=== PATIENT | male | born 1930 | race Caucasian/White ===

== ENCOUNTER 2018-12-23 07:10 | Emergency (ER) | payer MEDICARE ==
[2018-12-23 07:17] VITALS: RESP 18
--- NOTE | 2018-12-23 07:39 | ED ---
General Adult HPI - General Chief complaint: Recheck/Abnormal Lab/Rx Stated complaint: Labwork Recheck Time Seen by Provider: 12/23/18 07:30 Source: patient, RN notes reviewed Mode of arrival: wheelchair Limitations: no limitations - History of Present Illness Initial comments: Patient is a pleasant 88-year-old male presenting to the emergency Department with complaints of abnormal lab work. Patient states he had his blood drawn at the [facility] yesterday. Patient states he received a call last night that his labs were abnormal and to come to the hospital. Patient states he feels fine and has no new complaints. Patient does have chronic fatigue over the past several years that seems to be somewhat worsening. No chest pain or dyspnea. No pain at all. No confusion or isolated area of weakness. [facility] was contacted who had concerns regarding patient's potassium and platelet count and white blood cell count. - Related Data Home Medications Medication Instructions Recorded Confirmed Apixaban [Eliquis] 2.5 mg PO BID 12/23/18 12/23/18 Atenolol [Tenormin] 50 mg PO DAILY 12/23/18 12/23/18 Finasteride [Proscar] 5 mg PO DAILY 12/23/18 12/23/18 Magnesium Oxide [Mag-Ox] 250 mg PO DAILY 12/23/18 12/23/18 Spironolactone 50 mg PO DAILY 12/23/18 12/23/18 Tamsulosin HCl [Flomax] 0.4 mg PO DAILY 12/23/18 12/23/18 Allergies Allergy/AdvReac Type Severity Reaction Status Date / Time No Known Allergies Allergy Verified 12/23/18 07:39 Review of Systems ROS Statement: Those systems with pertinent positive or pertinent negative responses have been documented in the HPI. ROS Other: All systems not noted in ROS Statement are negative. Constitutional: Denies: fever Eyes: Denies: eye pain ENT: Denies: ear pain Respiratory: Denies: cough Cardiovascular: Denies: chest pain Endocrine: Reports: as per HPI, fatigue Gastrointestinal: Denies: abdominal pain Genitourinary: Denies: dysuria Musculoskeletal: Denies: back pain Skin: Denies: rash Neurological: Denies: weakness Past Medical History Past Medical History: Atrial Fibrillation, Hypertension History of Any Multi-Drug Resistant Organisms: None Reported Past Surgical History: Back Surgery, Hernia Repair, Joint Replacement, Orthopedic Surgery Past Psychological History: No Psychological Hx Reported Smoking Status: Former smoker Past Alcohol Use History: Occasional Past Drug Use History: None Reported General Exam Limitations: no limitations General appearance: alert, in no apparent distress Head exam: Present: atraumatic Eye exam: Present: normal appearance, PERRL ENT exam: Present: normal oropharynx Neck exam: Present: normal inspection Respiratory exam: Present: normal lung sounds bilaterally Cardiovascular Exam: Present: regular rate, normal rhythm GI/Abdominal exam: Present: soft. Absent: tenderness Extremities exam: Present: pedal edema (Trace bilateral). Absent: calf tenderness Neurological exam: Present: alert Psychiatric exam: Present: normal affect, normal mood Skin exam: Present: normal color Course Vital Signs 12/23/18 12/23/18 12/23/18 07:14 09:47 12:45 Temperature 98.0 F Pulse Rate 82 65 66 Respiratory 18 18 18 Rate Blood Pressure 113/63 106/63 108/49 O2 Sat by Pulse 100 99 97 Oximetry EKG Findings - EKG Comments: EKG Findings:: Sinus rhythm at 74. RI 112. QRS 122. QT 416. QTC 461. [place] indeterminate. Right bundle-branch block. No acute ST change. Medical Decision Making - Medical Decision Making Patient reevaluated and resting comfortably in bed and remained symptom-free. Case was earlier discussed with Dr. Renee who feels CBC changes are likely related with iron deficiency anemia and reactive thrombocytosis. Does recommend trying tibc, ferritin, and iron levels for him to follow up with and will follow up with patient. - Lab Data Result diagrams: 12/23/18 07:43 12/23/18 07:43 Lab Results 12/23/18 12/23/18 12/23/18 Range/Units 07:43 07:43 07:43 WBC 16.2 H (3.8-10.6) k/uL RBC 4.53 (4.30-5.90) m/uL Hgb 9.6 L (13.0-17.5) gm/dL Hct 32.3 L (39.0-53.0) % MCV 71.2 L (80.0-100.0) fL MCH 21.2 L (25.0-35.0) pg MCHC 29.8 L (31.0-37.0) g/dL RDW 16.1 H (11.5-15.5) % Plt Count 911 H (150-450) k/uL Neutrophils % 89 % Lymphocytes % 4 % Monocytes % 6 % Eosinophils % 0 % Basophils % 0 % Neutrophils # 14.3 H (1.3-7.7) k/uL Lymphocytes # 0.7 L (1.0-4.8) k/uL Monocytes # 1.0 (0-1.0) k/uL Eosinophils # 0.1 (0-0.7) k/uL Basophils # 0.0 (0-0.2) k/uL Hypochromasia Marked Anisocytosis Slight Microcytosis Moderate PT 10.4 (9.0-12.0) sec INR 1.0 (<1.2) APTT 27.6 (22.0-30.0) sec Sodium 134 L (137-145) mmol/L Potassium 5.7 H (3.5-5.1) mmol/L Chloride 99 (98-107) mmol/L Carbon Dioxide 24 (22-30) mmol/L Anion Gap 11 mmol/L BUN 19 (9-20) mg/dL Creatinine 0.80 (0.66-1.25) mg/dL Est GFR (CKD-EPI)AfAm >90 (>60 ml/min/1.73 sqM) Est GFR (CKD-EPI)NonAf 81 (>60 ml/min/1.73 sqM) Glucose 126 H (74-99) mg/dL Calcium 9.0 (8.4-10.2) mg/dL Magnesium 2.2 (1.6-2.3) mg/dL Total Bilirubin 0.4 (0.2-1.3) mg/dL AST 23 (17-59) U/L ALT 24 (21-72) U/L Alkaline Phosphatase 116 (38-126) U/L Total Protein 6.2 L (6.3-8.2) g/dL Albumin 3.0 L (3.5-5.0) g/dL Urine Color Urine Appearance (Clear) Urine pH (5.0-8.0) Ur Specific [place] (1.001-1.035) Urine Protein (Negative) Urine Glucose (UA) (Negative) Urine Ketones (Negative) Urine Blood (Negative) Urine Nitrite (Negative) Urine Bilirubin (Negative) Urine Urobilinogen (<2.0) mg/dL Ur Leukocyte Esterase (Negative) 12/23/18 Range/Units 12:17 WBC (3.8-10.6) k/uL RBC (4.30-5.90) m/uL Hgb (13.0-17.5) gm/dL Hct (39.0-53.0) % MCV (80.0-100.0) fL MCH (25.0-35.0) pg MCHC (31.0-37.0) g/dL RDW (11.5-15.5) % Plt Count (150-450) k/uL Neutrophils % % Lymphocytes % % Monocytes % % Eosinophils % % Basophils % % Neutrophils # (1.3-7.7) k/uL Lymphocytes # (1.0-4.8) k/uL Monocytes # (0-1.0) k/uL Eosinophils # (0-0.7) k/uL Basophils # (0-0.2) k/uL Hypochromasia Anisocytosis Microcytosis PT (9.0-12.0) sec INR (<1.2) APTT (22.0-30.0) sec Sodium (137-145) mmol/L Potassium (3.5-5.1) mmol/L Chloride (98-107) mmol/L Carbon Dioxide (22-30) mmol/L Anion Gap mmol/L BUN (9-20) mg/dL Creatinine (0.66-1.25) mg/dL Est GFR (CKD-EPI)AfAm (>60 ml/min/1.73 sqM) Est GFR (CKD-EPI)NonAf (>60 ml/min/1.73 sqM) Glucose (74-99) mg/dL Calcium (8.4-10.2) mg/dL Magnesium (1.6-2.3) mg/dL Total Bilirubin (0.2-1.3) mg/dL AST (17-59) U/L ALT (21-72) U/L Alkaline Phosphatase (38-126) U/L Total Protein (6.3-8.2) g/dL Albumin (3.5-5.0) g/dL Urine Color Yellow Urine Appearance Clear (Clear) Urine pH 6.5 (5.0-8.0) Ur Specific [place] 1.019 (1.001-1.035) Urine Protein Trace H (Negative) Urine Glucose (UA) Negative (Negative) Urine Ketones Negative (Negative) Urine Blood Negative (Negative) Urine Nitrite Negative (Negative) Urine Bilirubin Negative (Negative) Urine Urobilinogen <2.0 (<2.0) mg/dL Ur Leukocyte Esterase Negative (Negative) - Radiology Data Radiology results: image reviewed (Chest x-ray shows no acute process. Heart distant towards the right side of the chest. Previous x-ray reviewed.) Disposition Clinical Impression: Anemia Disposition: HOME SELF-CARE Condition: Stable Instructions (If sedation given, give patient instructions): Anemia (ED) Additional Instructions: Please follow-up with primary care physician and cuff turner, number provided within the next couple of days. Please have them review lab work. Return for fever, illness, weakness, worsening symptoms or other concerns. Is patient prescribed a controlled substance at d/c from ED?: No Referrals: [facility],Clinic [Primary Care Provider] - 1-2 days Estrada Lizarraga MD [STAFF PHYSICIAN] - 1-2 days Time of Disposition: 14:35
--- NOTE | 2018-12-23 08:22 | XR ---
EXAMINATION TYPE: XR chest 2V DATE OF EXAM: 12/23/2018 COMPARISON: 04/02/2012 HISTORY: Shortness of breath TECHNIQUE: Frontal and lateral views of the chest are obtained. FINDINGS: Scattered senescent parenchymal changes noted. Hyperinflation compatible with COPD. No evidence for infiltrate. No evidence for atelectasis. Heart size is stable. Mediastinal structures are stable and grossly unremarkable. No evidence for hilar prominence. Degenerative changes dorsal spine. IMPRESSION: 1. No evidence for acute pulmonary disease.
[2018-12-23 08:24] LABS: Anisocytosis Slight; Basophils % (A) 0 %; Eosinophils # (A) 0.1 k/uL (0-0.7); Eosinophils % (A) 0 %; HCT 32.3 % (39.0-53.0); HGB 9.6 gm/dL (13.0-17.5); Hypochromasia Marked; Lymphocytes # (A) 0.7 k/uL (1.0-4.8); Lymphocytes % (A) 4 %; MCH 21.2 pg (25.0-35.0); MCHC 29.8 g/dL (31.0-37.0); MCV 71.2 fL (80.0-100.0); Mean Platelet Volume 6.2; Microcytosis Moderate; Monocytes % (A) 6 %; Neutrophils # (A) 14.3 k/uL (1.3-7.7); Neutrophils % (A) 89 %; Platelet Count 911 k/uL (150-450); RBC 4.53 m/uL (4.30-5.90); RDW 16.1 % (11.5-15.5); WBC 16.2 k/uL (3.8-10.6)
[2018-12-23 08:35] LABS: ALT 24 U/L (21-72); AST 23 U/L (17-59); Alkaline Phosphatase 116 U/L (38-126); Anion Gap 11 mmol/L; Blood Urea Nitrogen 19 mg/dL (9-20); Carbon Dioxide 24 mmol/L (22-30); Chloride 99 mmol/L (98-107); Glucose 126 mg/dL (74-99); Magnesium 2.2 mg/dL (1.6-2.3); Potassium 5.7 mmol/L (3.5-5.1); Sodium 134 mmol/L (137-145); Total Bilirubin 0.4 mg/dL (0.2-1.3); Total Protein 6.2 g/dL (6.3-8.2)
[2018-12-23 08:39] LABS: Partial Thromboplastin Time 27.6 sec (22.0-30.0); Prothrombin Time 10.4 sec (9.0-12.0)
[2018-12-23] MEDS ORDERED: SODIUM CHLORIDE 0.9% 500 ML 500 ML IV STA ×2 (09:05→10:51)
[2018-12-23 12:40] LABS: Appearance,Urine Clear (Clear); Bilirubin,Urine Negative (Negative); Blood,Urine Negative (Negative); Color,Urine Yellow; Glucose,Urine (UA) Negative (Negative); Ketones,Urine Negative (Negative); Leukocyte Esterase,Urine Negative (Negative); Nitrite,Urine Negative (Negative); PH, Urine 6.5 (5.0-8.0); Protein,Urine Trace (Negative); Specific Gravity,Urine 1.019 (1.001-1.035); Urobilinogen,Urine <2.0 mg/dL (<2.0)
[2018-12-23 14:52] VITALS: BP 113/67; PULSE 74; TEMP 97.6
[2018-12-23 19:58] LABS: Iron Saturation 2.01 (15.00-50.00)
== END 2018-12-23 14:54 | disposition home or self-care (01) ==
LOC: EC 07:10
DX: D64.9 Anemia, unspecified (principal); I48.91 Unspecified atrial fibrillation; I10 Essential (primary) hypertension; Z96.89 Presence of other specified functional implants; Z87.891 Personal history of nicotine dependence; Z79.01 Long term (current) use of anticoagulants; Z79.899 Other long term (current) drug therapy
CPT/HCPCS: 36415; 51701; 71046; 80053; 81003; 82728; 83540; 83550; 83735; 85025; 85610; 85730; 93005; 96360; 96361; 99284

== ENCOUNTER 2019-01-15 10:20 | Inpatient (IN) | payer OTHER, MEDICARE ==
[2019-01-15] MEDS ORDERED: IPRATROPIUM-ALBUTEROL 3 ML NEB INHALATION STA (10:50)
[2019-01-15 11:14] LABS: Anisocytosis Slight; Basophils % (A) 0 %; Eosinophils # (A) 0.2 k/uL (0-0.7); Eosinophils % (A) 1 %; HCT 28.8 % (39.0-53.0); Hypochromasia Marked; Lymphocytes % (A) 8 %; MCH 19.5 pg (25.0-35.0); MCHC 27.7 g/dL (31.0-37.0); MCV 70.5 fL (80.0-100.0); Mean Platelet Volume 6.3; Microcytosis Moderate; Monocytes # (A) 0.8 k/uL (0-1.0); Monocytes % (A) 6 %; Neutrophils # (A) 11.6 k/uL (1.3-7.7); Neutrophils % (A) 85 %; Platelet Count 782 k/uL (150-450); Poikilocytosis Slight; RBC 4.08 m/uL (4.30-5.90); RDW 16.1 % (11.5-15.5); WBC 13.7 k/uL (3.8-10.6)
--- NOTE | 2019-01-15 11:25 | ED ---
Recheck HPI - General Chief Complaint: Recheck/Abnormal Lab/Rx Stated Complaint: low iron-sent by Time Seen by Provider: 01/15/19 10:41 Source: patient, RN notes reviewed Mode of arrival: wheelchair Limitations: no limitations - History of Present Illness Initial Comments: This is a 88-year-old male who presents with complaints of shortness of breath exertional dyspnea. He states his been on for quite a while he was apparently here 2 weeks ago with similar problem. He states feeling well for 3 or 4 feet before he gets short of breath he has a stop. Does have chronic atrial fibrillation. He states his iron is low based on a blood test on the [place] [facility] in [place]. He is not exactly recall the number thinks it was 5. He denies any fevers chills nausea vomiting sweats no overt chest pain no increased edema to his lower extremity above the usual health that he has. - Related Data Home Medications Medication Instructions Recorded Confirmed Apixaban [Eliquis] 2.5 mg PO BID 12/23/18 01/15/19 Atenolol [Tenormin] 50 mg PO DAILY 12/23/18 01/15/19 Finasteride [Proscar] 5 mg PO DAILY 12/23/18 01/15/19 Magnesium Oxide [Mag-Ox] 250 mg PO DAILY 12/23/18 01/15/19 Spironolactone 50 mg PO DAILY 12/23/18 01/15/19 Tamsulosin HCl [Flomax] 0.4 mg PO DAILY 12/23/18 01/15/19 Ascorbic Acid [Vitamin C] 250 mg PO BID 01/15/19 01/15/19 Cholecalciferol (Vitamin D3) 2,000 unit PO DAILY 01/15/19 01/15/19 [Vitamin D3] Dofetilide [Tikosyn] 125 mcg PO Q12HR 01/15/19 01/15/19 Ferrous Sulfate [Feosol] 325 mg PO BID 01/15/19 01/15/19 Warfarin [Coumadin] 5 mg PO DAILY 01/15/19 01/15/19 Allergies Allergy/AdvReac Type Severity Reaction Status Date / Time No Known Allergies Allergy Verified 01/15/19 11:48 Review of Systems ROS Statement: Those systems with pertinent positive or pertinent negative responses have been documented in the HPI. ROS Other: All systems not noted in ROS Statement are negative. Past Medical History Past Medical History: Atrial Fibrillation, Hypertension History of Any Multi-Drug Resistant Organisms: None Reported Past Surgical History: Back Surgery, Hernia Repair, Joint Replacement, Orthopedic Surgery Past Psychological History: No Psychological Hx Reported Smoking Status: Former smoker Past Alcohol Use History: Occasional Past Drug Use History: None Reported General Exam - General Exam Comments Initial Comments: Is a well-developed well-nourished awake alert oriented 3 male Limitations: no limitations General appearance: alert, anxious Head exam: Present: atraumatic, normocephalic, normal inspection Eye exam: Present: normal appearance, PERRL, EOMI. Absent: scleral icterus, conjunctival injection, periorbital swelling ENT exam: Present: mucous membranes dry Neck exam: Present: normal inspection. Absent: tenderness, meningismus, lymphadenopathy Respiratory exam: Present: normal lung sounds bilaterally. Absent: respiratory distress, wheezes, rales, rhonchi, stridor Cardiovascular Exam: Present: irregular rhythm. Absent: systolic murmur, diastolic murmur, rubs, gallop, clicks GI/Abdominal exam: Present: soft, normal bowel sounds. Absent: distended, tenderness, guarding, rebound, rigid Rectal exam: Present: deferred Extremities exam: Present: normal inspection, full ROM, normal capillary refill, pedal edema. Absent: tenderness, joint swelling, calf tenderness Back exam: Present: normal inspection Neurological exam: Present: alert, oriented X3, CN II-XII intact Psychiatric exam: Present: normal affect, normal mood Skin exam: Present: warm, dry, intact, normal color. Absent: rash Course Vital Signs 01/15/19 01/15/19 01/15/19 10:34 11:06 11:16 Temperature 98.2 F Pulse Rate 68 86 87 Respiratory 24 Rate Blood Pressure 95/54 O2 Sat by Pulse 100 Oximetry 01/15/19 12:35 Temperature 98.1 F Pulse Rate 64 Respiratory 18 Rate Blood Pressure 96/49 O2 Sat by Pulse 100 Oximetry - Reevaluation(s) Reevaluation #1: 01/15/19 13:34 Evaluation after the treatment reveals some improvement he still short of breath with any exertion but feels better at rest. Medical Decision Making - Medical Decision Making Patient will be admitted I did discuss the case with Dr. Silva who did come the emergency department see the patient. - Lab Data Result diagrams: 01/15/19 10:58 01/15/19 10:58 Lab Results 01/15/19 01/15/19 01/15/19 Range/Units 10:58 10:58 10:58 WBC 13.7 H (3.8-10.6) k/uL RBC 4.08 L (4.30-5.90) m/uL Hgb 8.0 L D (13.0-17.5) gm/dL Hct 28.8 L (39.0-53.0) % MCV 70.5 L (80.0-100.0) fL MCH 19.5 L (25.0-35.0) pg MCHC 27.7 L (31.0-37.0) g/dL RDW 16.1 H (11.5-15.5) % Plt Count 782 H (150-450) k/uL Neutrophils % 85 % Lymphocytes % 8 % Monocytes % 6 % Eosinophils % 1 % Basophils % 0 % Neutrophils # 11.6 H (1.3-7.7) k/uL Lymphocytes # 1.0 (1.0-4.8) k/uL Monocytes # 0.8 (0-1.0) k/uL Eosinophils # 0.2 (0-0.7) k/uL Basophils # 0.0 (0-0.2) k/uL Hypochromasia Marked Poikilocytosis Slight Anisocytosis Slight Microcytosis Moderate PT (9.0-12.0) sec INR (<1.2) APTT (22.0-30.0) sec Sodium 132 L (137-145) mmol/L Potassium 4.4 (3.5-5.1) mmol/L Chloride 101 (98-107) mmol/L Carbon Dioxide 21 L (22-30) mmol/L Anion Gap 10 mmol/L BUN 19 (9-20) mg/dL Creatinine 0.77 (0.66-1.25) mg/dL Est GFR (CKD-EPI)AfAm >90 (>60 ml/min/1.73 sqM) Est GFR (CKD-EPI)NonAf 82 (>60 ml/min/1.73 sqM) Glucose 125 H (74-99) mg/dL Calcium 8.5 (8.4-10.2) mg/dL Magnesium 2.2 (1.6-2.3) mg/dL Total Bilirubin 0.4 (0.2-1.3) mg/dL AST 20 (17-59) U/L ALT 21 (21-72) U/L Alkaline Phosphatase 103 (38-126) U/L Troponin I (0.000-0.034) ng/mL NT-Pro-B Natriuret Pep 1320 pg/mL Total Protein 5.7 L (6.3-8.2) g/dL Albumin 2.6 L (3.5-5.0) g/dL 01/15/19 01/15/19 Range/Units 10:58 10:58 WBC (3.8-10.6) k/uL RBC (4.30-5.90) m/uL Hgb (13.0-17.5) gm/dL Hct (39.0-53.0) % MCV (80.0-100.0) fL MCH (25.0-35.0) pg MCHC (31.0-37.0) g/dL RDW (11.5-15.5) % Plt Count (150-450) k/uL Neutrophils % % Lymphocytes % % Monocytes % % Eosinophils % % Basophils % % Neutrophils # (1.3-7.7) k/uL Lymphocytes # (1.0-4.8) k/uL Monocytes # (0-1.0) k/uL Eosinophils # (0-0.7) k/uL Basophils # (0-0.2) k/uL Hypochromasia Poikilocytosis Anisocytosis Microcytosis PT 10.3 (9.0-12.0) sec INR 1.0 (<1.2) APTT 24.1 (22.0-30.0) sec Sodium (137-145) mmol/L Potassium (3.5-5.1) mmol/L Chloride (98-107) mmol/L Carbon Dioxide (22-30) mmol/L Anion Gap mmol/L BUN (9-20) mg/dL Creatinine (0.66-1.25) mg/dL Est GFR (CKD-EPI)AfAm (>60 ml/min/1.73 sqM) Est GFR (CKD-EPI)NonAf (>60 ml/min/1.73 sqM) Glucose (74-99) mg/dL Calcium (8.4-10.2) mg/dL Magnesium (1.6-2.3) mg/dL Total Bilirubin (0.2-1.3) mg/dL AST (17-59) U/L ALT (21-72) U/L Alkaline Phosphatase (38-126) U/L Troponin I <0.012 (0.000-0.034) ng/mL NT-Pro-B Natriuret Pep pg/mL Total Protein (6.3-8.2) g/dL Albumin (3.5-5.0) g/dL - EKG Data -: EKG Interpreted by Me (Ago regular rhythm a 71 QRS 124 QT since QTC 460/452, right bundle branch ) - Radiology Data Radiology results: report reviewed (Did review the imaging and report no acute findings.), image reviewed Disposition Clinical Impression: CHF (congestive heart failure), COPD (chronic obstructive pulmonary disease), Chronic atrial fibrillation, Chronic anemia Disposition: ADMITTED IP TO THIS HOSP Condition: Serious Referrals: [facility],Clinic [Primary Care Provider] - 1-2 days
[2019-01-15 11:26] LABS: ALT 21 U/L (21-72); AST 20 U/L (17-59); Albumin 2.6 g/dL (3.5-5.0); Alkaline Phosphatase 103 U/L (38-126); Anion Gap 10 mmol/L; Blood Urea Nitrogen 19 mg/dL (9-20); Calcium 8.5 mg/dL (8.4-10.2); Carbon Dioxide 21 mmol/L (22-30); Chloride 101 mmol/L (98-107); Glucose 125 mg/dL (74-99); Magnesium 2.2 mg/dL (1.6-2.3); Potassium 4.4 mmol/L (3.5-5.1); Sodium 132 mmol/L (137-145); Total Bilirubin 0.4 mg/dL (0.2-1.3); Total Protein 5.7 g/dL (6.3-8.2)
--- NOTE | 2019-01-15 11:33 | XR ---
EXAMINATION TYPE: XR chest 2V DATE OF EXAM: 01/15/2019 COMPARISON: 12/23/2018 TECHNIQUE: PA and lateral views submitted. HISTORY: Shortness of breath FINDINGS: The lungs are clear and there is no pneumothorax, pleural effusion, or focal pneumonia. Arthropathy of the shoulders. Hypertrophic and degenerative change of the spine. No overt failure. Heart is enla rged. IMPRESSION: 1. No acute process.
[2019-01-15 11:38] LABS: Partial Thromboplastin Time 24.1 sec (22.0-30.0); Prothrombin Time 10.3 sec (9.0-12.0)
[2019-01-15] MEDS ORDERED: FUROSEMIDE 10 MG/ML 4 ML VIAL IV STA (13:35)
--- NOTE | 2019-01-15 14:58 | P.HPIM ---
History of Present Illness 88-year-old pleasant gentleman with known history of atrial fibrillation came in with the shortness of breath going on for about 3 months. Patient was able to walk 100 feet now unable to walk about 20 feet. Patient is morbidly obese and was never tested for sleep apnea doesn't have any history of heart failure. All the workup here is negative patient has minimally elevated BNP of 400 doesn't have any elevated JVD doesn't have any significant pedal edema. Chest x-ray did not show any pneumonic process patient denied any cough denied any recent smoking history had remote smoking history about 50 years ago. Doesn't have any history of COPD. He shortness of breath etiology of his shortness of breath is not clear probably due to restrictive lung disease sleep apnea generalized deconditioning and aging other contributing factors. Although it's reasonable to give him IV Lasix and watch for any improvement, since his serum sodium is low at cannot continue IV Lasix patient was given a dose of Lasix patient is also on Aldactone which will be held as well because of his hyponatremia which I believe is hypovolemic hyponatremia there is no evidence of heart failure exacerbation clinically. Cardiology and pulmonology will be consulted. 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 Patient's d-dimer is little bit elevated patient also is on Eliquis leave the decision of obtaining a CAT scan to rule out PE for pulmonology. Although CAT scan may help us with other etiologies of his shortness of breath. Patient is saturating 100% on 2 L of oxygen may not require oxygen. Patient does get up from sleep but not from shortness of breath no clear-cut paroxysmal nocturnal dyspnea because of his obesity patient cannot lie flat Past Medical History Past Medical History: Atrial Fibrillation, Hypertension History of Any Multi-Drug Resistant Organisms: None Reported Past Surgical History: Back Surgery, Hernia Repair, Joint Replacement, Orthopedic Surgery Past Psychological History: No Psychological Hx Reported Smoking Status: Former smoker Past Alcohol Use History: Occasional Past Drug Use History: None Reported Medications and Allergies Home Medications Medication Instructions Recorded Confirmed Type Apixaban [Eliquis] 2.5 mg PO BID 12/23/18 01/15/19 History Atenolol [Tenormin] 50 mg PO DAILY 12/23/18 01/15/19 History Finasteride [Proscar] 5 mg PO DAILY 12/23/18 01/15/19 History Magnesium Oxide [Mag-Ox] 250 mg PO DAILY 12/23/18 01/15/19 History Spironolactone 50 mg PO DAILY 12/23/18 01/15/19 History Tamsulosin HCl [Flomax] 0.4 mg PO DAILY 12/23/18 01/15/19 History Ascorbic Acid [Vitamin C] 250 mg PO BID 01/15/19 01/15/19 History Cholecalciferol (Vitamin D3) 2,000 unit PO DAILY 01/15/19 01/15/19 History [Vitamin D3] Dofetilide [Tikosyn] 125 mcg PO Q12HR 01/15/19 01/15/19 History Ferrous Sulfate [Feosol] 325 mg PO BID 01/15/19 01/15/19 History Warfarin [Coumadin] 5 mg PO DAILY 01/15/19 01/15/19 History Allergies Allergy/AdvReac Type Severity Reaction Status Date / Time No Known Allergies Allergy Verified 01/15/19 11:48 Physical Exam Vitals: Vital Signs Temp Pulse Resp BP Pulse Ox 01/15/19 14:44 98.1 F 74 16 98/48 100 01/15/19 12:35 98.1 F 64 18 96/49 100 01/15/19 11:16 87 01/15/19 11:06 86 01/15/19 10:34 98.2 F 68 24 95/54 100 Intake and Output 01/14/19 01/15/19 01/15/19 22:59 06:59 14:59 Other: Weight 105.687 kg PHYSICAL EXAMINATION: GENERAL: The patient is alert and oriented x3, not in any acute distress. Morbidly obese HEENT: Pupils are round and equally reacting to light. EOMI. No scleral icterus. No conjunctival pallor. Normocephalic, atraumatic. No pharyngeal erythema. No thyromegaly. CARDIOVASCULAR: S1 and S2 present. No murmurs, rubs, or gallops. PULMONARY: Chest is clear to auscultation, no wheezing or crackles. ABDOMEN: Soft, nontender, nondistended, normoactive bowel sounds. No palpable organomegaly. MUSCULOSKELETAL: No joint swelling or deformity. EXTREMITIES: No cyanosis, clubbing, or pedal edema. NEUROLOGICAL: Gross neurological examination did not reveal any focal deficits. SKIN: No rashes. Results CBC & Chem 7: 01/15/19 10:58 01/15/19 10:58 Labs: Abnormal Lab Results - Last 24 Hours (Table) 01/15/19 01/15/19 01/15/19 Range/Units 10:58 10:58 10:58 WBC 13.7 H (3.8-10.6) k/uL RBC 4.08 L (4.30-5.90) m/uL Hgb 8.0 L D (13.0-17.5) gm/dL Hct 28.8 L (39.0-53.0) % MCV 70.5 L (80.0-100.0) fL MCH 19.5 L (25.0-35.0) pg MCHC 27.7 L (31.0-37.0) g/dL RDW 16.1 H (11.5-15.5) % Plt Count 782 H (150-450) k/uL Neutrophils # 11.6 H (1.3-7.7) k/uL D-Dimer 0.83 H (<0.60) mg/L FEU Sodium 132 L (137-145) mmol/L Carbon Dioxide 21 L (22-30) mmol/L Glucose 125 H (74-99) mg/dL Total Protein 5.7 L (6.3-8.2) g/dL Albumin 2.6 L (3.5-5.0) g/dL Assessment and Plan Plan: -Shortness of breath etiology is unclear: Patient has progressive shortness of breath rather than acute new onset shortness of breath will obtain a CT angios to rule out pulmonary embolism which can also help with us to find out other etiologies although believe his progressive shortness of breath which has been going on for a few months is related to his aging, restrictive lung disease obstructive sleep apnea. There is no evidence of heart failure exacerbation and pneumonia at this time. Pulmonology and cardiology were consulted as mentioned above -Atrial fibrillation presently rate controlled patient does have chronic A. fib continue with the his home medications for this and anticoagulation will be continued -Hyponatremia secondary to Aldactone patient was also given Lasix and he asked that will be discontinued -Benign prostatic hypertrophy -Morbid obesity possibility of sleep apnea patient was never diagnosed with this.
[2019-01-15] MEDS: SODIUM CHLORIDE 0.9% 1,000 ML IV SCH (15:36)
[2019-01-15] MEDS: IPRATROPIUM-ALBUTEROL 3 ML NEB INHALATION SCH ×3 (16:19→23:56)
--- NOTE | 2019-01-15 19:24 | CT ---
EXAMINATION TYPE: CT chest angio for PE with contrast and with 3-D reconstruction renderings. DATE OF EXAM: 01/15/2019 COMPARISON: None HISTORY: SOB CT DLP: 561.5 mGycm Automated exposure control for dose reduction was used. CONTRAST: CT Chest for pulmonary embolism performed with with IV Contrast, patient injected with 100 mL of Isovue 370. 3-D reconstructions. FINDINGS: LUNGS AND AIRWAYS AND PLEURAL SPACES: The lungs are grossly clear, there is no concerning parenchymal mass or nodule identified. There is no pleural effusion or pneumothorax seen. The tracheobronchia l tree is patent. MEDIASTINUM: There is satisfactory enhancement of the pulmonary artery and its branches, there is no CT evidence for pulmonary embolism. No acute aortic findings. There are no greater than 1 cm hilar or mediastinal lymph nodes. There is no cardiomegaly or pericardial effusion. OTHER: No additional significant abnormality is seen. IMPRESSION: NO ACUTE PROCESS.
[2019-01-15] MEDS: APIXABAN 2.5 MG TABLET PO SCH (20:37)
[2019-01-15] MEDS: ASCORBIC ACID 500 MG TAB PO SCH (20:37)
[2019-01-15] MEDS: FERROUS SULFATE 325 MG TAB PO SCH (20:37)
[2019-01-15] MEDS: DOFETILIDE 125 MCG CAP PO SCH (20:37)
[2019-01-15] MEDS ORDERED: FUROSEMIDE 10 MG/ML 4 ML VIAL IV SCH (21:00)
[2019-01-16] MEDS: IPRATROPIUM-ALBUTEROL 3 ML NEB INHALATION SCH ×6 (03:58→23:30)
[2019-01-16] MEDS ORDERED: DEXTROSE 5% IN WATER 100 ML with AMIODARONE 150 MG IV ONE ×2 (04:00→16:35)
[2019-01-16] MEDS ORDERED: AMIODARONE 360 MG in DEXTROSE 5% IN WATER 200 ML IV ONE ×4 (04:00→16:49)
[2019-01-16 08:08] LABS: Anion Gap 11 mmol/L; Blood Urea Nitrogen 20 mg/dL (9-20); Calcium 8.6 mg/dL (8.4-10.2); Carbon Dioxide 22 mmol/L (22-30); Chloride 96 mmol/L (98-107); Glucose 117 mg/dL (74-99); Potassium 4.7 mmol/L (3.5-5.1); Sodium 129 mmol/L (137-145)
[2019-01-16] MEDS ORDERED: SPIRONOLACTONE 25 MG TAB PO SCH (09:00)
[2019-01-16] MEDS: DOFETILIDE 125 MCG CAP PO SCH (09:54)
[2019-01-16] MEDS ORDERED: AMIODARONE 300 MG in DEXTROSE 5% IN WATER 250 ML IV SCH ×2 (10:00)
[2019-01-16] MEDS: FERROUS SULFATE 325 MG TAB PO SCH ×2 (10:04→20:46)
[2019-01-16] MEDS: MAGNESIUM OXIDE 400 MG TAB PO SCH (10:04)
[2019-01-16] MEDS: FINASTERIDE 5 MG TAB PO SCH (10:04)
[2019-01-16] MEDS: ASCORBIC ACID 500 MG TAB PO SCH ×2 (10:04→20:46)
[2019-01-16] MEDS: CHOLECALCIFEROL 1,000 UNIT TAB PO SCH (10:04)
[2019-01-16] MEDS: APIXABAN 2.5 MG TABLET PO SCH (10:04)
[2019-01-16] MEDS: ATENOLOL 50 MG TAB PO SCH (10:04)
[2019-01-16] MEDS: TAMSULOSIN 0.4 MG CAP.ER.24H PO SCH (10:04)
[2019-01-16] MEDS: SODIUM CHLORIDE 0.9% 1,000 ML IV SCH ×3 (12:27→23:50)
--- NOTE | 2019-01-16 13:27 | P.CNPUL ---
History of Present Illness Consult date: 01/16/19 Requesting physician: Ger Silva Reason for consult: dyspnea Chief complaint: shortness of breath History of present illness: this is an 88-year-old white male with history of chronic atrial fibrillation, maintained on multiple cardiac meds including Coumadin, and beta blockers.however his Coumadin was switched few months ago to eliquis,, and the patient has been quite compliant with it. Patient presented to the hospital with 3 month history of increased shortness of breath, unable to walk more than 20 feet without significant dyspnea. Patient denies any cough, no wheezing, no fever, no chills, no hemoptysis, no chest pain. Patient used to be a smoker, however he quit over 15 years ago. And he had no previous history of documented COPD or asthma.workup since admission included a chest x-ray which was relatively normal, and a CT angiogram of the chest which was basically normal. No evidence of thromboembolic disease. In addition to his atrial fibrillation, patient was noted to be anemic,hemoglobin was 8.0.patient denies any melena, no hematemesis, denies any previous history of GI bleeding. He doesn't ever recall having a colonoscopy or EGD for workup of anemia. But he was told by the [place] [facility] that he may have anemia and he was placed on iron. But again no di agnostic workup was initiated. As a matter of fact his anemia is clearly suspicious for iron deficiency anemia, and it is most likely secondary to GI blood losses unless for otherwise. I did recommend GI consultation, and I did recommend stool to be sent for occult blood.during my evaluation, the patient denied any headache, no blurred vision, no dizziness. Denies any cough no wheezing no shortness of breath at rest, but he does have chronic dyspnea on exertion over the last 3 months. Denied any nausea vomiting abdominal pain melena or hematemesis. Denied any dysuria frequency or urgency. Review of Systems 14 point review of systems were obtained, please refer to pertinent positives in HPI, otherwise remaining systems are negative Past Medical History Past Medical History: Atrial Fibrillation, Hypertension Additional Past Medical History / Comment(s): Chronic fatigue for years, chronic Afib, pt denies prior hx of CHF, iron deficiency anemia, bilateral tinnitis, BPH, occasional low back pain and past sciatica, double vision L eye after lens implant "slipped". History of Any Multi-Drug Resistant Organisms: None Reported Past Surgical History: Back Surgery, Cholecystectomy, Hernia Repair, Joint Replacement, Orthopedic Surgery, Tonsillectomy Additional Past Surgical History / Comment(s): Low back surgery, 2012 cardiac cath-normal, umbilical hernia repair, total L knee arthroplasty, bilateral cataract removals with lens implants, colonoscopy with benign polypectomy. Past Anesthesia/Blood Transfusion Reactions: No Reported Reaction Smoking Status: Former smoker - Past Family History Father Family Medical History: Cancer Additional Family Medical History / Comment(s): Father of lung cancer in his 70s. He was a smoker. Mother Family Medical History: No Reported History Additional Family Medical History / Comment(s): Mother was healthy and lived to be 89yrs old. Medications and Allergies Home Medications Medication Instructions Recorded Confirmed Type Apixaban [Eliquis] 2.5 mg PO BID 12/23/18 01/15/19 History Atenolol [Tenormin] 50 mg PO DAILY 12/23/18 01/15/19 History Finasteride [Proscar] 5 mg PO DAILY 12/23/18 01/15/19 History Magnesium Oxide [Mag-Ox] 250 mg PO DAILY 12/23/18 01/15/19 History Spironolactone 50 mg PO DAILY 12/23/18 01/15/19 History Tamsulosin HCl [Flomax] 0.4 mg PO DAILY 12/23/18 01/15/19 History Ascorbic Acid [Vitamin C] 250 mg PO BID 01/15/19 01/15/19 History Cholecalciferol (Vitamin D3) 2,000 unit PO DAILY 01/15/19 01/15/19 History [Vitamin D3] Dofetilide [Tikosyn] 125 mcg PO Q12HR 01/15/19 01/15/19 History Ferrous Sulfate [Feosol] 325 mg PO BID 01/15/19 01/15/19 History Allergies Allergy/AdvReac Type Severity Reaction Status Date / Time No Known Allergies Allergy Verified 01/15/19 11:48 Physical Exam Vitals: Vital Signs Temp Pulse Pulse Resp BP BP Pulse Ox 01/16/19 13:06 115 H 01/16/19 12:52 110 H 01/16/19 12:00 153 H 107/55 01/16/19 11:36 107/55 01/16/19 10:23 91/58 03/09/19 09:00 100 01/16/19 08:47 110 H 98 01/16/19 08:00 98.0 F 131 H 22 151/91 92 L 01/16/19 05:30 133 H 93/51 01/16/19 05:15 130 H 84/54 01/16/19 05:00 140 H 81/51 01/16/19 04:45 136 H 91/59 01/16/19 04:30 138 H 81/53 01/16/19 04:25 144 H 83/52 01/16/19 04:09 82 01/16/19 03:59 82 01/16/19 03:30 97.6 F 136 H 18 89/55 98 01/16/19 00:06 82 01/15/19 23:57 80 01/15/19 23:00 97.8 F 98 18 92/55 98 01/15/19 21:17 80 01/15/19 21:04 84 01/15/19 20:00 98.0 F 70 18 99/52 98 01/15/19 16:30 85 01/15/19 16:19 84 100 01/15/19 16:00 97.9 F 77 18 106/68 100 01/15/19 14:44 98.1 F 74 16 98/48 100 Intake and Output 01/15/19 01/16/19 01/16/19 22:59 06:59 14:59 Intake Total 240 220 Output Total 400 600 475 Balance -160 -600 -255 Intake: Oral 240 220 Output: Urine 400 600 475 Other: # Voids 3 Weight 105.7 kg Physical Exam: Revealed an 88-year-old white male very pleasant, in no distress, daughter is at bedside. Head: Atraumatic normocephalic. HEENT:[Neck is supple.] [No neck masses.] [No thyromegaly.] [No JVD.]PERRLA, EOMI, no icterus. Chest: [Clear throughout, no crackles, no rhonchi, no wheezes.] Cardiac Exam: [irregular irregular rhythm.Normal S1 and S2, no S3 gallop, 2/6 systolic murmur thought the precordium. Abdomen: [Soft, nontender, no megaly, no rebound, no guarding, normal bowel sounds.] Extremities: [No clubbing, no edema, no cyanosis.] Neurological Exam: [No focal neurologic deficit.]alert oriented 3. psychiatric: Normal mood affect and mental status examination. Skin: No rashes. Lymphatics: No lymphadenopathy. Musculoskeletal: No deformities, no limitations in range of motion. Results - Laboratory Findings CBC and BMP: 01/15/19 10:58 01/16/19 06:51 PT/INR, D-dimer PT 10.3 sec (9.0-12.0) 01/15/19 10:58 INR 1.0 (<1.2) 01/15/19 10:58 D-Dimer 0.83 mg/L FEU (<0.60) H 01/15/19 10:58 Abnormal lab findings: Abnormal Labs 01/15/19 01/15/19 01/15/19 10:58 10:58 10:58 WBC 13.7 H RBC 4.08 L Hgb 8.0 L D Hct 28.8 L MCV 70.5 L MCH 19.5 L MCHC 27.7 L RDW 16.1 H Plt Count 782 H Neutrophils # 11.6 H D-Dimer 0.83 H Sodium 132 L Chloride Carbon Dioxide 21 L Glucose 125 H Total Protein 5.7 L Albumin 2.6 L 01/16/19 06:51 WBC RBC Hgb Hct MCV MCH MCHC RDW Plt Count Neutrophils # D-Dimer Sodium 129 L Chloride 96 L Carbon Dioxide Glucose 117 H Total Protein Albumin - Diagnostic Findings Chest x-ray: image reviewed (as noted in HPI.) CT scan - chest: image reviewed (as noted in HPI.) Assessment and Plan Assessment: impression: 1 chronic shortness of breath secondary to atrial fibrillation and anemia. 2 suspect iron deficiency anemia, and chronic GI blood losses, most likely related to his chronic anticoagulation therapy. 3benign essential hypertension. Recommendation: Patient was reassured about his pulmonary status, I strongly doubt any underlying COPD, however this could be addressed on an outpatient basis by doing full PFT on outpatient basis. I believe his shortness of breath is related to iron deficiency anemia which needs further workup, I also believe his shortness of breath is related to underlying atrial fibrillation, and possibly sometimes RVR. Hence I have recommended GI evaluation, patient will likely benefit from having GI workup including colonoscopy and possibly EGD. In the meantime start patient on Protonix, decision as to whether to continue anticoagulation therapy should be decided upon by gastroenterology. We'll cont inue to follow on when necessary basis. Time with Patient: Greater than 30
--- NOTE | 2019-01-16 13:31 | P.CRDCN ---
History of Present Illness History of present illness: This is a pleasant 88 showed male past medical history significant for atrial fibrillation, nonischemic cardiomyopathy, iron deficiency anemia and hypertension. He follows in the office with Dr. Lai. He states he received a call from the [facility] clinic advising him to come to the hospital secondary to outpatient hemoglobin value of 5.0. Upon arrival to the emergency department repeat hemoglobin level was found to be 8. He was subsequently admitted for acute exacerbation of heart failure secondary to lower extremity edema and dyspnea over the previous few months. He was given a dose of IV Lasix. Overnight he went into atrial fibrillation with rapid ventricular response and was initiated on an amiodarone drip. He continues with atrial fibrillation with a variable rate. He denies symptoms of chest discomfort, dizziness or palpitations. He continues to complain of mild exertional shortness of breath. He denies any active bleeding. EKG on arrival reveals sinus mechanism with a bifascicular block, left anterior fascicular and right bundle branch as well as PVCs. Chest x-ray is negative for an acute cardiopulmonary process. CT chest negative for PE. Laboratory data reviewed, WBC 13.7, hemoglobin 8, platelets 782, d-dimer 0.83, sodium 132 repeat this morning 129, potassium 4.7, creatinine 0.78, magnesium 2.2, cardiac enzymes negative 3, NT proBNP 1320. Current cardiac medications include Tikosyn 125 mcg BID, Eliquis 2.5 mg twice a day, atenolol 50 mg daily, Aldactone 50 mg daily. Most recent echocardiogram obtained in the office April 2018 reveals impaired left ventricular systolic function with ejection fraction 45%, mild mitral regurgitation and moderate tricuspid regurgitation. At the time of my exam: CONSTITUTIONAL: Denies fever. Denies chills. EYES: Denies blurred vision. Denies vision changes. Denies eye pain. EARS, NOSE, MOUTH & THROAT: Denies headache. Denies sore throat. Denies ear pain. CARDIOVASCULAR: Denies chest pain. Denies shortness of breath. Denies orthopnea. Denies PND. Denies palpitations. RESPIRATORY: Denies cough. GASTROINTESTINAL: Denies abdominal pain. Denies diarrhea. Denies constipation. Denies nausea. Denies vomiting. MUSCULOSKELETAL: Denies myalgias. INTEGUMENTARY: Denies pruitis. Denies rash. NEUROLOGIC: Denies numbness. Denies tingling. Denies weakness. PSYCHIATRIC: Denies anxiety. Denies depression. ENDOCRINE: Denies fatigue. Denies weight change. Denies polydipsia. Denies polyurina. GENITOURINARY: Denies burning, hematuria or urgency with micturation. HEMATOLOGIC: Denies history of anemia. Denies bleeding. Blood pressure 107/55 heart rate 115 afebrile maintaining oxygen saturation GENERAL: This is a 88-year-old male in no apparent distress at the time of my examination. HEENT: Head is atraumatic, normocephalic. Pupils are equal, round. Sclerae anicteric. Conjunctivae are clear. Mucous membranes of the mouth are moist. Neck is supple. There is no jugular venous distention. No carotid bruit is heard. LUNGS: Clear to auscultation no wheezes, rales or rhonchi. No chest wall tenderness is noted on palpation or with deep breathing. HEART: Irregular rate and rhythm with systolic ejectio murmur at the base, no rubs or gallops. S1 and S2 heard. ABDOMEN: Soft, nontender. Bowel sounds are heard. No organomegaly noted. EXTREMITIES: 1+ bilateral lower extremity pitting edema and no calf tenderness noted. VASCULAR: Radial and dorsalis pedis pulses palpated, no evidence of clubbing. NEUROLOGIC: Patient is awake, alert and oriented x3. ASSESSMENT Acute anemia Leukocytosis Thrombocythemia Chroinc atrial firbillation with rapid ventricular response, maintained on tikosyn at home Hypertension Non-ischemic cardiomyopathy Chronic systolic heart failure, currently euvolemic PLAN Hold eliquis and requent GI evaluation for anemia. Anemia probably the reason for his shorntess of breath. Clinically euvolemic from a cardiac perspective. Also he could be unknowingly going in and out of atrial fibrillation at home since he cannot feel the palpitations. Discontinue tikosyn and continue amiodarone infusion. May increase atenolol as his blood pressure tolerates if he continues to have rapid heart rates. Obtain 2D echocardiogram and doppler study to assess cardiac structure and fun citon. Check TSH. Further recommendations to follow. Thank you kindly for this conslutation. Nurse Practitioner note has been reviewed, I agree with a documented findings and plan of care. Patient was seen and examined. Past Medical History Past Medical History: Atrial Fibrillation, Hypertension Additional Past Medical History / Comment(s): Chronic fatigue for years, chronic Afib, pt denies prior hx of CHF, iron deficiency anemia, bilateral tinnitis, BPH, occasional low back pain and past sciatica, double vision L eye after lens implant "slipped". History of Any Multi-Drug Resistant Organisms: None Reported Past Surgical History: Back Surgery, Cholecystectomy, Hernia Repair, Joint Replacement, Orthopedic Surgery, Tonsillectomy Additional Past Surgical History / Comment(s): Low back surgery, 2012 cardiac cath-normal, umbilical hernia repair, total L knee arthroplasty, bilateral cataract removals with lens implants, colonoscopy with benign polypectomy. Past Anesthesia/Blood Transfusion Reactions: No Reported Reaction Smoking Status: Former smoker - Past Family History Father Family Medical History: Cancer Additional Family Medical History / Comment(s): Father of lung cancer in his 70s. He was a smoker. Mother Family Medical History: No Reported History Additional Family Medical History / Comment(s): Mother was healthy and lived to be 89yrs old. Medications and Allergies Home Medications Medication Instructions Recorded Confirmed Type Apixaban [Eliquis] 2.5 mg PO BID 12/23/18 01/15/19 History Atenolol [Tenormin] 50 mg PO DAILY 12/23/18 01/15/19 History Finasteride [Proscar] 5 mg PO DAILY 12/23/18 01/15/19 History Magnesium Oxide [Mag-Ox] 250 mg PO DAILY 12/23/18 01/15/19 History Spironolactone 50 mg PO DAILY 12/23/18 01/15/19 History Tamsulosin HCl [Flomax] 0.4 mg PO DAILY 12/23/18 01/15/19 History Ascorbic Acid [Vitamin C] 250 mg PO BID 01/15/19 01/15/19 History Cholecalciferol (Vitamin D3) 2,000 unit PO DAILY 01/15/19 01/15/19 History [Vitamin D3] Dofetilide [Tikosyn] 125 mcg PO Q12HR 01/15/19 01/15/19 History Ferrous Sulfate [Feosol] 325 mg PO BID 01/15/19 01/15/19 History Allergies Allergy/AdvReac Type Severity Reaction Status Date / Time No Known Allergies Allergy Verified 01/15/19 11:48 Physical Exam Vitals: Vital Signs Temp Pulse Pulse Resp BP BP Pulse Ox 01/16/19 05:30 133 H 93/51 01/16/19 05:15 130 H 84/54 01/16/19 05:00 140 H 81/51 01/16/19 04:45 136 H 91/59 01/16/19 04:30 138 H 81/53 01/16/19 04:25 144 H 83/52 01/16/19 04:09 82 01/16/19 03:59 82 01/16/19 03:30 97.6 F 136 H 18 89/55 98 01/16/19 00:06 82 01/15/19 23:57 80 01/15/19 23:00 97.8 F 98 18 92/55 98 01/15/19 21:17 80 01/15/19 21:04 84 01/15/19 20:00 98.0 F 70 18 99/52 98 01/15/19 16:30 85 01/15/19 16:19 84 100 01/15/19 16:00 97.9 F 77 18 106/68 100 01/15/19 14:44 98.1 F 74 16 98/48 100 01/15/19 12:35 98.1 F 64 18 96/49 100 01/15/19 11:16 87 01/15/19 11:06 86 01/15/19 10:34 98.2 F 68 24 95/54 100 Intake and Output 01/15/19 01/16/19 01/16/19 22:59 06:59 14:59 Intake Total 240 Output Total 400 600 Balance -160 -600 Intake: Oral 240 Output: Urine 400 600 Other: # Voids 3 Weight 105.7 kg Results 01/15/19 10:58 01/16/19 06:51 Cardiac Enzymes 01/15/19 01/15/19 01/15/19 Range/Units 10:58 10:58 20:47 AST 20 (17-59) U/L Troponin I <0.012 <0.012 (0.000-0.034) ng/mL 01/15/19 Range/Units 23:46 AST (17-59) U/L Troponin I <0.012 (0.000-0.034) ng/mL Coagulation 01/15/19 Range/Units 10:58 PT 10.3 (9.0-12.0) sec APTT 24.1 (22.0-30.0) sec CBC 01/15/19 Range/Units 10:58 WBC 13.7 H (3.8-10.6) k/uL RBC 4.08 L (4.30-5.90) m/uL Hgb 8.0 L D (13.0-17.5) gm/dL Hct 28.8 L (39.0-53.0) % Plt Count 782 H (150-450) k/uL Comprehensive Metabolic Panel 01/15/19 01/16/19 Range/Units 10:58 06:51 Sodium 132 L 129 L (137-145) mmol/L Potassium 4.4 4.7 (3.5-5.1) mmol/L Chloride 101 96 L (98-107) mmol/L Carbon Dioxide 21 L 22 (22-30) mmol/L BUN 19 20 (9-20) mg/dL Creatinine 0.77 0.78 (0.66-1.25) mg/dL Glucose 125 H 117 H (74-99) mg/dL Calcium 8.5 8.6 (8.4-10.2) mg/dL AST 20 (17-59) U/L ALT 21 (21-72) U/L Alkaline Phosphatase 103 (38-126) U/L Total Protein 5.7 L (6.3-8.2) g/dL Albumin 2.6 L (3.5-5.0) g/dL Current Medications Generic Name Dose Route Start Last Admin Trade Name Freq PRN Reason Stop Dose Admin Albuterol/Ipratropium 3 ml 01/15/19 16:00 01/16/19 03:58 Duoneb 0.5 Mg-3 Mg/3 Ml Soln INHALATION 3 ml RT-Q4H KENDAL Administration Apixaban 2.5 mg 01/15/19 21:00 01/15/19 20:37 Eliquis PO 2.5 mg BID KENDAL Administration Ascorbic Acid 250 mg 01/15/19 21:00 01/15/19 20:37 Vitamin C PO 250 mg BID KENDAL Administration Atenolol 50 mg 01/16/19 09:00 Tenormin PO DAILY [facility] Cholecalciferol 2,000 unit 01/16/19 09:00 Vitamin D3 PO DAILY [facility] Dofetilide 125 mcg 01/15/19 21:00 01/15/19 20:37 Tikosyn PO 125 mcg Q12HR KENDAL Administration Ferrous Sulfate 325 mg 01/15/19 21:00 01/15/19 20:37 Feosol PO 325 mg BID KENDAL Administration Finasteride 5 mg 01/16/19 09:00 Proscar PO DAILY KENDAL Sodium Chloride 1,000 mls @ 20 mls/hr 01/15/19 14:00 01/15/19 15:36 Saline 0.9% IV 20 mls/hr .Q24H KENDAL Administration Amiodarone HCl 360 mg/ 200 mls @ 33.333 mls/hr 01/16/19 04:00 01/16/19 04:41 Dextrose/Water IV 01/16/19 09:59 1 mg/min .Q6H ONE 33.333 mls/hr Administration Protocol 1 MG/MIN Amiodarone HCl 300 mg/ 250 mls @ 25 mls/hr 01/16/19 10:00 Dextrose/Water IV 01/17/19 03:59 .Q10H KENDAL Protocol 0.5 MG/MIN Magnesium Oxide 400 mg 01/16/19 09:00 Mag-Ox PO DAILY KENDAL Tamsulosin HCl 0.4 mg 01/16/19 09:00 Flomax PO DAILY KENDAL Intake and Output 01/15/19 01/16/19 01/16/19 22:59 06:59 14:59 Intake Total 240 Output Total 400 600 Balance -160 -600 Intake: Oral 240 Output: Urine 400 600 Other: # Voids 3 Weight 105.7 kg 01/15/19 10:58 01/16/19 06:51
--- NOTE | 2019-01-16 14:54 | P.PN ---
Subjective 88-year-old male admitted for shortness of breath which appears to be subacute to chronic. There is no evidence of COPD and CHF no evidence of significant lung injury. CT any of the chest did not show any significant abnormality. Patient was given Lasix and his serum sodium has come down. Patient went into A. fib with rapid ventricular rate I believe is secondary to intravascular depletion we'll hydrate him today and see how he responds as there is no evidence of CHF although patient does have pedal edema pitting to his chronic patient although looks better. Patient hemoglobin is 8 which apparently was 10 about a month ago although there is no evidence of acute GI bleed. Patient was started on amiodarone and Tikosyn is was discontinued. Constitutional: Denied any fatigue denied any fever. Cardio vascular: denied any chest pain, palpitations Gastrointestinal denied any nausea vomiting Pulmonary: Denied any shortness of breath cough Neurologic denied any new focal deficits All inpatient medications were reviewed and appropriate changes in these medications as dictated in the interval history and assessment and plan. Objective - Vital Signs Vital signs: Vital Signs Temp 98.0 F 01/16/19 08:00 Pulse 115 H 01/16/19 13:06 Resp 22 01/16/19 08:00 BP 107/55 01/16/19 12:00 Pulse Ox 98 01/16/19 08:47 Intake & Output 01/15/19 01/16/19 01/16/19 18:59 06:59 18:59 Intake Total 260 500 Output Total 400 600 475 Balance -140 -600 25 Weight 105.687 kg 105.7 kg Intake: Intake, IV Titration 20 Amount Sodium Chloride 0.9% 1, 20 000 ml @ 20 mls/hr IV . Q24H [facility] Rx#:[id number] Oral 240 500 Output: Urine 400 600 475 Other: # Voids 3 - Exam PHYSICAL EXAMINATION: GENERAL: The patient is alert and oriented x3, not in any acute distress. obese HEENT: Pupils are round and equally reacting to light. EOMI. No scleral icterus. No conjunctival pallor. Normocephalic, atraumatic. No pharyngeal erythema. No thyromegaly. CARDIOVASCULAR: S1 and S2 present. No murmurs, rubs, or gallops. PULMONARY: Chest is clear to auscultation, no wheezing or crackles. ABDOMEN: Soft, nontender, nondistended, normoactive bowel sounds. No palpable organomegaly. MUSCULOSKELETAL: No joint swelling or deformity. EXTREMITIES: No cyanosis, clubbing, or pedal edema. NEUROLOGICAL: Gross neurological examination did not reveal any focal deficits. SKIN: No rashes. - Labs CBC & Chem 7: 01/15/19 10:58 01/16/19 06:51 Labs: Abnormal Lab Results - Last 24 Hours (Table) 01/16/19 Range/Units 06:51 Sodium 129 L (137-145) mmol/L Chloride 96 L (98-107) mmol/L Glucose 117 H (74-99) mg/dL Assessment and Plan Plan: -Shortness of breath etiology is unclear: May be multifactorial obesity possibility of sleep apnea, deconditioning secondary to aging, with atrial fibrillation with contribution from anemia. Patient is in A. fib with rapid ventricular rate IV fluids as mentioned above and amiodarone -Atrial fibrillation with rapid ventricular rate probably due to intravascular volume depletion from Lasix patient will be hydrated as mentioned above -Hyponatremia secondary to Aldactone patient was also given Lasix and he asked that will be discontinued -Benign prostatic hypertrophy -Morbid obesity possibility of sleep apnea patient was never diagnosed with this.
--- NOTE | 2019-01-16 17:06 | ECHOF ---
Referral Reason:sob, hx cardiomyopathy MEASUREMENTS -------- HEIGHT: 167.6 cm WEIGHT: 105.7 kg BP: 107/55 RVIDd: 3.8 cm (< 3.3) IVSd: 1.3 cm (0.6 - 1.1) LVIDd: 4.5 cm (3.9 - 5.3) LVPWd: 1.2 cm (0.6 - 1.1) IVSs: 1.8 cm LVIDs: 3.1 cm LVPWs: 1.9 cm LA Diam: 3.9 cm (2.7 - 3.8) LAESV Index (A-L): 27.42 ml/m Ao Diam: 3.7 cm (2.0 - 3.7) AV Cusp: 1.7 cm (1.5 - 2.6) MV EXCURSION: 11.280 mm (> 18.000) MV EF SLOPE: 94 mm/s (70 - 150) EPSS: 0.5 cm AV maxP.65 mmHg AV meanP.89 mmHg RAP: 5.00 mmHg RVSP: 35.64 mmHg FINDINGS -------- Atrial fibrillation. This was a technically difficult study with suboptimal views. The left ventricular size is normal. There is mild concentric left ventricular hypertrophy. Overa ll left ventricular systolic function is mildly impaired with, an EF between 45 - 50 %. Basal infer ior LV wall motion is hypokinetic. Basal inferoseptal LV wall motion is hypokinetic. The right ventricle is moderately enlarged. Normal LA size by volume 22+/-6 ml/m2. The right atrium is normal in size. There is mild aortic valve sclerosis. There is mild aortic regurgitation. There is mild aortic st enosis present. The mitral valve leaflets are mildly thickened. Mild mitral annular calcification present. Mild tricuspid regurgitation present. There is mild pulmonary hypertension. The right ventricular systolic pressure, as measured by Doppler, is 35.64mmHg. The pulmonic valve was not well visualized. The aortic root size is normal. Normal inferior vena cava with normal inspiratory collapse consistent with estimated right atrial pre ssure of 5 mmHg. There is no pericardial effusion. CONCLUSIONS -------- 1. Atrial fibrillation. 2. This was a technically difficult study with suboptimal views. 3. The left ventricular size is normal. 4. There is mild concentric left ventricular hypertrophy. 5. Overall left ventricular systolic function is mildly impaired with, an EF between 45 - 50 %. 6. Basal inferior LV wall motion is hypokinetic. 7. Basal inferoseptal LV wall motion is hypokinetic. 8. The right ventricle is moderately enlarged. 9. Normal LA size by volume 22+/-6 ml/m2. 10. The right atrium is normal in size. 11. There is mild aortic valve sclerosis. 12. There is mild aortic regurgitation. 13. There is mild aortic stenosis present. 14. The mitral valve leaflets are mildly thickened. 15. Mild mitral annular calcification present. 16. Mild tricuspid regurgitation present. 17. There is mild pulmonary hypertension. 18. The right ventricular systolic pressure, as measured by Doppler, is 35.64mmHg. 19. The pulmonic valve was not well visualized. 20. The aortic root size is normal. 21. Normal inferior vena cava with normal inspiratory collapse consistent with estimated right atrial pressure of 5 mmHg. 22. There is no pericardial effusion. PROFESSOR OF SURGERY: Libby Louie RDCS
[2019-01-16] MEDS: TEMAZEPAM 7.5 MG CAP PO PRN (20:45)
[2019-01-16] MEDS: AMIODARONE 300 MG in DEXTROSE 5% IN WATER 250 ML IV SCH ×2 (23:51)
[2019-01-17] MEDS: IPRATROPIUM-ALBUTEROL 3 ML NEB INHALATION SCH ×3 (03:27→12:33)
[2019-01-17 07:11] LABS: Anisocytosis Slight; HCT 26.4 % (39.0-53.0); HGB 7.5 gm/dL (13.0-17.5); Hypochromasia Marked; MCH 19.8 pg (25.0-35.0); MCHC 28.4 g/dL (31.0-37.0); MCV 69.6 fL (80.0-100.0); Mean Platelet Volume 6.2; Microcytosis Marked; Platelet Count 739 k/uL (150-450); Poikilocytosis Slight; RBC 3.79 m/uL (4.30-5.90); RDW 16.8 % (11.5-15.5); WBC 14.6 k/uL (3.8-10.6)
[2019-01-17 07:21] LABS: Anion Gap 9 mmol/L; Blood Urea Nitrogen 16 mg/dL (9-20); Calcium 8.5 mg/dL (8.4-10.2); Carbon Dioxide 24 mmol/L (22-30); Chloride 96 mmol/L (98-107); Glucose 98 mg/dL (74-99); Potassium 4.8 mmol/L (3.5-5.1); Sodium 129 mmol/L (137-145)
[2019-01-17] MEDS: CHOLECALCIFEROL 1,000 UNIT TAB PO SCH (09:13)
[2019-01-17] MEDS: ASCORBIC ACID 500 MG TAB PO SCH ×2 (09:13→20:10)
[2019-01-17] MEDS: FERROUS SULFATE 325 MG TAB PO SCH ×2 (09:13→20:10)
[2019-01-17] MEDS: MAGNESIUM OXIDE 400 MG TAB PO SCH (09:13)
[2019-01-17] MEDS: FINASTERIDE 5 MG TAB PO SCH (09:13)
[2019-01-17] MEDS: ATENOLOL 50 MG TAB PO SCH (09:13)
[2019-01-17] MEDS: TAMSULOSIN 0.4 MG CAP.ER.24H PO SCH (09:13)
[2019-01-17] MEDS: SODIUM CHLORIDE 0.9% 1,000 ML IV SCH ×3 (09:14→14:09)
[2019-01-17] MEDS: AMIODARONE 300 MG in DEXTROSE 5% IN WATER 250 ML IV SCH ×2 (09:17)
[2019-01-17] MEDS ORDERED: IPRATROPIUM-ALBUTEROL 3 ML NEB INHALATION PRN (12:16)
--- NOTE | 2019-01-17 12:51 | P.PN ---
Subjective 88-year-old male admitted for shortness of breath which appears to be subacute to chronic. There is no evidence of COPD and CHF no evidence of significant lung injury. CT any of the chest did not show any significant abnormality. Patient was given Lasix and his serum sodium has come down. Patient went into A. fib with rapid ventricular rate I believe is secondary to intravascular depletion we'll hydrate him today and see how he responds as there is no evidence of CHF although patient does have pedal edema pitting to his chronic patient although looks better. Patient hemoglobin is 8 which apparently was 10 about a month ago although there is no evidence of acute GI bleed. Patient was started on amiodarone and Tikosyn is was discontinued. 01/17/2019 Patient converted to sinus rhythm on amiodarone presently rate controlled patient received 1 L of IV fluid in spite of which his serum sodium remained at 129 [place] believe he'll need more IV fluid but the big patient has extensive pedal edema because of which haven't been hold off on IV fluids. Respiratory status improved patient will be monitored overnight will be switched to oral amiodarone possibility of discharge tomorrow. Hemoglobin is 7.5 secondary to hemodilution 3 affect Constitutional: Denied any fatigue denied any fever. Cardio vascular: denied any chest pain, palpitations Gastrointestinal denied any nausea vomiting Pulmonary: Denied any shortness of breath cough Neurologic denied any new focal deficits All inpatient medications were reviewed and appropriate changes in these medications as dictated in the interval history and assessment and plan. Objective - Vital Signs Vital signs: Vital Signs Temp 97.5 F L 01/17/19 08:00 Pulse 84 01/17/19 12:00 Resp 20 01/17/19 12:00 BP 99/63 01/17/19 12:00 Pulse Ox 100 01/17/19 12:00 Intake & Output 01/16/19 01/17/19 01/17/19 17:59 06:59 18:59 Intake Total 550.833 Output Total Balance 550.833 Weight Intake: Intake, IV Titration 210.833 Amount Amiodarone 300 mg In 210.833 Dextrose 5% in Water 250 ml @ 0.5 MG/MIN 25 mls/hr IV .Q10H [facility] Rx#: [id number] Dextrose 5% in Water 100 ml @ 618 mls/hr IV .Q10M ONE with Amiodarone 150 mg Rx#:[id number] Oral 340 Output: Urine Other: # Voids - Exam PHYSICAL EXAMINATION: GENERAL: The patient is alert and oriented x3, not in any acute distress. obese HEENT: Pupils are round and equally reacting to light. EOMI. No scleral icterus. No conjunctival pallor. Normocephalic, atraumatic. No pharyngeal erythema. No thyromegaly. CARDIOVASCULAR: S1 and S2 present. No murmurs, rubs, or gallops. PULMONARY: Chest is clear to auscultation, no wheezing or crackles. ABDOMEN: Soft, nontender, nondistended, normoactive bowel sounds. No palpable organomegaly. MUSCULOSKELETAL: No joint swelling or deformity. EXTREMITIES: No cyanosis, clubbing, extensive bilateral pitting pedal edema patient does have an Judd bandage NEUROLOGICAL: Gross neurological examination did not reveal any focal deficits. SKIN: No rashes. - Labs CBC & Chem 7: 01/17/19 06:33 01/17/19 06:33 Labs: Abnormal Lab Results - Last 24 Hours (Table) 01/17/19 01/17/19 Range/Units 06:33 06:33 WBC 14.6 H (3.8-10.6) k/uL RBC 3.79 L (4.30-5.90) m/uL Hgb 7.5 L (13.0-17.5) gm/dL Hct 26.4 L (39.0-53.0) % MCV 69.6 L (80.0-100.0) fL MCH 19.8 L (25.0-35.0) pg MCHC 28.4 L (31.0-37.0) g/dL RDW 16.8 H (11.5-15.5) % Plt Count 739 H (150-450) k/uL Sodium 129 L (137-145) mmol/L Chloride 96 L (98-107) mmol/L Assessment and Plan Plan: -Shortness of breath etiology is unclear: May be multifactorial obesity possibility of sleep apnea, deconditioning secondary to aging, with atrial fibrillation with contribution from anemia. Patient is in A. fib with rapid ventricular rate IV fluids as mentioned above and amiodarone presently improved patient converted to sinus rhythm -Atrial fibrillation with rapid ventricular patient converted to sinus rhythm on amiodarone patient probably will be switched to oral amiodarone monitored overnight -Hyponatremia secondary to Aldactone patient was also given Lasix, presently not on any diuretic therapy -Benign prostatic hypertrophy -Morbid obesity possibility of sleep apnea patient was never diagnosed with this.
--- NOTE | 2019-01-17 13:46 | P.PN ---
Subjective This is a pleasant 88 showed male past medical history significant for atrial fibrillation, nonischemic cardiomyopathy, iron deficiency anemia and hypertension. He follows in the office with Dr. Lai. Earlier this morning around 5:45 AM he converted to sinus mechanism. Echocardiogram obtained revealed mildly impaired left ventricular systolic function with ejection fraction 45-50%, basal inferior and basal inferior septal wall motion hypokinesia, mild aortic valve sclerosis, mild aortic regurgitation, mild aortic stenosis, mild tricuspid regurgitation and mild pulmonary hypertension with an RVSP of 35 mmHg. Laboratory data reviewed, WBC 14.6, hemoglobin 7.5, platelets 739, sodium 129, potassium 4.8, creatinine 0.78, TSH 4.56. Currently maintained on amiodarone infusion, atenolol 50 mg daily. Anticoagulation has been held pending GI evaluation. He is seen and examined sitting up in the chair with family at the bedside. He denies symptoms of chest discomfort, shortness of breath, dizziness or palpitations. GENERAL: This is a 88-year-old male in no apparent distress at the time of my examination. HEENT: Head is atraumatic, normocephalic. Pupils are equal, round. Sclerae anicteric. Conjunctivae are clear. Mucous membranes of the mouth are moist. Neck is supple. There is no jugular venous distention. No carotid bruit is heard. LUNGS: Clear to auscultation no wheezes, rales or rhonchi. No chest wall tenderness is noted on palpation or with deep breathing. HEART: Irregular rate and rhythm with systolic ejectio murmur at the base, no rubs or gallops. S1 and S2 heard. ABDOMEN: Soft, nontender. Bowel sounds are heard. No organomegaly noted. EXTREMITIES: 1+ bilateral lower extremity pitting edema and no calf tenderness noted. Judd wraps in place. ASSESSMENT Acute anemia Leukocytosis Thrombocythemia Chroinc atrial firbillation with rapid ventricular response, maintained on tikosyn at home Hypertension Non-ischemic cardiomyopathy Chronic systolic heart failure, currently euvolemic PLAN Transition to oral amiodarone 200 mg 3 times a day. Continue to hold anticoagulation until he is seen and evaluated by GI. We will continue to follow and make recommendations accordingly. Nurse Practitioner note has been reviewed, I agree with a documented findings and plan of care. Patient was seen and examined. Objective - Vital Signs Vital signs: Vital Signs Temp 97.5 F L 03/10/19 08:00 Pulse 84 01/17/19 12:00 Resp 20 01/17/19 12:00 BP 99/63 01/17/19 12:00 Pulse Ox 100 01/17/19 12:00 Intake & Output 01/16/19 01/17/19 01/17/19 17:59 06:59 18:59 Intake Total 660.833 Output Total Balance 660.833 Weight Intake: Intake, IV Titration 210.833 Amount Amiodarone 300 mg In 210.833 Dextrose 5% in Water 250 ml @ 0.5 MG/MIN 25 mls/hr IV .Q10H [facility] Rx#: [id number] Dextrose 5% in Water 100 ml @ 618 mls/hr IV .Q10M ONE with Amiodarone 150 mg Rx#:[id number] Oral 450 Output: Urine Other: # Voids - Labs CBC & Chem 7: 01/17/19 06:33 01/17/19 06:33 Labs: Abnormal Lab Results - Last 24 Hours (Table) 01/17/19 01/17/19 Range/Units 06:33 06:33 WBC 14.6 H (3.8-10.6) k/uL RBC 3.79 L (4.30-5.90) m/uL Hgb 7.5 L (13.0-17.5) gm/dL Hct 26.4 L (39.0-53.0) % MCV 69.6 L (80.0-100.0) fL MCH 19.8 L (25.0-35.0) pg MCHC 28.4 L (31.0-37.0) g/dL RDW 16.8 H (11.5-15.5) % Plt Count 739 H (150-450) k/uL Sodium 129 L (137-145) mmol/L Chloride 96 L (98-107) mmol/L
[2019-01-17] MEDS: AMIODARONE 200 MG TAB PO SCH ×2 (15:45→20:10)
[2019-01-17] MEDS: TEMAZEPAM 7.5 MG CAP PO PRN (20:11)
[2019-01-18] MEDS: SODIUM CHLORIDE 0.9% 1,000 ML IV SCH ×2 (04:45→11:19)
[2019-01-18 06:43] LABS: Anisocytosis Slight; HCT 26.1 % (39.0-53.0); HGB 7.7 gm/dL (13.0-17.5); Hypochromasia Marked; MCH 20.7 pg (25.0-35.0); MCHC 29.7 g/dL (31.0-37.0); MCV 69.9 fL (80.0-100.0); Mean Platelet Volume 5.6; Microcytosis Marked; Platelet Count 745 k/uL (150-450); Poikilocytosis Slight; RBC 3.74 m/uL (4.30-5.90); RDW 17.2 % (11.5-15.5); WBC 14.9 k/uL (3.8-10.6)
[2019-01-18 06:51] LABS: Anion Gap 8 mmol/L; Blood Urea Nitrogen 15 mg/dL (9-20); Calcium 8.3 mg/dL (8.4-10.2); Carbon Dioxide 23 mmol/L (22-30); Chloride 98 mmol/L (98-107); Glucose 97 mg/dL (74-99); Potassium 5.2 mmol/L (3.5-5.1); Sodium 129 mmol/L (137-145)
[2019-01-18] MEDS: CHOLECALCIFEROL 1,000 UNIT TAB PO SCH (08:55)
[2019-01-18] MEDS: AMIODARONE 200 MG TAB PO SCH ×3 (08:55→21:43)
[2019-01-18] MEDS: FERROUS SULFATE 325 MG TAB PO SCH ×2 (08:55→21:43)
[2019-01-18] MEDS: ASCORBIC ACID 500 MG TAB PO SCH ×2 (08:55→21:43)
[2019-01-18] MEDS: ATENOLOL 50 MG TAB PO SCH (08:56)
[2019-01-18] MEDS: FINASTERIDE 5 MG TAB PO SCH (08:56)
[2019-01-18] MEDS: TAMSULOSIN 0.4 MG CAP.ER.24H PO SCH (11:19)
--- NOTE | 2019-01-18 13:43 | P.PN ---
Subjective 88-year-old male admitted for shortness of breath which appears to be subacute to chronic. There is no evidence of COPD and CHF no evidence of significant lung injury. CT any of the chest did not show any significant abnormality. Patient was given Lasix and his serum sodium has come down. Patient went into A. fib with rapid ventricular rate I believe is secondary to intravascular depletion we'll hydrate him today and see how he responds as there is no evidence of CHF although patient does have pedal edema pitting to his chronic patient although looks better. Patient hemoglobin is 8 which apparently was 10 about a month ago although there is no evidence of acute GI bleed. Patient was started on amiodarone and Tikosyn is was discontinued. 01/17/2019 Patient converted to sinus rhythm on amiodarone presently rate controlled patient received 1 L of IV fluid in spite of which his serum sodium remained at 129 [place] believe he'll need more IV fluid but the big patient has extensive pedal edema because of which haven't been hold off on IV fluids. Respiratory status improved patient will be monitored overnight will be switched to oral amiodarone possibility of discharge tomorrow. Hemoglobin is 7.5 secondary to hemodilution affect 01/18/2019 Patient is clinically doing well patient will go for upper GI endoscopy and colonoscopy tomorrow to see if there is any sources of occult bleed like AVMs to help cardiology my dictation regarding anticoagulation. Patient still has pedal edema but still appears to be intravascularly volume depleted because of that reason not the giving him any Lasix. Patient is not in heart failure exacerbation patient serum sodium is still 129 because of concerns of the worsening pedal edema patient is not being started on IV fluids either. Patient probably can be discharged tomorrow Constitutional: Denied any fatigue denied any fever. Cardio vascular: denied any chest pain, palpitations Gastrointestinal denied any nausea vomiting Pulmonary: Denied any shortness of breath cough Neurologic denied any new focal deficits All inpatient medications were reviewed and appropriate changes in these medications as dictated in the interval history and assessment and plan. Objective - Vital Signs Vital signs: Vital Signs Temp 98.5 F 01/18/19 11:14 Pulse 71 01/18/19 11:32 Resp 16 01/18/19 11:32 BP 102/69 01/18/19 11:14 Pulse Ox 100 01/18/19 11:14 Intake & Output 0301/18/19 01/18/19 18:59 06:59 18:59 Intake Total 660.833 830 Output Total 200 900 Balance 460.833 -900 830 Weight 108.3 kg Intake: IV 10 Invasive Line 6 10 Intake, IV Titration 210.833 Amount Amiodarone 300 mg In 210.833 Dextrose 5% in Water 250 ml @ 0.5 MG/MIN 25 mls/hr IV .Q10H [facility] Rx#: [id number] Oral 450 820 Output: Urine 200 900 Other: Voiding Method Urinal Urinal - Exam PHYSICAL EXAMINATION: GENERAL: The patient is alert and oriented x3, not in any acute distress. obese HEENT: Pupils are round and equally reacting to light. EOMI. No scleral icterus. No conjunctival pallor. Normocephalic, atraumatic. No pharyngeal erythema. No thyromegaly. CARDIOVASCULAR: S1 and S2 present. No murmurs, rubs, or gallops. PULMONARY: Chest is clear to auscultation, no wheezing or crackles. ABDOMEN: Soft, nontender, nondistended, normoactive bowel sounds. No palpable organomegaly. MUSCULOSKELETAL: No joint swelling or deformity. EXTREMITIES: No cyanosis, clubbing, extensive bilateral pitting pedal edema patient does have an Judd bandage NEUROLOGICAL: Gross neurological examination did not reveal any focal deficits. SKIN: No rashes. - Labs CBC & Chem 7: 01/18/19 06:28 01/18/19 06:28 Labs: Abnormal Lab Results - Last 24 Hours (Table) 01/18/19 01/18/19 Range/Units 06:28 06:28 WBC 14.9 H (3.8-10.6) k/uL RBC 3.74 L (4.30-5.90) m/uL Hgb 7.7 L (13.0-17.5) gm/dL Hct 26.1 L (39.0-53.0) % MCV 69.9 L (80.0-100.0) fL MCH 20.7 L (25.0-35.0) pg MCHC 29.7 L (31.0-37.0) g/dL RDW 17.2 H (11.5-15.5) % Plt Count 745 H (150-450) k/uL Sodium 129 L (137-145) mmol/L Potassium 5.2 H (3.5-5.1) mmol/L Calcium 8.3 L (8.4-10.2) mg/dL Assessment and Plan Plan: -Shortness of breath etiology is unclear: May be multifactorial obesity possibility of sleep apnea, deconditioning secondary to aging, with atrial fibrillation with contribution from anemia. Patient is in A. fib with rapid v entricular rate IV fluids as mentioned above and amiodarone presently improved patient converted to sinus rhythm -Atrial fibrillation with rapid ventricular patient converted to sinus rhythm on amiodarone patient probably will be switched to oral amiodarone monitored overnight. Patient will undergo upper and lower GI endoscopy for above- mentioned reasons -Hyponatremia secondary to Aldactone patient was also given Lasix, presently not on any diuretic therapy. Patient's serum sodium remains at 129 this can be repeated as an outpatient if he remains hyponatremic will need further evaluation for hyponatremia as an outpatient. As of 5 believe this hyponatremia secondary to the diuretics received on admission. -Benign prostatic hypertrophy -Morbid obesity possibility of sleep apnea patient was never diagnosed with this.
[2019-01-18] MEDS: MAGNESIUM OXIDE 400 MG TAB PO SCH (14:09)
--- NOTE | 2019-01-18 14:16 | P.PN ---
Subjective Progress Note Date: 01/18/19 This is a pleasant 88 showed male past medical history significant for atrial fibrillation, nonischemic cardiomyopathy, iron deficiency anemia and hypertension. He follows in the office with Dr. Lai. 2 nieces morning to be in a normal sinus rhythm. Blood pressure 88/50 earlier this morning, subsequent blood pressure 100/60. Hemoglobin 7.7, white blood cell count 14.9, potassium 5.2 and sodium 129 today. We'll continue with current medications. Objective - Vital Signs Vital signs: Vital Signs Temp 98.5 F 01/18/19 11:14 Pulse 71 01/18/19 11:32 Resp 16 01/18/19 11:32 BP 102/69 01/18/19 11:14 Pulse Ox 100 01/18/19 11:14 Intake & Output 01/17/19 01/18/19 01/18/19 18:59 06:59 18:59 Intake Total 660.833 830 Output Total 200 900 Balance 460.833 -900 830 Weight 108.3 kg Intake: IV 10 Invasive Line 6 10 Intake, IV Titration 210.833 Amount Amiodarone 300 mg In 210.833 Dextrose 5% in Water 250 ml @ 0.5 MG/MIN 25 mls/hr IV .Q10H [facility] Rx#: [id number] Oral 450 820 Output: Urine 200 900 Other: Voiding Method Urinal Urinal - Exam GENERAL: This is a 88-year-old male in no apparent distress at the time of my examination. HEENT: Head is atraumatic, normocephalic. Pupils are equal, round. Sclerae anicteric. Conjunctivae are clear. Mucous membranes of the mouth are moist. Neck is supple. There is no jugular venous distention. No carotid bruit is heard. LUNGS: Clear to auscultation no wheezes, rales or rhonchi. No chest wall tenderness is noted on palpation or with deep breathing. HEART: Irregular rate and rhythm with systolic ejectio murmur at the base, no rubs or gallops. S1 and S2 heard. ABDOMEN: Soft, nontender. Bowel sounds are heard. No organomegaly noted. EXTREMITIES: 1+ bilateral lower extremity pitting edema and no calf tenderness noted. Judd wraps in place. - Labs CBC & Chem 7: 01/18/19 06:28 01/18/19 06:28 Labs: Abnormal Lab Results - Last 24 Hours (Table) 01/18/19 01/18/19 Range/Units 06:28 06:28 WBC 14.9 H (3.8-10.6) k/uL RBC 3.74 L (4.30-5.90) m/uL Hgb 7.7 L (13.0-17.5) gm/dL Hct 26.1 L (39.0-53.0) % MCV 69.9 L (80.0-100.0) fL MCH 20.7 L (25.0-35.0) pg MCHC 29.7 L (31.0-37.0) g/dL RDW 17.2 H (11.5-15.5) % Plt Count 745 H (150-450) k/uL Sodium 129 L (137-145) mmol/L Potassium 5.2 H (3.5-5.1) mmol/L Calcium 8.3 L (8.4-10.2) mg/dL Assessment and Plan Plan: ASSESSMENT #1Acute anemia #2Leukocytosis #3Thrombocythemia #4Chroinc atrial firbillation with rapid ventricular response, maintained on tikosyn at home #5Hypertension #6Non-ischemic cardiomyopathy #7Chronic systolic heart failure, currently euvolemic Plan Cardiology's perspective, we'll recommend to continue with current medications. Anticoagulation remains on hold, EGD today. DNP note has been reviewed, I agree with a documented findings and plan of care. Patient was seen and examined.
[2019-01-18] MEDS ORDERED: PEG 3350-NA SULF,BICARB,CL/KCL 4,000 ML BOTTLE PO ONE (16:15)
--- NOTE | 2019-01-18 20:56 | P.CONS ---
History of Present Illness - Reason for Consult Consult date: 01/17/19 Anemia, GI workup - History of Present Illness The patient is an 88-year-old male with history of chronic atrial fibrillation, maintained on multiple cardiac meds including Coumadin, and beta blockers. His Coumadin was switched few months ago to eliquis,, and the patient has been quite compliant with it. Patient presented to the hospital with 3 month history of increased shortness of breath, unable to walk more than 20 feet without significant dyspnea. Patient denies any cough, no wheezing, no fever, no chills, no hemoptysis, no chest pain. Patient used to be a smoker, however he quit over 15 years ago. And he had no previous history of documented COPD or asthma. Workup since admission included a chest x-ray which was relatively normal, and a CT angiogram of the chest which was basically normal. No evidence of thromboembolic disease. In addition to his atrial fibrillation, patient was noted to be anemic,hemoglobin was 8.0.patient denies any melena, no hematemesis, denies any previous history of GI bleeding. He doesn't ever recall having a colonoscopy or EGD for workup of anemia. But he was told by the [place] [facility] that he may have anemia and he was placed on iron. But again no diagnostic workup was initiated. The patient denied any headache, no blurred vision, no dizziness. Denies any cough no wheezing no shortness of breath at rest, but he does have chronic dyspnea on exertion over the last 3 months. Denied any nausea vomiting abdominal pain melena or hematemesis. Denied any dysuria frequency or urgency. Review of Systems Constitutional: Denied fever, chills or unintentional weight loss Neurologic: No headaches, double vision or other sensory or motor changes Cardiopulmonary: No chest pains, shortness of breath or palpitations Gastrointestinal: See present illness above Genitourinary: No hematuria, dysuria or frequency Endocrine: No history of diabetes or thyroid disease Hematologic: No history of anemia or bleeding tendency Musculoskeletal: No joint pains or swelling Skin: No rashes Psychiatric: No anxiety or depression Past Medical History Past Medical History: Atrial Fibrillation, Hypertension Additional Past Medical History / Comment(s): Chronic fatigue for years, chronic Afib, pt denies prior hx of CHF, iron deficiency anemia, bilateral tinnitis, BPH, occasional low back pain and past sciatica, double vision L eye after lens implant "slipped". History of Any Multi-Drug Resistant Organisms: None Reported Past Surgical History: Back Surgery, Cholecystectomy, Hernia Repair, Joint Replacement, Orthopedic Surgery, Tonsillectomy Additional Past Surgical History / Comment(s): Low back surgery, 2012 cardiac cath-normal, umbilical hernia repair, total L knee arthroplasty, bilateral cataract removals with lens implants, colonoscopy with benign polypectomy. Past Anesthesia/Blood Transfusion Reactions: No Reported Reaction Smoking Status: Former smoker - Past Family History Father Family Medical History: Cancer Additional Family Medical History / Comment(s): Father of lung cancer in his 70s. He was a smoker. Mother Family Medical History: No Reported History Additional Family Medical History / Comment(s): Mother was healthy and lived to be 89yrs old. Medications and Allergies Home Medications Medication Instructions Recorded Confirmed Type Apixaban [Eliquis] 2.5 mg PO BID 12/23/18 01/15/19 History Atenolol [Tenormin] 50 mg PO DAILY 12/23/18 01/15/19 History Finasteride [Proscar] 5 mg PO DAILY 12/23/18 01/15/19 History Magnesium Oxide [Mag-Ox] 250 mg PO DAILY 12/23/18 01/15/19 History Spironolactone 50 mg PO DAILY 12/23/18 01/15/19 History Tamsulosin HCl [Flomax] 0.4 mg PO DAILY 12/23/18 01/15/19 History Ascorbic Acid [Vitamin C] 250 mg PO BID 01/15/19 01/15/19 History Cholecalciferol (Vitamin D3) 2,000 unit PO DAILY 01/15/19 01/15/19 History [Vitamin D3] Dofetilide [Tikosyn] 125 mcg PO Q12HR 01/15/19 01/15/19 History Ferrous Sulfate [Feosol] 325 mg PO BID 01/15/19 01/15/19 History Allergies Allergy/AdvReac Type Severity Reaction Status Date / Time No Known Allergies Allergy Verified 01/15/19 11:48 Physical Exam Vitals: Vital Signs Temp Pulse Pulse Resp BP Pulse Ox 01/17/19 08:29 72 01/17/19 08:15 70 100 01/17/19 08:00 97.5 F L 71 20 93/59 100 01/17/19 04:00 97.6 F 70 18 95/62 98 01/17/19 00:00 98.0 F 70 18 95/61 99 01/16/19 20:00 97.5 F L 110 H 18 95/58 98 01/16/19 19:50 112 H 01/16/19 19:37 110 H 01/16/19 16:08 112 H 01/16/19 16:00 98.4 F 117 H 20 93/65 98 01/16/19 15:56 108 H 01/16/19 13:06 115 H 01/16/19 12:52 110 H 01/16/19 12:00 153 H 107/55 01/16/19 11:36 107/55 Intake and Output 01/16/19 01/17/19 01/17/19 21:59 06:59 14:59 Intake Total 550.833 Output Total Balance 550.833 Intake: Intake, IV Titration 210.833 Amount Amiodarone 300 mg In 210.833 Dextrose 5% in Water 250 ml @ 0.5 MG/MIN 25 mls/hr IV .Q10H [facility] Rx#: [id number] Dextrose 5% in Water 100 ml @ 618 mls/hr IV .Q10M ONE with Amiodarone 150 mg Rx#:[id number] Oral 340 Output: Urine Other: # Voids Weight General: Appeared stated age, very pleasant in no acute distress Head and neck: Normocephalic and atraumatic, conjunctivae pink and sclerae not icteric, mucous membranes moist and pink. No masses in the neck or tracheal shifts Lungs: Clear to auscultation with no dullness to percussion Heart: Irregular, no abnormal sounds, murmurs, gallops or friction rubs ABDOMEN: Soft no masses, organomegalies or tenderness. Bowel sounds present Extremities: No clubbing, cyanosis or edema Neurologic: Alert and oriented 3. Cranial nerves grossly intact. No gross sensory or motor other abnormalities Results CBC & Chem 7: 01/18/19 06:28 01/18/19 06:28 Labs: Abnormal Lab Results - Last 24 Hours (Table) 01/17/19 01/17/19 Range/Units 06:33 06:33 WBC 14.6 H (3.8-10.6) k/uL RBC 3.79 L (4.30-5.90) m/uL Hgb 7.5 L (13.0-17.5) gm/dL Hct 26.4 L (39.0-53.0) % MCV 69.6 L (80.0-100.0) fL MCH 19.8 L (25.0-35.0) pg MCHC 28.4 L (31.0-37.0) g/dL RDW 16.8 H (11.5-15.5) % Plt Count 739 H (150-450) k/uL Sodium 129 L (137-145) mmol/L Chloride 96 L (98-107) mmol/L Assessment and Plan Assessment: Iron deficiency anemia likely secondary to GI blood loss. Patient will need to continue anticoagulation because of his atrial fibrillation. Plan: I reviewed your management. Will plan an upper endoscopy and colonoscopy Friday or Friday.
[2019-01-18] MEDS ORDERED: METOPROLOL TARTRATE 50 MG TAB PO SCH (21:00)
[2019-01-19 06:55] LABS: Anion Gap 6 mmol/L; Blood Urea Nitrogen 15 mg/dL (9-20); Calcium 7.8 mg/dL (8.4-10.2); Carbon Dioxide 25 mmol/L (22-30); Chloride 98 mmol/L (98-107); Glucose 93 mg/dL (74-99); Potassium 4.6 mmol/L (3.5-5.1); Sodium 129 mmol/L (137-145)
[2019-01-19] MEDS: FINASTERIDE 5 MG TAB PO SCH (08:58)
[2019-01-19] MEDS: CHOLECALCIFEROL 1,000 UNIT TAB PO SCH (08:59)
[2019-01-19] MEDS: MAGNESIUM OXIDE 400 MG TAB PO SCH (08:59)
[2019-01-19] MEDS: AMIODARONE 200 MG TAB PO SCH ×3 (08:59→20:52)
[2019-01-19] MEDS: SODIUM CHLORIDE 0.9% 1,000 ML IV SCH (09:00)
[2019-01-19 10:56] LABS: Anisocytosis Slight; HCT 24.3 % (39.0-53.0); HGB 7.2 gm/dL (13.0-17.5); Hypochromasia Marked; MCH 21.1 pg (25.0-35.0); MCHC 29.4 g/dL (31.0-37.0); MCV 71.8 fL (80.0-100.0); Mean Platelet Volume 6.6; Microcytosis Moderate; Platelet Count 661 k/uL (150-450); Poikilocytosis Slight; RBC 3.38 m/uL (4.30-5.90); WBC 12.7 k/uL (3.8-10.6)
[2019-01-19] MEDS ORDERED: LIDOCAINE 1% INJ 10MG/ML (20 ML MDV) ONE (13:53)
[2019-01-19] MEDS ORDERED: PROPOFOL 10 MG/ML 20 ML VIAL IV ONE (13:53)
[2019-01-19] MEDS ORDERED: IV FLUID CONTINUATION 1,000 ML IV ONE (13:54)
--- NOTE | 2019-01-19 14:46 | P.PCN ---
Date of Procedure: 01/19/19 Procedure(s) Performed: Procedure: 1. Esophagogastroduodenoscopy. 2. Colonoscopy and biopsy. Preoperative diagnosis: Iron deficiency anemia. Postoperative diagnosis: 1. Hiatal hernia with no obvious esophagitis or complicated reflux disease. 2. Normal stomach and duodenum. 3. 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 Preparation: GoLYTELY prep. Sedation: Was provided by anesthesia. Brief clinical history: The patient is an 88-year-old male with history of chronic atrial fibrillation, maintained on multiple cardiac meds including Coumadin, and beta blockers. His Coumadin was switched few months ago to eliquis,, and the patient has been quite compliant with it. Patient presented to the hospital with 3 month history of increased shortness of breath, unable to walk more than 20 feet without significant dyspnea. Patient denies any cough, no wheezing, no fever, no chills, no hemoptysis, no chest pain. Patient used to be a smoker, however he quit over 15 years ago. And he had no previous history of documented COPD or asthma. Workup since admission included a chest x-ray which was relatively normal, and a CT angiogram of the chest which was basically normal. No evidence of thromboembolic disease. In addition to his atrial fibrillation, patient was noted to be anemic,hemoglobin was 8.0.patient denies any melena, no hematemesis, denies any previous history of GI bleeding. He doesn't ever recall having a colonoscopy or EGD for workup of anemia. But he was told by the [facility] that he may have anemia and he was placed on iron. But again no diagnostic workup was initiated. The patient denied any headache, no blurred vision, no dizziness. Denies any cough no wheezing no shortness of breath at rest, but he does have chronic dyspnea on exertion over the last 3 months. Denied any nausea vomiting abdominal pain melena or hematemesis. Markie ed any dysuria frequency or urgency. Procedure: With the patient on his left lateral decubitus position and after informed consent and adequate sedation, I passed the Olympus-GIF H1 90 video upper endoscope through the cricopharyngeus down the esophagus. There was a hiatal hernia but no obvious esophagitis or complicated reflux disease. The endoscope was then advanced into the stomach which was insufflated with air and inspected in detail including the retroflex view in the cardia. No obvious abnormalities were seen or any evidence of bleeding. Pyloric channel, duodenal bulb, post bulbar area and descending duodenum appeared within normal limits. No biopsies were indicated. The endoscope was withdrawn and I then proceeded to perform the colonoscopy. Perianal area did not show any fissures or fistulas. There were no masses felt on digital rectal examination. The Olympus CF H1 90L scope was then inserted in the rectum and the usual fashion and advanced to the cecum. There was a cecal mass consistent with cancer which I biopsied and I took pictures of. No other obvious abnormalities were noted, however, note should be made that the fecal rule out there was very dark secondary to his iron therapy and that would have compromised the visualization in many areas. The patient tolerated the procedure well. Plan: I discussed the findings with his daughter. Will consult oncology for recommendations.
[2019-01-19] MEDS: FERROUS SULFATE 325 MG TAB PO SCH ×2 (15:04→20:52)
[2019-01-19] MEDS: ASCORBIC ACID 500 MG TAB PO SCH ×2 (15:04→20:52)
[2019-01-19] MEDS: TAMSULOSIN 0.4 MG CAP.ER.24H PO SCH (15:05)
--- NOTE | 2019-01-19 15:38 | P.PN ---
Subjective Progress Note Date: 01/19/19 This is a pleasant 88 showed male past medical history significant for atrial fibrillation, nonischemic cardiomyopathy, iron deficiency anemia and hypertension. He follows in the office with Dr. Lai. 2 nieces morning to be in a normal sinus rhythm. Blood pressure 88/50 earlier this morning, subsequent blood pressure 100/60. Hemoglobin 7.7, white blood cell count 14.9, potassium 5.2 and sodium 129 today. We'll continue with current medications. 01/19/2019 Patient underwent EGD and colonoscopy today, revealed hiatal hernia with no obvious esophagitis or complicated reflux disease. Normal stomach and duodenum. There is a cecal mass present consistent with cancer and multiple biopsies were obtained. At this time we will hold off from any anticoagulation. This was discussed with the patient and his in detail. She was quite concerned that the patient was at increased risk for stroke now that the anticoagulant will be held. Dr. fili Armenta did have a discussion with her regarding a possible watchman procedure down the road. Hemodynamically the patient is stable today and overall doing well. Hemoglobin 7.2 today. Objective - Vital Signs Vital signs: Vital Signs Temp 97.9 F 01/19/19 15:04 Pulse 75 01/19/19 15:07 Resp 16 01/19/19 15:07 BP 118/56 01/19/19 15:04 Pulse Ox 99 01/19/19 15:04 Intake & Output 01/18/19 01/19/19 01/19/19 18:59 06:59 18:59 Intake Total 1610 10 130 Output Total 1200 Balance 1610 10 -1070 Weight 108.4 kg Intake: IV 160 10 130 Invasive Line 6 20 10 Invasive Line 7 20 Sodium Chloride 0.9% 1, 140 10 000 ml @ 20 mls/hr IV . Q24H KENDAL Rx#:[id number] Oral 1450 Output: Urine 1200 Other: Voiding Method Urinal Urinal Urinal # Voids 2 0 - Exam GENERAL: This is a 88-year-old male in no apparent distress at the time of my examination. HEENT: Head is atraumatic, normocephalic. Pupils are equal, round. Sclerae anicteric. Conjunctivae are clear. Mucous membranes of the mouth are moist. Neck is supple. There is no jugular venous distention. No carotid bruit is heard. LUNGS: Clear to auscultation no wheezes, rales or rhonchi. No chest wall tenderness is noted on palpation or with deep breathing. HEART: Irregular rate and rhythm with systolic ejectio murmur at the base, no rubs or gallops. S1 and S2 heard. ABDOMEN: Soft, nontender. Bowel sounds are heard. No organomegaly noted. EXTREMITIES: 1+ bilateral lower extremity pitting edema and no calf tenderness noted. Judd wraps in place. - Labs CBC & Chem 7: 01/19/19 06:00 01/19/19 06:00 Labs: Abnormal Lab Results - Last 24 Hours (Table) 01/19/19 01/19/19 Range/Units 06:00 06:00 WBC 12.7 H (3.8-10.6) k/uL RBC 3.38 L (4.30-5.90) m/uL Hgb 7.2 L (13.0-17.5) gm/dL Hct 24.3 L (39.0-53.0) % MCV 71.8 L (80.0-100.0) fL MCH 21.1 L (25.0-35.0) pg MCHC 29.4 L (31.0-37.0) g/dL RDW 18.0 H (11.5-15.5) % Plt Count 661 H (150-450) k/uL Sodium 129 L (137-145) mmol/L Calcium 7.8 L (8.4-10.2) mg/dL Assessment and Plan Plan: ASSESSMENT #1Acute anemia #2Leukocytosis #3Thrombocythemia #4Chroinc atrial firbillation with rapid ventricular response, maintained on tikosyn at home #5Hypertension #6Non-ischemic cardiomyopathy #7Chronic systolic heart failure, currently euvolemic Plan Cardiology's perspective, we'll recommend to continue with current medications. No anticoagulation at this time because of the mass noted in the cecum. Biopsies have been sent. Patient may be a possible candidate for a watchman device down the road. We will continue to follow. DNP note has been reviewed, I agree with a documented findings and plan of care. Patient was seen and examined.
[2019-01-19] MEDS ORDERED: METOPROLOL TARTRATE 25 MG TAB PO SCH (21:00)
[2019-01-19] MEDS: TEMAZEPAM 7.5 MG CAP PO PRN (22:50)
[2019-01-20] MEDS: FERROUS SULFATE 325 MG TAB PO SCH ×2 (08:20→21:30)
[2019-01-20] MEDS: TAMSULOSIN 0.4 MG CAP.ER.24H PO SCH (08:20)
[2019-01-20] MEDS: FINASTERIDE 5 MG TAB PO SCH (08:20)
[2019-01-20] MEDS: AMIODARONE 200 MG TAB PO SCH ×3 (08:20→21:29)
[2019-01-20] MEDS: CHOLECALCIFEROL 1,000 UNIT TAB PO SCH (08:20)
[2019-01-20] MEDS: ASCORBIC ACID 500 MG TAB PO SCH ×2 (08:20→21:29)
[2019-01-20] MEDS: MAGNESIUM OXIDE 400 MG TAB PO SCH (08:20)
[2019-01-20 09:01] LABS: Anion Gap 9 mmol/L; Blood Urea Nitrogen 16 mg/dL (9-20); Calcium 8.2 mg/dL (8.4-10.2); Carbon Dioxide 21 mmol/L (22-30); Chloride 98 mmol/L (98-107); Glucose 145 mg/dL (74-99); Potassium 4.5 mmol/L (3.5-5.1); Sodium 128 mmol/L (137-145)
[2019-01-20 09:11] LABS: Anisocytosis Slight; HCT 29.1 % (39.0-53.0); Hypochromasia Marked; MCH 22.7 pg (25.0-35.0); MCHC 29.8 g/dL (31.0-37.0); MCV 75.9 fL (80.0-100.0); Mean Platelet Volume 6.4; Microcytosis Slight; Platelet Count 583 k/uL (150-450); RBC 3.83 m/uL (4.30-5.90); RDW 18.2 % (11.5-15.5); WBC 15.6 k/uL (3.8-10.6)
[2019-01-20 09:12] LABS: HGB 8.7 gm/dL (13.0-17.5)
--- NOTE | 2019-01-20 10:15 | P.PN ---
Subjective Progress Note Date: 01/20/19 Principal diagnosis: Iron deficiency anemia Status post EGD colonoscopy yesterday for evaluation of iron deficiency anemia with evidence of hiatal hernia no obvious complicated reflux disease. Cecal mass consistent with cancer biopsies pending. Hemoglobin 8.7. CEA requested. Denies abdominal pain. Computed tomography scan ordered. Objective - Vital Signs Vital signs: Vital Signs Temp 98.2 F 01/20/19 08:00 Pulse 110 H 01/20/19 08:00 Resp 18 01/20/19 08:00 BP 131/58 01/20/19 08:00 Pulse Ox 100 01/20/19 08:00 Intake & Output 01/19/19 01/20/19 01/20/19 18:59 06:59 18:59 Intake Total 330 240 240 Output Total 1200 Balance -870 240 240 Weight 108.2 kg Intake: IV 130 240 0.9 240 Invasive Line 6 10 Invasive Line 7 20 Oral 200 240 Output: Urine 1200 Other: Voiding Method Urinal Urinal Urinal # Voids 0 1 - Exam General appearance: The patient is alert, oriented, in no acute distress. HET: Head is normocephalic and atraumatic. Pupils are equal and reactive. Oropharynx is clear without lesions. Neck: Supple without lymphadenopathy. Trachea midline. Heart: S1 S2. Regular rate and rhythm. Lungs: No crackles or wheezes are heard. Abdomen: Soft, nontender, nondistended with bowel sounds. No peritoneal signs. No palpable organomegaly or masses. Extremities: Normal skin color and turgor. No cyanosis, rash, ulceration, clubbing, or edema. Radial and pedal pulses are 2/4 bilaterally. Neurological: No focal deficits. Strength and sensation are grossly intact. - Labs CBC & Chem 7: 01/20/19 08:08 01/20/19 08:08 Labs: Abnormal Lab Results - Last 24 Hours (Table) 01/19/19 01/20/19 01/20/19 Range/Units 06:00 08:08 08:08 WBC 12.7 H 15.6 H (3.8-10.6) k/uL RBC 3.38 L 3.83 L (4.30-5.90) m/uL Hgb 7.2 L 8.7 L D (13.0-17.5) gm/dL Hct 24.3 L 29.1 L (39.0-53.0) % MCV 71.8 L 75.9 L (80.0-100.0) fL MCH 21.1 L 22.7 L (25.0-35.0) pg MCHC 29.4 L 29.8 L (31.0-37.0) g/dL RDW 18.0 H 18.2 H (11.5-15.5) % Plt Count 661 H 583 H (150-450) k/uL Sodium 128 L (137-145) mmol/L Carbon Dioxide 21 L (22-30) mmol/L Glucose 145 H (74-99) mg/dL Calcium 8.2 L (8.4-10.2) mg/dL Assessment and Plan (1) Cecum mass Current Visit: Yes Status: Acute Code(s): K63.9 - DISEASE OF INTESTINE, UNSPECIFIED SNOMED Code(s): 981804244 (2) Iron deficiency anemia Current Visit: Yes Status: Acute Code(s): D50.9 - IRON DEFICIENCY ANEMIA, UNSPECIFIED SNOMED Code(s): 99433148 (3) Acute blood loss anemia Current Visit: Yes Status: Acute Code(s): D62 - ACUTE POSTHEMORRHAGIC ANEMIA SNOMED Code(s): 628889248 (4) CHF (congestive heart failure) Current Visit: Yes Status: Acute Code(s): I50.9 - HEART FAILURE, UNSPECIFIED SNOMED Code(s): 13103589 (5) Chronic atrial fibrillation Current Visit: Yes Status: Acute Code(s): I48.2 - CHRONIC ATRIAL FIBRILLATION SNOMED Code(s): 664715606 Plan: 1. Diet as tolerated. Oncology consultation. Computed tomography scan ordered. Patient states discharged today. Cecal biopsies pending. Continue iron supplementation CBC monitoring. Anticoagulation on hold. Assessment and plan a care discussed with Dr. Valle
--- NOTE | 2019-01-20 12:36 | P.PN ---
Subjective Progress Note Date: 01/20/19 This is a pleasant 88 showed male past medical history significant for atrial fibrillation, nonischemic cardiomyopathy, iron deficiency anemia and hypertension. He follows in the office with Dr. Lai. 2 nieces morning to be in a normal sinus rhythm. Blood pressure 88/50 earlier this morning, subsequent blood pressure 100/60. Hemoglobin 7.7, white blood cell count 14.9, potassium 5.2 and sodium 129 today. We'll continue with current medications. 01/19/2019 Patient underwent EGD and colonoscopy today, revealed hiatal hernia with no obvious esophagitis or complicated reflux disease. Normal stomach and duodenum. There is a cecal mass present consistent with cancer and multiple biopsies were obtained. At this time we will hold off from any anticoagulation. This was discussed with the patient and his in detail. She was quite concerned that the patient was at increased risk for stroke now that the anticoagulant will be held. Dr. fili Armenta did have a discussion with her regarding a possible watchman procedure down the road. Hemodynamically the patient is stable today and overall doing well. Hemoglobin 7.2 today. 01/20/2019 Patient was seen and examined this morning, overall feels well. Anticipating discharge home today. At this point in time anticoagulation will continue to be on hold until decision is made regarding the cecal mass. This was explained to the patient and his family in detail. Objective - Vital Signs Vital signs: Vital Signs Temp 98.2 F 01/20/19 11:06 Pulse 80 01/20/19 11:14 Resp 18 01/20/19 11:14 BP 101/52 01/20/19 11:06 Pulse Ox 99 01/20/19 11:06 Intake & Output 01/19/19 01/20/19 01/20/19 18:59 06:59 18:59 Intake Total 330 240 440 Output Total 1200 Balance -870 240 440 Weight 108.2 kg Intake: IV 130 240 0.9 240 Invasive Line 6 10 Invasive Line 7 20 Oral 200 440 Output: Urine 1200 Other: Voiding Method Urinal Urinal Urinal # Voids 0 1 - Exam GENERAL: This is a 88-year-old male in no apparent distress at the time of my examination. HEENT: Head is atraumatic, normocephalic. Pupils are equal, round. Sclerae anicteric. Conjunctivae are clear. Mucous membranes of the mouth are moist. Neck is supple. There is no jugular venous distention. No carotid bruit is heard. LUNGS: Clear to auscultation no wheezes, rales or rhonchi. No chest wall tenderness is noted on palpation or with deep breathing. HEART: Irregular rate and rhythm with systolic ejectio murmur at the base, no rubs or gallops. S1 and S2 heard. ABDOMEN: Soft, nontender. Bowel sounds are heard. No organomegaly noted. EXTREMITIES: 1+ bilateral lower extremity pitting edema and no calf tenderness noted. Judd wraps in place. - Labs CBC & Chem 7: 01/20/19 08:08 01/20/19 08:08 Labs: Abnormal Lab Results - Last 24 Hours (Table) 01/20/19 01/20/19 Range/Units 08:08 08:08 WBC 15.6 H (3.8-10.6) k/uL RBC 3.83 L (4.30-5.90) m/uL Hgb 8.7 L D (13.0-17.5) gm/dL Hct 29.1 L (39.0-53.0) % MCV 75.9 L (80.0-100.0) fL MCH 22.7 L (25.0-35.0) pg MCHC 29.8 L (31.0-37.0) g/dL RDW 18.2 H (11.5-15.5) % Plt Count 583 H (150-450) k/uL Sodium 128 L (137-145) mmol/L Carbon Dioxide 21 L (22-30) mmol/L Glucose 145 H (74-99) mg/dL Calcium 8.2 L (8.4-10.2) mg/dL Assessment and Plan Plan: ASSESSMENT #1Acute anemia #2Leukocytosis #3Thrombocythemia #4Chroinc atrial firbillation with rapid ventricular response, maintained on tikosyn at home #5Hypertension #6Non-ischemic cardiomyopathy #7Chronic systolic heart failure, currently euvolemic Plan Cardiology's perspective, we'll recommend to continue with current medications. No anticoagulation at this time because of the mass noted in the cecum. Biopsies have been sent. He is anticipating discharge home today. We'll make a follow-up appointment in the office post discharge. DNP note has been reviewed, I agree with a documented findings and plan of care. Patient was seen and examined.
[2019-01-20] MEDS ORDERED: SODIUM FERRIC GLUCONAT-SUCROSE 125 MG in SODIUM CHLORIDE 0.9% 100 ML IVPB ONE (12:48)
[2019-01-20] MEDS: IOPAMIDOL-300 CONTRAST 30 ML VIAL (ORAL USE) PO PRN ×2 (13:19→13:20)
[2019-01-20] MEDS: SODIUM CHLORIDE 0.9% 1,000 ML IV SCH (13:23)
--- NOTE | 2019-01-20 15:30 | CT ---
EXAMINATION TYPE: CT abdomen pelvis w con DATE OF EXAM: 01/20/2019 COMPARISON: None. HISTORY: CHF, COPD, Chron A Fib, chronic anemia. Mass in cecum per order. CT DLP: 1736.7 mGycm, Automated Exposure Control for Dose Reduction was Utilized. CONTRAST: CT scan of the abdomen and pelvis is performed with oral and with IV Contrast, patient injected with 100 mL of Isovue 300. FINDINGS: LUNG BASES: Right-sided volume loss with mediastinal shift is present. This is identified on recent c hest x-rays and chest CT. LIVER/GB: Multiple cholecystectomy clips are noted. Liver is diffusely low dense suggesting fatty inf iltration. PANCREAS: No significant abnormality is seen. SPLEEN: Occasional calcifications scattered throughout the liver and spleen is consistent with produc t of old granulomatous disease.. ADRENALS: No significant abnormality is seen. KIDNEYS: No significant abnormality is seen. BOWEL: The oral contrast reaches level of the left colon. Terminal ileum is seen coronal image 36 and axial image 50 and felt within normal limits. Cecum is slightly infolding anteriorly with contrast f luid level axial image 47. At level of hepatic flexure there is severe lobulated equal thickening lik birgit corresponding to history of colonic neoplasm best seen on axial image 43 and coronal image 46 whe re there is more prominent right lateral nodularity contiguous with bowel wall just anterior inferior to surgical clips from cholecystectomy. Length of tumor is probably close to 20 to 25 cm. PROSTATE/SEMINAL VESICLES: Prostate gland is enlarged in size bulging on bladder base. Bladder is poo rly distended with moderate concentric wall thickening. Findings are consistent with BPH and associat ed outlet obstruction. Correlate clinically. LYMPH NODES: No greater than 1cm abdominal or pelvic lymph nodes are appreciated. OSSEOUS STRUCTURES: There is moderate to severe multilevel spurring in the visualized mid to lower th oracic spine. There is multilevel facet arthropathy in the mid to lower lumbar spine with possible le ft-sided laminectomy defect axial image 50. OTHER: Moderate calcified plaque of aorta extends into branch vessels. Small fat-containing right ing uinal hernia is noted. 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 No metast atic disease clearly identified.
[2019-01-20] MEDS ORDERED: METOPROLOL TARTRATE 50 MG TAB PO STA (18:22)
--- NOTE | 2019-01-20 22:56 | P.CONS ---
History of Present Illness - Reason for Consult Consult date: 01/20/19 Cecal Mass, Anemia Requesting physician: Quang Valle - Chief Complaint Anemia - History of Present Illness Mr. Cm is a very pleasant male patient who presented with profound anemia and underwent colonoscopy. He is status post EGD colonoscopy 01/19/19 for evaluation of iron deficiency anemia. During procedure a cecal mass was identified concerning for malignancy, biopsies pending. Because of this finding hematology/Medical Oncology has been asked to further evaluate. Today his Hemoglobin 8.7, improved from 01/19/19. CEA pending. During evaluation he is sitting in chair eating lunch, no acute complaints. CT scans were completed prior to evaluation at consistent with picture of colon mass which was biopsied, no apparent metastatic disease identified. Review of Systems A 14 point review of system assessed and completed and all negative except HPI Past Medical History Past Medical History: Atrial Fibrillation, Hypertension Additional Past Medical History / Comment(s): Chronic fatigue for years, chronic Afib, pt denies prior hx of CHF, iron deficiency anemia, bilateral tinnitis, BPH, occasional low back pain and past sciatica, double vision L eye after lens implant "slipped". History of Any Multi-Drug Resistant Organisms: None Reported Past Surgical History: Back Surgery, Cholecystectomy, Hernia Repair, Joint Replacement, Orthopedic Surgery, Tonsillectomy Additional Past Surgical History / Comment(s): Low back surgery, 2011 cardiac cath-normal, umbilical hernia repair, total L knee arthroplasty, bilateral cataract removals with lens implants, colonoscopy with benign polypectomy. Past Anesthesia/Blood Transfusion Reactions: No Reported Reaction Smoking Status: Former smoker - Past Family History Father Family Medical History: Cancer Additional Family Medical History / Comment(s): Father of lung cancer in his 70s. He was a smoker. Mother Family Medical History: No Reported History Additional Family Medical History / Comment(s): Mother was healthy and lived to be 89yrs old. Medications and Allergies Home Medications Medication Instructions Recorded Confirmed Type Apixaban [Eliquis] 2.5 mg PO BID 12/23/18 01/15/19 History Atenolol [Tenormin] 50 mg PO DAILY 12/23/18 01/15/19 History Finasteride [Proscar] 5 mg PO DAILY 12/23/18 01/15/19 History Magnesium Oxide [Mag-Ox] 250 mg PO DAILY 12/23/18 01/15/19 History Spironolactone 50 mg PO DAILY 12/23/18 01/15/19 History Tamsulosin HCl [Flomax] 0.4 mg PO DAILY 12/23/18 01/15/19 History Ascorbic Acid [Vitamin C] 250 mg PO BID 01/15/19 01/15/19 History Cholecalciferol (Vitamin D3) 2,000 unit PO DAILY 01/15/19 01/15/19 History [Vitamin D3] Dofetilide [Tikosyn] 125 mcg PO Q12HR 01/15/19 01/15/19 History Ferrous Sulfate [Feosol] 325 mg PO BID 01/15/19 01/15/19 History Allergies Allergy/AdvReac Type Severity Reaction Status Date / Time No Known Allergies Allergy Verified 01/15/19 11:48 Physical Exam Vitals: Vital Signs Temp Pulse Resp BP Pulse Ox 01/20/19 11:14 80 18 01/20/19 11:06 98.2 F 80 18 101/52 99 01/20/19 08:00 98.2 F 110 H 18 131/58 100 01/20/19 07:51 100 01/20/19 04:00 97.6 F 81 18 133/57 99 01/19/19 23:32 70 18 01/19/19 23:29 97.7 F 70 18 99/53 98 01/19/19 20:00 98.0 F 87 18 107/53 97 01/19/19 15:07 75 16 01/19/19 15:04 97.9 F 75 16 118/56 99 Intake and Output 01/19/19 01/20/19 01/20/19 22:59 06:59 14:59 Intake Total 200 240 240 Balance 200 240 240 Intake: IV 240 0.9 240 Oral 200 240 Other: Voiding Method Urinal Urinal Urinal # Voids 1 Weight 108.2 kg Gen: alert and oriented no acute distress Head: NC/NT Neck: Supple No supraclavicular adenopathy, cervical or axillary adenopathy palpable Abdomen is soft, mild tenderness to palpation Heart: RRR, S1s2 Lungs: Clear no increased effort Neuo: No sensory or motor defects Extremities: no edema Results CBC & Chem 7: 01/20/19 08:08 01/20/19 08:08 Labs: Abnormal Lab Results - Last 24 Hours (Table) 01/20/19 01/20/19 Range/Units 08:08 08:08 WBC 15.6 H (3.8-10.6) k/uL RBC 3.83 L (4.30-5.90) m/uL Hgb 8.7 L D (13.0-17.5) gm/dL Hct 29.1 L (39.0-53.0) % MCV 75.9 L (80.0-100.0) fL MCH 22.7 L (25.0-35.0) pg MCHC 29.8 L (31.0-37.0) g/dL RDW 18.2 H (11.5-15.5) % Plt Count 583 H (150-450) k/uL Sodium 128 L (137-145) mmol/L Carbon Dioxide 21 L (22-30) mmol/L Glucose 145 H (74-99) mg/dL Calcium 8.2 L (8.4-10.2) mg/dL CT scan - abdomen: report reviewed CT scan - pelvis: report reviewed Assessment and Plan Plan: Assessment and Recommendations: 1. Severe Iron Deficiency Anemia: - Secondary to GI Blood Loss from Underlying Cecal Mass - Parental Iron ordered and given today, will order two more days - Continue on PO - Monitor daily CBC 2. Cecal Mass: New Finding: - Await Final Pathology for further Recs - Await CEA - CT scans reviewed Physician Attest: I have discussed the complete history and physicial and developed the completed impression and plan, agree with above dictation. Dictated as a scribe
[2019-01-21 06:34] LABS: Anisocytosis Slight; Basophils % (A) 0 %; Eosinophils # (A) 0.1 k/uL (0-0.7); Eosinophils % (A) 1 %; HCT 28.2 % (39.0-53.0); HGB 8.1 gm/dL (13.0-17.5); Hypochromasia Marked; Lymphocytes # (A) 1.7 k/uL (1.0-4.8); Lymphocytes % (A) 12 %; MCH 20.8 pg (25.0-35.0); MCHC 28.8 g/dL (31.0-37.0); Mean Platelet Volume 5.7; Microcytosis Moderate; Monocytes # (A) 0.7 k/uL (0-1.0); Monocytes % (A) 5 %; Neutrophils % (A) 80 %; Platelet Count 738 k/uL (150-450); Poikilocytosis Slight; RBC 3.92 m/uL (4.30-5.90); RDW 19.5 % (11.5-15.5); WBC 13.7 k/uL (3.8-10.6)
[2019-01-21 06:46] LABS: ALT 22 U/L (21-72); AST 19 U/L (17-59); Albumin 2.6 g/dL (3.5-5.0); Alkaline Phosphatase 132 U/L (38-126); Anion Gap 10 mmol/L; Blood Urea Nitrogen 14 mg/dL (9-20); Calcium 8.6 mg/dL (8.4-10.2); Carbon Dioxide 21 mmol/L (22-30); Chloride 97 mmol/L (98-107); Glucose 100 mg/dL (74-99); Magnesium 2.2 mg/dL (1.6-2.3); Potassium 4.9 mmol/L (3.5-5.1); Sodium 128 mmol/L (137-145); Total Bilirubin 0.3 mg/dL (0.2-1.3); Total Protein 5.5 g/dL (6.3-8.2)
[2019-01-21] MEDS: METOPROLOL TARTRATE 25 MG TAB PO SCH ×2 (08:53→20:36)
[2019-01-21] MEDS: TAMSULOSIN 0.4 MG CAP.ER.24H PO SCH (08:53)
[2019-01-21] MEDS: FINASTERIDE 5 MG TAB PO SCH (08:53)
[2019-01-21] MEDS: AMIODARONE 200 MG TAB PO SCH ×3 (08:53→20:36)
[2019-01-21] MEDS: FERROUS SULFATE 325 MG TAB PO SCH ×2 (08:53→20:37)
[2019-01-21] MEDS: CHOLECALCIFEROL 1,000 UNIT TAB PO SCH (08:53)
[2019-01-21] MEDS: ASCORBIC ACID 500 MG TAB PO SCH ×2 (08:53→20:36)
[2019-01-21] MEDS: MAGNESIUM OXIDE 400 MG TAB PO SCH (08:53)
[2019-01-21] MEDS: SODIUM FERRIC GLUCONAT-SUCROSE 125 MG in SODIUM CHLORIDE 0.9% 100 ML IVPB SCH (09:04)
--- NOTE | 2019-01-21 10:01 | P.PN ---
Progress Note - Text Progress Note Date: 01/21/19 This 88-year-old gentleman with history of persistent atrial fibrillation on Tikosyn was admitted to the hospital with the symptoms of weakness. He was found to be anemic and subsequently colonoscopy showed evidence of mass in cecal area. Patient was also found initially in atypical fibrillation with RVR. He was initiated on IV amiodarone and patient converted to sinus rhythm. Patient is currently on by mouth amiodarone and beta yumiko. Patient was on anticoagulation therapy. He was taken of the anti-cognition therapy because of anemia and GI bleeding. He is getting iron infusion. He went back into atrial fibrillation last night with moderately rapid ventricular response. The dose of the amiodarone was increased to 20 mg 3 times a day and the dose of the beta yumiko was increased to 25 mg by mouth twice a day. His heart rate is in 100 morning. Computed tomography scan of the abdomen showed evidence for mass in the cecal area. No evidence of metastasis or liver. Biopsy results are still pending. Patient is feeling tired and could not sleep last night. He would like to be discharged home. I will continue current dose of amiodarone and also increase dose of beta yumiko. Probably is not easy to keep him in sinus rhythm. Unfortunately, patient is not a candidate for anticoagulation therapy. GENERAL EXAM: Patient is alert and oriented and appears to be very tired. Denies any chest pain HEENT: Normocephalic. Normal reaction of pupils, equal size, normal range of extraocular motion. No erythema or exudates in the throat. NECK: No masses, no nuchal rigidity. CHEST: No chest wall deformity. LUNGS: Diminished breath sounds HEART: Distant heart sounds ABDOMEN: No hepatosplenomegaly, normal bowel sounds, no guarding or rigidity. SKIN: No rashes CENTRAL NERVOUS SYSTEM: No focal deficits. EXTREMITIES: No cyanosis, clubbing or edema. Final impression #1. Paroxysmal/persistent atrial fibrillation #2. GI bleeding and anemia. #3. 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 Plan: At this point, however, came is to control the rate for the atrial fibrillation. I'll continue higher dose of amiodarone and also beta yumiko. Beta yumiko dose could be increased as needed. Patient is not a candidate for anticoagulation therapy. Prognosis is guarded
[2019-01-21] MEDS ORDERED: DEXTROSE 5% IN WATER 100 ML with AMIODARONE 150 MG IV ONE (11:24)
[2019-01-21] MEDS ORDERED: DIGOXIN 125 MCG TAB PO SCH (12:00)
[2019-01-21] MEDS ORDERED: DIGOXIN 125 MCG TAB PO ONE (12:15)
[2019-01-21] MEDS: SODIUM CHLORIDE 0.9% 1,000 ML IV SCH (12:32)
--- NOTE | 2019-01-21 14:53 | P.PN ---
Subjective Progress Note Date: 01/21/19 Principal diagnosis: New Cecal Mass Patient with no acute complaints Objective - Vital Signs Vital signs: Vital Signs Temp 97.8 F 01/21/19 07:45 Pulse 121 H 01/21/19 12:00 Resp 20 01/21/19 12:00 BP 91/52 01/21/19 12:00 Pulse Ox 100 01/21/19 12:00 Intake & Output 01/20/19 01/21/19 01/21/19 18:59 06:59 18:59 Intake Total 890 30 725 Output Total 500 Balance 390 30 725 Weight 109.8 kg Intake: IV 10 30 Invasive Line 8 10 30 Intake, IV Titration 125 Amount Sodium Ferric Gluconat- 125 Sucrose 125 mg In Sodium Chloride 0.9% 100 ml @ 100 mls/hr IVPB DAILY [facility] Rx#:[id number] Oral 880 600 Output: Urine 500 Other: Voiding Method Urinal Urinal # Voids 1 1 # Bowel Movements 1 - Exam Gen: alert and oriented no acute distress Head: NC/NT Neck: Supple No supraclavicular adenopathy, cervical or axillary adenopathy palpable Abdomen is soft, mild tenderness to palpation Heart: RRR, S1s2 Lungs: Clear no increased effort Neuo: No sensory or motor defects Extremities: no edema - Labs CBC & Chem 7: 01/21/19 05:46 01/21/19 05:46 Labs: Abnormal Lab Results - Last 24 Hours (Table) 01/20/19 01/21/19 01/21/19 Range/Units 08:08 05:46 05:46 WBC 13.7 H (3.8-10.6) k/uL RBC 3.92 L (4.30-5.90) m/uL Hgb 8.1 L (13.0-17.5) gm/dL Hct 28.2 L (39.0-53.0) % MCV 72.0 L (80.0-100.0) fL MCH 20.8 L (25.0-35.0) pg MCHC 28.8 L (31.0-37.0) g/dL RDW 19.5 H (11.5-15.5) % Plt Count 738 H (150-450) k/uL Neutrophils # 11.0 H (1.3-7.7) k/uL Sodium 128 L (137-145) mmol/L Chloride 97 L (98-107) mmol/L Carbon Dioxide 21 L (22-30) mmol/L Glucose 100 H (74-99) mg/dL Alkaline Phosphatase 132 H (38-126) U/L Total Protein 5.5 L (6.3-8.2) g/dL Albumin 2.6 L (3.5-5.0) g/dL Carcinoembryonic Ag 19.9 H (0.0-4.9) ng/mL Assessment and Plan Plan: Assessment and Recommendations: 1. Severe Iron Deficiency Anemia: - Secondary to GI Blood Loss from Underlying Cecal Mass - Parental Iron ordered and given today, will order two more days - Continue on PO - Monitor daily CBC 2. Cecal Mass: New Finding: - Await Final Pathology for further Recs - Await CEA - CT scans reviewed Plan: - Plan to receive more IV Iron in office and monitoring for CBC, Med/Onc will set this up - Will plan for outpatient colectomy and lymph node sampling and removal of mass per gen Surgery, likely set up as outpatient. Discussed with primary team. Physician Attest: I have discussed the complete history and physicial and melvin landeros the completed impression and plan, agree with above dictation. Dictated as a scribe
[2019-01-21] MEDS: TEMAZEPAM 7.5 MG CAP PO PRN (22:49)
--- NOTE | 2019-01-22 00:17 | P.PN ---
Subjective Progress Note Date: 01/19/19 Principal diagnosis: Atrial fibrillation with RVR Cecal mass 88-year-old male admitted for shortness of breath which appears to be subacute to chronic. There is no evidence of COPD and CHF no evidence of significant lung injury. CT any of the chest did not show any significant abnormality. Patient was given Lasix and his serum sodium has come down. Patient went into A. fib with rapid ventricular rate I believe is secondary to intravascular depletion we'll hydrate him today and see how he responds as there is no evidence of CHF although patient does have pedal edema pitting to his chronic patient although looks better. Patient hemoglobin is 8 which apparently was 10 about a month ago although there is no evidence of acute GI bleed. Patient was started on amiodarone and Tikosyn is was discontinued. 01/17/2019 Patient converted to sinus rhythm on amiodarone presently rate controlled patient received 1 L of IV fluid in spite of which his serum sodium remained at 129 Dolores believe he'll need more IV fluid but the big patient has extensive pedal edema because of which haven't been hold off on IV fluids. Respiratory status improved patient will be monitored overnight will be switched to oral amiodarone possibility of discharge tomorrow. Hemoglobin is 7.5 secondary to hemodilution affect 01/18/2019 Patient is clinically doing well patient will go for upper GI endoscopy and colonoscopy tomorrow to see if there is any sources of occult bleed like AVMs to help cardiology my dictation regarding anticoagulation. Patient still has pedal edema but still appears to be intravascularly volume depleted because of that reason not the giving him any Lasix. Patient is not in heart failure exacerbation patient serum sodium is still 129 because of concerns of the worsening pedal edema patient is not being started on IV fluids either. Patient probably can be discharged tomorrow 01/19/19 s/p EGD and colonoscopy. 1. Hiatal hernia with no obvious esophagitis or complicated reflux disease. 2. Normal stomach and duodenum. 3. 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 Patient is currently off anticoagulation. Heart rate is better controlled. Hemoglobin is 7.2. Patient is still having bilateral lower extremities sw elling. Constitutional: Denied any fatigue denied any fever. Cardio vascular: denied any chest pain, palpitations Gastrointestinal denied any nausea vomiting Pulmonary: Denied any shortness of breath cough Neurologic denied any new focal deficits All inpatient medications were reviewed and appropriate changes in these medications as dictated in the interval history and assessment and plan. Objective - Vital Signs Vital signs: Vital Signs Temp 97.9 F 01/19/19 15:04 Pulse 75 01/19/19 15:07 Resp 16 01/19/19 15:07 BP 118/56 01/19/19 15:04 Pulse Ox 99 01/19/19 15:04 Intake & Output 01/18/19 01/19/19 01/19/19 18:59 06:59 18:59 Intake Total 1610 10 130 Output Total 1200 Balance 1610 10 -1070 Weight 108.4 kg Intake: IV 160 10 130 Invasive Line 6 20 10 Invasive Line 7 20 Sodium Chloride 0.9% 1, 140 10 000 ml @ 20 mls/hr IV . [facility] Rx#:[id number] Oral 1450 Output: Urine 1200 Other: Voiding Method Urinal Urinal Urinal # Voids 2 0 - Exam PHYSICAL EXAMINATION: GENERAL: The patient is alert and oriented x3, not in any acute distress. obese HEENT: Pupils are round and equally reacting to light. EOMI. No scleral icterus. No conjunctival pallor. Normocephalic, atraumatic. No pharyngeal erythema. No thyromegaly. CARDIOVASCULAR: S1 and S2 present. No murmurs, rubs, or gallops. PULMONARY: Chest is clear to auscultation, no wheezing or crackles. ABDOMEN: Soft, nontender, nondistended, normoactive bowel sounds. No palpable organomegaly. MUSCULOSKELETAL: No joint swelling or deformity. EXTREMITIES: No cyanosis, clubbing, extensive bilateral pitting pedal edema patient does have an Judd bandage NEUROLOGICAL: Gross neurological examination did not reveal any focal deficits. SKIN: No rashes. - Labs CBC & Chem 7: 01/21/19 05:46 01/21/19 05:46 Labs: Abnormal Lab Results - Last 24 Hours (Table) 01/19/19 01/19/19 Range/Units 06:00 06:00 WBC 12.7 H (3.8-10.6) k/uL RBC 3.38 L (4.30-5.90) m/uL Hgb 7.2 L (13.0-17.5) gm/dL Hct 24.3 L (39.0-53.0) % MCV 71.8 L (80.0-100.0) fL MCH 21.1 L (25.0-35.0) pg MCHC 29.4 L (31.0-37.0) g/dL RDW 18.0 H (11.5-15.5) % Plt Count 661 H (150-450) k/uL Sodium 129 L (137-145) mmol/L Calcium 7.8 L (8.4-10.2) mg/dL Assessment and Plan Assessment: -Shortness of breath etiology is multifactorial obesity possibility of sleep apnea, deconditioning secondary to aging, with atrial fibrillation with contribution from anemia. Patient is in A. fib with rapid ventricular rate. strated on amiodarone presently improved patient converted to sinus rhythm. On beta blockers. - Acute blood loss Anemia and GI bleed. s/p EGD and colonoscopy. -Cecal mass. Pending biopsy report. -Chronic Atrial fibrillation with rapid ventricular patient converted to sinus rhythm on amiodarone patient probably will be switched to oral amiodarone monitored overnight. -Hyponatremia. Sodium 129. Possibly hypervolemic. if he remains hyponatremic will need further evaluation for SIADH. -Benign prostatic hypertrophy -Morbid obesity possibility of sleep apnea patient was never diagnosed with this. -Hypertension -Non-ischemic cardiomyopathy -Chronic systolic heart failure, currently euvolemic - Thrombocytopenia Time with Patient: Greater than 30
--- NOTE | 2019-01-22 00:20 | P.PN ---
Subjective Progress Note Date: 01/20/19 Principal diagnosis: Atrial fibrillation with RVR Cecal mass 88-year-old male admitted for shortness of breath which appears to be subacute to chronic. There is no evidence of COPD and CHF no evidence of significant lung injury. CT any of the chest did not show any significant abnormality. Patient was given Lasix and his serum sodium has come down. Patient went into A. fib with rapid ventricular rate I believe is secondary to intravascular depletion we'll hydrate him today and see how he responds as there is no evidence of CHF although patient does have pedal edema pitting to his chronic patient although looks better. Patient hemoglobin is 8 which apparently was 10 about a month ago although there is no evidence of acute GI bleed. Patient was started on amiodarone and Tikosyn is was discontinued. 01/17/2019 Patient converted to sinus rhythm on amiodarone presently rate controlled patient received 1 L of IV fluid in spite of which his serum sodium remained at 129 Stark believe he'll need more IV fluid but the big patient has extensive pedal edema because of which haven't been hold off on IV fluids. Respiratory status improved patient will be monitored overnight will be switched to oral amiodarone possibility of discharge tomorrow. Hemoglobin is 7.5 secondary to hemodilution affect 01/18/2019 Patient is clinically doing well patient will go for upper GI endoscopy and colonoscopy tomorrow to see if there is any sources of occult bleed like AVMs to help cardiology my dictation regarding anticoagulation. Patient still has pedal edema but still appears to be intravascularly volume depleted because of that reason not the giving him any Lasix. Patient is not in heart failure exacerbation patient serum sodium is still 129 because of concerns of the worsening pedal edema patient is not being started on IV fluids either. Patient probably can be discharged tomorrow 01/19/19 s/p EGD and colonoscopy. 1. Hiatal hernia with no obvious esophagitis or complicated reflux disease. 2. Normal stomach and duodenum. 3. 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 Patient is currently off anticoagulation. Heart rate is better controlled. Hemoglobin is 7.2. Patient is still having bilateral lower extremities sw elling. 01/20/2019 Cecal mass biopsy is pending. Patient is still having bilateral lower extremit ies edema. Blood pressure in the lower side. Heart rate is still elevated. Patient was also found to have iron deficiency anemia and was started on IV iron. Hemoglobin 8.7. Patient was seen by oncology due to cecal mass. CT of the abdominal pelvis was ordered. CEA was ordered as well. Patient currently patient is significant comfortably. No compressive shortness of breath or chest pain. Wants to be discharged home. Sodium level remains low at 128. Constitutional: Denied any fatigue denied any fever. Cardio vascular: denied any chest pain, palpitations Gastrointestinal denied any nausea vomiting Pulmonary: Denied any shortness of breath cough Neurologic denied any new focal deficits All inpatient medications were reviewed and appropriate changes in these medications as dictated in the interval history and assessment and plan. Objective - Vital Signs Vital signs: Vital Signs Temp 97.2 F L 01/20/19 15:25 Pulse 120 H 01/20/19 16:00 Resp 18 01/20/19 16:00 BP 104/49 01/20/19 15:25 Pulse Ox 99 01/20/19 15:25 Intake & Output 01/19/19 01/20/19 01/20/19 18:59 06:59 18:59 Intake Total 330 240 690 Output Total 1200 500 Balance -870 240 190 Weight 108.2 kg Intake: IV 130 240 10 0.9 240 Invasive Line 6 10 Invasive Line 7 20 Invasive Line 8 10 Oral 200 680 Output: Urine 1200 500 Other: Voiding Method Urinal Urinal Urinal # Voids 0 1 1 - Exam PHYSICAL EXAMINATION: GENERAL: The patient is alert and oriented x3, not in any acute distress. obese HEENT: Pupils are round and equally reacting to light. EOMI. No scleral icterus. No conjunctival pallor. Normocephalic, atraumatic. No pharyngeal erythema. No thyromegaly. CARDIOVASCULAR: S1 and S2 present. No murmurs, rubs, or gallops. PULMONARY: Chest is clear to auscultation, no wheezing or crackles. ABDOMEN: Soft, nontender, nondistended, normoactive bowel sounds. No palpable organomegaly. MUSCULOSKELETAL: No joint swelling or deformity. EXTREMITIES: No cyanosis, clubbing, extensive bilateral pitting pedal edema patient does have an Judd bandage NEUROLOGICAL: Gross neurological examination did not reveal any focal deficits. SKIN: No rashes. - Labs CBC & Chem 7: 01/21/19 05:46 01/21/19 05:46 Labs: Abnormal Lab Results - Last 24 Hours (Table) 01/20/19 01/20/19 Range/Units 08:08 08:08 WBC 15.6 H (3.8-10.6) k/uL RBC 3.83 L (4.30-5.90) m/uL Hgb 8.7 L D (13.0-17.5) gm/dL Hct 29.1 L (39.0-53.0) % MCV 75.9 L (80.0-100.0) fL MCH 22.7 L (25.0-35.0) pg MCHC 29.8 L (31.0-37.0) g/dL RDW 18.2 H (11.5-15.5) % Plt Count 583 H (150-450) k/uL Sodium 128 L (137-145) mmol/L Carbon Dioxide 21 L (22-30) mmol/L Glucose 145 H (74-99) mg/dL Calcium 8.2 L (8.4-10.2) mg/dL Assessment and Plan Assessment: -Shortness of breath etiology is multifactorial obesity possibility of sleep apnea, deconditioning secondary to aging, with atrial fibrillation with contribution from anemia. Patient is in A. fib with rapid ventricular rate. strated on amiodarone presently improved patient converted to sinus rhythm. On beta blockers. - Acute blood loss Anemia and GI bleed. s/p EGD and colonoscopy. -Cecal mass. Pending biopsy report. -Chronic Atrial fibrillation with rapid ventricular patient converted to sinus rhythm on amiodarone patient probably will be switched to oral amiodarone monitored overnight. -Hyponatremia. Sodium 129. Possibly hypervolemic. Patient will be On fluid restriction and diuretics as blood pressure tolerates. if he remains hyponatremic will need further evaluation for SIADH. -Benign prostatic hypertrophy -Morbid obesity possibility of sleep apnea patient was never diagnosed with this. -Hypertension -Non-ischemic cardiomyopathy -Chronic systolic heart failure, currently euvolemic - Thrombocytopenia Time with Patient: Greater than 30
--- NOTE | 2019-01-22 00:29 | P.PN ---
Subjective Progress Note Date: 01/21/19 Principal diagnosis: Atrial fibrillation with RVR Cecal mass 88-year-old male admitted for shortness of breath which appears to be subacute to chronic. There is no evidence of COPD and CHF no evidence of significant lung injury. CT any of the chest did not show any significant abnormality. Patient was given Lasix and his serum sodium has come down. Patient went into A. fib with rapid ventricular rate I believe is secondary to intravascular depletion we'll hydrate him today and see how he responds as there is no evidence of CHF although patient does have pedal edema pitting to his chronic patient although looks better. Patient hemoglobin is 8 which apparently was 10 about a month ago although there is no evidence of acute GI bleed. Patient was started on amiodarone and Tikosyn is was discontinued. 01/17/2019 Patient converted to sinus rhythm on amiodarone presently rate controlled patient received 1 L of IV fluid in spite of which his serum sodium remained at 129 Greer believe he'll need more IV fluid but the big patient has extensive pedal edema because of which haven't been hold off on IV fluids. Respiratory status improved patient will be monitored overnight will be switched to oral amiodarone possibility of discharge tomorrow. Hemoglobin is 7.5 secondary to hemodilution affect 01/18/2019 Patient is clinically doing well patient will go for upper GI endoscopy and colonoscopy tomorrow to see if there is any sources of occult bleed like AVMs to help cardiology my dictation regarding anticoagulation. Patient still has pedal edema but still appears to be intravascularly volume depleted because of that reason not the giving him any Lasix. Patient is not in heart failure exacerbation patient serum sodium is still 129 because of concerns of the worsening pedal edema patient is not being started on IV fluids either. Patient probably can be discharged tomorrow 01/19/19 s/p EGD and colonoscopy. 1. Hiatal hernia with no obvious esophagitis or complicated reflux disease. 2. Normal stomach and duodenum. 3. 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 Patient is currently off anticoagulation. Heart rate is better controlled. Hemoglobin is 7.2. Patient is still having bilateral lower extremities sw elling. 01/20/2019 Cecal mass biopsy is pending. Patient is still having bilateral lower extremit ies edema. Blood pressure in the lower side. Heart rate is still elevated. Patient was also found to have iron deficiency anemia and was started on IV iron. Hemoglobin 8.7. Patient was seen by oncology due to cecal mass. CT of the abdominal pelvis was ordered. CEA was ordered as well. Patient currently patient is significant comfortably. No compressive shortness of breath or chest pain. Wants to be discharged home. Sodium level remains low at 128. 01/21/2019 Patient is currently sitting in a chair comfortably. No compressive chest pain. Still having seen for and leg swelling. Heart is still elevated. Continued on amiodarone and beta blockers. Dose increased as per cardiology. Patient was started on digoxin. 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 Gen. surgery was consulted. Oncology is following. Patient remained on hyponatremic hypoosmolar.. Patient be kept on fluid restriction and diuresis as blood pressure tolerates. Prognosis is poor at this time. Discussed with his daughter at bedside in detail. Constitutional: Denied any fatigue denied any fever. Cardio vascular: denied any chest pain, palpitations Gastrointestinal denied any nausea vomiting Pulmonary: Denied any worsening shortness of breath or cough Neurologic denied any new focal deficits All inpatient medications were reviewed and appropriate changes in these med ications as dictated in the interval history and assessment and plan. Objective - Vital Signs Vital signs: Vital Signs Temp 97.8 F 01/21/19 20:41 Pulse 124 H 01/21/19 20:41 Resp 18 01/21/19 20:41 BP 95/50 01/21/19 20:41 Pulse Ox 99 01/21/19 20:41 Intake & Output 01/21/19 01/21/19 01/22/19 06:59 18:59 06:59 Intake Total 30 965 Balance 30 965 Weight 109.8 kg Intake: IV 30 Invasive Line 8 30 Intake, IV Titration 125 Amount Sodium Ferric Gluconat- 125 Sucrose 125 mg In Sodium Chloride 0.9% 100 ml @ 100 mls/hr IVPB DAILY [facility] Rx#:[id number] Oral 840 Other: Voiding Method Urinal Toilet # Voids 1 1 # Bowel Movements 1 - Exam PHYSICAL EXAMINATION: GENERAL: The patient is alert and oriented x3, not in any acute distress. obese HEENT: Pupils are round and equally reacting to light. EOMI. No scleral icterus. No conjunctival pallor. Normocephalic, atraumatic. No pharyngeal erythema. No thyromegaly. CARDIOVASCULAR: S1 and S2 present. No murmurs, rubs, or gallops. PULMONARY: Chest is clear to auscultation, no wheezing or crackles. ABDOMEN: Soft, nontender, nondistended, normoactive bowel sounds. No palpable organomegaly. MUSCULOSKELETAL: No joint swelling or deformity. EXTREMITIES: No cyanosis, clubbing, extensive bilateral pitting pedal edema pat ient does have an Judd bandage NEUROLOGICAL: Gross neurological examination did not reveal any focal deficits. SKIN: No rashes. - Labs CBC & Chem 7: 01/21/19 05:46 01/21/19 05:46 Labs: Abnormal Lab Results - Last 24 Hours (Table) 01/20/19 01/21/19 01/21/19 Range/Units 08:08 05:46 05:46 WBC 13.7 H (3.8-10.6) k/uL RBC 3.92 L (4.30-5.90) m/uL Hgb 8.1 L (13.0-17.5) gm/dL Hct 28.2 L (39.0-53.0) % MCV 72.0 L (80.0-100.0) fL MCH 20.8 L (25.0-35.0) pg MCHC 28.8 L (31.0-37.0) g/dL RDW 19.5 H (11.5-15.5) % Plt Count 738 H (150-450) k/uL Neutrophils # 11.0 H (1.3-7.7) k/uL Sodium 128 L (137-145) mmol/L Chloride 97 L (98-107) mmol/L Carbon Dioxide 21 L (22-30) mmol/L Glucose 100 H (74-99) mg/dL Osmolality (280-301) mosm/kg Alkaline Phosphatase 132 H (38-126) U/L Total Protein 5.5 L (6.3-8.2) g/dL Albumin 2.6 L (3.5-5.0) g/dL Carcinoembryonic Ag 19.9 H (0.0-4.9) ng/mL 01/21/19 Range/Units 05:46 WBC (3.8-10.6) k/uL RBC (4.30-5.90) m/uL Hgb (13.0-17.5) gm/dL Hct (39.0-53.0) % MCV (80.0-100.0) fL MCH (25.0-35.0) pg MCHC (31.0-37.0) g/dL RDW (11.5-15.5) % Plt Count (150-450) k/uL Neutrophils # (1.3-7.7) k/uL Sodium (137-145) mmol/L Chloride (98-107) mmol/L Carbon Dioxide (22-30) mmol/L Glucose (74-99) mg/dL Osmolality 267 L (280-301) mosm/kg Alkaline Phosphatase (38-126) U/L Total Protein (6.3-8.2) g/dL Albumin (3.5-5.0) g/dL Carcinoembryonic Ag (0.0-4.9) ng/mL Assessment and Plan Assessment: -Shortness of breath etiology is multifactorial obesity possibility of sleep apnea, deconditioning secondary to aging, with atrial fibrillation with contribution from anemia. Patient is in A. fib with rapid ventricular rate. strated on amiodarone presently improved patient converted to sinus rhythm. On beta blockers. Dose increased. added Digoxin. - Acute blood loss Anemia and GI bleed. s/p EGD and colonoscopy. -Iron deficiency anemia. Currently on IV iron daily for 3 days. 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 -Chronic Atrial fibrillation with rapid ventricular patient converted to sinus rhythm on amiodarone patient probably will be switched to oral amiodarone monitored overnight. -Hyponatremia. Sodium 129. Possibly hypervolemic. With underlying SIADH cannot be excluded. Patient will be On fluid restriction and diuretics as blood pressure tolerates. -Benign prostatic hypertrophy -Morbid obesity possibility of sleep apnea patient was never diagnosed with this. -Hypertension -Non-ischemic cardiomyopathy -Chronic systolic heart failure, currently euvolemic - Thrombocytosis likely due to iron deficiency Time with Patient: Greater than 30
[2019-01-22] MEDS: AMIODARONE 200 MG TAB PO SCH ×3 (05:20→21:16)
[2019-01-22] MEDS: METOPROLOL TARTRATE 25 MG TAB PO SCH ×2 (05:20→21:15)
[2019-01-22] MEDS: MAGNESIUM OXIDE 400 MG TAB PO SCH (07:43)
[2019-01-22] MEDS: CHOLECALCIFEROL 1,000 UNIT TAB PO SCH (07:43)
[2019-01-22] MEDS: FERROUS SULFATE 325 MG TAB PO SCH ×2 (07:44→21:16)
[2019-01-22] MEDS: FINASTERIDE 5 MG TAB PO SCH (07:44)
[2019-01-22] MEDS: ASCORBIC ACID 500 MG TAB PO SCH ×2 (07:44→21:16)
[2019-01-22] MEDS: TAMSULOSIN 0.4 MG CAP.ER.24H PO SCH (07:44)
[2019-01-22] MEDS: SODIUM CHLORIDE 0.9% 1,000 ML IV SCH (08:26)
[2019-01-22] MEDS: SODIUM FERRIC GLUCONAT-SUCROSE 125 MG in SODIUM CHLORIDE 0.9% 100 ML IVPB SCH (09:43)
--- NOTE | 2019-01-22 12:46 | P.PN ---
Subjective Progress Note Date: 01/22/19 This 88-year-old gentleman with a history of persistent atypical fibrillation was admitted with weakness and anemia. Diagnosed to have possible cancerous lesion involving the cecum. Patient is waiting for oncology and surgical input. Patient to home went back to atrial fibrillation with moderately rapid ventricle response. With amiodarone and beta yumiko and Lanoxin. He states he may be better controlled. He is feeling better today. Denies any chest pain or shortness of breath. Still continues to be fatigued. Objective - Vital Signs Vital signs: Vital Signs Temp 97.7 F 01/22/19 07:40 Pulse 79 01/22/19 12:00 Resp 20 01/22/19 12:00 BP 97/54 01/22/19 12:00 Pulse Ox 96 01/22/19 12:00 Intake & Output 01/21/19 01/22/19 01/22/19 18:59 06:59 18:59 Intake Total 965 720 Output Total 200 Balance 965 -200 720 Weight 111.5 kg Intake: Intake, IV Titration 125 Amount Sodium Ferric Gluconat- 125 Sucrose 125 mg In Sodium Chloride 0.9% 100 ml @ 100 mls/hr IVPB DAILY [facility] Rx#:[id number] Oral 840 720 Output: Urine 200 Other: Voiding Method Toilet # Voids 1 # Bowel Movements 1 - Exam GENERAL EXAM: Patient is alert and oriented and doesn't appear to be in any ac farhad distress HEENT: Normocephalic. Normal reaction of pupils, equal size, normal range of extraocular motion. No erythema or exudates in the throat. NECK: No masses, no nuchal rigidity. CHEST: No chest wall deformity. LUNGS: Equal air entry with no crackles or wheeze. HEART: S1 and S2 normal his regular heart sounds ABDOMEN: No hepatosplenomegaly, normal bowel sounds, no guarding or rigidity. SKIN: No rashes CENTRAL NERVOUS SYSTEM: No focal deficits. EXTREMITIES: Edema plus - Labs CBC & Chem 7: 01/21/19 05:46 01/21/19 05:46 Labs: Abnormal Lab Results - Last 24 Hours (Table) 01/21/19 Range/Units 05:46 Osmolality 267 L (280-301) mosm/kg Assessment and Plan (1) Acute blood loss anemia Current Visit: Yes Status: Acute Code(s): D62 - ACUTE POSTHEMORRHAGIC ANEMIA SNOMED Code(s): 117450280 (2) CHF (congestive heart failure) Current Visit: Yes Status: Acute Code(s): I50.9 - HEART FAILURE, UNSPECIFIED SNOMED Code(s): 71545487 (3) COPD (chronic obstructive pulmonary disease) Current Visit: Yes Status: Acute Code(s): J44.9 - CHRONIC OBSTRUCTIVE PULMONARY DISEASE, UNSPECIFIED SNOMED Code(s): 69495572 (4) Chronic atrial fibrillation Current Visit: Yes Status: Acute Code(s): I48.2 - CHRONIC ATRIAL FIBRILLATION SNOMED Code(s): 253880142 (5) Iron deficiency anemia Current Visit: Yes Status: Acute Code(s): D50.9 - IRON DEFICIENCY ANEMIA, UNSPECIFIED SNOMED Code(s): 42919764 Plan: Continue current management with amiodarone, beta yumiko and Lanoxin. Lanoxin level. Anemia and GI malignancy management as per the oncologist and surgeon
--- NOTE | 2019-01-22 14:36 | P.GSCN ---
History of Present Illness Consult date: 01/22/19 Reason for Consult: Right-sided colon cancer History of present illness: Patient presented to the hospital with complaints of fatigue and shortness of breath. Patient was found to have atrial fibrillation. Patient was also found to have CHF. Patient was also found to be anemic. He then underwent colonoscopy by Dr. Valle. He was found have a mass involving the cecum. CAT scan confirmed a large mass in that area without any definite metastatic disease. CT chest negative for metastasis as well. Patient's last colonoscopy was several years ago. He does not feel any abdominal discomfort. He is tolerating diet. No rectal bleeding or melena. He did state he was bloated when he had his bowel prep however. No definite obstruction on CAT scan. Patient's performance status is decent. He lives by himself. He does still drive. No dementia. CEA level is 19. Review of Systems The patient denies any acute changes in vision or hearing, no dysphagia or odynophagia, no chest pain, no dysuria or hematuria, no headache, no runny nose, no rectal bleeding or melena, no unexplained weight loss Past Medical History Past Medical History: Atrial Fibrillation, Hypertension Additional Past Medical History / Comment(s): Chronic fatigue for years, chronic Afib, pt denies prior hx of CHF, iron deficiency anemia, bilateral tinnitis, BPH, occasional low back pain and past sciatica, double vision L eye after lens implant "slipped". History of Any Multi-Drug Resistant Organisms: None Reported Past Surgical History: Back Surgery, Cholecystectomy, Hernia Repair, Joint Replacement, Orthopedic Surgery, Tonsillectomy Additional Past Surgical History / Comment(s): Low back surgery, 2011 cardiac cath-normal, umbilical hernia repair, total L knee arthroplasty, bilateral cataract removals with lens implants, colonoscopy with benign polypectomy. Past Anesthesia/Blood Transfusion Reactions: No Reported Reaction Smoking Status: Former smoker - Past Family History Father Family Medical History: Cancer Additional Family Medical History / Comment(s): Father of lung cancer in his 70s. He was a smoker. Mother Family Medical History: No Reported History Additional Family Medical History / Comment(s): Mother was healthy and lived to be 89yrs old. Medications and Allergies Home Medications Medication Instructions Recorded Confirmed Type Finasteride [Proscar] 5 mg PO DAILY 12/23/18 01/15/19 History Magnesium Oxide [Mag-Ox] 250 mg PO DAILY 12/23/18 01/15/19 History Spironolactone 50 mg PO DAILY 12/23/18 01/15/19 History Tamsulosin HCl [Flomax] 0.4 mg PO DAILY 12/23/18 01/15/19 History Ascorbic Acid [Vitamin C] 250 mg PO BID 01/15/19 01/15/19 History Cholecalciferol (Vitamin D3) 2,000 unit PO DAILY 01/15/19 01/15/19 History [Vitamin D3] Dofetilide [Tikosyn] 125 mcg PO Q12HR 01/15/19 01/15/19 History Ferrous Sulfate [Iron (65 MG 325 mg PO BID 01/15/19 01/15/19 History Elemental)] Amiodarone [Cordarone] 200 mg PO TID #90 tab 01/21/19 Rx Metoprolol Tartrate [Lopressor] 25 mg PO BID #60 tab 01/21/19 Rx Allergies Allergy/AdvReac Type Severity Reaction Status Date / Time No Known Allergies Allergy Verified 01/15/19 11:48 Surgical - Exam Vital Signs Temp Pulse Resp BP Pulse Ox 98.2 F 68 24 95/54 100 01/15/19 10:34 01/15/19 10:34 01/15/19 10:34 01/15/19 10:34 01/15/19 10:34 Physical exam: General: Well-developed, well-nourished HEENT: Normocephalic, sclerae nonicteric Abdomen: Obese, nontender, no palpable masses, nondistended Extremities: Lower extremity edema Neuro: Alert and oriented Results - Labs 01/21/19 05:46 01/21/19 05:46 Abnormal Lab Results - Last 24 Hours (Table) 01/21/19 Range/Units 05:46 Osmolality 267 L (280-301) mosm/kg Assessment and Plan (1) Colon cancer Narrative/Plan: Clinical scenario discussed in detail with the patient and his daughter at the bedside. Recommend surgical resection when clinically stable. Will tentatively plan right colectomy early next week. Discussed with Dr. Paniagua. He will work on preoperative clearance at this point. Risks of bleeding, infection, ureteral and duodenal injury, leak, abscess, respiratory and cardiac complications, hernia, and reviewed. They understand and wish to proceed. Current Visit: Yes Status: Acute Code(s): C18.9 - MALIGNANT NEOPLASM OF COLON, UNSPECIFIED SNOMED Code(s): 078398823
[2019-01-22 15:55] LABS: ALT 22 U/L (21-72); AST 24 U/L (17-59); Albumin 2.3 g/dL (3.5-5.0); Alkaline Phosphatase 99 U/L (38-126); Anion Gap 11 mmol/L; Blood Urea Nitrogen 16 mg/dL (9-20); Calcium 8.1 mg/dL (8.4-10.2); Carbon Dioxide 21 mmol/L (22-30); Chloride 98 mmol/L (98-107); Glucose 135 mg/dL (74-99); Potassium 5.4 mmol/L (3.5-5.1); Sodium 130 mmol/L (137-145); Total Bilirubin 0.3 mg/dL (0.2-1.3); Total Protein 4.9 g/dL (6.3-8.2)
[2019-01-22 16:31] LABS: Prothrombin Time 10.4 sec (9.0-12.0)
--- NOTE | 2019-01-22 16:34 | P.PN ---
Subjective Progress Note Date: 01/22/19 Principal diagnosis: New Cecal Mass Patient with no acute complaints Pathology has returned and positive for adenocarcinoma of biopsied cecal mass, he will have a surgical consult placed for full staging surgery. CT scans do not show clear evidence of metastatic picture. Objective - Vital Signs Vital signs: Vital Signs Temp 97.7 F 01/22/19 07:40 Pulse 79 01/22/19 12:00 Resp 20 01/22/19 12:00 BP 97/54 01/22/19 12:00 Pulse Ox 96 01/22/19 12:00 Intake & Output 01/21/19 01/22/19 01/22/19 18:59 06:59 18:59 Intake Total 965 720 Output Total 200 Balance 965 -200 720 Weight 111.5 kg 111.5 kg Intake: Intake, IV Titration 125 Amount Sodium Ferric Gluconat- 125 Sucrose 125 mg In Sodium Chloride 0.9% 100 ml @ 100 mls/hr IVPB DAILY [facility] Rx#:[id number] Oral 840 720 Output: Urine 200 Other: Voiding Method Toilet # Voids 1 # Bowel Movements 1 - Exam Gen: alert and oriented no acute distress Head: NC/NT Neck: Supple No supraclavicular adenopathy, cervical or axillary adenopathy palpable Abdomen is soft, mild tenderness to palpation Heart: RRR, S1s2 Lungs: Clear no increased effort Neuo: No sensory or motor defects Extremities: no edema - Labs CBC & Chem 7: 01/21/19 05:46 01/22/19 15:07 Labs: Abnormal Lab Results - Last 24 Hours (Table) 01/21/19 Range/Units 05:46 Osmolality 267 L (280-301) mosm/kg Assessment and Plan Plan: Assessment and Recommendations: 1. Severe Iron Deficiency Anemia: - Secondary to GI Blood Loss from Underlying Cecal Mass - Parental Iron ordered and given today, will order two more days - Continue on PO - Monitor daily CBC 2. Cecal Mass: New Finding: - Final Pathology resulted with adenocarcinoma - CEA = 19.9 - CT scans reviewed - No evidence of distant metastatic disease identified - Surgery to consult Plan: - discussed pathology with patient and daughter, since off anticoagulation will plan for colectomy and tumor resection next week, at that time staging and will follow-up on recs for need of systemic treatment after. Physician Attest: I have discussed the complete history and physicial and developed the completed impression and plan, agree with above dictation. Dictated as a scribe
[2019-01-22 16:50] LABS: Anisocytosis Moderate; Basophils % (A) 0 %; Eosinophils # (A) 0.3 k/uL (0-0.7); Eosinophils % (A) 2 %; HCT 26.4 % (39.0-53.0); HGB 7.4 gm/dL (13.0-17.5); Hypochromasia Marked; Lymphocytes # (A) 1.2 k/uL (1.0-4.8); Lymphocytes % (A) 7 %; MCH 20.1 pg (25.0-35.0); MCV 71.7 fL (80.0-100.0); Microcytosis Marked; Monocytes % (A) 6 %; Neutrophils # (A) 14.7 k/uL (1.3-7.7); Neutrophils % (A) 84 %; Platelet Count 602 k/uL (150-450); Poikilocytosis Slight; RBC 3.68 m/uL (4.30-5.90); RDW 20.1 % (11.5-15.5); WBC 17.4 k/uL (3.8-10.6)
[2019-01-22 17:07] LABS: Ovalocytes Present; Polychromasia Present
[2019-01-23] MEDS: TEMAZEPAM 7.5 MG CAP PO PRN ×2 (00:16→23:43)
--- NOTE | 2019-01-23 00:49 | P.PN ---
Subjective Progress Note Date: 01/22/19 Principal diagnosis: Atrial fibrillation with RVR Cecal mass 88-year-old male admitted for shortness of breath which appears to be subacute to chronic. There is no evidence of COPD and CHF no evidence of significant lung injury. CT any of the chest did not show any significant abnormality. Patient was given Lasix and his serum sodium has come down. Patient went into A. fib with rapid ventricular rate I believe is secondary to intravascular depletion we'll hydrate him today and see how he responds as there is no evidence of CHF although patient does have pedal edema pitting to his chronic patient although looks better. Patient hemoglobin is 8 which apparently was 10 about a month ago although there is no evidence of acute GI bleed. Patient was started on amiodarone and Tikosyn is was discontinued. 01/17/2019 Patient converted to sinus rhythm on amiodarone presently rate controlled patient received 1 L of IV fluid in spite of which his serum sodium remained at 129 Schley believe he'll need more IV fluid but the big patient has extensive pedal edema because of which haven't been hold off on IV fluids. Respiratory status improved patient will be monitored overnight will be switched to oral amiodarone possibility of discharge tomorrow. Hemoglobin is 7.5 secondary to hemodilution affect 01/18/2019 Patient is clinically doing well patient will go for upper GI endoscopy and colonoscopy tomorrow to see if there is any sources of occult bleed like AVMs to help cardiology my dictation regarding anticoagulation. Patient still has pedal edema but still appears to be intravascularly volume depleted because of that reason not the giving him any Lasix. Patient is not in heart failure exacerbation patient serum sodium is still 129 because of concerns of the worsening pedal edema patient is not being started on IV fluids either. Patient probably can be discharged tomorrow 01/19/19 s/p EGD and colonoscopy. 1. Hiatal hernia with no obvious esophagitis or complicated reflux disease. 2. Normal stomach and duodenum. 3. 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 Patient is currently off anticoagulation. Heart rate is better controlled. Hemoglobin is 7.2. Patient is still having bilateral lower extremities sw elling. 01/20/2019 Cecal mass biopsy is pending. Patient is still having bilateral lower extremit ies edema. Blood pressure in the lower side. Heart rate is still elevated. Patient was also found to have iron deficiency anemia and was started on IV iron. Hemoglobin 8.7. Patient was seen by oncology due to cecal mass. CT of the abdominal pelvis was ordered. CEA was ordered as well. Patient currently patient is significant comfortably. No compressive shortness of breath or chest pain. Wants to be discharged home. Sodium level remains low at 128. 01/21/2019 Patient is currently sitting in a chair comfortably. No implants of chest pain. Still having seen for and leg swelling. Heart is still elevated. Continued on amiodarone and beta blockers. Dose increased as per cardiology. Patient was started on digoxin. 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 Gen. surgery was consulted. Oncology is following. Patient remained on hyponatremic hypoosmolar.. Patient be kept on fluid restriction and diuresis as blood pressure tolerates. Prognosis is poor at this time. Discussed with his daughter at bedside in detail. 01/22/2019 Patient says that he is feeling better. Heart rate is better controlled. Continued on beta blockers and Lanoxin. CT abdomen showed no evidence of prostatic disease. Patient was seen by general surgery and patient is agreeable for colectomy possibly next week. Cardiology is on board. Continue to follow sodium level and hemoglobin. Patient is still having significant leg swelling but slightly improved. Constitutional: Denied any fatigue denied any fever. Cardio vascular: denied any chest pain, palpitations Gastrointestinal denied any nausea vomiting Pulmonary: Denied any worsening shortness of breath or cough Neurologic denied any new focal deficits All inpatient medications were reviewed and appropriate changes in these medications as dictated in the interval history and assessment and plan. Objective - Vital Signs Vital signs: Vital Signs Temp 97.8 F 01/22/19 20:00 Pulse 110 H 01/22/19 20:00 Resp 20 01/22/19 20:00 BP 119/56 01/22/19 20:00 Pulse Ox 99 01/22/19 20:00 Intake & Output 01/22/19 01/22/19 01/23/19 06:59 18:59 06:59 Intake Total 1626 Output Total 200 800 Balance -200 826 Weight 111.5 kg 111.5 kg Intake: Oral 1626 Output: Urine 200 800 Other: Voiding Method Toilet Toilet - Exam PHYSICAL EXAMINATION: GENERAL: The patient is alert and oriented x3, not in any acute distress. obese HEENT: Pupils are round and equally reacting to light. EOMI. No scleral icterus. No conjunctival pallor. Normocephalic, atraumatic. No pharyngeal erythema. No thyromegaly. CARDIOVASCULAR: S1 and S2 present. No murmurs, rubs, or gallops. PULMONARY: Chest is clear to auscultation, no wheezing or crackles. ABDOMEN: Soft, nontender, nondistended, normoactive bowel sounds. No palpable organomegaly. MUSCULOSKELETAL: No joint swelling or deformity. EXTREMITIES: No cyanosis, clubbing, extensive bilateral pitting pedal edema patient does have an Judd bandage NEUROLOGICAL: Gross neurological examination did not reveal any focal deficits. SKIN: No rashes. - Labs CBC & Chem 7: 01/22/19 15:07 01/22/19 15:07 Labs: Abnormal Lab Results - Last 24 Hours (Table) 01/21/19 01/22/19 01/22/19 Range/Units 05:46 15:07 15:07 WBC 17.4 H (3.8-10.6) k/uL RBC 3.68 L (4.30-5.90) m/uL Hgb 7.4 L (13.0-17.5) gm/dL Hct 26.4 L (39.0-53.0) % MCV 71.7 L (80.0-100.0) fL MCH 20.1 L (25.0-35.0) pg MCHC 28.0 L (31.0-37.0) g/dL RDW 20.1 H (11.5-15.5) % Plt Count 602 H (150-450) k/uL Neutrophils # 14.7 H (1.3-7.7) k/uL Sodium 130 L (137-145) mmol/L Potassium 5.4 H (3.5-5.1) mmol/L Carbon Dioxide 21 L (22-30) mmol/L Glucose 135 H (74-99) mg/dL Osmolality 267 L (280-301) mosm/kg Calcium 8.1 L (8.4-10.2) mg/dL Total Protein 4.9 L (6.3-8.2) g/dL Albumin 2.3 L (3.5-5.0) g/dL Assessment and Plan Assessment: -Shortness of breath etiology is multifactorial obesity possibility of sleep apnea, deconditioning secondary to aging, with atrial fibrillation with contribution from anemia. Patient wasn't A. fib with rapid ventricular rate. strated on amiodarone presently improved patient converted to sinus rhythm. On beta blockers. Dose increased. added Digoxin. - Acute blood loss Anemia and GI bleed. s/p EGD and colonoscopy. -Iron deficiency anemia. Currently on IV iron daily for 3 days. 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 CT showed no evidence of metastasis. CEA 19.9. Gen. surgery is planning for cholectomy possibly next week. -Chronic Atrial fibrillation with rapid ventricular patient converted to sinus rhythm on amiodarone patient probably will be switched to oral amiodarone monitored overnight. -Hyponatremia. Sodium 129. Likely hypervolemic. With underlying SIADH cannot be excluded. Patient will be On fluid restriction and diuretics as blood pressure tolerates. -Benign prostatic hypertrophy -Morbid obesity possibility of sleep apnea patient was never diagnosed with this. BMI 39.7 -Hypertension. Currently hypotensive. -Non-ischemic cardiomyopathy -Chronic systolic heart failure, currently euvolemic - Thrombocytosis likely due to iron deficiency Time with Patient: Greater than 30
[2019-01-23 07:38] LABS: Anisocytosis Moderate; Basophils % (A) 0 %; Eosinophils # (A) 0.2 k/uL (0-0.7); Eosinophils % (A) 1 %; HCT 28.5 % (39.0-53.0); Hypochromasia Marked; Lymphocytes # (A) 1.6 k/uL (1.0-4.8); Lymphocytes % (A) 12 %; MCH 20.7 pg (25.0-35.0); MCHC 28.1 g/dL (31.0-37.0); MCV 73.6 fL (80.0-100.0); Microcytosis Moderate; Monocytes # (A) 0.7 k/uL (0-1.0); Monocytes % (A) 5 %; Neutrophils # (A) 11.2 k/uL (1.3-7.7); Neutrophils % (A) 80 %; Platelet Count 657 k/uL (150-450); Poikilocytosis Slight; RBC 3.87 m/uL (4.30-5.90); RDW 20.3 % (11.5-15.5); WBC 13.9 k/uL (3.8-10.6)
[2019-01-23 07:47] LABS: Anion Gap 9 mmol/L; Blood Urea Nitrogen 14 mg/dL (9-20); Calcium 8.2 mg/dL (8.4-10.2); Carbon Dioxide 22 mmol/L (22-30); Chloride 98 mmol/L (98-107); Glucose 96 mg/dL (74-99); Sodium 129 mmol/L (137-145)
[2019-01-23] MEDS: ASCORBIC ACID 500 MG TAB PO SCH ×2 (08:09→21:25)
[2019-01-23] MEDS: CHOLECALCIFEROL 1,000 UNIT TAB PO SCH (08:09)
[2019-01-23] MEDS: DIGOXIN 125 MCG TAB PO SCH (08:09)
[2019-01-23] MEDS: AMIODARONE 200 MG TAB PO SCH ×3 (08:09→21:25)
[2019-01-23] MEDS: METOPROLOL TARTRATE 25 MG TAB PO SCH (08:11)
[2019-01-23] MEDS: FINASTERIDE 5 MG TAB PO SCH (08:11)
[2019-01-23] MEDS: TAMSULOSIN 0.4 MG CAP.ER.24H PO SCH (08:11)
[2019-01-23] MEDS: FERROUS SULFATE 325 MG TAB PO SCH ×2 (08:11→21:25)
[2019-01-23] MEDS: MAGNESIUM OXIDE 400 MG TAB PO SCH (08:11)
[2019-01-23] MEDS ORDERED: METOPROLOL TARTRATE 25 MG TAB PO STA (09:18)
[2019-01-23] MEDS: SODIUM CHLORIDE 0.9% 1,000 ML IV SCH (09:20)
--- NOTE | 2019-01-23 09:57 | P.PN ---
Progress Note - Text Progress Note Date: 01/23/19 The patient's resting comfortably in his bed. He denies a significant abdominal pain. On exam is lesser stable. His evidence soft. Patient will be undergoing bowel prep tomorrow for right colectomy on Friday.
[2019-01-23] MEDS ORDERED: PEG 3350-NA SULF,BICARB,CL/KCL 4,000 ML BOTTLE PO ONE (09:58)
--- NOTE | 2019-01-23 13:47 | US ---
EXAMINATION TYPE: US venous doppler duplex UE RT DATE OF EXAM: 01/23/2019 COMPARISON: NONE CLINICAL HISTORY: Thrombophlebitis. SIDE PERFORMED: Right Right Arm: Negative for DVT IMPRESSION: THIS EXAMINATION IS NEGATIVE FOR DVT IN THE RIGHT ARM.
--- NOTE | 2019-01-23 19:20 | PN ---
PROGRESS NOTE Mr. Cm is a gentleman who has history of atrial fib, chronic. He had a fairly fast rate yesterday but this morning the rate is better. I will increase the Lopressor to 50 mg b.i.d. Heart rate is in one-teens. S1-S2 heard normally. Short systolic murmur noted, irregular rhythm noted. Lungs, abdomen and lower extremity exam unchanged. Plan is to continue current medications, incentive spirometry and will increase Lopressor to 50 mg b.i.d. and no anticoagulation given the fact he has GI bleeding, possible cancerous lesion and he is going for surgery. Plan is to optimize rate control with metoprolol and see how he does. His echocardiogram performed on 01/16/2019 revealed an ejection fraction of about 45%-50% with inferobasal hypokinesia and no significant pulmonary hypertension. Plan is to continue rate control, current medications and see how he does. Prognosis remains guarded. MMODL / IJN: [id number] /
[2019-01-23] MEDS: HEPARIN SODIUM,PORCINE 5,000 UNIT/ML 1 ML VIAL SQ SCH (21:25)
[2019-01-23] MEDS: METOPROLOL TARTRATE 50 MG TAB PO SCH (21:26)
--- NOTE | 2019-01-24 00:28 | P.PN ---
Subjective Progress Note Date: 01/23/19 Principal diagnosis: Atrial fibrillation with RVR Cecal mass 88-year-old male admitted for shortness of breath which appears to be subacute to chronic. There is no evidence of COPD and CHF no evidence of significant lung injury. CT any of the chest did not show any significant abnormality. Patient was given Lasix and his serum sodium has come down. Patient went into A. fib with rapid ventricular rate I believe is secondary to intravascular depletion we'll hydrate him today and see how he responds as there is no evidence of CHF although patient does have pedal edema pitting to his chronic patient although looks better. Patient hemoglobin is 8 which apparently was 10 about a month ago although there is no evidence of acute GI bleed. Patient was started on amiodarone and Tikosyn is was discontinued. 01/17/2019 Patient converted to sinus rhythm on amiodarone presently rate controlled patient received 1 L of IV fluid in spite of which his serum sodium remained at 129 [place] believe he'll need more IV fluid but the big patient has extensive pedal edema because of which haven't been hold off on IV fluids. Respiratory status improved patient will be monitored overnight will be switched to oral amiodarone possibility of discharge tomorrow. Hemoglobin is 7.5 secondary to hemodilution affect 01/18/2019 Patient is clinically doing well patient will go for upper GI endoscopy and colonoscopy tomorrow to see if there is any sources of occult bleed like AVMs to help cardiology my dictation regarding anticoagulation. Patient still has pedal edema but still appears to be intravascularly volume depleted because of that reason not the giving him any Lasix. Patient is not in heart failure exacerbation patient serum sodium is still 129 because of concerns of the worsening pedal edema patient is not being started on IV fluids either. Patient probably can be discharged tomorrow 01/19/19 s/p EGD and colonoscopy. 1. Hiatal hernia with no obvious esophagitis or complicated reflux disease. 2. Normal stomach and duodenum. 3. 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 Patient is currently off anticoagulation. Heart rate is better controlled. Hemoglobin is 7.2. Patient is still having bilateral lower extremities sw elling. 01/20/2019 Cecal mass biopsy is pending. Patient is still having bilateral lower extremit ies edema. Blood pressure in the lower side. Heart rate is still elevated. Patient was also found to have iron deficiency anemia and was started on IV iron. Hemoglobin 8.7. Patient was seen by oncology due to cecal mass. CT of the abdominal pelvis was ordered. CEA was ordered as well. Patient currently patient is significant comfortably. No compressive shortness of breath or chest pain. Wants to be discharged home. Sodium level remains low at 128. 01/21/2019 Patient is currently sitting in a chair comfortably. No implants of chest pain. Still having seen for and leg swelling. Heart is still elevated. Continued on amiodarone and beta blockers. Dose increased as per cardiology. Patient was started on digoxin. 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 Gen. surgery was consulted. Oncology is following. Patient remained on hyponatremic hypoosmolar.. Patient be kept on fluid restriction and diuresis as blood pressure tolerates. Prognosis is poor at this time. Discussed with his daughter at bedside in detail. 01/22/2019 Patient says that he is feeling better. Heart rate is better controlled. Continued on beta blockers and Lanoxin. CT abdomen showed no evidence of prostatic disease. Patient was seen by general surgery and patient is agreeable for colectomy possibly next week. Cardiology is on board. Continue to follow sodium level and hemoglobin. Patient is still having significant leg swelling but slightly improved. 01/23/2019 Patient denied any complaints of chest pain or shortness of breath. Heart rate is better controlled. Blood pressure is fairly stable. sodium level is 129. Patient does complain of pain at the previous IV site on right cubital area. Duplex scan is negative for DVT. Continued on warm compresses. Patient is being prepped for colectomy early next week Constitutional: Denied any fatigue denied any fever. Cardio vascular: denied any chest pain, palpitations Gastrointestinal denied any nausea vomiting Pulmonary: Denied any worsening shortness of breath or cough Neurologic denied any new focal deficits All inpatient medications were reviewed and appropriate changes in these medications as dictated in the interval history and assessment and plan. Objective - Vital Signs Vital signs: Vital Signs Temp 97.7 F 01/23/19 08:00 Pulse 71 01/23/19 11:19 Resp 16 01/23/19 11:19 BP 92/53 01/23/19 10:58 Pulse Ox 94 L 01/23/19 10:58 Intake & Output 01/22/19 01/23/19 01/23/19 18:59 06:59 18:59 Intake Total 1626 150 Output Total 800 Balance 826 150 Weight 111.5 kg 112 kg Intake: Oral 1626 150 Output: Urine 800 Other: Voiding Method Toilet # Voids 2 1 # Bowel Movements 1 - Exam PHYSICAL EXAMINATION: GENERAL: The patient is alert and oriented x3, not in any acute distress. obese HEENT: Pupils are round and equally reacting to light. EOMI. No scleral icterus. No conjunctival pallor. Normocephalic, atraumatic. No pharyngeal erythema. No thyromegaly. CARDIOVASCULAR: S1 and S2 present. No murmurs, rubs, or gallops. PULMONARY: Chest is clear to auscultation, no wheezing or crackles. ABDOMEN: Soft, nontender, nondistended, normoactive bowel sounds. No palpable organomegaly. MUSCULOSKELETAL: No joint swelling or deformity. EXTREMITIES: No cyanosis, clubbing, extensive bilateral pitting pedal edema patient does have an Judd bandage NEUROLOGICAL: Gross neurological examination did not reveal any focal deficits. SKIN: No rashes. - Labs CBC & Chem 7: 01/23/19 06:58 01/23/19 06:58 Labs: Abnormal Lab Results - Last 24 Hours (Table) 01/22/19 01/22/19 01/23/19 Range/Units 15:07 15:07 06:58 WBC 17.4 H 13.9 H (3.8-10.6) k/uL RBC 3.68 L 3.87 L (4.30-5.90) m/uL Hgb 7.4 L 8.0 L (13.0-17.5) gm/dL Hct 26.4 L 28.5 L (39.0-53.0) % MCV 71.7 L 73.6 L (80.0-100.0) fL MCH 20.1 L 20.7 L (25.0-35.0) pg MCHC 28.0 L 28.1 L (31.0-37.0) g/dL RDW 20.1 H 20.3 H (11.5-15.5) % Plt Count 602 H 657 H (150-450) k/uL Neutrophils # 14.7 H 11.2 H (1.3-7.7) k/uL Sodium 130 L (137-145) mmol/L Potassium 5.4 H (3.5-5.1) mmol/L Carbon Dioxide 21 L (22-30) mmol/L Glucose 135 H (74-99) mg/dL Calcium 8.1 L (8.4-10.2) mg/dL Total Protein 4.9 L (6.3-8.2) g/dL Albumin 2.3 L (3.5-5.0) g/dL 01/23/19 Range/Units 06:58 WBC (3.8-10.6) k/uL RBC (4.30-5.90) m/uL Hgb (13.0-17.5) gm/dL Hct (39.0-53.0) % MCV (80.0-100.0) fL MCH (25.0-35.0) pg MCHC (31.0-37.0) g/dL RDW (11.5-15.5) % Plt Count (150-450) k/uL Neutrophils # (1.3-7.7) k/uL Sodium 129 L (137-145) mmol/L Potassium (3.5-5.1) mmol/L Carbon Dioxide (22-30) mmol/L Glucose (74-99) mg/dL Calcium 8.2 L (8.4-10.2) mg/dL Total Protein (6.3-8.2) g/dL Albumin (3.5-5.0) g/dL Assessment and Plan Assessment: -Shortness of breath etiology is multifactorial obesity possibility of sleep apnea, deconditioning secondary to aging, with atrial fibrillation with contribution from anemia. Patient wasn't A. fib with rapid ventricular rate. strated on amiodarone presently improved patient converted to sinus rhythm. On beta blockers. Dose increased. added Digoxin. - Acute blood loss Anemia and GI bleed. s/p EGD and colonoscopy. Showed a ceca l mass. -Iron deficiency anemia. Currently on IV iron daily for 3 days. 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 CT showed no evidence of metastasis. CEA 19.9. Gen. surgery is planning for cholectomy possibly next week. -Chronic Atrial fibrillation with rapid ventricular patient converted to sinus rhythm on amiodarone patient probably will be switched to oral amiodarone monitored overnight. -Hyponatremia. Sodium 129. Likely hypervolemic. With underlying SIADH cannot be excluded. Patient will be On fluid restriction and diuretics as blood p ressure tolerates. -Benign prostatic hypertrophy -Morbid obesity possibility of sleep apnea patient was never diagnosed with this. BMI 39.7 -Hypertension. Currently hypotensive. -Non-ischemic cardiomyopathy -Chronic systolic heart failure, currently euvolemic - Thrombocytosis likely due to iron deficiency Time with Patient: Greater than 30
[2019-01-24] MEDS: CHOLECALCIFEROL 1,000 UNIT TAB PO SCH (07:51)
[2019-01-24] MEDS: FERROUS SULFATE 325 MG TAB PO SCH ×2 (07:51→22:08)
[2019-01-24] MEDS: AMIODARONE 200 MG TAB PO SCH ×2 (07:51→22:08)
[2019-01-24] MEDS: ASCORBIC ACID 500 MG TAB PO SCH ×2 (07:51→22:08)
[2019-01-24] MEDS: TAMSULOSIN 0.4 MG CAP.ER.24H PO SCH (07:52)
[2019-01-24] MEDS: HEPARIN SODIUM,PORCINE 5,000 UNIT/ML 1 ML VIAL SQ SCH ×2 (07:52→22:07)
[2019-01-24] MEDS: METOPROLOL TARTRATE 50 MG TAB PO SCH ×3 (07:52→22:11)
[2019-01-24] MEDS: MAGNESIUM OXIDE 400 MG TAB PO SCH (07:52)
[2019-01-24] MEDS: FINASTERIDE 5 MG TAB PO SCH (07:52)
[2019-01-24] MEDS: DIGOXIN 125 MCG TAB PO SCH (07:53)
[2019-01-24] MEDS ORDERED: PEG 3350-NA SULF,BICARB,CL/KCL 4,000 ML BOTTLE PO ONE (09:00)
[2019-01-24] MEDS: SODIUM CHLORIDE 0.9% 1,000 ML IV SCH (09:45)
--- NOTE | 2019-01-24 11:30 | PN ---
PROGRESS NOTE Mr. Cm has chronic atrial fibrillation. He is going for surgery for his cecal cancer. Dr. Bailey will be performing the surgery. His atrial fib rate has improved. He was a little hypotensive and beta yumiko was held yesterday. I am recommending that we decrease metoprolol tartrate to 25 mg b.i.d., amiodarone 200 mg b.i.d. Vitals are stable. He feels well today. There is JVD of 1 cm. S1-S2 heard normally, irregular rhythm noted. Short systolic murmur noted. Lungs reveal bilateral improved air entry. Abdomen and lower extremity exam is unchanged. MMODL / IJN: [id number] /
--- NOTE | 2019-01-24 13:05 | P.PN ---
Progress Note - Text Progress Note Date: 01/24/19 The patient remained stable. He is started his bowel prep. On exam is lesser stable. His evidence soft. There appeared to undergo right colectomy tomorrow with Dr. Ngo.
[2019-01-24] MEDS: TEMAZEPAM 7.5 MG CAP PO PRN (23:23)
[2019-01-25 06:41] LABS: Anisocytosis Moderate; Basophils % (A) 0 %; Eosinophils # (A) 0.1 k/uL (0-0.7); Eosinophils % (A) 1 %; HCT 27.5 % (39.0-53.0); HGB 7.7 gm/dL (13.0-17.5); Hypochromasia Marked; Lymphocytes # (A) 0.8 k/uL (1.0-4.8); Lymphocytes % (A) 6 %; MCH 20.6 pg (25.0-35.0); MCV 73.4 fL (80.0-100.0); Mean Platelet Volume 7.1; Microcytosis Marked; Monocytes # (A) 0.6 k/uL (0-1.0); Monocytes % (A) 5 %; Neutrophils # (A) 10.6 k/uL (1.3-7.7); Neutrophils % (A) 87 %; Platelet Count 601 k/uL (150-450); RBC 3.75 m/uL (4.30-5.90); RDW 22.4 % (11.5-15.5); WBC 12.3 k/uL (3.8-10.6)
[2019-01-25 06:50] LABS: ALT 21 U/L (21-72); AST 19 U/L (17-59); Albumin 2.1 g/dL (3.5-5.0); Alkaline Phosphatase 109 U/L (38-126); Anion Gap 6 mmol/L; Blood Urea Nitrogen 14 mg/dL (9-20); Calcium 7.7 mg/dL (8.4-10.2); Carbon Dioxide 25 mmol/L (22-30); Chloride 99 mmol/L (98-107); Glucose 93 mg/dL (74-99); Potassium 4.2 mmol/L (3.5-5.1); Sodium 130 mmol/L (137-145); Total Bilirubin 0.4 mg/dL (0.2-1.3); Total Protein 4.7 g/dL (6.3-8.2)
[2019-01-25] MEDS: CHOLECALCIFEROL 1,000 UNIT TAB PO SCH (08:55)
[2019-01-25] MEDS: ASCORBIC ACID 500 MG TAB PO SCH ×2 (08:55→20:59)
[2019-01-25] MEDS: AMIODARONE 200 MG TAB PO SCH ×2 (09:01→20:59)
[2019-01-25] MEDS: HEPARIN SODIUM,PORCINE 5,000 UNIT/ML 1 ML VIAL SQ SCH ×2 (09:02→20:58)
[2019-01-25] MEDS: FERROUS SULFATE 325 MG TAB PO SCH ×2 (09:02→20:59)
[2019-01-25] MEDS: MAGNESIUM OXIDE 400 MG TAB PO SCH (09:02)
[2019-01-25] MEDS: TAMSULOSIN 0.4 MG CAP.ER.24H PO SCH (09:02)
[2019-01-25] MEDS: FINASTERIDE 5 MG TAB PO SCH (09:02)
[2019-01-25] MEDS: METOPROLOL TARTRATE 50 MG TAB PO SCH ×3 (09:03→20:59)
[2019-01-25] MEDS: SODIUM CHLORIDE 0.9% 1,000 ML IV SCH (11:35)
--- NOTE | 2019-01-25 12:24 | P.PN ---
<Jacquelyn Tracy Khanh - Last Filed: 01/25/19 12:21> Subjective Progress Note Date: 01/25/19 CHIEF COMPLAINT: right-sided colon mass HISTORY OF PRESENT ILLNESS: Patient seen and examined at the bedside. He is awake and alert. Family present. He denies abdominal pain. Denies nausea or vomiting. He has been cleared by medicine and cardiology for surgery today. He remains NPO. PHYSICAL EXAM: VITAL SIGNS: Reviewed. GENERAL: Well-developed in no acute distress. HEENT: No sclera icterus. Extraocular movements grossly intact. Moist buccal mucosa. Head is atraumatic, normocephalic. ABDOMEN: Soft. Nondistended. Nontender. NEUROLOGIC: Alert and oriented. Cranial nerves II through XII grossly intact. ASSESSMENT: 1. Colon cancer PLAN: NPO. Patient to undergo right colectomy with Dr. Bailey today. Patient and family have no questions at this time regarding surgery. Nurse practitioner note has been reviewed by physician. Signing provider agrees with the documented findings, assessment, and plan of care. Objective - Vital Signs Vital signs: Vital Signs Temp 97.9 F 01/25/19 08:00 Pulse 103 H 01/25/19 08:00 Resp 16 01/25/19 08:00 BP 95/58 01/25/19 08:00 Pulse Ox 96 01/25/19 08:00 Intake & Output 01/24/19 01/25/19 01/25/19 18:59 06:59 18:59 Intake Total 320 400 Balance 320 400 Weight 112.4 kg Intake: Oral 320 400 Other: Voiding Method Toilet Toilet Urinal Urinal # Voids 2 1 # Bowel Movements 3 1 - Labs CBC & Chem 7: 01/25/19 06:09 01/25/19 06:09 Labs: Abnormal Lab Results - Last 24 Hours (Table) 01/25/19 01/25/19 Range/Units 06:09 06:09 WBC 12.3 H (3.8-10.6) k/uL RBC 3.75 L (4.30-5.90) m/uL Hgb 7.7 L (13.0-17.5) gm/dL Hct 27.5 L (39.0-53.0) % MCV 73.4 L (80.0-100.0) fL MCH 20.6 L (25.0-35.0) pg MCHC 28.0 L (31.0-37.0) g/dL RDW 22.4 H (11.5-15.5) % Plt Count 601 H (150-450) k/uL Neutrophils # 10.6 H (1.3-7.7) k/uL Lymphocytes # 0.8 L (1.0-4.8) k/uL Sodium 130 L (137-145) mmol/L Calcium 7.7 L (8.4-10.2) mg/dL Total Protein 4.7 L (6.3-8.2) g/dL Albumin 2.1 L (3.5-5.0) g/dL <Jaguar Bailey - Last Filed: 01/25/19 15:33> Subjective As above. Patient did well over the weekend. No pain currently. No shortness of breath. Cardiology and medicine notes regarding proposed surgery noted and appreciated. Patient may require blood transfusion will discuss further with anesthesia. Proposed surgery again discussed with the patient and his 2 children at the bedside. All questions answered. Objective - Vital Signs Vital signs: Vital Signs Temp 97.8 F 01/25/19 15:29 Pulse 124 H 01/25/19 15:29 Resp 18 01/25/19 15:29 BP 75/54 01/25/19 15:29 Pulse Ox 99 01/25/19 15:29 Intake & Output 01/24/19 01/25/19 01/25/19 18:59 06:59 18:59 Intake Total 320 400 240 Balance 320 400 240 Weight 112.4 kg Intake: Intake, IV Titration 240 Amount Sodium Chloride 0.9% 1, 240 000 ml @ 20 mls/hr IV . Q24H [facility] Rx#:[id number] Oral 320 400 Other: Voiding Method Toilet Toilet Urinal Urinal # Voids 2 1 # Bowel Movements 3 1 - Labs CBC & Chem 7: 01/25/19 06:09 01/25/19 06:09 Labs: Abnormal Lab Results - Last 24 Hours (Table) 01/25/19 01/25/19 Range/Units 06:09 06:09 WBC 12.3 H (3.8-10.6) k/uL RBC 3.75 L (4.30-5.90) m/uL Hgb 7.7 L (13.0-17.5) gm/dL Hct 27.5 L (39.0-53.0) % MCV 73.4 L (80.0-100.0) fL MCH 20.6 L (25.0-35.0) pg MCHC 28.0 L (31.0-37.0) g/dL RDW 22.4 H (11.5-15.5) % Plt Count 601 H (150-450) k/uL Neutrophils # 10.6 H (1.3-7.7) k/uL Lymphocytes # 0.8 L (1.0-4.8) k/uL Sodium 130 L (137-145) mmol/L Calcium 7.7 L (8.4-10.2) mg/dL Total Protein 4.7 L (6.3-8.2) g/dL Albumin 2.1 L (3.5-5.0) g/dL Assessment and Plan (1) Colon cancer Current Visit: Yes Status: Acute Code(s): C18.9 - MALIGNANT NEOPLASM OF COLON, UNSPECIFIED SNOMED Code(s): 638965806
--- NOTE | 2019-01-25 12:55 | PN ---
PROGRESS NOTE Mr. Cm has chronic atrial fibrillation and also cecal mass and is going for surgery today. His heart rate is in the high in 90s or low 100s. Blood pressure is about 104 systolic. I am recommending that he can go ahead with his laparotomy and resection of the cecal mass. Risk is moderate to high and patient and family are fully aware of this. He is clinically doing as best as he could. He has known atrial fibrillation and has been on in the past. He is on heparin which is subcu as well. Prognosis for him appears to be guarded. There is no contraindication for to surgery. Risk is high. We will continue current medications. Blood pressure is 104/60, pulse rate is about 94, irregular. There is JVD of 1 cm. No carotid bruit. S1, S2 heard normally with irregular rate and rhythm. Short systolic murmur. Lungs reveal diminished air entry over bases. Abdomen and lower extremity exam unchanged. Okay for surgery. Risk is moderate to high, but no contraindication. Advised cautious fluid administration and optimal BP control perioperatively. MMODL / IJN: [id number] /
[2019-01-25] MEDS ORDERED: metroNIDAZOLE-NS PMX 500 MG in SALINE 1 100ML.BAG IVPB STA (15:29)
[2019-01-25] MEDS ORDERED: ceFAZolin IN SWFI 2 GM/20 ML SYRINGE IVP STA (15:29)
[2019-01-25] MEDS ORDERED: LACTATED RINGERS 1,000 ML IV ONE ×3 (15:36→18:51)
[2019-01-25] MEDS ORDERED: PHENYLEPHRINE-0.9% NACL SYG 1 MG/10 ML SYRINGE ONE (15:50)
[2019-01-25] MEDS ORDERED: PROPOFOL 10 MG/ML 20 ML VIAL IV ONE (15:50)
[2019-01-25] MEDS ORDERED: GLYCOPYRROLATE 0.2 MG/ML 2 ML VIAL ONE (15:50)
[2019-01-25] MEDS ORDERED: LIDOCAINE 1% INJ 10MG/ML (20 ML MDV) ONE (15:50)
[2019-01-25] MEDS ORDERED: NEOSTIGMINE 1 MG/ML 10 ML VIAL ONE (15:50)
[2019-01-25] MEDS ORDERED: ROCURONIUM BROMIDE 10 MG/ML 10 ML VIAL IV ONE (15:50)
[2019-01-25] MEDS ORDERED: SUCCINYLCHOLINE CHLORIDE 100 MG/5 ML SYR IV ONE (15:50)
[2019-01-25] MEDS ORDERED: fentaNYL (PF) 50 MCG/ML 2 ML AMP ONE (15:50)
[2019-01-25] MEDS ORDERED: MORPHINE SULFATE 4 MG/ML SYRINGE IV PRN (18:00)
[2019-01-25] MEDS ORDERED: ONDANSETRON 4 MG/2 ML VIAL IVP ONE (18:41)
[2019-01-25] MEDS ORDERED: HYDROmorphone 1 MG/ML 1 ML SYRINGE IM PRN (18:46)
--- NOTE | 2019-01-25 18:54 | P.OP ---
Date of Procedure: 01/25/19 Procedure(s) Performed: PREOPERATIVE DIAGNOSIS: Right-sided colon cancer POSTOPERATIVE DIAGNOSIS: Same PROCEDURE: Exploratory laparotomy, right colectomy, partial omentectomy SURGEON: Lynn EBL: Minimal ANESTHESIA: General COMPLICATIONS: None OPERATIVE PROCEDURE: Patient placed in the operative table in the supine position. The right arm was tucked. A Cotter catheter was placed. The patient was placed under general anesthesia. The abdomen was prepped and draped sterilely. A midline incision was made from just below the umbilicus cephalad. Dissection through the subcutaneous fat and fascia took place using electrocautery. It should be noted there was onlay mesh that was divided at the previous hernia site in the mid epigastric region. Minimal adhesions were encountered underneath the fascia. These were lysed using sharp dissection and cautery. The patient had a large mass in the right upper quadrant. The small bowel distally and the cecum along with the ascending colon were mobilized by incising the peritoneal reflection and using both blunt dissection and cautery bringing the bowel medially. The patient's tumor was fixed to the region of the dinorah hepatis. As I was trying to discern whether this was resectable or not succus was seen coming from the hard mass. There was an obvious perforation of the tumor where it was adherent to the region of the proximal duodenum and dinorah hepatis. Thankfully the duodenum showed note evidence of perforation or fistula. I was able to further mobilize the tumor medially using both blunt dissection and the LigaSure device. The gastrocolic ligament was divided. The bowel was then divided in the mid transverse colon using a linear 75 stapler and the terminal ileum using a linear 75 stapler. The mesentery was divided using both 0 silk ties and the LigaSure device. The specimen was passed off. The patient had residual tumor present at the proximal duodenum and dinorah hepatis. This portion of the tumor was unresectable at that point in that location. The abdomen was irrigated. No bleeding was seen. Again no bilious drainage from the tumor bed was seen. A isoperistaltic anastomosis then took place. A small enterotomy was created in the antimesenteric portion of the ileum to cm from the staple line and a enterotomy was made on the transverse colon distal to the staple line. A linear 75 stapler was then fired along the antimesenteric border creating a nice sized anastomotic ring. The defect was then closed using a 2-0 v lock suture in 2 layers. 3-0 GI silk sutures were also used to imbricate the suture line. 3-0 GI silk sutures were also used proximally and distally. The abdomen was then further irrigated with saline. There was no evidence of bleeding, succus, or bilious drainage. The omentum coming off of the distal transverse colon had a somewhat ischemic appearance. I decided to remove that portion of omentum separately using the LigaSure device. The midline fascia was then reapproximated using 3 separate #1 double-stranded PDS sutures. The subcutaneous tissues were closed using 2-0 Vicryl sutures and the skin using maggie. Sterile dressings and abdominal binder applied. DISPOSITION: Stable to recovery room
[2019-01-25] MEDS: HYDROmorphone 0.5 MG/0.5 ML SYRINGE IVP PRN ×4 (19:29→19:42)
[2019-01-25] MEDS: LACTATED RINGERS 1,000 ML IV SCH (21:04)
[2019-01-25] MEDS: HYDROcodone/APAP 5-325MG 1 EACH TAB PO PRN (23:57)
[2019-01-26] MEDS: HYDROcodone/APAP 5-325MG 1 EACH TAB PO PRN ×2 (04:50→10:35)
[2019-01-26] MEDS ORDERED: SODIUM CHLORIDE 0.9% 500 ML 500 ML IV ONE (06:39)
[2019-01-26 07:04] LABS: Anisocytosis Moderate; Basophils % (A) 0 %; Eosinophils % (A) 0 %; HCT 34.5 % (39.0-53.0); Hypochromasia Marked; Lymphocytes # (A) 0.6 k/uL (1.0-4.8); Lymphocytes % (A) 4 %; MCH 20.7 pg (25.0-35.0); MCHC 28.3 g/dL (31.0-37.0); MCV 73.2 fL (80.0-100.0); Mean Platelet Volume 6.6; Microcytosis Marked; Monocytes # (A) 0.5 k/uL (0-1.0); Monocytes % (A) 3 %; Neutrophils # (A) 14.4 k/uL (1.3-7.7); Neutrophils % (A) 92 %; Platelet Count 625 k/uL (150-450); Poikilocytosis Slight; RBC 4.72 m/uL (4.30-5.90); RDW 22.6 % (11.5-15.5); WBC 15.7 k/uL (3.8-10.6)
[2019-01-26 07:16] LABS: HGB 9.8 gm/dL (13.0-17.5)
[2019-01-26 07:29] LABS: Anion Gap 10 mmol/L; Blood Urea Nitrogen 15 mg/dL (9-20); Calcium 7.8 mg/dL (8.4-10.2); Carbon Dioxide 22 mmol/L (22-30); Chloride 99 mmol/L (98-107); Glucose 139 mg/dL (74-99); Potassium 5.1 mmol/L (3.5-5.1); Sodium 131 mmol/L (137-145)
[2019-01-26] MEDS: MAGNESIUM OXIDE 400 MG TAB PO SCH (09:14)
[2019-01-26] MEDS: CHOLECALCIFEROL 1,000 UNIT TAB PO SCH (09:14)
[2019-01-26] MEDS: ASCORBIC ACID 500 MG TAB PO SCH ×2 (09:15→21:00)
[2019-01-26] MEDS: TAMSULOSIN 0.4 MG CAP.ER.24H PO SCH (09:15)
[2019-01-26] MEDS: METOPROLOL TARTRATE 50 MG TAB PO SCH ×3 (09:15→21:00)
[2019-01-26] MEDS: AMIODARONE 200 MG TAB PO SCH ×2 (09:15→21:00)
[2019-01-26] MEDS: FERROUS SULFATE 325 MG TAB PO SCH ×2 (09:16→21:00)
[2019-01-26] MEDS: HEPARIN SODIUM,PORCINE 5,000 UNIT/ML 1 ML VIAL SQ SCH ×2 (09:16→21:00)
[2019-01-26] MEDS: FINASTERIDE 5 MG TAB PO SCH (09:16)
[2019-01-26] MEDS ORDERED: HYDROcodone/APAP 7.5-325MG 1 EACH TAB PO PRN (11:20)
--- NOTE | 2019-01-26 12:57 | PN ---
PROGRESS NOTE An 88-year-old gentleman who underwent sigmoid resection yesterday. Has had some episodes of hypotension. This morning he looks and feels better. Blood pressure is about 98 systolic, pulse rate is in the 90-100 range, atrial fib. He appears to be more stable. Apparently received some fluid boluses earlier. I am recommending that we hydrate him at 75 mL/hour normal saline. Physical exam revealed JVD of 1 cm. No carotid bruit. S1-S2 heard normally with irregularity in rhythm. Lungs reveal diminished breath sounds. Abdomen exam was deferred. Plan is to continue cautious hydration. Resume his medications including amiodarone and beta yumiko provided it is okay with Dr. Bailey. MMODL / IJN: [id number] /
--- NOTE | 2019-01-26 14:20 | P.PN ---
<Jacquelyn Tracy A - Last Filed: 01/26/19 14:09> Subjective Progress Note Date: 01/26/19 CHIEF COMPLAINT: right-sided colon mass HISTORY OF PRESENT ILLNESS: Patient seen and examined at the bedside. He is awake and alert. Family present. Patient is s/p exploratory laparotomy, right colectomy, and partial omentectomy. POD #1. Patient complains of abdominal pain near the incision site. Denies passing flatus. He reports he was burping alot yesterday but it is improving and he feels like "things are moving through now". He is tolerating ice chips and popsicles. Patient has not been OOB yet. Patient was hypotensive overnight with decreased urine output. Urine output still decreased this morning. Patient did receive a 500cc bolus this morning. PHYSICAL EXAM: VITAL SIGNS: Reviewed. GENERAL: Well-developed in no acute distress. HEENT: No sclera icterus. Extraocular movements grossly intact. Moist buccal mucosa. Head is atraumatic, normocephalic. ABDOMEN: Soft. Nondistended. Surgical dressing CDI. AMMON drain with serosanguineous drainage. Urinary catheter intact with yellow urine. NEUROLOGIC: Alert and oriented. Cranial nerves II through XII grossly intact. ASSESSMENT: 1. Colon cancer PLAN: Continue ice chips and popsicles until patient begins passing flatus Patient is requesting stool softener. Will add colace BID per patient request Increase Taylor to 7.5mg. Toradol added per Dr. Bailey Continue montelongo catheter IV fluids at 100cc/hr. Cautious hydration. Monitor for fluid overload Activity as tolerated. Patient encouraged to be OOB Incentive spirometry Monitor WBC. Repeat in AM Nurse practitioner note has been reviewed by physician. Signing provider agrees with the documented findings, assessment, and plan of care. Objective - Vital Signs Vital signs: Vital Signs Temp 97.7 F 01/26/19 08:00 Pulse 106 H 01/26/19 12:00 Resp 16 01/26/19 12:00 BP 120/73 01/26/19 12:00 Pulse Ox 96 01/26/19 12:00 Intake & Output 01/25/19 01/26/19 01/26/19 18:59 06:59 18:59 Intake Total 1425 1035 Output Total 350 200 50 Balance 1075 835 -50 Weight 112.5 kg Intake: IV 875 1035 0.9 160 Intake, IV Titration 240 Amount Sodium Chloride 0.9% 1, 240 000 ml @ 20 mls/hr IV . Q24H [facility] Rx#:[id number] Blood Product 310 Rc As-1 Unit 310 [id number] Output: Drainage 65 50 Lower Anterior Abdomen 65 50 Urine 300 135 Estimated Blood Loss 50 Other: Voiding Method Toilet Indwelling Catheter Indwelling Catheter Urinal - Labs CBC & Chem 7: 01/26/19 06:25 01/26/19 06:25 Labs: Abnormal Lab Results - Last 24 Hours (Table) 01/25/19 01/26/19 01/26/19 Range/Units 12:44 06:25 06:25 WBC 15.7 H (3.8-10.6) k/uL Hgb 9.8 L D (13.0-17.5) gm/dL Hct 34.5 L (39.0-53.0) % MCV 73.2 L (80.0-100.0) fL MCH 20.7 L (25.0-35.0) pg MCHC 28.3 L (31.0-37.0) g/dL RDW 22.6 H (11.5-15.5) % Plt Count 625 H (150-450) k/uL Neutrophils # 14.4 H (1.3-7.7) k/uL Lymphocytes # 0.6 L (1.0-4.8) k/uL Sodium 131 L (137-145) mmol/L Glucose 139 H (74-99) mg/dL Calcium 7.8 L (8.4-10.2) mg/dL Crossmatch See Detail <Jaguar Bailey - Last Filed: 01/26/19 17:58> Subjective As above. Patient with marginal urine output however improving. Pain is better controlled. Labs noted. Will add Toradol for pain control. Continue pulmonary toilet. Keep Montelongo catheter today. Objective - Vital Signs Vital signs: Vital Signs Temp 97.7 F 01/26/19 08:00 Pulse 97 01/26/19 16:00 Resp 21 01/26/19 16:00 BP 129/87 01/26/19 16:00 Pulse Ox 95 01/26/19 16:00 Intake & Output 01/25/19 01/26/19 01/26/19 18:59 06:59 18:59 Intake Total 1425 1035 Output Total 350 200 50 Balance 1075 835 -50 Weight 112.5 kg Intake: IV 875 1035 0.9 160 Intake, IV Titration 240 Amount Sodium Chloride 0.9% 1, 240 000 ml @ 20 mls/hr IV . Q24H [facility] Rx#:[id number] Blood Product 310 Rc As-1 Unit 310 [id number] Output: Drainage 65 50 Lower Anterior Abdomen 65 50 Urine 300 135 Estimated Blood Loss 50 Other: Voiding Method Toilet Indwelling Catheter Indwelling Catheter Urinal - Labs CBC & Chem 7: 01/26/19 06:25 01/26/19 06:25 Labs: Abnormal Lab Results - Last 24 Hours (Table) 01/26/19 01/26/19 Range/Units 06:25 06:25 WBC 15.7 H (3.8-10.6) k/uL Hgb 9.8 L D (13.0-17.5) gm/dL Hct 34.5 L (39.0-53.0) % MCV 73.2 L (80.0-100.0) fL MCH 20.7 L (25.0-35.0) pg MCHC 28.3 L (31.0-37.0) g/dL RDW 22.6 H (11.5-15.5) % Plt Count 625 H (150-450) k/uL Neutrophils # 14.4 H (1.3-7.7) k/uL Lymphocytes # 0.6 L (1.0-4.8) k/uL Sodium 131 L (137-145) mmol/L Glucose 139 H (74-99) mg/dL Calcium 7.8 L (8.4-10.2) mg/dL Assessment and Plan (1) Colon cancer Current Visit: Yes Status: Acute Code(s): C18.9 - MALIGNANT NEOPLASM OF COLON, UNSPECIFIED SNOMED Code(s): 295206518
--- NOTE | 2019-01-26 15:47 | P.PN ---
Subjective Progress Note Date: 01/26/19 Principal diagnosis: New Cecal Mass Mr. Cm is recovering from surgery yesterday, unfortunately The patient's tumor was fixed to the region of the dinorah hepatis. Per the operative note There was an obvious perforation of the tumor where it was adherent to the region of the proximal duodenum and dinorah hepatis. Because it was unable to be completely resected adjuvant treatment would be recommended although in his advanced age we would need to consider all variables to ensure risks and benfits are in favorable of a quality of life outcome. Objective - Vital Signs Vital signs: Vital Signs Temp 97.7 F 01/26/19 08:00 Pulse 106 H 01/26/19 12:00 Resp 16 01/26/19 12:00 BP 120/73 01/26/19 12:00 Pulse Ox 96 01/26/19 12:00 Intake & Output 01/25/19 01/26/19 01/26/19 18:59 06:59 18:59 Intake Total 1425 1035 Output Total 350 200 50 Balance 1075 835 -50 Weight 112.5 kg Intake: IV 875 1035 0.9 160 Intake, IV Titration 240 Amount Sodium Chloride 0.9% 1, 240 000 ml @ 20 mls/hr IV . Q24H [facility] Rx#:[id number] Blood Product 310 Rc As-1 Unit 310 [id number] Output: Drainage 65 50 Lower Anterior Abdomen 65 50 Urine 300 135 Estimated Blood Loss 50 Other: Voiding Method Toilet Indwelling Catheter Indwelling Catheter Urinal - Exam Gen: alert and oriented no acute distress Head: NC/NT Neck: Supple No supraclavicular adenopathy, cervical or axillary adenopathy palpable Abdomen is soft, mild tenderness to palpation Heart: RRR, S1s2 Lungs: Clear no increased effort Neuo: No sensory or motor defects Extremities: no edema - Labs CBC & Chem 7: 01/26/19 06:25 01/26/19 06:25 Labs: Abnormal Lab Results - Last 24 Hours (Table) 01/25/19 01/26/19 01/26/19 Range/Units 12:44 06:25 06:25 WBC 15.7 H (3.8-10.6) k/uL Hgb 9.8 L D (13.0-17.5) gm/dL Hct 34.5 L (39.0-53.0) % MCV 73.2 L (80.0-100.0) fL MCH 20.7 L (25.0-35.0) pg MCHC 28.3 L (31.0-37.0) g/dL RDW 22.6 H (11.5-15.5) % Plt Count 625 H (150-450) k/uL Neutrophils # 14.4 H (1.3-7.7) k/uL Lymphocytes # 0.6 L (1.0-4.8) k/uL Sodium 131 L (137-145) mmol/L Glucose 139 H (74-99) mg/dL Calcium 7.8 L (8.4-10.2) mg/dL Crossmatch See Detail Assessment and Plan Plan: Assessment and Recommendations: 1. Severe Iron Deficiency Anemia: - Secondary to GI Blood Loss from Underlying Cecal Mass - Parental Iron ordered and given today, will order two more days - Continue on PO - Monitor daily CBC 2. Cecal Mass: New Finding: - Final Pathology resulted with adenocarcinoma - CEA = 19.9 - CT scans reviewed - No evidence of distant metastatic disease identified - Status Post surgical intervention although The patient's tumor was fixed to the region of the dinorah hepatis. As I was trying to discern whether this was resectable or not succus was seen coming from the hard mass. There was an obvious perforation of the tumor where it was adherent to the region of the proximal duodenum and dinorah hepatis. Thankfully the duodenum showed note evidence of perforation or fistula. Plan: - Discussed the unfortunate findings during surgical intervention and patient is in good spirits. Once he has recovered we can see him in follow-up to discuss any potential options although it is important to consider his advanced age and co-morbidies. Physician Attest: I have discussed the complete history and physicial and developed the completed impression and plan, agree with above dictation. Dictated as a scribe
[2019-01-26] MEDS: SODIUM CHLORIDE 0.9% 1,000 ML IV SCH ×3 (16:31→21:01)
[2019-01-26] MEDS: KETOROLAC 30 MG/ML 1 ML VIAL IVP SCH ×2 (17:46→23:10)
[2019-01-26] MEDS: LACTATED RINGERS 1,000 ML IV SCH (17:48)
[2019-01-26] MEDS: DOCUSATE 100 MG CAP PO SCH (21:00)
--- NOTE | 2019-01-26 23:41 | P.PN ---
Subjective Progress Note Date: 01/24/19 Principal diagnosis: Atrial fibrillation with RVR Cecal mass 88-year-old male admitted for shortness of breath which appears to be subacute to chronic. There is no evidence of COPD and CHF no evidence of significant lung injury. CT any of the chest did not show any significant abnormality. Patient was given Lasix and his serum sodium has come down. Patient went into A. fib with rapid ventricular rate I believe is secondary to intravascular depletion we'll hydrate him today and see how he responds as there is no evidence of CHF although patient does have pedal edema pitting to his chronic patient although looks better. Patient hemoglobin is 8 which apparently was 10 about a month ago although there is no evidence of acute GI bleed. Patient was started on amiodarone and Tikosyn is was discontinued. 01/17/2019 Patient converted to sinus rhythm on amiodarone presently rate controlled patient received 1 L of IV fluid in spite of which his serum sodium remained at 129 [place] believe he'll need more IV fluid but the big patient has extensive pedal edema because of which haven't been hold off on IV fluids. Respiratory status improved patient will be monitored overnight will be switched to oral amiodarone possibility of discharge tomorrow. Hemoglobin is 7.5 secondary to hemodilution affect 01/18/2019 Patient is clinically doing well patient will go for upper GI endoscopy and colonoscopy tomorrow to see if there is any sources of occult bleed like AVMs to help cardiology my dictation regarding anticoagulation. Patient still has pedal edema but still appears to be intravascularly volume depleted because of that reason not the giving him any Lasix. Patient is not in heart failure exacerbation patient serum sodium is still 129 because of concerns of the worsening pedal edema patient is not being started on IV fluids either. Patient probably can be discharged tomorrow 01/19/19 s/p EGD and colonoscopy. 1. Hiatal hernia with no obvious esophagitis or complicated reflux disease. 2. Normal stomach and duodenum. 3. 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 Patient is currently off anticoagulation. Heart rate is better controlled. Hemoglobin is 7.2. Patient is still having bilateral lower extremities sw elling. 01/20/2019 Cecal mass biopsy is pending. Patient is still having bilateral lower extremit ies edema. Blood pressure in the lower side. Heart rate is still elevated. Patient was also found to have iron deficiency anemia and was started on IV iron. Hemoglobin 8.7. Patient was seen by oncology due to cecal mass. CT of the abdominal pelvis was ordered. CEA was ordered as well. Patient currently patient is significant comfortably. No compressive shortness of breath or chest pain. Wants to be discharged home. Sodium level remains low at 128. 01/21/2019 Patient is currently sitting in a chair comfortably. No implants of chest pain. Still having seen for and leg swelling. Heart is still elevated. Continued on amiodarone and beta blockers. Dose increased as per cardiology. Patient was started on digoxin. 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 Gen. surgery was consulted. Oncology is following. Patient remained on hyponatremic hypoosmolar.. Patient be kept on fluid restriction and diuresis as blood pressure tolerates. Prognosis is poor at this time. Discussed with his daughter at bedside in detail. 01/22/2019 Patient says that he is feeling better. Heart rate is better controlled. Continued on beta blockers and Lanoxin. CT abdomen showed no evidence of prostatic disease. Patient was seen by general surgery and patient is agreeable for colectomy possibly next week. Cardiology is on board. Continue to follow sodium level and hemoglobin. Patient is still having significant leg swelling but slightly improved. 01/23/2019 Patient denied any complaints of chest pain or shortness of breath. Heart rate is better controlled. Blood pressure is fairly stable. sodium level is 129. Patient does complain of pain at the previous IV site on right cubital area. Duplex scan is negative for DVT. Continued on warm compresses. Patient is being prepped for colectomy early next week 01/24/2019 Patient denied a complaints of chest pain or worsening shortness of breath. Leg swelling seems to be improved. Sodium level is at 1:30. Right cubital thrombophlebitis is improving. No fever no chills. No nausea vomiting or abdo keenan pain. Patient is scheduled for right colectomy tomorrow. Constitutional: Denied any fatigue denied any fever. Cardio vascular: denied any chest pain, palpitations Gastrointestinal denied any nausea vomiting Pulmonary: Denied any worsening shortness of breath or cough Neurologic denied any new focal deficits All inpatient medications were reviewed and appropriate changes in these medications as dictated in the interval history and assessment and plan. Objective - Vital Signs Vital signs: Vital Signs Temp 98.2 F 01/24/19 07:34 Pulse 116 H 01/24/19 16:00 Resp 16 01/24/19 16:00 BP 109/45 01/24/19 15:33 Pulse Ox 99 01/24/19 11:40 Intake & Output 01/23/19 01/24/19 01/24/19 18:59 06:59 18:59 Intake Total 400 200 320 Output Total 1500 550 Balance -1100 -350 320 Intake: Oral 400 200 320 Output: Urine 1500 550 Other: Voiding Method Toilet Urinal # Voids 1 1 2 # Bowel Movements 1 3 - Exam PHYSICAL EXAMINATION: GENERAL: The patient is alert and oriented x3, not in any acute distress. obese HEENT: Pupils are round and equally reacting to light. EOMI. No scleral icterus. No conjunctival pallor. Normocephalic, atraumatic. No pharyngeal erythema. No thyromegaly. CARDIOVASCULAR: S1 and S2 present. No murmurs, rubs, or gallops. PULMONARY: Chest is clear to auscultation, no wheezing or crackles. ABDOMEN: Soft, nontender, nondistended, normoactive bowel sounds. No palpable organomegaly. MUSCULOSKELETAL: No joint swelling or deformity. EXTREMITIES: No cyanosis, clubbing, extensive bilateral pitting pedal edema patient does have an Judd bandage NEUROLOGICAL: Gross neurological examination did not reveal any focal deficits. SKIN: No rashes. - Labs CBC & Chem 7: 01/26/19 06:25 01/26/19 06:25 Assessment and Plan Assessment: -Shortness of breath etiology is multifactorial obesity possibility of sleep apnea, deconditioning secondary to aging, with atrial fibrillation with contribution from anemia. Patient wasn't A. fib with rapid ventricular rate. strated on amiodarone presently improved patient converted to sinus rhythm. On beta blockers. Dose increased. added Digoxin. - Acute blood loss Anemia and GI bleed. s/p EGD and colonoscopy. Showed a cecal mass. -Iron deficiency anemia. Currently on IV iron daily for 3 days. 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 CT showed no evidence of metastasis. CEA 19.9. Gen. surgery is planning for cholectomy possibly next week. -Chronic Atrial fibrillation with rapid ventricular patient converted to sinus r hythm on amiodarone patient probably will be switched to oral amiodarone monitored overnight. -Hyponatremia. Sodium 129. Likely hypervolemic. With underlying SIADH cannot be excluded. Patient will be On fluid restriction and diuretics as blood pressure tolerates. -Benign prostatic hypertrophy -Morbid obesity possibility of sleep apnea patient was never diagnosed with this. BMI 39.7 -Hypertension. Currently hypotensive. -Non-ischemic cardiomyopathy -Chronic systolic heart failure, currently euvolemic - Thrombocytosis likely due to iron deficiency Time with Patient: Greater than 30
--- NOTE | 2019-01-26 23:46 | P.PN ---
Subjective Progress Note Date: 01/25/19 Principal diagnosis: Atrial fibrillation with RVR Cecal mass 88-year-old male admitted for shortness of breath which appears to be subacute to chronic. There is no evidence of COPD and CHF no evidence of significant lung injury. CT any of the chest did not show any significant abnormality. Patient was given Lasix and his serum sodium has come down. Patient went into A. fib with rapid ventricular rate I believe is secondary to intravascular depletion we'll hydrate him today and see how he responds as there is no evidence of CHF although patient does have pedal edema pitting to his chronic patient although looks better. Patient hemoglobin is 8 which apparently was 10 about a month ago although there is no evidence of acute GI bleed. Patient was started on amiodarone and Tikosyn is was discontinued. 01/17/2019 Patient converted to sinus rhythm on amiodarone presently rate controlled patient received 1 L of IV fluid in spite of which his serum sodium remained at 129 [place] believe he'll need more IV fluid but the big patient has extensive pedal edema because of which haven't been hold off on IV fluids. Respiratory status improved patient will be monitored overnight will be switched to oral amiodarone possibility of discharge tomorrow. Hemoglobin is 7.5 secondary to hemodilution affect 01/18/2019 Patient is clinically doing well patient will go for upper GI endoscopy and colonoscopy tomorrow to see if there is any sources of occult bleed like AVMs to help cardiology my dictation regarding anticoagulation. Patient still has pedal edema but still appears to be intravascularly volume depleted because of that reason not the giving him any Lasix. Patient is not in heart failure exacerbation patient serum sodium is still 129 because of concerns of the worsening pedal edema patient is not being started on IV fluids either. Patient probably can be discharged tomorrow 01/19/19 s/p EGD and colonoscopy. 1. Hiatal hernia with no obvious esophagitis or complicated reflux disease. 2. Normal stomach and duodenum. 3. 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 Patient is currently off anticoagulation. Heart rate is better controlled. Hemoglobin is 7.2. Patient is still having bilateral lower extremities sw elling. 01/20/2019 Cecal mass biopsy is pending. Patient is still having bilateral lower extremit ies edema. Blood pressure in the lower side. Heart rate is still elevated. Patient was also found to have iron deficiency anemia and was started on IV iron. Hemoglobin 8.7. Patient was seen by oncology due to cecal mass. CT of the abdominal pelvis was ordered. CEA was ordered as well. Patient currently patient is significant comfortably. No compressive shortness of breath or chest pain. Wants to be discharged home. Sodium level remains low at 128. 01/21/2019 Patient is currently sitting in a chair comfortably. No implants of chest pain. Still having seen for and leg swelling. Heart is still elevated. Continued on amiodarone and beta blockers. Dose increased as per cardiology. Patient was started on digoxin. 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 Gen. surgery was consulted. Oncology is following. Patient remained on hyponatremic hypoosmolar.. Patient be kept on fluid restriction and diuresis as blood pressure tolerates. Prognosis is poor at this time. Discussed with his daughter at bedside in detail. 01/22/2019 Patient says that he is feeling better. Heart rate is better controlled. Continued on beta blockers and Lanoxin. CT abdomen showed no evidence of prostatic disease. Patient was seen by general surgery and patient is agreeable for colectomy possibly next week. Cardiology is on board. Continue to follow sodium level and hemoglobin. Patient is still having significant leg swelling but slightly improved. 01/23/2019 Patient denied any complaints of chest pain or shortness of breath. Heart rate is better controlled. Blood pressure is fairly stable. sodium level is 129. Patient does complain of pain at the previous IV site on right cubital area. Duplex scan is negative for DVT. Continued on warm compresses. Patient is being prepped for colectomy early next week 01/24/2019 Patient denied a complaints of chest pain or worsening shortness of breath. Leg swelling seems to be improved. Sodium level is at 1:30. Right cubital thrombophlebitis is improving. No fever no chills. No nausea vomiting or abdo keenan pain. Patient is scheduled for right colectomy tomorrow. 01/25/2019 Patient is status post Exploratory laparotomy, right colectomy, partial omentectomy. Tolerated the procedure very well. He was given 1 unit of PRBC transfusion this morning. Patient Evidently denied any complaints of chest pain shortness of breath. No fever no chills. Constitutional: Denied any fatigue denied any fever. Cardio vascular: denied any chest pain, palpitations Gastrointestinal denied any nausea vomiting Pulmonary: Denied any worsening shortness of breath or cough Neurologic denied any new focal deficits All inpatient medications were reviewed and appropriate changes in these medications as dictated in the interval history and assessment and plan. Objective - Vital Signs Vital signs: Vital Signs Temp 97.4 F L 01/25/19 18:32 Pulse 120 H 01/25/19 20:02 Resp 16 01/25/19 20:02 BP 106/57 01/25/19 20:02 Pulse Ox 98 01/25/19 20:02 Intake & Output 01/25/19 01/25/19 01/26/19 06:59 18:59 06:59 Intake Total 400 1425 875 Output Total 350 35 Balance 400 1075 840 Weight 112.4 kg Intake: IV 875 875 Intake, IV Titration 240 Amount Sodium Chloride 0.9% 1, 240 000 ml @ 20 mls/hr IV . Q24H [facility] Rx#:[id number] Oral 400 Blood Product 310 Rc As-1 Unit 310 [id number] Output: Urine 300 35 Estimated Blood Loss 50 Other: Voiding Method Toilet Toilet Urinal Urinal # Voids 1 # Bowel Movements 1 - Exam PHYSICAL EXAMINATION: GENERAL: The patient is alert and oriented x3, not in any acute distress. obese HEENT: Pupils are round and equally reacting to light. EOMI. No scleral icterus. No conjunctival pallor. Normocephalic, atraumatic. No pharyngeal erythema. No thyromegaly. CARDIOVASCULAR: S1 and S2 present. No murmurs, rubs, or gallops. PULMONARY: Chest is clear to auscultation, no wheezing or crackles. ABDOMEN: Soft, surgical site intact. Mild tenderness., nondistended, normoactive bowel sounds. No palpable organomegaly. MUSCULOSKELETAL: No joint swelling or deformity. EXTREMITIES: No cyanosis, clubbing, extensive bilateral pitting pedal edema patient does have an Judd bandage NEUROLOGICAL: Gross neurological examination did not reveal any focal deficits. SKIN: No rashes. - Labs CBC & Chem 7: 01/26/19 06:25 01/26/19 06:25 Labs: Abnormal Lab Results - Last 24 Hours (Table) 01/25/19 01/25/19 01/25/19 Range/Units 06:09 06:09 12:44 WBC 12.3 H (3.8-10.6) k/uL RBC 3.75 L (4.30-5.90) m/uL Hgb 7.7 L (13.0-17.5) gm/dL Hct 27.5 L (39.0-53.0) % MCV 73.4 L (80.0-100.0) fL MCH 20.6 L (25.0-35.0) pg MCHC 28.0 L (31.0-37.0) g/dL RDW 22.4 H (11.5-15.5) % Plt Count 601 H (150-450) k/uL Neutrophils # 10.6 H (1.3-7.7) k/uL Lymphocytes # 0.8 L (1.0-4.8) k/uL Sodium 130 L (137-145) mmol/L Calcium 7.7 L (8.4-10.2) mg/dL Total Protein 4.7 L (6.3-8.2) g/dL Albumin 2.1 L (3.5-5.0) g/dL Crossmatch See Detail Assessment and Plan Assessment: -Shortness of breath etiology is multifactorial obesity possibility of sleep apnea, deconditioning secondary to aging, with atrial fibrillation with contribution from anemia. Patient wasn't A. fib with rapid ventricular rate. strated on amiodarone presently improved patient converted to sinus rhythm. On beta blockers. Dose increased. added Digoxin. - Acute blood loss Anemia and GI bleed. s/p EGD and colonoscopy. Showed a cecal mass. -Iron deficiency anemia. Currently on IV iron daily for 3 days. 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 CT showed no evidence of metastasis. CEA 19.9. GExploratory laparotomy, right colectomy, partial omentectomy. -Chronic Atrial fibrillation with rapid ventricular patient converted to sinus rhythm on amiodarone patient probably will be switched to oral amiodarone monito red overnight. -Hyponatremia. Sodium 129--130. Likely hypervolemic. With underlying SIADH cannot be excluded. Patient will be On fluid restriction and diuretics as blood pressure tolerates. -Benign prostatic hypertrophy -Morbid obesity possibility of sleep apnea patient was never diagnosed with this. BMI 39.7 -Hypertension. Currently hypotensive. -Non-ischemic cardiomyopathy -Chronic systolic heart failure, currently euvolemic - Thrombocytosis likely due to iron deficiency Time with Patient: Greater than 30
--- NOTE | 2019-01-26 23:53 | P.PN ---
Subjective Progress Note Date: 01/26/19 Principal diagnosis: Atrial fibrillation with RVR Cecal mass 88-year-old male admitted for shortness of breath which appears to be subacute to chronic. There is no evidence of COPD and CHF no evidence of significant lung injury. CT any of the chest did not show any significant abnormality. Patient was given Lasix and his serum sodium has come down. Patient went into A. fib with rapid ventricular rate I believe is secondary to intravascular depletion we'll hydrate him today and see how he responds as there is no evidence of CHF although patient does have pedal edema pitting to his chronic patient although looks better. Patient hemoglobin is 8 which apparently was 10 about a month ago although there is no evidence of acute GI bleed. Patient was started on amiodarone and Tikosyn is was discontinued. 01/17/2019 Patient converted to sinus rhythm on amiodarone presently rate controlled patient received 1 L of IV fluid in spite of which his serum sodium remained at 129 [place] believe he'll need more IV fluid but the big patient has extensive pedal edema because of which haven't been hold off on IV fluids. Respiratory status improved patient will be monitored overnight will be switched to oral amiodarone possibility of discharge tomorrow. Hemoglobin is 7.5 secondary to hemodilution affect 01/18/2019 Patient is clinically doing well patient will go for upper GI endoscopy and colonoscopy tomorrow to see if there is any sources of occult bleed like AVMs to help cardiology my dictation regarding anticoagulation. Patient still has pedal edema but still appears to be intravascularly volume depleted because of that reason not the giving him any Lasix. Patient is not in heart failure exacerbation patient serum sodium is still 129 because of concerns of the worsening pedal edema patient is not being started on IV fluids either. Patient probably can be discharged tomorrow 01/19/19 s/p EGD and colonoscopy. 1. Hiatal hernia with no obvious esophagitis or complicated reflux disease. 2. Normal stomach and duodenum. 3. 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 Patient is currently off anticoagulation. Heart rate is better controlled. Hemoglobin is 7.2. Patient is still having bilateral lower extremities sw elling. 01/20/2019 Cecal mass biopsy is pending. Patient is still having bilateral lower extremit ies edema. Blood pressure in the lower side. Heart rate is still elevated. Patient was also found to have iron deficiency anemia and was started on IV iron. Hemoglobin 8.7. Patient was seen by oncology due to cecal mass. CT of the abdominal pelvis was ordered. CEA was ordered as well. Patient currently patient is significant comfortably. No compressive shortness of breath or chest pain. Wants to be discharged home. Sodium level remains low at 128. 01/21/2019 Patient is currently sitting in a chair comfortably. No implants of chest pain. Still having seen for and leg swelling. Heart is still elevated. Continued on amiodarone and beta blockers. Dose increased as per cardiology. Patient was started on digoxin. 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 Gen. surgery was consulted. Oncology is following. Patient remained on hyponatremic hypoosmolar.. Patient be kept on fluid restriction and diuresis as blood pressure tolerates. Prognosis is poor at this time. Discussed with his daughter at bedside in detail. 01/22/2019 Patient says that he is feeling better. Heart rate is better controlled. Continued on beta blockers and Lanoxin. CT abdomen showed no evidence of prostatic disease. Patient was seen by general surgery and patient is agreeable for colectomy possibly next week. Cardiology is on board. Continue to follow sodium level and hemoglobin. Patient is still having significant leg swelling but slightly improved. 01/23/2019 Patient denied any complaints of chest pain or shortness of breath. Heart rate is better controlled. Blood pressure is fairly stable. sodium level is 129. Patient does complain of pain at the previous IV site on right cubital area. Duplex scan is negative for DVT. Continued on warm compresses. Patient is being prepped for colectomy early next week 01/24/2019 Patient denied a complaints of chest pain or worsening shortness of breath. Leg swelling seems to be improved. Sodium level is at 1:30. Right cubital thrombophlebitis is improving. No fever no chills. No nausea vomiting or abdo keenan pain. Patient is scheduled for right colectomy tomorrow. 01/25/2019 Patient is status post Exploratory laparotomy, right colectomy, partial omentectomy. Tolerated the procedure very well. He was given 1 unit of PRBC transfusion this morning. Patient Evidently denied any complaints of chest pain shortness of breath. No fever no chills. 01/26/2018 Patient denied any complaints of chest pain or shortness of breath. Patient does have some soreness at the incision site. No bowel movement or passing gas at this time. Patient was given 500 mL fluid bolus due to hypotension and decreased urine output. Sodium level 131 today.. Constitutional: Denied any fatigue denied any fever. Cardio vascular: denied any chest pain, palpitations Gastrointestinal denied any nausea vomiting Pulmonary: Denied any worsening shortness of breath or cough Neurologic denied any new focal deficits All inpatient medications were reviewed and appropriate changes in these medications as dictated in the interval history and assessment and plan. Objective - Vital Signs Vital signs: Vital Signs Temp 97.7 F 01/26/19 08:00 Pulse 97 01/26/19 16:00 Resp 21 01/26/19 16:00 BP 129/87 01/26/19 16:00 Pulse Ox 95 01/26/19 16:00 Intake & Output 01/26/19 01/26/19 01/27/19 06:59 18:59 06:59 Intake Total 1035 Output Total 200 225 Balance 835 -225 Weight 112.5 kg Intake: IV 1035 0.9 160 Output: Drainage 65 100 Lower Anterior Abdomen 65 100 Urine 135 125 Other: Voiding Method Indwelling Catheter Indwelling Catheter - Exam PHYSICAL EXAMINATION: GENERAL: The patient is alert and oriented x3, not in any acute distress. obese HEENT: Pupils are round and equally reacting to light. EOMI. No scleral icterus. No conjunctival pallor. Normocephalic, atraumatic. No pharyngeal erythema. No thyromegaly. CARDIOVASCULAR: S1 and S2 present. No murmurs, rubs, or gallops. PULMONARY: Chest is clear to auscultation, no wheezing or crackles. ABDOMEN: Soft, surgical site intact. Mild tenderness., nondistended, normoa ctive bowel sounds. No palpable organomegaly. MUSCULOSKELETAL: No joint swelling or deformity. EXTREMITIES: No cyanosis, clubbing, extensive bilateral pitting pedal edema patient does have an Judd bandage NEUROLOGICAL: Gross neurological examination did not reveal any focal deficits. SKIN: No rashes. - Labs CBC & Chem 7: 01/26/19 06:25 01/26/19 06:25 Labs: Abnormal Lab Results - Last 24 Hours (Table) 01/26/19 01/26/19 Range/Units 06:25 06:25 WBC 15.7 H (3.8-10.6) k/uL Hgb 9.8 L D (13.0-17.5) gm/dL Hct 34.5 L (39.0-53.0) % MCV 73.2 L (80.0-100.0) fL MCH 20.7 L (25.0-35.0) pg MCHC 28.3 L (31.0-37.0) g/dL RDW 22.6 H (11.5-15.5) % Plt Count 625 H (150-450) k/uL Neutrophils # 14.4 H (1.3-7.7) k/uL Lymphocytes # 0.6 L (1.0-4.8) k/uL Sodium 131 L (137-145) mmol/L Glucose 139 H (74-99) mg/dL Calcium 7.8 L (8.4-10.2) mg/dL Assessment and Plan Assessment: -Shortness of breath etiology is multifactorial obesity possibility of sleep apnea, deconditioning secondary to aging, with atrial fibrillation with contribution from anemia. Patient wasn't A. fib with rapid ventricular rate. strated on amiodarone presently improved patient converted to sinus rhythm. On beta blockers. Dose increased. added Digoxin. - Acute blood loss Anemia and GI bleed. s/p EGD and colonoscopy. Showed a cecal mass. -Iron deficiency anemia. Currently on IV iron daily for 3 days. 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 CT showed no evidence of metastasis. CEA 19.9. GExploratory laparotomy, right colectomy, partial omentectomy. -Chronic Atrial fibrillation with rapid ventricular patient converted to sinus rhythm on amiodarone patient probably will be switched to oral amiodarone monitored overnight. -Hyponatremia. Sodium 129--130. Likely hypervolemic. With underlying SIADH cannot be excluded. Patient will be On fluid restriction and diuretics as blood pressure tolerates. -Benign prostatic hypertrophy -Morbid obesity possibility of sleep apnea patient was never diagnosed with this. BMI 39.7 -Hypertension. Currently hypotensive. -Non-ischemic cardiomyopathy -Chronic systolic heart failure, currently euvolemic - Thrombocytosis likely due to iron deficiency Time with Patient: Greater than 30
[2019-01-27] MEDS: KETOROLAC 30 MG/ML 1 ML VIAL IVP SCH (06:13)
[2019-01-27] MEDS: SODIUM CHLORIDE 0.9% 1,000 ML IV SCH ×3 (06:13→17:03)
[2019-01-27] MEDS ORDERED: FUROSEMIDE 10 MG/ML 2 ML VIAL IV ONE (09:42)
[2019-01-27 09:55] LABS: Anisocytosis Moderate; Basophils % (A) 0 %; Eosinophils # (A) 0.1 k/uL (0-0.7); Eosinophils % (A) 0 %; HCT 36.8 % (39.0-53.0); HGB 10.1 gm/dL (13.0-17.5); Hypochromasia Marked; Lymphocytes # (A) 0.9 k/uL (1.0-4.8); Lymphocytes % (A) 5 %; MCH 21.2 pg (25.0-35.0); MCHC 27.4 g/dL (31.0-37.0); MCV 77.5 fL (80.0-100.0); Mean Platelet Volume 5.9; Microcytosis Moderate; Monocytes # (A) 0.5 k/uL (0-1.0); Monocytes % (A) 3 %; Neutrophils # (A) 15.3 k/uL (1.3-7.7); Neutrophils % (A) 90 %; Platelet Count 618 k/uL (150-450); RBC 4.76 m/uL (4.30-5.90); RDW 21.9 % (11.5-15.5)
[2019-01-27] MEDS: CHOLECALCIFEROL 1,000 UNIT TAB PO SCH (10:03)
[2019-01-27] MEDS: METOPROLOL TARTRATE 50 MG TAB PO SCH ×3 (10:03→21:50)
[2019-01-27] MEDS: TAMSULOSIN 0.4 MG CAP.ER.24H PO SCH (10:04)
[2019-01-27] MEDS: MAGNESIUM OXIDE 400 MG TAB PO SCH (10:04)
[2019-01-27] MEDS: DOCUSATE 100 MG CAP PO SCH ×2 (10:04→21:49)
[2019-01-27] MEDS: ASCORBIC ACID 500 MG TAB PO SCH ×2 (10:04→21:47)
[2019-01-27] MEDS: AMIODARONE 200 MG TAB PO SCH ×2 (10:04→21:47)
[2019-01-27] MEDS: FERROUS SULFATE 325 MG TAB PO SCH ×2 (10:05→21:50)
[2019-01-27] MEDS: HEPARIN SODIUM,PORCINE 5,000 UNIT/ML 1 ML VIAL SQ SCH ×2 (10:05→21:50)
[2019-01-27] MEDS: FINASTERIDE 5 MG TAB PO SCH (10:05)
[2019-01-27 10:13] LABS: Calcium 7.8 mg/dL (8.4-10.2); Potassium 4.9 mmol/L (3.5-5.1)
[2019-01-27] MEDS: DIGOXIN 125 MCG TAB PO SCH (10:15)
[2019-01-27] MEDS ORDERED: SODIUM CHLORIDE 0.9% 500 ML 500 ML IV ONE (12:47)
[2019-01-27] MEDS: ALBUMIN HUMAN 25% 50 ML in EMPTY BAG 1 BAG IVPB ONE (12:59)
--- NOTE | 2019-01-27 13:32 | P.PN ---
<Jacquelyn Tracy A - Last Filed: 01/27/19 13:23> Subjective Progress Note Date: 01/27/19 CHIEF COMPLAINT: right-sided colon mass HISTORY OF PRESENT ILLNESS: Patient is s/p exploratory laparotomy, right colectomy, and partial omentectomy. POD #2. Patient is sitting up in the chair. Family present. Patient reports his pain is tolerable today. He denies passing flatus. Reports belching. Patient continues to have decreased urine output. AMMON drain with serosanguineous drainage. 315cc of drainage over past 12 hours per EMR. Patient reports feeling nauseous last night and again this morning prior to my evaluation. He is tolerating ice chips and popsicles. WBC 17.0. PHYSICAL EXAM: VITAL SIGNS: Reviewed. GENERAL: Well-developed in no acute distress. HEENT: No sclera icterus. Extraocular movements grossly intact. Moist buccal mucosa. Head is atraumatic, normocephalic. ABDOMEN: Soft. Nondistended. Surgical dressing CDI. AMMON drain with serosanguineous drainage. Urinary catheter intact with yellow urine. Positive bowel sounds. NEUROLOGIC: Alert and oriented. Cranial nerves II through XII grossly intact. ASSESSMENT: 1. Colon cancer PLAN: 1. Patient is requesting to have diet advanced. However, he is not passing flatus and complained of nausea this morning. Recommend continuing ice chips and popsicles at this time until patients nausea resolves and he is passing flatus, then may begin clear liquid diet. 2. Reglan 10mg IV Q6 hours 3. Begin Zosyn due to increasing WBC. Repeat CBC in AM 4. Continue montelongo catheter today secondary to patient receiving lasix and for accurate I&O 5. IV fluids per cardiology 6. Activity as tolerated 7. Incentive spirometry Nurse practitioner note has been reviewed by physician. Signing provider agrees with the documented findings, assessment, and plan of care. Objective - Vital Signs Vital signs: Vital Signs Temp 97.7 F 01/27/19 04:00 Pulse 119 H 01/27/19 08:00 Resp 20 01/27/19 08:00 BP 91/66 01/27/19 08:00 Pulse Ox 99 01/27/19 07:11 Intake & Output 01/26/19 01/27/19 01/27/19 18:59 06:59 18:59 Intake Total 160 240 Output Total 225 440 50 Balance -225 -280 190 Weight 101 kg Intake: IV 160 0.9 160 Oral 240 Output: Drainage 100 315 50 Lower Anterior Abdomen 100 315 50 Urine 125 125 Other: Voiding Method Indwelling Catheter Indwelling Catheter Indwelling Catheter - Labs CBC & Chem 7: 01/27/19 09:21 01/27/19 09:21 Labs: Abnormal Lab Results - Last 24 Hours (Table) 01/27/19 01/27/19 Range/Units 09:21 09:21 WBC 17.0 H (3.8-10.6) k/uL Hgb 10.1 L (13.0-17.5) gm/dL Hct 36.8 L (39.0-53.0) % MCV 77.5 L (80.0-100.0) fL MCH 21.2 L (25.0-35.0) pg MCHC 27.4 L (31.0-37.0) g/dL RDW 21.9 H (11.5-15.5) % Plt Count 618 H (150-450) k/uL Neutrophils # 15.3 H (1.3-7.7) k/uL Lymphocytes # 0.9 L (1.0-4.8) k/uL Sodium 130 L (137-145) mmol/L Carbon Dioxide 21 L (22-30) mmol/L Glucose 115 H (74-99) mg/dL Calcium 7.8 L (8.4-10.2) mg/dL <Jaguar Bailey - Last Filed: 01/27/19 19:28> Subjective As above. Patient feels nauseated today. No bowel function. Complains of some bloating. Abdominal pain however is improved. White blood cell count slightly elevated. Patient had contamination during the case in starting Zosyn is reasonable given the leukocytosis. Continue nothing by mouth. Add IV Tylenol for pain. Gradually increase activity. Repeat labs tomorrow. Objective - Vital Signs Vital signs: Vital Signs Temp 96.4 F L 01/27/19 16:00 Pulse 116 H 01/27/19 16:00 Resp 19 01/27/19 16:00 BP 114/63 01/27/19 16:00 Pulse Ox 97 01/27/19 16:00 Intake & Output 03/20/19 03/20/19 03/21/19 06:59 18:59 06:59 Intake Total 160 480 Output Total 440 300 Balance -280 180 Weight 101 kg Intake: IV 160 0.9 160 Oral 480 Output: Drainage 315 100 Lower Anterior Abdomen 315 100 Urine 125 200 Other: Voiding Method Indwelling Catheter Indwelling Catheter # Bowel Movements 0 - Labs CBC & Chem 7: 01/27/19 09:21 01/27/19 09:21 Labs: Abnormal Lab Results - Last 24 Hours (Table) 01/27/19 01/27/19 Range/Units 09:21 09:21 WBC 17.0 H (3.8-10.6) k/uL Hgb 10.1 L (13.0-17.5) gm/dL Hct 36.8 L (39.0-53.0) % MCV 77.5 L (80.0-100.0) fL MCH 21.2 L (25.0-35.0) pg MCHC 27.4 L (31.0-37.0) g/dL RDW 21.9 H (11.5-15.5) % Plt Count 618 H (150-450) k/uL Neutrophils # 15.3 H (1.3-7.7) k/uL Lymphocytes # 0.9 L (1.0-4.8) k/uL Sodium 130 L (137-145) mmol/L Carbon Dioxide 21 L (22-30) mmol/L Glucose 115 H (74-99) mg/dL Calcium 7.8 L (8.4-10.2) mg/dL Assessment and Plan (1) Colon cancer Current Visit: Yes Status: Acute Code(s): C18.9 - MALIGNANT NEOPLASM OF COLON, UNSPECIFIED SNOMED Code(s): 933632341
--- NOTE | 2019-01-27 15:30 | PN ---
PROGRESS NOTE This is a gentleman with chronic atrial fib, who underwent sigmoid resection by Dr. Bailey. He is not making much urine. His albumin level is 2.1. He remains in atrial fibrillation, rate is between 95 to 105. I am recommending that will give him some albumin and follow up with some Lasix and discontinue his digoxin. His heart rate is fairly acceptable. I am concerned about his very decreased urine output and may have decreased renal function as well. I will therefore hold nonsteroidal anti-inflammatory Ketoralac and digoxin. Vitals are stable. Blood pressure is 104 systolic. S1, S2 heard normally, irregular rhythm noted, short systolic murmur noted. Heart sounds are heard distantly. Lungs reveal fair air entry, bilaterally abdomen is soft. I did not do a detailed exam. Lower extremities reveal diminished pulses. I am recommending albumin and Lasix. Continue fluids at KVO and discontinue digoxin and Ketoralac. MMODL / IJN: [id number] /
[2019-01-27] MEDS: PIPERACILLIN-TAZOBACTAM 3.375 GM in SODIUM CHLORIDE 0.9% 100 ML IVPB SCH ×2 (17:03→23:18)
[2019-01-27] MEDS: METOCLOPRAMIDE 5 MG/ML 2 ML VIAL IVP SCH ×2 (17:04→23:18)
[2019-01-27] MEDS: ACETAMINOPHEN IV (For NPO) 1,000 MG in EMPTY BAG 1 BAG IVPB SCH ×2 (21:46→23:18)
--- NOTE | 2019-01-27 22:11 | P.PN ---
Subjective Progress Note Date: 01/27/19 Principal diagnosis: New Cecal Mass Mr. Cm iseen this am and feeling nauseated this morning. He does not think he is passing gas. medications for nausea help, encouraged up in chair and increase movement. Objective - Vital Signs Vital signs: Vital Signs Temp 96.4 F L 01/27/19 16:00 Pulse 116 H 01/27/19 16:00 Resp 19 01/27/19 16:00 BP 114/63 01/27/19 16:00 Pulse Ox 97 01/27/19 16:00 Intake & Output 01/27/19 01/27/19 01/28/19 06:59 18:59 06:59 Intake Total 160 480 Output Total 440 300 Balance -280 180 Weight 101 kg Intake: IV 160 0.9 160 Oral 480 Output: Drainage 315 100 Lower Anterior Abdomen 315 100 Urine 125 200 Other: Voiding Method Indwelling Catheter Indwelling Catheter # Bowel Movements 0 - Exam Gen: alert and oriented no acute distress Head: NC/NT Neck: Supple No supraclavicular adenopathy, cervical or axillary adenopathy palpable Abdomen is soft, mild tenderness to palpation Heart: RRR, S1s2 Lungs: Clear no increased effort Neuo: No sensory or motor defects Extremities: no edema - Labs CBC & Chem 7: 01/27/19 09:21 01/27/19 09:21 Labs: Abnormal Lab Results - Last 24 Hours (Table) 01/27/19 01/27/19 Range/Units 09:21 09:21 WBC 17.0 H (3.8-10.6) k/uL Hgb 10.1 L (13.0-17.5) gm/dL Hct 36.8 L (39.0-53.0) % MCV 77.5 L (80.0-100.0) fL MCH 21.2 L (25.0-35.0) pg MCHC 27.4 L (31.0-37.0) g/dL RDW 21.9 H (11.5-15.5) % Plt Count 618 H (150-450) k/uL Neutrophils # 15.3 H (1.3-7.7) k/uL Lymphocytes # 0.9 L (1.0-4.8) k/uL Sodium 130 L (137-145) mmol/L Carbon Dioxide 21 L (22-30) mmol/L Glucose 115 H (74-99) mg/dL Calcium 7.8 L (8.4-10.2) mg/dL Assessment and Plan Plan: Assessment and Recommendations: 1. Severe Iron Deficiency Anemia: - Secondary to GI Blood Loss from Underlying Cecal Mass - Parental Iron ordered and given today, will order two more days - Continue on PO - Monitor daily CBC 2. Cecal Mass: New Finding: - Final Pathology resulted with adenocarcinoma - CEA = 19.9 - CT scans reviewed - No evidence of distant metastatic disease identified - Status Post surgical intervention although The patient's tumor was fixed to the region of the dinorah hepatis. As I was trying to discern whether this was resectable or not succus was seen coming from the hard mass. There was an obvious perforation of the tumor where it was adherent to the region of the proximal duodenum and dinorah hepatis. Thankfully the duodenum showed note evidence of perforation or fistula. Plan: - Discussed the unfortunate findings during surgical intervention and patient is in good spirits. Once he has recovered we can see him in follow-up to discuss any potential options although it is important to consider his advanced age and co-morbidies. - Nauseated this morning, encourage to sit up and increase activity, will ask PT to work wiht him today Physician Attest: I have discussed the complete history and physicial and developed the completed impression and plan, agree with above dictation. Dictated as a scribe
[2019-01-28] MEDS: SODIUM CHLORIDE 0.9% 1,000 ML IV SCH ×3 (04:17→21:20)
[2019-01-28] MEDS: ACETAMINOPHEN IV (For NPO) 1,000 MG in EMPTY BAG 1 BAG IVPB SCH ×3 (04:17→15:27)
[2019-01-28] MEDS: METOCLOPRAMIDE 5 MG/ML 2 ML VIAL IVP SCH ×4 (06:11→22:54)
[2019-01-28 06:45] LABS: Anisocytosis Moderate; Basophils % (A) 0 %; Eosinophils % (A) 0 %; HCT 34.8 % (39.0-53.0); HGB 9.5 gm/dL (13.0-17.5); Hypochromasia Marked; Lymphocytes % (A) 7 %; MCHC 27.3 g/dL (31.0-37.0); MCV 77.1 fL (80.0-100.0); Mean Platelet Volume 6.8; Microcytosis Moderate; Monocytes # (A) 0.5 k/uL (0-1.0); Monocytes % (A) 3 %; Neutrophils # (A) 12.2 k/uL (1.3-7.7); Neutrophils % (A) 89 %; Platelet Count 557 k/uL (150-450); RBC 4.52 m/uL (4.30-5.90); RDW 22.4 % (11.5-15.5); WBC 13.8 k/uL (3.8-10.6)
[2019-01-28 07:08] LABS: Calcium 7.8 mg/dL (8.4-10.2); Potassium 4.6 mmol/L (3.5-5.1)
[2019-01-28] MEDS: PIPERACILLIN-TAZOBACTAM 3.375 GM in SODIUM CHLORIDE 0.9% 100 ML IVPB SCH ×3 (09:25→22:54)
[2019-01-28] MEDS: ASCORBIC ACID 500 MG TAB PO SCH ×2 (09:25→21:30)
[2019-01-28] MEDS: AMIODARONE 200 MG TAB PO SCH ×2 (09:25→21:30)
[2019-01-28] MEDS: METOPROLOL TARTRATE 50 MG TAB PO SCH ×3 (09:26→21:31)
[2019-01-28] MEDS: FINASTERIDE 5 MG TAB PO SCH (09:26)
[2019-01-28] MEDS: FERROUS SULFATE 325 MG TAB PO SCH ×2 (09:26→21:30)
[2019-01-28] MEDS: MAGNESIUM OXIDE 400 MG TAB PO SCH (09:26)
[2019-01-28] MEDS: CHOLECALCIFEROL 1,000 UNIT TAB PO SCH (09:26)
[2019-01-28] MEDS: TAMSULOSIN 0.4 MG CAP.ER.24H PO SCH (09:26)
[2019-01-28] MEDS: HEPARIN SODIUM,PORCINE 5,000 UNIT/ML 1 ML VIAL SQ SCH ×2 (09:27→21:30)
[2019-01-28] MEDS: DOCUSATE 100 MG CAP PO SCH ×2 (09:27→21:30)
[2019-01-28] MEDS ORDERED: ALBUMIN HUMAN 25% 50 ML in EMPTY BAG 1 BAG IVPB ONE (10:29)
[2019-01-28] MEDS ORDERED: FUROSEMIDE 10 MG/ML 4 ML VIAL IV STA (12:36)
--- NOTE | 2019-01-28 12:38 | P.PN ---
Subjective Progress Note Date: 01/28/19 This is a pleasant 88 showed male past medical history significant for atrial fibrillation, nonischemic cardiomyopathy, iron deficiency anemia and hypertension. He follows in the office with Dr. Lai. 2 nieces morning to be in a normal sinus rhythm. Blood pressure 88/50 earlier this morning, subsequent blood pressure 100/60. Hemoglobin 7.7, white blood cell count 14.9, potassium 5.2 and sodium 129 today. We'll continue with current medications. 01/19/2019 Patient underwent EGD and colonoscopy today, revealed hiatal hernia with no obvious esophagitis or complicated reflux disease. Normal stomach and duodenum. There is a cecal mass present consistent with cancer and multiple biopsies were obtained. At this time we will hold off from any anticoagulation. This was discussed with the patient and his in detail. She was quite concerned that the patient was at increased risk for stroke now that the anticoagulant will be held. Dr. fili Armenta did have a discussion with her regarding a possible watchman procedure down the road. Hemodynamically the patient is stable today and overall doing well. Hemoglobin 7.2 today. 01/20/2019 Patient was seen and examined this morning, overall feels well. Anticipating discharge home today. At this point in time anticoagulation will continue to be on hold until decision is made regarding the cecal mass. This was explained to the patient and his family in detail. 01/28/2019 Patient is status post sigmoid resection by Dr. Bailey, he was given some albumin yesterday, overall not making much urine. Continues to be in atrial fibrillation, heart rate in the 90s, blood pressure 104/60. Continues to have significant bilateral peripheral edema. We will give the patient a dose of IV Lasix today. Monitor daily renal function closely. Objective - Vital Signs Vital signs: Vital Signs Temp 98.0 F 01/28/19 07:54 Pulse 98 01/28/19 07:54 Resp 20 01/28/19 07:54 BP 103/61 01/28/19 07:54 Pulse Ox 99 01/28/19 07:54 Intake & Output 01/27/19 01/28/19 01/28/19 18:59 06:59 18:59 Intake Total 480 120 240 Output Total 300 320 200 Balance 180 -200 40 Weight 115.1 kg Intake: Oral 480 120 240 Output: Drainage 100 220 Lower Anterior Abdomen 100 220 Urine 200 100 200 Other: Voiding Method Indwelling Catheter Indwelling Catheter Indwelling Catheter # Voids 1 # Bowel Movements 0 - Exam GENERAL: This is a 88-year-old male in no apparent distress at the time of my examination. HEENT: Head is atraumatic, normocephalic. Pupils are equal, round. Sclerae anicteric. Conjunctivae are clear. Mucous membranes of the mouth are moist. Neck is supple. There is no jugular venous distention. No carotid bruit is heard. LUNGS: Clear to auscultation no wheezes, rales or rhonchi. No chest wall tenderness is noted on palpation or with deep breathing. HEART: Irregular rate and rhythm with systolic ejection murmur at the base, no rubs or gallops. S1 and S2 heard. ABDOMEN: Soft, nontender. Bowel sounds are heard. No organomegaly noted. EXTREMITIES: 1-2+ bilateral lower extremity pitting edema and no calf tenderness noted. - Labs CBC & Chem 7: 01/28/19 06:06 01/28/19 06:06 Labs: Abnormal Lab Results - Last 24 Hours (Table) 01/25/19 01/28/19 01/28/19 Range/Units 12:44 06:06 06:06 WBC 13.8 H (3.8-10.6) k/uL Hgb 9.5 L (13.0-17.5) gm/dL Hct 34.8 L (39.0-53.0) % MCV 77.1 L (80.0-100.0) fL MCH 21.0 L (25.0-35.0) pg MCHC 27.3 L (31.0-37.0) g/dL RDW 22.4 H (11.5-15.5) % Plt Count 557 H (150-450) k/uL Neutrophils # 12.2 H (1.3-7.7) k/uL Sodium 131 L (137-145) mmol/L Carbon Dioxide 20 L (22-30) mmol/L BUN 21 H (9-20) mg/dL Glucose 101 H (74-99) mg/dL Calcium 7.8 L (8.4-10.2) mg/dL Crossmatch See Detail Assessment and Plan Plan: ASSESSMENT #1Acute anemia #2Leukocytosis #3Thrombocythemia #4Chroinc atrial firbillation with rapid ventricular response, maintained on tikosyn at home #5Hypertension #6Non-ischemic cardiomyopathy #7Chronic systolic heart failure, currently euvolemic #8 colon cancer status post sigmoid resection Plan We will give the patient a one-time dose of 40 mg of IV Lasix today. Check lytes BUN and creatinine in the morning and daily. DNP note has been reviewed, I agree with a documented findings and plan of care. Patient was seen and examined.
--- NOTE | 2019-01-28 13:08 | P.PN ---
<Jacquelyn Tracy Khanh - Last Filed: 01/28/19 13:05> Subjective Progress Note Date: 01/28/19 CHIEF COMPLAINT: right-sided colon mass HISTORY OF PRESENT ILLNESS: Patient is s/p exploratory laparotomy, right colectomy, and partial omentectomy. POD #3. Patient denies any further episodes of nausea. He reports passing gas today. Tolerating ice chips and popsicles. Patient with continued decreased urine output. Patient to receive lasix and albumin today per cardiology. WBC 13.8. PHYSICAL EXAM: VITAL SIGNS: Reviewed. GENERAL: Well-developed in no acute distress. HEENT: No sclera icterus. Extraocular movements grossly intact. Moist buccal mucosa. Head is atraumatic, normocephalic. ABDOMEN: Soft. Nondistended. Bloating improved. Surgical dressing CDI. AMMON drain with serosanguineous drainage. Urinary catheter intact with yellow urine. Positive bowel sounds. NEUROLOGIC: Alert and oriented. Cranial nerves II through XII grossly intact. ASSESSMENT: 1. Colon cancer PLAN: 1. Begin clear liquid diet 2. Continue Zosyn. Monitor WBC. 3. IV fluids/lasix per cardiology 4. Continue montelongo catheter today secondary to patient receiving lasix and for accurate I&O 5. Activity as tolerated 6. Incentive spirometry Nurse practitioner note has been reviewed by physician. Signing provider agrees with the documented findings, assessment, and plan of care. Objective - Vital Signs Vital signs: Vital Signs Temp 98.0 F 01/28/19 07:54 Pulse 98 01/28/19 07:54 Resp 20 01/28/19 07:54 BP 103/61 01/28/19 07:54 Pulse Ox 99 01/28/19 07:54 Intake & Output 01/27/19 01/28/19 01/28/19 18:59 06:59 18:59 Intake Total 480 120 240 Output Total 300 320 200 Balance 180 -200 40 Weight 115.1 kg Intake: Oral 480 120 240 Output: Drainage 100 220 Lower Anterior Abdomen 100 220 Urine 200 100 200 Other: Voiding Method Indwelling Catheter Indwelling Catheter Indwelling Catheter # Voids 1 # Bowel Movements 0 - Labs CBC & Chem 7: 01/28/19 06:06 01/28/19 06:06 Labs: Abnormal Lab Results - Last 24 Hours (Table) 01/25/19 01/28/19 01/28/19 Range/Units 12:44 06:06 06:06 WBC 13.8 H (3.8-10.6) k/uL Hgb 9.5 L (13.0-17.5) gm/dL Hct 34.8 L (39.0-53.0) % MCV 77.1 L (80.0-100.0) fL MCH 21.0 L (25.0-35.0) pg MCHC 27.3 L (31.0-37.0) g/dL RDW 22.4 H (11.5-15.5) % Plt Count 557 H (150-450) k/uL Neutrophils # 12.2 H (1.3-7.7) k/uL Sodium 131 L (137-145) mmol/L Carbon Dioxide 20 L (22-30) mmol/L BUN 21 H (9-20) mg/dL Glucose 101 H (74-99) mg/dL Calcium 7.8 L (8.4-10.2) mg/dL Crossmatch See Detail <Jaguar Bailey - Last Filed: 01/28/19 14:23> Subjective As above. Patient doing better today. He is passing flatus multiple times today. No nausea currently. We'll begin full liquid diet. Continue increasing activity. Management of Montelongo catheter per cardiology since they are diuresing the patient. Continue physical therapy. Objective - Vital Signs Vital signs: Vital Signs Temp 98.0 F 01/28/19 07:54 Pulse 98 01/28/19 07:54 Resp 20 01/28/19 07:54 BP 103/61 01/28/19 07:54 Pulse Ox 99 01/28/19 07:54 Intake & Output 01/27/19 01/28/19 01/28/19 18:59 06:59 18:59 Intake Total 480 120 480 Output Total 300 320 200 Balance 180 -200 280 Weight 115.1 kg Intake: Oral 480 120 480 Output: Drainage 100 220 Lower Anterior Abdomen 100 220 Urine 200 100 200 Other: Voiding Method Indwelling Catheter Indwelling Catheter Indwelling Catheter # Voids 1 # Bowel Movements 0 - Labs CBC & Chem 7: 01/28/19 06:06 01/28/19 06:06 Labs: Abnormal Lab Results - Last 24 Hours (Table) 01/25/19 01/28/19 01/28/19 Range/Units 12:44 06:06 06:06 WBC 13.8 H (3.8-10.6) k/uL Hgb 9.5 L (13.0-17.5) gm/dL Hct 34.8 L (39.0-53.0) % MCV 77.1 L (80.0-100.0) fL MCH 21.0 L (25.0-35.0) pg MCHC 27.3 L (31.0-37.0) g/dL RDW 22.4 H (11.5-15.5) % Plt Count 557 H (150-450) k/uL Neutrophils # 12.2 H (1.3-7.7) k/uL Sodium 131 L (137-145) mmol/L Carbon Dioxide 20 L (22-30) mmol/L BUN 21 H (9-20) mg/dL Glucose 101 H (74-99) mg/dL Calcium 7.8 L (8.4-10.2) mg/dL Crossmatch See Detail Assessment and Plan (1) Colon cancer Current Visit: Yes Status: Acute Code(s): C18.9 - MALIGNANT NEOPLASM OF COLON, UNSPECIFIED SNOMED Code(s): 764800568
[2019-01-28] MEDS: ALBUMIN HUMAN 25% 50 ML in EMPTY BAG 1 BAG IVPB ONE (15:29)
[2019-01-28] MEDS: FUROSEMIDE 20 MG TAB PO SCH (17:55)
--- NOTE | 2019-01-28 23:39 | P.PN ---
Subjective Progress Note Date: 01/27/19 Principal diagnosis: Atrial fibrillation with RVR Cecal mass 88-year-old male admitted for shortness of breath which appears to be subacute to chronic. There is no evidence of COPD and CHF no evidence of significant lung injury. CT any of the chest did not show any significant abnormality. Patient was given Lasix and his serum sodium has come down. Patient went into A. fib with rapid ventricular rate I believe is secondary to intravascular depletion we'll hydrate him today and see how he responds as there is no evidence of CHF although patient does have pedal edema pitting to his chronic patient although looks better. Patient hemoglobin is 8 which apparently was 10 about a month ago although there is no evidence of acute GI bleed. Patient was started on amiodarone and Tikosyn is was discontinued. 01/17/2019 Patient converted to sinus rhythm on amiodarone presently rate controlled patient received 1 L of IV fluid in spite of which his serum sodium remained at 129 [place] believe he'll need more IV fluid but the big patient has extensive pedal edema because of which haven't been hold off on IV fluids. Respiratory status improved patient will be monitored overnight will be switched to oral amiodarone possibility of discharge tomorrow. Hemoglobin is 7.5 secondary to hemodilution affect 01/18/2019 Patient is clinically doing well patient will go for upper GI endoscopy and colonoscopy tomorrow to see if there is any sources of occult bleed like AVMs to help cardiology my dictation regarding anticoagulation. Patient still has pedal edema but still appears to be intravascularly volume depleted because of that reason not the giving him any Lasix. Patient is not in heart failure exacerbation patient serum sodium is still 129 because of concerns of the worsening pedal edema patient is not being started on IV fluids either. Patient probably can be discharged tomorrow 01/19/19 s/p EGD and colonoscopy. 1. Hiatal hernia with no obvious esophagitis or complicated reflux disease. 2. Normal stomach and duodenum. 3. 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 Patient is currently off anticoagulation. Heart rate is better controlled. Hemoglobin is 7.2. Patient is still having bilateral lower extremities sw elling. 01/20/2019 Cecal mass biopsy is pending. Patient is still having bilateral lower extremit ies edema. Blood pressure in the lower side. Heart rate is still elevated. Patient was also found to have iron deficiency anemia and was started on IV iron. Hemoglobin 8.7. Patient was seen by oncology due to cecal mass. CT of the abdominal pelvis was ordered. CEA was ordered as well. Patient currently patient is significant comfortably. No compressive shortness of breath or chest pain. Wants to be discharged home. Sodium level remains low at 128. 01/21/2019 Patient is currently sitting in a chair comfortably. No implants of chest pain. Still having seen for and leg swelling. Heart is still elevated. Continued on amiodarone and beta blockers. Dose increased as per cardiology. Patient was started on digoxin. 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 Gen. surgery was consulted. Oncology is following. Patient remained on hyponatremic hypoosmolar.. Patient be kept on fluid restriction and diuresis as blood pressure tolerates. Prognosis is poor at this time. Discussed with his daughter at bedside in detail. 01/22/2019 Patient says that he is feeling better. Heart rate is better controlled. Continued on beta blockers and Lanoxin. CT abdomen showed no evidence of prostatic disease. Patient was seen by general surgery and patient is agreeable for colectomy possibly next week. Cardiology is on board. Continue to follow sodium level and hemoglobin. Patient is still having significant leg swelling but slightly improved. 01/23/2019 Patient denied any complaints of chest pain or shortness of breath. Heart rate is better controlled. Blood pressure is fairly stable. sodium level is 129. Patient does complain of pain at the previous IV site on right cubital area. Duplex scan is negative for DVT. Continued on warm compresses. Patient is being prepped for colectomy early next week 01/24/2019 Patient denied a complaints of chest pain or worsening shortness of breath. Leg swelling seems to be improved. Sodium level is at 1:30. Right cubital thrombophlebitis is improving. No fever no chills. No nausea vomiting or abdo keenan pain. Patient is scheduled for right colectomy tomorrow. 01/25/2019 Patient is status post Exploratory laparotomy, right colectomy, partial omentectomy. Tolerated the procedure very well. He was given 1 unit of PRBC transfusion this morning. Patient Evidently denied any complaints of chest pain shortness of breath. No fever no chills. 01/26/2019 Patient denied any complaints of chest pain or shortness of breath. Patient does have some soreness at the incision site. No bowel movement or passing gas at this time. Patient was given 500 mL fluid bolus due to hypotension and decreased urine output. Sodium level 131 today.. 01/27/2019 Patient denied any complaints of chest pain or worsening shortness of breath. Slight abdominal soreness. Otherwise patient has not passed flatus. Sodium level 130 Still having bilateral lower extremity edema. WBC 17 point and hemoglobin is 10 .1 Patient has been afebrile. Bowel sounds are sluggish to diminished. Constitutional: Denied any fatigue denied any fever. Cardio vascular: denied any chest pain, palpitations Gastrointestinal denied any nausea vomiting Pulmonary: Denied any worsening shortness of breath or cough Neurologic denied any new focal deficits All inpatient medications were reviewed and appropriate changes in these m edications as dictated in the interval history and assessment and plan. Objective - Vital Signs Vital signs: Vital Signs Temp 96.4 F L 01/27/19 16:00 Pulse 116 H 01/27/19 16:00 Resp 19 01/27/19 16:00 BP 114/63 01/27/19 16:00 Pulse Ox 97 01/27/19 16:00 Intake & Output 01/27/19 01/27/19 01/28/19 06:59 18:59 06:59 Intake Total 160 480 Output Total 440 300 Balance -280 180 Weight 101 kg Intake: IV 160 0.9 160 Oral 480 Output: Drainage 315 100 Lower Anterior Abdomen 315 100 Urine 125 200 Other: Voiding Method Indwelling Catheter Indwelling Catheter # Bowel Movements 0 - Exam PHYSICAL EXAMINATION: GENERAL: The patient is alert and oriented x3, not in any acute distress. obese HEENT: Pupils are round and equally reacting to light. EOMI. No scleral icterus. No conjunctival pallor. Normocephalic, atraumatic. No pharyngeal erythema. No thyromegaly. CARDIOVASCULAR: S1 and S2 present. No murmurs, rubs, or gallops. PULMONARY: Chest is clear to auscultation, no wheezing or crackles. ABDOMEN: Soft, surgical site intact. Mild tenderness., nondistended, normoactive bowel sounds. No palpable organomegaly. MUSCULOSKELETAL: No joint swelling or deformity. EXTREMITIES: No cyanosis, clubbing, extensive bilateral pitting pedal edema patient does have an Judd bandage NEUROLOGICAL: Gross neurological examination did not reveal any focal deficits. SKIN: No rashes. - Labs CBC & Chem 7: 01/28/19 06:06 01/28/19 06:06 Labs: Abnormal Lab Results - Last 24 Hours (Table) 01/27/19 01/27/19 Range/Units 09:21 09:21 WBC 17.0 H (3.8-10.6) k/uL Hgb 10.1 L (13.0-17.5) gm/dL Hct 36.8 L (39.0-53.0) % MCV 77.5 L (80.0-100.0) fL MCH 21.2 L (25.0-35.0) pg MCHC 27.4 L (31.0-37.0) g/dL RDW 21.9 H (11.5-15.5) % Plt Count 618 H (150-450) k/uL Neutrophils # 15.3 H (1.3-7.7) k/uL Lymphocytes # 0.9 L (1.0-4.8) k/uL Sodium 130 L (137-145) mmol/L Carbon Dioxide 21 L (22-30) mmol/L Glucose 115 H (74-99) mg/dL Calcium 7.8 L (8.4-10.2) mg/dL Assessment and Plan Assessment: -Shortness of breath etiology is multifactorial obesity possibility of sleep apnea, deconditioning secondary to aging, with atrial fibrillation with contribution from anemia. Patient wasn't A. fib with rapid ventricular rate. strated on amiodarone presently improved patient converted to sinus rhythm. On beta blockers. Dose increased. added Digoxin. - Acute blood loss Anemia and GI bleed. s/p EGD and colonoscopy. Showed a cecal mass. -Iron deficiency anemia. Was given IV iron daily for 3 days. 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 CT showed no evidence of metastasis. CEA 19.9. s/p Exploratory laparotomy, right colectomy, partial omentectomy. -Chronic Atrial fibrillation with rapid ventricular patient converted to sinus rhythm on amiodarone. -Hyponatremia. Sodium 129--130. Likely hypervolemic. With underlying SIADH cannot be excluded. Patient will be On fluid restriction and diuretics as blood pressure tolerates. -Benign prostatic hypertrophy -Morbid obesity possibility of sleep apnea patient was never diagnosed with this. BMI 39.7 -Hypertension. Currently hypotensive. -Non-ischemic cardiomyopathy -Chronic systolic heart failure, currently euvolemic - Thrombocytosis likely due to iron deficiency Time with Patient: Greater than 30
--- NOTE | 2019-01-28 23:41 | P.PN ---
Subjective Progress Note Date: 01/28/19 Principal diagnosis: Atrial fibrillation with RVR Cecal mass 88-year-old male admitted for shortness of breath which appears to be subacute to chronic. There is no evidence of COPD and CHF no evidence of significant lung injury. CT any of the chest did not show any significant abnormality. Patient was given Lasix and his serum sodium has come down. Patient went into A. fib with rapid ventricular rate I believe is secondary to intravascular depletion we'll hydrate him today and see how he responds as there is no evidence of CHF although patient does have pedal edema pitting to his chronic patient although looks better. Patient hemoglobin is 8 which apparently was 10 about a month ago although there is no evidence of acute GI bleed. Patient was started on amiodarone and Tikosyn is was discontinued. 01/17/2019 Patient converted to sinus rhythm on amiodarone presently rate controlled patient received 1 L of IV fluid in spite of which his serum sodium remained at 129 [place] believe he'll need more IV fluid but the big patient has extensive pedal edema because of which haven't been hold off on IV fluids. Respiratory status improved patient will be monitored overnight will be switched to oral amiodarone possibility of discharge tomorrow. Hemoglobin is 7.5 secondary to hemodilution affect 01/18/2019 Patient is clinically doing well patient will go for upper GI endoscopy and colonoscopy tomorrow to see if there is any sources of occult bleed like AVMs to help cardiology my dictation regarding anticoagulation. Patient still has pedal edema but still appears to be intravascularly volume depleted because of that reason not the giving him any Lasix. Patient is not in heart failure exacerbation patient serum sodium is still 129 because of concerns of the worsening pedal edema patient is not being started on IV fluids either. Patient probably can be discharged tomorrow 01/19/19 s/p EGD and colonoscopy. 1. Hiatal hernia with no obvious esophagitis or complicated reflux disease. 2. Normal stomach and duodenum. 3. 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 Patient is currently off anticoagulation. Heart rate is better controlled. Hemoglobin is 7.2. Patient is still having bilateral lower extremities sw elling. 01/20/2019 Cecal mass biopsy is pending. Patient is still having bilateral lower extremit ies edema. Blood pressure in the lower side. Heart rate is still elevated. Patient was also found to have iron deficiency anemia and was started on IV iron. Hemoglobin 8.7. Patient was seen by oncology due to cecal mass. CT of the abdominal pelvis was ordered. CEA was ordered as well. Patient currently patient is significant comfortably. No compressive shortness of breath or chest pain. Wants to be discharged home. Sodium level remains low at 128. 01/21/2019 Patient is currently sitting in a chair comfortably. No implants of chest pain. Still having seen for and leg swelling. Heart is still elevated. Continued on amiodarone and beta blockers. Dose increased as per cardiology. Patient was started on digoxin. 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 Gen. surgery was consulted. Oncology is following. Patient remained on hyponatremic hypoosmolar.. Patient be kept on fluid restriction and diuresis as blood pressure tolerates. Prognosis is poor at this time. Discussed with his daughter at bedside in detail. 01/22/2019 Patient says that he is feeling better. Heart rate is better controlled. Continued on beta blockers and Lanoxin. CT abdomen showed no evidence of prostatic disease. Patient was seen by general surgery and patient is agreeable for colectomy possibly next week. Cardiology is on board. Continue to follow sodium level and hemoglobin. Patient is still having significant leg swelling but slightly improved. 01/23/2019 Patient denied any complaints of chest pain or shortness of breath. Heart rate is better controlled. Blood pressure is fairly stable. sodium level is 129. Patient does complain of pain at the previous IV site on right cubital area. Duplex scan is negative for DVT. Continued on warm compresses. Patient is being prepped for colectomy early next week 01/24/2019 Patient denied a complaints of chest pain or worsening shortness of breath. Leg swelling seems to be improved. Sodium level is at 1:30. Right cubital thrombophlebitis is improving. No fever no chills. No nausea vomiting or abdo keenan pain. Patient is scheduled for right colectomy tomorrow. 01/25/2019 Patient is status post Exploratory laparotomy, right colectomy, partial omentectomy. Tolerated the procedure very well. He was given 1 unit of PRBC transfusion this morning. Patient Evidently denied any complaints of chest pain shortness of breath. No fever no chills. 01/26/2019 Patient denied any complaints of chest pain or shortness of breath. Patient does have some soreness at the incision site. No bowel movement or passing gas at this time. Patient was given 500 mL fluid bolus due to hypotension and decreased urine output. Sodium level 131 today.. 01/27/2019 Patient denied any complaints of chest pain or worsening shortness of breath. Slight abdominal soreness. Otherwise patient has not passed flatus. Sodium level 130 Still having bilateral lower extremity edema. WBC 17 point and hemoglobin is 10 .1 Patient has been afebrile. Bowel sounds are sluggish to diminished. 01/28/2019 Patient is feeling better today. Status post colectomy due to cecal mass. Able to pass flatus. No complaints of chest pain or worsening shortness of breath. Improving leukocytosis. Hemoglobin is stable around 9.5. Patient was started on clear liquid diet and advance as tolerated. Has been afebrile. No nausea vomiting. No diarrhea. Heart rate is better controlled. General surgery and oncology is following. Constitutional: Denied any fatigue denied any fever. Cardio vascular: denied any chest pain, palpitations Gastrointestinal denied any nausea vomiting Pulmonary: Denied any worsening shortness of breath or cough Neurologic denied any new focal deficits All inpatient medications were reviewed and appropriate changes in these medications as dictated in the interval history and assessment and plan. Objective - Vital Signs Vital signs: Vital Signs Temp 97.0 F L 01/28/19 19:56 Pulse 113 H 01/28/19 20:00 Resp 18 01/28/19 20:00 BP 131/77 01/28/19 19:56 Pulse Ox 98 01/28/19 19:56 Intake & Output 01/28/19 01/28/19 01/29/19 06:59 18:59 06:59 Intake Total 120 660 Output Total 320 200 820 Balance -200 460 -820 Weight 115.1 kg 115.1 kg Intake: Oral 120 660 Output: Drainage 220 70 Lower Anterior Abdomen 220 70 Urine 100 200 750 Other: Voiding Method Indwelling Catheter Indwelling Catheter Indwelling Catheter # Voids 1 - Exam PHYSICAL EXAMINATION: GENERAL: The patient is alert and oriented x3, not in any acute distress. obese HEENT: Pupils are round and equally reacting to light. EOMI. No scleral icterus. No conjunctival pallor. Normocephalic, atraumatic. No pharyngeal erythema. No thyromegaly. CARDIOVASCULAR: S1 and S2 present. No murmurs, rubs, or gallops. PULMONARY: Chest is clear to auscultation, no wheezing or crackles. ABDOMEN: Soft, surgical site intact. Mild tenderness., nondistended, n ormoactive bowel sounds. No palpable organomegaly. MUSCULOSKELETAL: No joint swelling or deformity. EXTREMITIES: No cyanosis, clubbing, extensive bilateral pitting pedal edema patient does have an Judd bandage NEUROLOGICAL: Gross neurological examination did not reveal any focal deficits. SKIN: No rashes. - Labs CBC & Chem 7: 01/28/19 06:06 01/28/19 06:06 Labs: Abnormal Lab Results - Last 24 Hours (Table) 01/25/19 01/28/19 01/28/19 Range/Units 12:44 06:06 06:06 WBC 13.8 H (3.8-10.6) k/uL Hgb 9.5 L (13.0-17.5) gm/dL Hct 34.8 L (39.0-53.0) % MCV 77.1 L (80.0-100.0) fL MCH 21.0 L (25.0-35.0) pg MCHC 27.3 L (31.0-37.0) g/dL RDW 22.4 H (11.5-15.5) % Plt Count 557 H (150-450) k/uL Neutrophils # 12.2 H (1.3-7.7) k/uL Sodium 131 L (137-145) mmol/L Carbon Dioxide 20 L (22-30) mmol/L BUN 21 H (9-20) mg/dL Glucose 101 H (74-99) mg/dL Calcium 7.8 L (8.4-10.2) mg/dL Crossmatch See Detail Assessment and Plan Assessment: -Shortness of breath etiology is multifactorial obesity possibility of sleep apnea, deconditioning secondary to aging, with atrial fibrillation with contribution from anemia. Patient wasn't A. fib with rapid ventricular rate. strated on amiodarone presently improved patient converted to sinus rhythm. On beta blockers. Dose increased. added Digoxin. - Acute blood loss Anemia and GI bleed. s/p EGD and colonoscopy. Showed a cecal mass. -Iron deficiency anemia. Was given IV iron daily for 3 days. 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 CT showed no evidence of metastasis. CEA 19.9. s/p Exploratory laparotomy, right colectomy, partial omentectomy. -Chronic Atrial fibrillation with rapid ventricular patient converted to sinus rhythm on amiodarone. -Hyponatremia. Sodium 129--130. Likely hypervolemic. With underlying SIADH cannot be excluded. Patient will be On fluid restriction and diuretics as blood pressure tolerates. -Benign prostatic hypertrophy -Morbid obesity possibility of sleep apnea patient was never diagnosed with this. BMI 39.7 -Hypertension. Currently hypotensive. -Non-ischemic cardiomyopathy -Chronic systolic heart failure, currently euvolemic - Thrombocytosis likely due to iron deficiency Time with Patient: Greater than 30
[2019-01-29] MEDS: METOCLOPRAMIDE 5 MG/ML 2 ML VIAL IVP SCH ×3 (04:15→17:38)
[2019-01-29 06:58] LABS: Anisocytosis Moderate; Basophils % (A) 0 %; Eosinophils # (A) 0.1 k/uL (0-0.7); Eosinophils % (A) 1 %; HCT 32.7 % (39.0-53.0); HGB 9.3 gm/dL (13.0-17.5); Hypochromasia Marked; Lymphocytes # (A) 0.7 k/uL (1.0-4.8); Lymphocytes % (A) 7 %; MCH 21.9 pg (25.0-35.0); MCHC 28.3 g/dL (31.0-37.0); MCV 77.3 fL (80.0-100.0); Mean Platelet Volume 5.7; Microcytosis Moderate; Monocytes # (A) 0.4 k/uL (0-1.0); Monocytes % (A) 4 %; Neutrophils # (A) 9.6 k/uL (1.3-7.7); Neutrophils % (A) 88 %; Platelet Count 531 k/uL (150-450); RBC 4.24 m/uL (4.30-5.90); RDW 22.6 % (11.5-15.5); WBC 10.9 k/uL (3.8-10.6)
[2019-01-29 07:26] LABS: Anion Gap 6 mmol/L; Blood Urea Nitrogen 19 mg/dL (9-20); Calcium 7.8 mg/dL (8.4-10.2); Carbon Dioxide 26 mmol/L (22-30); Chloride 101 mmol/L (98-107); Glucose 109 mg/dL (74-99); Potassium 4.3 mmol/L (3.5-5.1); Sodium 133 mmol/L (137-145)
[2019-01-29] MEDS: PIPERACILLIN-TAZOBACTAM 3.375 GM in SODIUM CHLORIDE 0.9% 100 ML IVPB SCH ×2 (08:39→17:39)
[2019-01-29] MEDS: HEPARIN SODIUM,PORCINE 5,000 UNIT/ML 1 ML VIAL SQ SCH ×2 (08:40→22:18)
[2019-01-29] MEDS: MAGNESIUM OXIDE 400 MG TAB PO SCH (08:52)
[2019-01-29] MEDS: ASCORBIC ACID 500 MG TAB PO SCH ×2 (08:52→22:17)
[2019-01-29] MEDS: FINASTERIDE 5 MG TAB PO SCH (08:52)
[2019-01-29] MEDS: FERROUS SULFATE 325 MG TAB PO SCH ×2 (08:52→22:18)
[2019-01-29] MEDS: TAMSULOSIN 0.4 MG CAP.ER.24H PO SCH (08:53)
[2019-01-29] MEDS: METOPROLOL TARTRATE 50 MG TAB PO SCH ×3 (08:53→22:16)
[2019-01-29] MEDS: DOCUSATE 100 MG CAP PO SCH ×2 (08:53→22:24)
[2019-01-29] MEDS: AMIODARONE 200 MG TAB PO SCH ×2 (08:55→22:18)
[2019-01-29] MEDS: FUROSEMIDE 20 MG TAB PO SCH (08:55)
[2019-01-29] MEDS: CHOLECALCIFEROL 1,000 UNIT TAB PO SCH (08:55)
[2019-01-29] MEDS: SODIUM CHLORIDE 0.9% 1,000 ML IV SCH ×2 (08:56→12:05)
--- NOTE | 2019-01-29 11:38 | P.PN ---
<Jacquelyn Tracy A - Last Filed: 01/29/19 11:31> Subjective Progress Note Date: 01/29/19 CHIEF COMPLAINT: right-sided colon mass HISTORY OF PRESENT ILLNESS: Patient is s/p exploratory laparotomy, right colectomy, and partial omentectomy. POD #4. Patient was advanced to full liquids yesterday. He reports feeling sick to his stomach and nauseous since yesterday. Denies episodes of emesis. Patient reports generalized abdominal pain. Currently, worse in severity than previously. He just finished working with therapy and got into the chair, which may be contributing to patient's increased pain. AMMON drain with 160 mL over the last 24 hours per EMR. Drainage remains serosanguineous. Montelongo catheter with 1550 mL last 24 hours. WBC continues to trend downward. 10.9 today. He remains on Zosyn. PHYSICAL EXAM: VITAL SIGNS: Reviewed. GENERAL: Well-developed in no acute distress. HEENT: No sclera icterus. Extraocular movements grossly intact. Moist buccal mucosa. Head is atraumatic, normocephalic. ABDOMEN: Mildly distended. Tender upon palpation. AMMON drain with serosanguineous drainage. Urinary catheter intact with yellow urine. Positive bowel sounds. NEUROLOGIC: Alert and oriented. Cranial nerves II through XII grossly intact. ASSESSMENT: 1. Colon cancer PLAN: 1. Due to patients nausea, decrease diet to clear liquids. 2. Continue to monitor patients pain. Notify provider if patients pain does not improve. 3. Continue Zosyn. Monitor WBC. 4. Management of montelongo per cardiology as they are diuresing the patient 5. Activity as tolerated 6. Incentive spirometry 7. Continue AMMON drain. Nurse practitioner note has been reviewed by physician. Signing provider agrees with the documented findings, assessment, and plan of care. Objective - Vital Signs Vital signs: Vital Signs Temp 97.6 F 01/29/19 08:00 Pulse 66 01/29/19 08:00 Resp 18 01/29/19 08:00 BP 129/81 01/29/19 08:00 Pulse Ox 97 01/29/19 08:00 Intake & Output 01/28/19 01/29/19 01/29/19 18:59 06:59 18:59 Intake Total 660 600 61 Output Total 200 1510 Balance 460 -910 61 Weight 115.1 kg 113.8 kg Intake: Oral 660 600 61 Output: Drainage 160 Lower Anterior Abdomen 160 Urine 200 1350 Other: Voiding Method Indwelling Catheter Indwelling Catheter Indwelling Catheter # Bowel Movements 1 1 - Labs CBC & Chem 7: 01/29/19 06:34 01/29/19 06:34 Labs: Abnormal Lab Results - Last 24 Hours (Table) 01/29/19 01/29/19 Range/Units 06:34 06:34 WBC 10.9 H (3.8-10.6) k/uL RBC 4.24 L (4.30-5.90) m/uL Hgb 9.3 L (13.0-17.5) gm/dL Hct 32.7 L (39.0-53.0) % MCV 77.3 L (80.0-100.0) fL MCH 21.9 L (25.0-35.0) pg MCHC 28.3 L (31.0-37.0) g/dL RDW 22.6 H (11.5-15.5) % Plt Count 531 H (150-450) k/uL Neutrophils # 9.6 H (1.3-7.7) k/uL Lymphocytes # 0.7 L (1.0-4.8) k/uL Sodium 133 L (137-145) mmol/L Glucose 109 H (74-99) mg/dL Calcium 7.8 L (8.4-10.2) mg/dL <Jaguar Bailey - Last Filed: 01/29/19 15:57> Subjective As above. Patient was complaining of some nausea and crampy pain earlier this morning however after he had multiple loose stools his symptoms improved. Still having mild right sided pain. White blood cell count improved. He is afebrile. Continue clear liquids for now. Objective - Vital Signs Vital signs: Vital Signs Temp 97.6 F 01/29/19 12:00 Pulse 117 H 01/29/19 12:34 Resp 20 01/29/19 12:34 BP 123/89 01/29/19 12:00 Pulse Ox 97 01/29/19 12:00 Intake & Output 01/28/19 01/29/19 01/29/19 18:59 06:59 18:59 Intake Total 660 600 61 Output Total 200 1510 50 Balance 460 -910 11 Weight 115.1 kg 113.8 kg Intake: Oral 660 600 61 Output: Drainage 160 50 Lower Anterior Abdomen 160 50 Urine 200 1350 Other: Voiding Method Indwelling Catheter Indwelling Catheter Indwelling Catheter # Bowel Movements 1 2 - Labs CBC & Chem 7: 01/29/19 06:34 01/29/19 06:34 Labs: Abnormal Lab Results - Last 24 Hours (Table) 01/29/19 01/29/19 Range/Units 06:34 06:34 WBC 10.9 H (3.8-10.6) k/uL RBC 4.24 L (4.30-5.90) m/uL Hgb 9.3 L (13.0-17.5) gm/dL Hct 32.7 L (39.0-53.0) % MCV 77.3 L (80.0-100.0) fL MCH 21.9 L (25.0-35.0) pg MCHC 28.3 L (31.0-37.0) g/dL RDW 22.6 H (11.5-15.5) % Plt Count 531 H (150-450) k/uL Neutrophils # 9.6 H (1.3-7.7) k/uL Lymphocytes # 0.7 L (1.0-4.8) k/uL Sodium 133 L (137-145) mmol/L Glucose 109 H (74-99) mg/dL Calcium 7.8 L (8.4-10.2) mg/dL Assessment and Plan (1) Colon cancer Current Visit: Yes Status: Acute Code(s): C18.9 - MALIGNANT NEOPLASM OF COLON, UNSPECIFIED SNOMED Code(s): 810833926
[2019-01-29] MEDS: FUROSEMIDE 100 MG in SODIUM CHLORIDE 0.9% 90 ML IV SCH ×2 (12:05→20:53)
--- NOTE | 2019-01-29 13:54 | P.PN ---
Subjective Progress Note Date: 01/29/19 This is a pleasant 88 showed male past medical history significant for atrial fibrillation, nonischemic cardiomyopathy, iron deficiency anemia and hypertension. He follows in the office with Dr. Lai. 2 nieces morning to be in a normal sinus rhythm. Blood pressure 88/50 earlier this morning, subsequent blood pressure 100/60. Hemoglobin 7.7, white blood cell count 14.9, potassium 5.2 and sodium 129 today. We'll continue with current medications. 01/19/2019 Patient underwent EGD and colonoscopy today, revealed hiatal hernia with no obvious esophagitis or complicated reflux disease. Normal stomach and duodenum. There is a cecal mass present consistent with cancer and multiple biopsies were obtained. At this time we will hold off from any anticoagulation. This was discussed with the patient and his in detail. She was quite concerned that the patient was at increased risk for stroke now that the anticoagulant will be held. Dr. fili Armenta did have a discussion with her regarding a possible watchman procedure down the road. Hemodynamically the patient is stable today and overall doing well. Hemoglobin 7.2 today. 01/20/2019 Patient was seen and examined this morning, overall feels well. Anticipating discharge home today. At this point in time anticoagulation will continue to be on hold until decision is made regarding the cecal mass. This was explained to the patient and his family in detail. 01/28/2019 Patient is status post sigmoid resection by Dr. Bailey, he was given some albumin yesterday, overall not making much urine. Continues to be in atrial fibrillation, heart rate in the 90s, blood pressure 104/60. Continues to have significant bilateral peripheral edema. We will give the patient a dose of IV Lasix today. Monitor daily renal function closely. 01/29/2019 Patient did diuresis more through the night last night it does appear that his edema today is mildly improved but he still has significant edema overall. We will start him on a Lasix drip monitoring his intake and output and labs closely. Objective - Vital Signs Vital signs: Vital Signs Temp 97.6 F 01/29/19 12:00 Pulse 117 H 01/29/19 12:34 Resp 20 01/29/19 12:34 BP 123/89 01/29/19 12:00 Pulse Ox 97 01/29/19 12:00 Intake & Output 01/28/19 01/29/19 01/29/19 18:59 06:59 18:59 Intake Total 660 600 61 Output Total 200 1510 50 Balance 460 -910 11 Weight 115.1 kg 113.8 kg Intake: Oral 660 600 61 Output: Drainage 160 50 Lower Anterior Abdomen 160 50 Urine 200 1350 Other: Voiding Method Indwelling Catheter Indwelling Catheter Indwelling Catheter # Bowel Movements 1 1 - Exam GENERAL: This is a 88-year-old male in no apparent distress at the time of my examination. HEENT: Head is atraumatic, normocephalic. Pupils are equal, round. Sclerae anicteric. Conjunctivae are clear. Mucous membranes of the mouth are moist. Neck is supple. There is no jugular venous distention. No carotid bruit is heard. LUNGS: Clear to auscultation no wheezes, rales or rhonchi. No chest wall tenderness is noted on palpation or with deep breathing. HEART: Irregular rate and rhythm with systolic ejection murmur at the base, no rubs or gallops. S1 and S2 heard. ABDOMEN: Soft, nontender. Bowel sounds are heard. No organomegaly noted. EXTREMITIES: 1+ bilateral lower extremity pitting edema and no calf tenderness noted. - Labs CBC & Chem 7: 01/29/19 06:34 01/29/19 06:34 Labs: Abnormal Lab Results - Last 24 Hours (Table) 01/29/19 01/29/19 Range/Units 06:34 06:34 WBC 10.9 H (3.8-10.6) k/uL RBC 4.24 L (4.30-5.90) m/uL Hgb 9.3 L (13.0-17.5) gm/dL Hct 32.7 L (39.0-53.0) % MCV 77.3 L (80.0-100.0) fL MCH 21.9 L (25.0-35.0) pg MCHC 28.3 L (31.0-37.0) g/dL RDW 22.6 H (11.5-15.5) % Plt Count 531 H (150-450) k/uL Neutrophils # 9.6 H (1.3-7.7) k/uL Lymphocytes # 0.7 L (1.0-4.8) k/uL Sodium 133 L (137-145) mmol/L Glucose 109 H (74-99) mg/dL Calcium 7.8 L (8.4-10.2) mg/dL Assessment and Plan Plan: ASSESSMENT #1Acute anemia #2Leukocytosis #3Thrombocythemia #4Chroinc atrial firbillation with rapid ventricular response, maintained on tikosyn at home #5Hypertension #6Non-ischemic cardiomyopathy #7Chronic systolic heart failure, currently euvolemic #8 colon cancer status post sigmoid resection Plan We'll start the patient on IV Lasix drip today, continue to monitor intake and o utput along with daily weights and daily lytes BUN and creatinine closely. DNP note has been reviewed, I agree with a documented findings and plan of care. Patient was seen and examined.
[2019-01-30] MEDS: PIPERACILLIN-TAZOBACTAM 3.375 GM in SODIUM CHLORIDE 0.9% 100 ML IVPB SCH ×4 (00:22→23:42)
[2019-01-30] MEDS: METOCLOPRAMIDE 5 MG/ML 2 ML VIAL IVP SCH ×5 (00:22→23:36)
[2019-01-30] MEDS: SODIUM CHLORIDE 0.9% 1,000 ML IV SCH ×3 (00:50→12:42)
[2019-01-30] MEDS: FUROSEMIDE 100 MG in SODIUM CHLORIDE 0.9% 90 ML IV SCH ×3 (03:36→23:37)
[2019-01-30 06:59] LABS: Anisocytosis Moderate; Basophils % (A) 0 %; Eosinophils % (A) 0 %; HCT 37.3 % (39.0-53.0); HGB 10.4 gm/dL (13.0-17.5); Hypochromasia Marked; Lymphocytes # (A) 0.9 k/uL (1.0-4.8); Lymphocytes % (A) 10 %; MCH 21.5 pg (25.0-35.0); MCHC 27.8 g/dL (31.0-37.0); MCV 77.4 fL (80.0-100.0); Mean Platelet Volume 5.9; Microcytosis Moderate; Monocytes # (A) 0.5 k/uL (0-1.0); Monocytes % (A) 5 %; Neutrophils # (A) 7.8 k/uL (1.3-7.7); Neutrophils % (A) 84 %; Platelet Count 629 k/uL (150-450); RBC 4.82 m/uL (4.30-5.90); RDW 22.2 % (11.5-15.5); WBC 9.4 k/uL (3.8-10.6)
[2019-01-30 07:12] LABS: Anion Gap 9 mmol/L; Blood Urea Nitrogen 13 mg/dL (9-20); Carbon Dioxide 27 mmol/L (22-30); Chloride 97 mmol/L (98-107); Glucose 109 mg/dL (74-99); Sodium 133 mmol/L (137-145)
[2019-01-30] MEDS: METOPROLOL TARTRATE 50 MG TAB PO SCH ×2 (09:13→20:44)
[2019-01-30] MEDS: AMIODARONE 200 MG TAB PO SCH ×2 (09:13→20:44)
[2019-01-30] MEDS: TAMSULOSIN 0.4 MG CAP.ER.24H PO SCH (09:13)
[2019-01-30] MEDS: MAGNESIUM OXIDE 400 MG TAB PO SCH (09:13)
[2019-01-30] MEDS: FINASTERIDE 5 MG TAB PO SCH (09:14)
[2019-01-30] MEDS: ASCORBIC ACID 500 MG TAB PO SCH ×2 (09:14→20:44)
[2019-01-30] MEDS: HEPARIN SODIUM,PORCINE 5,000 UNIT/ML 1 ML VIAL SQ SCH ×2 (09:14→20:44)
[2019-01-30] MEDS: CHOLECALCIFEROL 1,000 UNIT TAB PO SCH (09:14)
[2019-01-30] MEDS: DOCUSATE 100 MG CAP PO SCH ×2 (09:14→20:44)
[2019-01-30] MEDS: FERROUS SULFATE 325 MG TAB PO SCH ×2 (09:14→20:44)
[2019-01-30] MEDS ORDERED: METOPROLOL TARTRATE 25 MG TAB PO ONE ×2 (12:15→12:30)
[2019-01-30] MEDS ORDERED: METOPROLOL TARTRATE 50 MG TAB PO STA (12:35)
[2019-01-30] MEDS: METOLAZONE 5 MG TAB PO SCH (12:40)
--- NOTE | 2019-01-30 13:01 | P.PN ---
Subjective Progress Note Date: 01/30/19 CHIEF COMPLAINT: Malignant neoplasm right colon HISTORY OF PRESENT ILLNESS: The patient is a 88-year-old gentleman status post right hemicolectomy for malignant neoplasm of the right colon, 01/25/2019. He sitting up in his chair. His son is at bedside. He is tolerating clear liquids. He's had bowel movements and is passing flatus. No reports of new fevers or chills. PHYSICAL EXAM: VITAL SIGNS: Reviewed CONSTITUTIONAL: Well developed and in no acute distress. EYES: Conjuctivae with sclera icterus. Extraocular movements grossly intact. HEAD, EARS, NOSE, THROAT: Moist buccal mucosa. Head is atraumatic, normocephalic. Hears conversational speech. No nasal drainage. NECK: Supple. No thyroidomegaly. RESPIRATORY: Non-labored respirations and equal bilateral excursions. CARDIOVASCULAR: Palpable 2+ radial pulses. Tachycardic ABDOMEN: Soft. Non-tender. Incision clean dry and intact. AMMON serosanguineous. MUSCULOSKELETAL: 2+ bilateral pitting edema. No cyanosis : Urine clear yellow Cotter catheter present SKIN: Well perfused. Good skin turgor NEUROLOGIC: Cranial nerves I through XII grossly intact. No focal or lateralizing signs. PSYCH: Appropriate affect. Alert and oriented to person, place and time. CLINCAL LABS: Reviewed ASSESSMENT: 1. Malignant neoplasm right colon 2. Status post right hemicolectomy 3. Hyponatremia, volume overload 4. Ischemic cardiomyopathy PLAN: 1. May advance diet as he tolerating clear liquids and having bowel function 2. No further surgical intervention needed. 3. Recommend adjustment of IV fluids as he is in positive volume status Objective - Vital Signs Vital signs: Vital Signs Temp 97.5 F L 01/30/19 08:00 Pulse 126 H 01/30/19 08:00 Resp 20 01/30/19 08:00 BP 109/63 01/30/19 08:00 Pulse Ox 95 01/30/19 08:00 Intake & Output 01/29/19 01/30/19 01/30/19 18:59 06:59 18:59 Intake Total 61 155.167 90.833 Output Total 1800 2950 125 Balance -4729 -2794.833 -34.167 Weight 113.8 kg 81 kg Intake: Intake, IV Titration 155.167 90.833 Amount Furosemide 100 mg In 155.167 90.833 Sodium Chloride 0.9% 90 ml @ 10 MG/HR 10 mls/hr IV .Q10H [facility] Rx#: [id number] Oral 61 Output: Drainage 50 145 Lower Anterior Abdomen 50 145 Urine 1750 2805 125 Other: Voiding Method Indwelling Catheter Indwelling Catheter Indwelling Catheter # Bowel Movements 1 - Labs CBC & Chem 7: 01/30/19 06:07 01/30/19 06:07 Labs: Abnormal Lab Results - Last 24 Hours (Table) 01/30/19 01/30/19 Range/Units 06:07 06:07 Hgb 10.4 L (13.0-17.5) gm/dL Hct 37.3 L (39.0-53.0) % MCV 77.4 L (80.0-100.0) fL MCH 21.5 L (25.0-35.0) pg MCHC 27.8 L (31.0-37.0) g/dL RDW 22.2 H (11.5-15.5) % Plt Count 629 H (150-450) k/uL Neutrophils # 7.8 H (1.3-7.7) k/uL Lymphocytes # 0.9 L (1.0-4.8) k/uL Sodium 133 L (137-145) mmol/L Chloride 97 L (98-107) mmol/L Glucose 109 H (74-99) mg/dL Calcium 8.0 L (8.4-10.2) mg/dL Assessment and Plan (1) Acute blood loss anemia Current Visit: Yes Status: Acute Code(s): D62 - ACUTE POSTHEMORRHAGIC ANEMIA SNOMED Code(s): 800937624 (2) CHF (congestive heart failure) Current Visit: Yes Status: Acute Code(s): I50.9 - HEART FAILURE, UNSPECIFIED SNOMED Code(s): 79950761 (3) COPD (chronic obstructive pulmonary disease) Current Visit: Yes Status: Acute Code(s): J44.9 - CHRONIC OBSTRUCTIVE PULMONARY DISEASE, UNSPECIFIED SNOMED Code(s): 24653561 (4) Cecum mass Current Visit: Yes Status: Acute Code(s): K63.9 - DISEASE OF INTESTINE, UNSPECIFIED SNOMED Code(s): 057312846 (5) Chronic atrial fibrillation Current Visit: Yes Status: Acute Code(s): I48.2 - CHRONIC ATRIAL FIBRILLATION SNOMED Code(s): 612886139 (6) Colon cancer Current Visit: Yes Status: Acute Code(s): C18.9 - MALIGNANT NEOPLASM OF COLON, UNSPECIFIED SNOMED Code(s): 920064570 (7) Iron deficiency anemia Current Visit: Yes Status: Acute Code(s): D50.9 - IRON DEFICIENCY ANEMIA, UNSPECIFIED SNOMED Code(s): 09718345
--- NOTE | 2019-01-30 13:12 | P.PN ---
Subjective Progress Note Date: 01/29/19 Principal diagnosis: Colon cancer; status post exploratory laparotomy, right colectomy and partial omentectomy; POD #4 88 year old male patient admitted with atrial fibrillation with RVR and cecal mass; patient is status post EGD/colonoscopy showing hiatal hernia and a cecal mass consistent with cancer; multiple biopsies were obtained positive for colon cancer; patient underwent exploratory laparotomy with right colectomy and partial omentectomy; she is POD #4 01/29/2019; Patient is seen and evaluated in the room at bedside; patient continues to c omplain of nausea and generalized abdominal pain since yesterday; no episodes of vomiting; AMMON drain in place and has serosanguineous drainage; Cotter catheter remains in place Labs reviewed showing a downtrending white blood count of 12.9 today; patient remains on IV Zosyn Surgery recommendations are noted and appreciated; patient's diet is to be downgraded to clear liquids; recommendation to increase activity as tolerated and continue with incentive spirometry Cardiology following for fluid overload/CHF; recommending to transition patient to IV Lasix drip with close monitoring of input and output and renal function and electrolytes Objective - Vital Signs Vital signs: Vital Signs Temp 97.6 F 01/29/19 12:00 Pulse 117 H 01/29/19 12:34 Resp 20 01/29/19 12:34 BP 123/89 01/29/19 12:00 Pulse Ox 97 01/29/19 12:00 Intake & Output 01/28/19 01/29/19 01/29/19 18:59 06:59 18:59 Intake Total 660 600 61 Output Total 200 1510 50 Balance 460 -910 11 Weight 115.1 kg 113.8 kg Intake: Oral 660 600 61 Output: Drainage 160 50 Lower Anterior Abdomen 160 50 Urine 200 1350 Other: Voiding Method Indwelling Catheter Indwelling Catheter Indwelling Catheter # Bowel Movements 1 1 - Exam GENERAL: The patient is alert and oriented x3, not in any acute distress. obese HEENT: Pupils are round and equally reacting to light. EOMI. No scleral icterus. No conjunctival pallor. Normocephalic, atraumatic. No pharyngeal erythema. No thyromegaly. CARDIOVASCULAR: S1 and S2 present. No murmurs, rubs, or gallops. PULMONARY: Chest is clear to auscultation, no wheezing or crackles. ABDOMEN: Soft, surgical site intact. Mild tenderness., nondistended, normoactive bowel sounds. No palpable organomegaly. MUSCULOSKELETAL: No joint swelling or deformity. EXTREMITIES: No cyanosis, clubbing, extensive bilateral pitting pedal edema patient does have an Judd bandage - Labs CBC & Chem 7: 01/29/19 06:34 01/29/19 06:34 Labs: Abnormal Lab Results - Last 24 Hours (Table) 01/29/19 01/29/19 Range/Units 06:34 06:34 WBC 10.9 H (3.8-10.6) k/uL RBC 4.24 L (4.30-5.90) m/uL Hgb 9.3 L (13.0-17.5) gm/dL Hct 32.7 L (39.0-53.0) % MCV 77.3 L (80.0-100.0) fL MCH 21.9 L (25.0-35.0) pg MCHC 28.3 L (31.0-37.0) g/dL RDW 22.6 H (11.5-15.5) % Plt Count 531 H (150-450) k/uL Neutrophils # 9.6 H (1.3-7.7) k/uL Lymphocytes # 0.7 L (1.0-4.8) k/uL Sodium 133 L (137-145) mmol/L Glucose 109 H (74-99) mg/dL Calcium 7.8 L (8.4-10.2) mg/dL Assessment and Plan Assessment: 1. Dyspnea - multifactorial obesity possibility of sleep apnea, deconditioning secondary to aging, with atrial fibrillation with contribution from anemia. Patient wasn't A. fib with rapid ventricular rate. strated on amiodarone presently improved p atient converted to sinus rhythm. On beta blockers. Dose increased. added Digoxin. 2. Acute blood loss Anemia and GI bleed. s/p EGD and colonoscopy. Showed a cecal mass. 3. Iron deficiency anemia. Was given IV iron daily for 3 days. 4. 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 CT showed no evidence of metastasis. CEA 19.9. s/p Exploratory laparotomy, right raina ctomy, partial omentectomy. 5. Chronic Atrial fibrillation with rapid ventricular patient converted to sinus rhythm on amiodarone. 6. Hyponatremia. Sodium 129--130. Likely hypervolemic. With underlying SIADH cannot be excluded. Patient will be On fluid restriction and diuretics as blood pressure tolerates. 7. Morbid obesity possibility of sleep apnea patient was never diagnosed with this. BMI 39.7 8. Hypertension. Currently hypotensive. 9. Non-ischemic cardiomyopathy/ chronic systolic CHF - As above patient is started on IV Lasix drip per cardiology recommendations; we will continue to monitor strict RONNI's, daily weights, renal function and elec trolytes 10. DVT prophylaxis; subcu heparin CODE STATUS; full code
[2019-01-30] MEDS ORDERED: SODIUM CHLORIDE 0.9% 1,000 ML IV SCH (13:30)
--- NOTE | 2019-01-30 16:51 | PN ---
PROGRESS NOTE Mr. Cm underwent colon surgery. He is doing better overall hemodynamically. Blood pressure control is optimal. He has put out some urine, but not significantly. Plan is to continue the Lasix drip, supplement potassium, increase Lopressor to 50 mg b.i.d. and add Zaroxolyn 5 mg daily. This gentleman has chronic atrial fibrillation, hypertension, hyperlipidemia, decreased LV function. Plan is to continue current medications, aggressively diuresis him, supplement potassium if necessary. We will add a beta yumiko and re-evaluate him in the next day or so and check his electrolyte profile. MMODL / IJN: [id number] /
[2019-01-31] MEDS: METOCLOPRAMIDE 5 MG/ML 2 ML VIAL IVP SCH ×4 (05:14→23:30)
[2019-01-31] MEDS: FUROSEMIDE 100 MG in SODIUM CHLORIDE 0.9% 90 ML IV SCH ×2 (06:44→23:30)
[2019-01-31 07:13] LABS: Anisocytosis Moderate; HCT 36.7 % (39.0-53.0); HGB 10.3 gm/dL (13.0-17.5); Hypochromasia Marked; MCH 21.4 pg (25.0-35.0); MCHC 28.1 g/dL (31.0-37.0); MCV 75.9 fL (80.0-100.0); Microcytosis Moderate; Platelet Count 572 k/uL (150-450); RBC 4.83 m/uL (4.30-5.90); RDW 22.3 % (11.5-15.5); WBC 7.4 k/uL (3.8-10.6)
[2019-01-31 07:17] LABS: Calcium 8.2 mg/dL (8.4-10.2); Potassium 3.3 mmol/L (3.5-5.1)
[2019-01-31] MEDS ORDERED: METOPROLOL TARTRATE 50 MG TAB PO SCH (09:00)
[2019-01-31 09:20] LABS: Lymphocytes # (M) 1.41 k/uL (1.0-4.8); Monocytes # (M) 0.81 k/uL (0-1.0); Neutrophils # (M) 5.18 k/uL (1.3-7.7); Neutrophils % (M) 70 %; Nucleated Red Blood Cells 0 /100 WBC (0-0); Total Cells Counted 100
[2019-01-31] MEDS: PIPERACILLIN-TAZOBACTAM 3.375 GM in SODIUM CHLORIDE 0.9% 100 ML IVPB SCH ×3 (09:22→23:30)
[2019-01-31 09:23] LABS: Target Cells Present
[2019-01-31] MEDS: CHOLECALCIFEROL 1,000 UNIT TAB PO SCH (09:23)
[2019-01-31] MEDS: AMIODARONE 200 MG TAB PO SCH ×2 (09:23→20:53)
[2019-01-31] MEDS: METOPROLOL TARTRATE 50 MG TAB PO SCH ×2 (09:23→20:53)
[2019-01-31] MEDS: FERROUS SULFATE 325 MG TAB PO SCH ×2 (09:23→20:53)
[2019-01-31] MEDS: FINASTERIDE 5 MG TAB PO SCH (09:23)
[2019-01-31] MEDS: TAMSULOSIN 0.4 MG CAP.ER.24H PO SCH (09:23)
[2019-01-31] MEDS: HEPARIN SODIUM,PORCINE 5,000 UNIT/ML 1 ML VIAL SQ SCH ×2 (09:23→20:53)
[2019-01-31] MEDS: MAGNESIUM OXIDE 400 MG TAB PO SCH (09:23)
[2019-01-31] MEDS: METOLAZONE 5 MG TAB PO SCH (09:23)
[2019-01-31] MEDS: ASCORBIC ACID 500 MG TAB PO SCH ×2 (09:23→20:53)
[2019-01-31] MEDS: DOCUSATE 100 MG CAP PO SCH ×2 (09:24→20:54)
--- NOTE | 2019-01-31 11:46 | P.PN ---
Subjective Progress Note Date: 01/30/19 Principal diagnosis: Colon cancer; status post exploratory laparotomy, right colectomy and partial omentectomy; POD #4 88 year old male patient admitted with atrial fibrillation with RVR and cecal mass; patient is status post EGD/colonoscopy showing hiatal hernia and a cecal mass consistent with cancer; multiple biopsies were obtained positive for colon cancer; patient underwent exploratory laparotomy with right colectomy and partial omentectomy; she is POD #4 01/29/2019; Patient is seen and evaluated in the room at bedside; patient continues to c omplain of nausea and generalized abdominal pain since yesterday; no episodes of vomiting; AMMON drain in place and has serosanguineous drainage; Cotter catheter remains in place Labs reviewed showing a downtrending white blood count of 12.9 today; patient remains on IV Zosyn Surgery recommendations are noted and appreciated; patient's diet is to be downgraded to clear liquids; recommendation to increase activity as tolerated and continue with incentive spirometry Cardiology following for fluid overload/CHF; recommending to transition patient to IV Lasix drip with close monitoring of input and output and renal function and electrolytes 01/30/2019; Patient is seen and evaluated in the room for follow-up; He sitting up in his chair. His son is at bedside. He is tolerating clear liquids. He's had bowel movements and is passing flatus. No reports of new fevers or chills. Vital signs remained stable with a temperature of 97.5, pulse 73, respiration 20 and blood pressure 109/63 Labs reviewed show a stable hemoglobin of 10.4; sodium improved from 131-133 Surgery recommending to advance diet to clear liquids and continue advancing pending bowel function; recommending to a chest IV fluids due to positive fluid balance; patient remains on normal saline at a rate of 75 mL an hour; we will decrease it to 50 mL an hour and continue to monitor strict RONNI's and renal function with electrolytes Objective - Vital Signs Vital signs: Vital Signs Temp 97.5 F L 01/30/19 08:00 Pulse 126 H 01/30/19 08:00 Resp 20 01/30/19 08:00 BP 109/63 01/30/19 08:00 Pulse Ox 95 01/30/19 08:00 Intake & Output 01/29/19 01/30/19 01/30/19 18:59 06:59 18:59 Intake Total 61 155.167 90.833 Output Total 1800 2950 125 Balance -1739 -2794.833 -34.167 Weight 113.8 kg 81 kg Intake: Intake, IV Titration 155.167 90.833 Amount Furosemide 100 mg In 155.167 90.833 Sodium Chloride 0.9% 90 ml @ 10 MG/HR 10 mls/hr IV .Q10H [facility] Rx#: [id number] Oral 61 Output: Drainage 50 145 Lower Anterior Abdomen 50 145 Urine 1750 2805 125 Other: Voiding Method Indwelling Catheter Indwelling Catheter Indwelling Catheter # Bowel Movements 1 - Exam GENERAL: The patient is alert and oriented x3, not in any acute distress. obese HEENT: Pupils are round and equally reacting to light. EOMI. No scleral icterus. No conjunctival pallor. Normocephalic, atraumatic. No pharyngeal erythema. No thyromegaly. CARDIOVASCULAR: S1 and S2 present. No murmurs, rubs, or gallops. PULMONARY: Chest is clear to auscultation, no wheezing or crackles. ABDOMEN: Soft, surgical site intact. Mild tenderness., nondistended, normoactive bowel sounds. No palpable organomegaly. MUSCULOSKELETAL: No joint swelling or deformity. EXTREMITIES: No cyanosis, clubbing, extensive bilateral pitting pedal edema patient does have an Judd bandage - Labs CBC & Chem 7: 01/30/19 06:07 01/30/19 06:07 Labs: Abnormal Lab Results - Last 24 Hours (Table) 01/30/19 01/30/19 Range/Units 06:07 06:07 Hgb 10.4 L (13.0-17.5) gm/dL Hct 37.3 L (39.0-53.0) % MCV 77.4 L (80.0-100.0) fL MCH 21.5 L (25.0-35.0) pg MCHC 27.8 L (31.0-37.0) g/dL RDW 22.2 H (11.5-15.5) % Plt Count 629 H (150-450) k/uL Neutrophils # 7.8 H (1.3-7.7) k/uL Lymphocytes # 0.9 L (1.0-4.8) k/uL Sodium 133 L (137-145) mmol/L Chloride 97 L (98-107) mmol/L Glucose 109 H (74-99) mg/dL Calcium 8.0 L (8.4-10.2) mg/dL Assessment and Plan Assessment: 1. Dyspnea - multifactorial obesity possibility of sleep apnea, deconditioning secondary to aging, with atrial fibrillation with contribution from anemia. Patient wasn't A. fib with rapid ventricular rate. strated on amiodarone presently improved patient converted to sinus rhythm. On beta blockers. Dose increased. added Digoxin. 2. Acute blood loss Anemia and GI bleed. s/p EGD and colonoscopy. Showed a cecal mass. 3. Iron deficiency anemia. Was given IV iron daily for 3 days. 4. 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 CT showed no evidence of metastasis. CEA 19.9. s/p Exploratory laparotomy, right colectomy, partial omentectomy. 5. Chronic Atrial fibrillation with rapid ventricular patient converted to sinus rhythm on amiodarone. 6. Hyponatremia. Sodium 129--130. Likely hypervolemic. With underlying SIADH cannot be excluded. Patient will be On fluid restriction and diuretics as blood pressure tolerates. 7. Morbid obesity possibility of sleep apnea patient was never diagnosed with this. BMI 39.7 8. Hypertension. Currently hypotensive. 9. Non-ischemic cardiomyopathy/ chronic systolic CHF - As above patient is started on IV Lasix drip per cardiology recommendations; w e will continue to monitor strict RONNI's, daily weights, renal function and electrolytes 10. DVT prophylaxis; subcu heparin CODE STATUS; full code Time with Patient: Greater than 30
[2019-01-31] MEDS: SODIUM CHLORIDE 0.9% 1,000 ML IV SCH (12:31)
[2019-01-31] MEDS: POTASSIUM CHLORIDE ER 20 MEQ TAB.ER PO SCH ×4 (12:31→20:53)
[2019-01-31] MEDS ORDERED: POTASSIUM CHLORIDE 10 MEQ in WATER FOR INJECTION 1 100ML.BAG IVPB SCH (13:00)
--- NOTE | 2019-01-31 14:03 | PN ---
PROGRESS NOTE Bridger Cm is a gentleman who underwent sigmoid resection. He is doing better today clinically. He has lost weight. He is urinating well on the Lasix drip. However, his rate control is somewhat suboptimal. Last blood pressure when I saw him was about 106 systolic. Heart rate is about low 100s. His potassium is low at 3.3. There is JVD of 1 cm. No carotid bruit. S1-S2 heard normally. Irregular rate and rhythm noted. Short systolic murmur noted. Lungs reveal improved air entry. Abdomen is soft. Edema of the upper extremities has resolved. Lower extremity edema has improved. I will increase the metoprolol tartrate to 75 mg t.i.d. and watch his blood pressure closely. We will continue the Lasix drip. I will supplement potassium aggressively and check a BMP in the morning. I discussed my thoughts in detail with the patient. Overall, he is doing well. We are making progress. If he has any hypotension, I will cut back the beta yumiko and consider digoxin. We will continue amiodarone. MMODL / IJN: [id number] /
[2019-01-31] MEDS ORDERED: HYDROmorphone 1 MG/ML 1 ML SYRINGE IVP PRN (15:09)
--- NOTE | 2019-01-31 15:46 | P.PN ---
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 His family is at bedside. He had an episode of chest pain where workup is now negative. He's tolerating diet. No reports of nausea or vomiting. PHYSICAL EXAM: VITAL SIGNS: Reviewed CONSTITUTIONAL: Well developed and in no acute distress. EYES: Conjuctivae with sclera icterus. Extraocular movements grossly intact. HEAD, EARS, NOSE, THROAT: Moist buccal mucosa. Head is atraumatic, normoce phalic. Hears conversational speech. No nasal drainage. NECK: Supple. No thyroidomegaly. RESPIRATORY: Non-labored respirations and equal bilateral excursions. CARDIOVASCULAR: Palpable 2+ radial pulses. ABDOMEN: Soft. Non-tender. AMMON serosanguineous. Dressing clean dry and intact. MUSCULOSKELETAL: 2+ bilateral pitting edema. No cyanosis : Urine clear yellow Cotter catheter present SKIN: Well perfused. Good skin turgor NEUROLOGIC: Cranial nerves I through XII grossly intact. No focal or lateralizing signs. PSYCH: Appropriate affect. Alert and oriented to person, place and time. CLINCAL LABS: Reviewed ASSESSMENT: 1. Malignant neoplasm right colon 2. Status post right hemicolectomy 3. Hyponatremia, volume overload 4. Ischemic cardiomyopathy PLAN: 1. Diet as tolerated. 2. Management of angina per medicine 3. May benefit from Lasix for positive volume status. Objective - Vital Signs Vital signs: Vital Signs Temp 97.5 F L 01/31/19 15:33 Pulse 69 01/31/19 15:33 Resp 20 01/31/19 15:33 BP 108/67 01/31/19 15:33 Pulse Ox 98 01/31/19 15:33 Intake & Output 01/30/19 01/31/19 01/31/19 18:59 06:59 18:59 Intake Total 250.833 171.167 200 Output Total 1800 0915 471 Balance -1549.167 -2353.833 -271 Weight 103.6 kg 106.3 kg 105.1 kg Intake: Intake, IV Titration 90.833 171.167 Amount Furosemide 100 mg In 90.833 171.167 Sodium Chloride 0.9% 90 ml @ 10 MG/HR 10 mls/hr IV .Q10H [facility] Rx#: [id number] Oral 160 200 Output: Drainage 25 55 20 Lower Anterior Abdomen 25 55 20 Urine 1775 2470 450 Uretheral (Cotter) 800 450 Stool 1 Other: Voiding Method Indwelling Catheter Indwelling Catheter Indwelling Catheter # Voids 1 # Bowel Movements 2 - Labs CBC & Chem 7: 01/31/19 06:23 01/31/19 06:23 Labs: Abnormal Lab Results - Last 24 Hours (Table) 01/31/19 01/31/19 Range/Units 06:23 06:23 Hgb 10.3 L (13.0-17.5) gm/dL Hct 36.7 L (39.0-53.0) % MCV 75.9 L (80.0-100.0) fL MCH 21.4 L (25.0-35.0) pg MCHC 28.1 L (31.0-37.0) g/dL RDW 22.3 H (11.5-15.5) % Plt Count 572 H (150-450) k/uL Sodium 132 L (137-145) mmol/L Potassium 3.3 L (3.5-5.1) mmol/L Chloride 92 L (98-107) mmol/L Carbon Dioxide 31 H (22-30) mmol/L Calcium 8.2 L (8.4-10.2) mg/dL Assessment and Plan (1) Acute blood loss anemia Current Visit: Yes Status: Acute Code(s): D62 - ACUTE POSTHEMORRHAGIC ANEMIA SNOMED Code(s): 388783209 (2) CHF (congestive heart failure) Current Visit: Yes Status: Acute Code(s): I50.9 - HEART FAILURE, UNSPECIFIED SNOMED Code(s): 24395115 (3) COPD (chronic obstructive pulmonary disease) Current Visit: Yes Status: Acute Code(s): J44.9 - CHRONIC OBSTRUCTIVE P ULMONARY DISEASE, UNSPECIFIED SNOMED Code(s): 23764717 (4) Cecum mass Current Visit: Yes Status: Acute Code(s): K63.9 - DISEASE OF INTESTINE, UNSPECIFIED SNOMED Code(s): 905878070 (5) Chronic atrial fibrillation Current Visit: Yes Status: Acute Code(s): I48.2 - CHRONIC ATRIAL FIBRILLATION SNOMED Code(s): 674453048 (6) Colon cancer Current Visit: Yes Status: Acute Code(s): C18.9 - MALIGNANT NEOPLASM OF COLON, UNSPECIFIED SNOMED Code(s): 427503533 (7) Iron deficiency anemia Current Visit: Yes Status: Acute Code(s): D50.9 - IRON DEFICIENCY ANEMIA, UNSPECIFIED SNOMED Code(s): 83562322
[2019-01-31] MEDS ORDERED: METOPROLOL TARTRATE 25 MG TAB PO SCH (16:00)
[2019-02-01] MEDS: METOCLOPRAMIDE 5 MG/ML 2 ML VIAL IVP SCH ×4 (05:14→23:51)
[2019-02-01] MEDS: FUROSEMIDE 100 MG in SODIUM CHLORIDE 0.9% 90 ML IV SCH (05:14)
[2019-02-01] MEDS: PIPERACILLIN-TAZOBACTAM 3.375 GM in SODIUM CHLORIDE 0.9% 100 ML IVPB SCH ×3 (09:04→23:50)
[2019-02-01] MEDS: METOLAZONE 5 MG TAB PO SCH (09:04)
[2019-02-01] MEDS: MAGNESIUM OXIDE 400 MG TAB PO SCH (09:05)
[2019-02-01] MEDS: ASCORBIC ACID 500 MG TAB PO SCH ×2 (09:06→20:09)
[2019-02-01] MEDS: POTASSIUM CHLORIDE ER 20 MEQ TAB.ER PO SCH ×2 (09:06→20:09)
[2019-02-01] MEDS: CHOLECALCIFEROL 1,000 UNIT TAB PO SCH (09:07)
[2019-02-01] MEDS: AMIODARONE 200 MG TAB PO SCH ×2 (09:07→20:10)
[2019-02-01] MEDS: FINASTERIDE 5 MG TAB PO SCH (09:09)
[2019-02-01] MEDS: HEPARIN SODIUM,PORCINE 5,000 UNIT/ML 1 ML VIAL SQ SCH ×2 (09:10→20:08)
[2019-02-01] MEDS: METOPROLOL TARTRATE 50 MG TAB PO SCH ×2 (09:10→20:09)
[2019-02-01] MEDS: FUROSEMIDE 10 MG/ML 10 ML VIAL IV SCH ×2 (09:10→20:08)
[2019-02-01] MEDS: FERROUS SULFATE 325 MG TAB PO SCH ×2 (09:10→20:10)
[2019-02-01] MEDS: DOCUSATE 100 MG CAP PO SCH ×2 (09:11→20:10)
[2019-02-01] MEDS: SODIUM CHLORIDE 0.9% 1,000 ML IV SCH (09:11)
[2019-02-01 09:14] LABS: Anisocytosis Moderate; HCT 40.8 % (39.0-53.0); Hypochromasia Marked; MCH 21.2 pg (25.0-35.0); MCV 78.3 fL (80.0-100.0); Mean Platelet Volume 6.9; Microcytosis Moderate; Platelet Count 713 k/uL (150-450); RBC 5.21 m/uL (4.30-5.90); RDW 21.9 % (11.5-15.5); WBC 9.9 k/uL (3.8-10.6)
[2019-02-01 09:25] LABS: Calcium 8.8 mg/dL (8.4-10.2); Magnesium 1.8 mg/dL (1.6-2.3); Potassium 4.1 mmol/L (3.5-5.1)
--- NOTE | 2019-02-01 11:01 | P.PN ---
Subjective Progress Note Date: 02/01/19 CHIEF COMPLAINT: right-sided colon mass HISTORY OF PRESENT ILLNESS: Patient is s/p exploratory laparotomy, right colectomy, and partial omentectomy. POD #7. Patient is sitting up in the chair. Tolerating heart healthy diet. Complains of feeling "bloated". Denies nausea or vomiting. Passing flatus. Multiple BMs yesterday and overnight. PHYSICAL EXAM: VITAL SIGNS: Reviewed. GENERAL: Well-developed in no acute distress. HEENT: No sclera icterus. Extraocular movements grossly intact. Moist buccal mucosa. Head is atraumatic, normocephalic. ABDOMEN: Soft. Nontender. AMMON drain with serous drainage. Urinary catheter intact with yellow urine. Positive bowel sounds. NEUROLOGIC: Alert and oriented. Cranial nerves II through XII grossly intact. ASSESSMENT: 1. Colon cancer PLAN: 1. Continue current diet 2. Activity as tolerated Nurse practitioner note has been reviewed by physician. Signing provider agrees with the documented findings, assessment, and plan of care. Objective - Vital Signs Vital signs: Vital Signs Temp 96.7 F L 02/01/19 09:33 Pulse 120 H 02/01/19 09:35 Resp 18 02/01/19 09:35 BP 94/36 02/01/19 09:33 Pulse Ox 98 02/01/19 09:33 Intake & Output 01/31/19 02/01/19 02/01/19 18:59 06:59 18:59 Intake Total 510 57.333 90 Output Total 1121 2610 350 Balance -611 -7722.667 -260 Weight 105.1 kg Intake: Intake, IV Titration 100 57.333 Amount Furosemide 100 mg In 100 57.333 Sodium Chloride 0.9% 90 ml @ 10 MG/HR 10 mls/hr IV .Q10H [facility] Rx#: [id number] Oral 410 90 Output: Drainage 20 50 Lower Anterior Abdomen 20 50 Urine 1100 2560 350 Uretheral (Cotter) 900 450 350 Stool 1 Other: Voiding Method Indwelling Catheter Indwelling Catheter Indwelling Catheter - Labs CBC & Chem 7: 02/01/19 08:31 02/01/19 08:31 Labs: Abnormal Lab Results - Last 24 Hours (Table) 02/01/19 02/01/19 Range/Units 08:31 08:31 Hgb 11.0 L (13.0-17.5) gm/dL MCV 78.3 L (80.0-100.0) fL MCH 21.2 L (25.0-35.0) pg MCHC 27.0 L (31.0-37.0) g/dL RDW 21.9 H (11.5-15.5) % Plt Count 713 H (150-450) k/uL Sodium 132 L (137-145) mmol/L Chloride 89 L (98-107) mmol/L Carbon Dioxide 35 H (22-30) mmol/L Glucose 143 H (74-99) mg/dL
--- NOTE | 2019-02-01 11:41 | P.PN ---
Subjective Progress Note Date: 01/31/19 Principal diagnosis: Colon cancer; status post exploratory laparotomy, right colectomy and partial omentectomy; POD #4 88 year old male patient admitted with atrial fibrillation with RVR and cecal mass; patient is status post EGD/colonoscopy showing hiatal hernia and a cecal mass consistent with cancer; multiple biopsies were obtained positive for colon cancer; patient underwent exploratory laparotomy with right colectomy and partial omentectomy; she is POD #4 01/29/2019; Patient is seen and evaluated in the room at bedside; patient continues to c omplain of nausea and generalized abdominal pain since yesterday; no episodes of vomiting; AMMON drain in place and has serosanguineous drainage; Cotter catheter remains in place Labs reviewed showing a downtrending white blood count of 12.9 today; patient remains on IV Zosyn Surgery recommendations are noted and appreciated; patient's diet is to be downgraded to clear liquids; recommendation to increase activity as tolerated and continue with incentive spirometry Cardiology following for fluid overload/CHF; recommending to transition patient to IV Lasix drip with close monitoring of input and output and renal function and electrolytes 01/30/2019; POD #5 Patient is seen and evaluated in the room for follow-up; He sitting up in his chair. His son is at bedside. He is tolerating clear liquids. He's had bowel movements and is passing flatus. No reports of new fevers or chills. Vital signs remained stable with a temperature of 97.5, pulse 73, respiration 20 and blood pressure 109/63 Labs reviewed show a stable hemoglobin of 10.4; sodium improved from 131-133 Surgery recommending to advance diet to clear liquids and continue advancing pending bowel function; recommending to a chest IV fluids due to positive fluid balance; patient remains on normal saline at a rate of 75 mL an hour; we will decrease it to 50 mL an hour and continue to monitor strict RNONI's and renal function with electrolytes 01/31/2019; POD #6 Patient is seen and evaluated in the room at bedside; patient denies any specific complaints Vital signs are reviewed and remained stable Review of labs show a stable hemoglobin of 10.3; potassium is low at 3.3 which will be supplemented with oral potassium We'll continue to monitor electrolytes closely; advance diet per surgery recommendations Objective - Vital Signs Vital signs: Vital Signs Temp 97.7 F 01/31/19 08:00 Pulse 113 H 01/31/19 08:00 Resp 20 01/31/19 08:00 BP 101/60 01/31/19 08:00 Pulse Ox 95 01/31/19 08:00 Intake & Output 01/30/19 01/31/19 01/31/19 18:59 06:59 18:59 Intake Total 250.833 171.167 80 Output Total 1800 2525 471 Balance -1549.167 -2353.833 -391 Weight 103.6 kg 106.3 kg 105.1 kg Intake: Intake, IV Titration 90.833 171.167 Amount Furosemide 100 mg In 90.833 171.167 Sodium Chloride 0.9% 90 ml @ 10 MG/HR 10 mls/hr IV .Q10H [facility] Rx#: [id number] Oral 160 80 Output: Drainage 25 55 20 Lower Anterior Abdomen 25 55 20 Urine 1775 2470 450 Uretheral (Cotter) 800 450 Stool 1 Other: Voiding Method Indwelling Catheter Indwelling Catheter Indwelling Catheter # Voids 1 # Bowel Movements 2 - Exam GENERAL: The patient is alert and oriented x3, not in any acute distress. obese HEENT: Pupils are round and equally reacting to light. EOMI. No scleral icterus. No conjunctival pallor. Normocephalic, atraumatic. No pharyngeal erythema. No thyromegaly. CARDIOVASCULAR: S1 and S2 present. No murmurs, rubs, or gallops. PULMONARY: Chest is clear to auscultation, no wheezing or crackles. ABDOMEN: Soft, surgical site intact. Mild tenderness., nondistended, normoactive bowel sounds. No palpable organomegaly. MUSCULOSKELETAL: No joint swelling or deformity. EXTREMITIES: No cyanosis, clubbing, extensive bilateral pitting pedal edema patient does have an Judd bandage - Labs CBC & Chem 7: 02/01/19 08:31 02/01/19 08:31 Labs: Abnormal Lab Results - Last 24 Hours (Table) 01/31/19 01/31/19 Range/Units 06:23 06:23 Hgb 10.3 L (13.0-17.5) gm/dL Hct 36.7 L (39.0-53.0) % MCV 75.9 L (80.0-100.0) fL MCH 21.4 L (25.0-35.0) pg MCHC 28.1 L (31.0-37.0) g/dL RDW 22.3 H (11.5-15.5) % Plt Count 572 H (150-450) k/uL Sodium 132 L (137-145) mmol/L Potassium 3.3 L (3.5-5.1) mmol/L Chloride 92 L (98-107) mmol/L Carbon Dioxide 31 H (22-30) mmol/L Calcium 8.2 L (8.4-10.2) mg/dL Assessment and Plan Assessment: 1. Dyspnea - multifactorial obesity possibility of sleep apnea, deconditioning secondary to aging, with atrial fibrillation with contribution from anemia. Patient wasn't A. fib with rapid ventricular rate. strated on amiodarone presently improved patient converted to sinus rhythm. On beta blockers. Dose increased. added D igoxin. 2. Acute blood loss Anemia and GI bleed. s/p EGD and colonoscopy. Showed a cecal mass. 3. Iron deficiency anemia. Was given IV iron daily for 3 days. 4. 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 CT showed no evidence of metastasis. CEA 19.9. s/p Exploratory laparotomy, right colectomy, partial omentectomy. 5. Chronic Atrial fibrillation with rapid ventricular patient converted to sinus rhythm on amiodarone. 6. Hyponatremia. Sodium 129--130. Likely hypervolemic. With underlying SIADH cannot be excluded. Patient will be On fluid restriction and diuretics as blood pressure tolerates. 7. Morbid obesity possibility of sleep apnea patient was never diagnosed with this. BMI 39.7 8. Hypertension. Currently hypotensive. 9. Non-ischemic cardiomyopathy/ chronic systolic CHF - As above patient is started on IV Lasix drip per cardiology recommendations; we will continue to monitor strict RONNI's, daily weights, renal function and electrolytes 10. DVT prophylaxis; subcu heparin CODE STATUS; full code Time with Patient: Greater than 30
--- NOTE | 2019-02-01 17:35 | P.PN ---
Subjective Progress Note Date: 02/01/19 Principal diagnosis: cecal adenocarcinoma In f/u today pt states feeling ok, denies fever, nausea, vomiting, abd pain is controlled, no distension, swelling. Objective - Vital Signs Vital signs: Vital Signs Temp 96.6 F L 02/01/19 15:16 Pulse 113 H 02/01/19 15:16 Resp 18 02/01/19 15:16 BP 104/66 02/01/19 15:16 Pulse Ox 98 02/01/19 15:16 Intake & Output 01/31/19 02/01/19 02/01/19 18:59 06:59 18:59 Intake Total 510 57.333 860 Output Total 1121 2610 1150 Balance -611 -2552.667 -290 Weight 105.1 kg Intake: IV 240 0.9 240 Intake, IV Titration 100 57.333 200 Amount Furosemide 100 mg In 100 57.333 Sodium Chloride 0.9% 90 ml @ 10 MG/HR 10 mls/hr IV .Q10H [facility] Rx#: [id number] Piperacillin-Tazobactam 3 200 .375 gm In Sodium Chloride 0.9% 100 ml @ 25 mls/hr IVPB Q8HR [facility] Rx# :[id number] Oral 410 420 Output: Drainage 20 50 50 Lower Anterior Abdomen 20 50 50 Urine 1100 2560 1100 Uretheral (Cotter) 455 666 5291 Stool 1 Other: Voiding Method Indwelling Catheter Indwelling Catheter Indwelling Catheter # Bowel Movements 1 - Constitutional General appearance: Present: cooperative, no acute distress, obese - EENT Eyes: Present: anicteric sclerae, EOMI ENT: Present: hearing grossly normal - Respiratory Respiratory: bilateral: CTA - Cardiovascular Heart sounds: normal: S1, S2 - Peripheral edema leg Peripheral Edema: bilateral: Trace - Gastrointestinal General gastrointestinal: Present: decreased bowel sounds, soft - Integumentary Integumentary: Present: pale - Neurologic Neurologic: Present: CNII-XII intact - Musculoskeletal Musculoskeletal: Present: strength equal bilaterally - Psychiatric Psychiatric: Present: A&O x's 3, appropriate affect, intact judgment & insight - Labs CBC & Chem 7: 02/01/19 08:31 02/01/19 08:31 Labs: Abnormal Lab Results - Last 24 Hours (Table) 02/01/19 02/01/19 Range/Units 08:31 08:31 Hgb 11.0 L (13.0-17.5) gm/dL MCV 78.3 L (80.0-100.0) fL MCH 21.2 L (25.0-35.0) pg MCHC 27.0 L (31.0-37.0) g/dL RDW 21.9 H (11.5-15.5) % Plt Count 713 H (150-450) k/uL Sodium 132 L (137-145) mmol/L Chloride 89 L (98-107) mmol/L Carbon Dioxide 35 H (22-30) mmol/L Glucose 143 H (74-99) mg/dL Assessment and Plan (1) Adenocarcinoma, colon Narrative/Plan: 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 Pt will not considered for palliative chemotherapy until after rehabilitation to improve PS and f/u evaluation. Pt understands that any treatment is palliative in nature. We briefly discussed prognosis without treatment, we touched on treating symptoms only as well. Current Visit: Yes Status: Acute Priority: High Code(s): C18.9 - MALIGNANT NEOPLASM OF COLON, UNSPECIFIED SNOMED Code(s): 990413642 (2) Microcytic hypochromic anemia Narrative/Plan: Likely secondary to GI losses from cecal tumor. Hgb is currently stable. Pt has been started in oral iron. Iron studies have not been evaluated, this can be done outpatient Current Visit: Yes Status: Acute Priority: Medium Code(s): D50.9 - IRON DEFICIENCY ANEMIA, UNSPECIFIED SNOMED Code(s): 71737743
--- NOTE | 2019-02-01 21:26 | PN ---
PROGRESS NOTE This is a gentleman who underwent sigmoid resection, atrial fibrillation and ejection fraction of 40%. He looks and feels better. Substantial amount of diuresis has occurred. Weight is down. He is in atrial fibrillation, controlled rate. Blood pressure is better. We will resume the beta yumiko with parameters orally. S1, S2 heard normally. Irregular rhythm noted. Short systolic murmur noted. Lungs reveal improved air entry. Abdomen is soft. Lower extremity edema has improved. Plan is to switch him to Lasix 60 mg IV push q.12 hours and stop the drip. Continue other medications and see how he does. MMODL / IJN: [id number] /
--- NOTE | 2019-02-01 21:38 | P.PN ---
Subjective Progress Note Date: 02/01/19 Principal diagnosis: Colon cancer; status post exploratory laparotomy, right colectomy and partial omentectomy; POD #4 88 year old male patient admitted with atrial fibrillation with RVR and cecal mass; patient is status post EGD/colonoscopy showing hiatal hernia and a cecal mass consistent with cancer; multiple biopsies were obtained positive for colon cancer; patient underwent exploratory laparotomy with right colectomy and partial omentectomy; she is POD #4 01/29/2019; Patient is seen and evaluated in the room at bedside; patient continues to c omplain of nausea and generalized abdominal pain since yesterday; no episodes of vomiting; AMMON drain in place and has serosanguineous drainage; Cotter catheter remains in place Labs reviewed showing a downtrending white blood count of 12.9 today; patient remains on IV Zosyn Surgery recommendations are noted and appreciated; patient's diet is to be downgraded to clear liquids; recommendation to increase activity as tolerated and continue with incentive spirometry Cardiology following for fluid overload/CHF; recommending to transition patient to IV Lasix drip with close monitoring of input and output and renal function and electrolytes 01/30/2019; POD #5 Patient is seen and evaluated in the room for follow-up; He sitting up in his chair. His son is at bedside. He is tolerating clear liquids. He's had bowel movements and is passing flatus. No reports of new fevers or chills. Vital signs remained stable with a temperature of 97.5, pulse 73, respiration 20 and blood pressure 109/63 Labs reviewed show a stable hemoglobin of 10.4; sodium improved from 131-133 Surgery recommending to advance diet to clear liquids and continue advancing pending bowel function; recommending to a chest IV fluids due to positive fluid balance; patient remains on normal saline at a rate of 75 mL an hour; we will decrease it to 50 mL an hour and continue to monitor strict RONNI's and renal function with electrolytes 01/31/2019; POD #6 Patient is seen and evaluated in the room at bedside; patient denies any specific complaints Vital signs are reviewed and remained stable Review of labs show a stable hemoglobin of 10.3; potassium is low at 3.3 which will be supplemented with oral potassium We'll continue to monitor electrolytes closely; advance diet per surgery recommendations 02/01/19; POD #7 In f/u today pt states feeling ok, denies fever, nausea, vomiting, abd pain is controlled, no distension, swelling. Objective - Vital Signs Vital signs: Vital Signs Temp 96.9 F L 02/01/19 11:34 Pulse 113 H 02/01/19 11:34 Resp 18 02/01/19 11:34 BP 96/66 02/01/19 11:34 Pulse Ox 98 02/01/19 11:34 Intake & Output 01/31/19 02/01/19 02/01/19 18:59 06:59 18:59 Intake Total 510 57.333 90 Output Total 1121 2610 350 Balance -611 -2552.667 -260 Weight 105.1 kg Intake: Intake, IV Titration 100 57.333 Amount Furosemide 100 mg In 100 57.333 Sodium Chloride 0.9% 90 ml @ 10 MG/HR 10 mls/hr IV .Q10H [facility] Rx#: [id number] Oral 410 90 Output: Drainage 20 50 Lower Anterior Abdomen 20 50 Urine 1100 2560 350 Uretheral (Cotter) 900 450 350 Stool 1 Other: Voiding Method Indwelling Catheter Indwelling Catheter Indwelling Catheter - Exam GENERAL: The patient is alert and oriented x3, not in any acute distress. obese HEENT: Pupils are round and equally reacting to light. EOMI. No scleral icterus. No conjunctival pallor. Normocephalic, atraumatic. No pharyngeal erythema. No thyromegaly. CARDIOVASCULAR: S1 and S2 present. No murmurs, rubs, or gallops. PULMONARY: Chest is clear to auscultation, no wheezing or crackles. ABDOMEN: Soft, surgical site intact. Mild tenderness., nondistended, normoa ctive bowel sounds. No palpable organomegaly. MUSCULOSKELETAL: No joint swelling or deformity. EXTREMITIES: No cyanosis, clubbing, extensive bilateral pitting pedal edema patient does have an Judd bandage - Labs CBC & Chem 7: 02/01/19 08:31 02/01/19 08:31 Labs: Abnormal Lab Results - Last 24 Hours (Table) 02/01/19 02/01/19 Range/Units 08:31 08:31 Hgb 11.0 L (13.0-17.5) gm/dL MCV 78.3 L (80.0-100.0) fL MCH 21.2 L (25.0-35.0) pg MCHC 27.0 L (31.0-37.0) g/dL RDW 21.9 H (11.5-15.5) % Plt Count 713 H (150-450) k/uL Sodium 132 L (137-145) mmol/L Chloride 89 L (98-107) mmol/L Carbon Dioxide 35 H (22-30) mmol/L Glucose 143 H (74-99) mg/dL Assessment and Plan Assessment: 1. Dyspnea - multifactorial obesity possibility of sleep apnea, deconditioning secondary to aging, with atrial fibrillation with contribution from anemia. Patient wasn't A. fib with rapid ventricular rate. strated on amiodarone presently improved patient converted to sinus rhythm. On beta blockers. Dose increased. added Digoxin. 2. Acute blood loss Anemia and GI bleed. s/p EGD and colonoscopy. Showed a cecal mass. 3. Iron deficiency anemia. Was given IV iron daily for 3 days. 4. 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 CT showed no evidence of metastasis. CEA 19.9. s/p Exploratory laparotomy, right colectomy, partial omentectomy. 5. Chronic Atrial fibrillation with rapid ventricular patient converted to sinus rhythm on amiodarone. 6. Hyponatremia. Sodium 129--130. Likely hypervolemic. With underlying SIADH cannot be excluded. Patient will be On fluid restriction and diuretics as blood pressure tolerates. 7. Morbid obesity possibility of sleep apnea patient was never diagnosed with this. BMI 39.7 8. Hypertension. Currently hypotensive. 9. Non-ischemic cardiomyopathy/ chronic systolic CHF - As above patient is started on IV Lasix drip per cardiology recommendations; we will continue to monitor strict RONNI's, daily weights, renal function and electrolytes 10. DVT prophylaxis; subcu heparin CODE STATUS; full code Time with Patient: Greater than 30
--- NOTE | 2019-02-01 23:11 | P.CONS ---
History of Present Illness - Reason for Consult Consult date: 02/01/19 - Chief Complaint weakness - History of Present Illness 88-year-old male, who is a [place] war from the [employer], relates to a several month history of declining status. He noticed a marked decrease in his ability to ambulate without becoming more and more short of breath. He had progressive and significant fatigue and malaise. He consequently presents to Hospital for further evaluation. It admission there was profound anemia and concerns to elevated BNP and congestive heart failure. The patient underwent extensive evaluations have included endoscopy showed evidence of a cecal mass. 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 Imaging studies revealed evidence of the cecal mass and constantly was taken to the operating room and resection was performed, however residual tumor was noted at the time of the surgical intervention. The patient has had a slow recovery in the infectious diseases consult has been requested regarding the new pressure ulceration to the left heel, as well as the onset of some erythema to the buttocks. The patient is very weak and did have a session with physical therapy today, with great difficulty with ambulation. He relates that his pain is modestly well controlled. His appetite is very poor. He does relate that he still feels very weak. Review of Systems HEENT:Denies headache or acute visual change. Denies sinus or mouth discomforts. Denies neck stiffness or pain. Denies significant oral cavity pain. Denies difficulty on swallowing. Lungs: history developed progressive shortness of breat Cardiovascular: Progressive dyspnea on exertion however no syncope, has had some intermittent chest pain not current Gastrointestinal:appetite is poor, he has had some chronic constipation denies hematemesis melena or hematochezia. He has had some weight loss Musculoskeletal: denies significant myalgias or arthralgias. No new joint swelling. Denies new back pain.generalized weakness great difficult Skin: Denies new rash or lesions. No new ulcers or wounds are related.. Neuro: Denies headache or visual change. Denies any new onset weakness Denies falls or seizures. Psychiatric:Denies anxiety or depression. Endocrine: Dignificant fatigue has had some weight loss Past Medical History Past Medical History: Atrial Fibrillation, Hypertension Additional Past Medical History / Comment(s): Chronic fatigue for years, chronic Afib, pt denies prior hx of CHF, iron deficiency anemia, bilateral tinnitis, BPH, occasional low back pain and past sciatica, double vision L eye after lens implant "slipped". History of Any Multi-Drug Resistant Organisms: None Reported Past Surgical History: Back Surgery, Cholecystectomy, Hernia Repair, Joint Replacement, Orthopedic Surgery, Tonsillectomy Additional Past Surgical History / Comment(s): Low back surgery, 2012 cardiac cath-normal, umbilical hernia repair, total L knee arthroplasty, bilateral cataract removals with lens implants, colonoscopy with benign polypectomy. Past Anesthesia/Blood Transfusion Reactions: No Reported Reaction Additional Psychological History / Comment(s): . Retired labor. Was in the [employer] during . No travel since. No animal exposures. Stopped tobacco smoking 50 years ago. No history of significant alcohol use or recreational drug use. Smoking Status: Former smoker - Past Family History Father Family Medical History: Cancer Additional Family Medical History / Comment(s): Father of lung cancer in his 70s. He was a smoker. Mother Family Medical History: No Reported History Additional Family Medical History / Comment(s): Mother was healthy and lived to be 89yrs old. Medications and Allergies Home Medications and Allergies Comment(s): Current Medications Hydrocodone Bitart/Acetaminophen ([place] 7.5-325) 1 each PO Q4H PRN PRN Reason: Pain Albuterol/Ipratropium (Duoneb 0.5 Mg-3 Mg/3 Ml Soln) 3 ml INHALATION RT-TID PRN PRN Reason: Shortness Of Breath Amiodarone HCl (Cordarone) 200 mg PO BID [facility] Last Admin: 02/01/19 20:10 Dose: 200 mg Documented by: Ascorbic Acid (Vitamin C) 250 mg PO BID [facility] Last Admin: 02/01/19 20:09 Dose: 250 mg Documented by: Cholecalciferol (Vitamin D3) 2,000 unit PO DAILY [facility] Last Admin: 02/01/19 09:07 Dose: 2,000 unit Documented by: Docusate Sodium (Colace) 100 mg PO BID [facility] Last Admin: 02/01/19 20:10 Dose: 100 mg Documented by: Ferrous Sulfate (Feosol) 325 mg PO BID [facility] Last Admin: 02/01/19 20:10 Dose: 325 mg Documented by: Finasteride (Proscar) 5 mg PO DAILY [facility] Last Admin: 02/01/19 09:09 Dose: 5 mg Documented by: Furosemide (Lasix) 60 mg IV Q12HR [facility] Last Admin: 02/01/19 20:08 Dose: 60 mg Documented by: Heparin Sodium (Porcine) (Heparin) 5,000 unit SQ Q12HR [facility] Last Admin: 02/01/19 20:08 Dose: 5,000 unit Documented by: Hydromorphone HCl (Dilaudid) 1 mg IVP Q3HR PRN PRN Reason: severe Pain Sodium Chloride (Saline 0.9%) 1,000 mls @ 20 mls/hr IV .Q24H [facility] Last Admin: 02/01/19 09:11 Dose: 20 mls/hr Documented by: Piperacillin Sod/Tazobactam (Sod 3.375 gm/ Sodium Chloride) 100 mls @ 25 mls/hr IVPB Q8HR [facility] Last Admin: 02/01/19 16:08 Dose: 25 mls/hr Documented by: Magnesium Oxide (Mag-Ox) 400 mg PO DAILY [facility] Last Admin: 02/01/19 09:05 Dose: 400 mg Documented by: Metoclopramide HCl (Reglan) 10 mg IVP Q6HR [facility] Last Admin: 02/01/19 17:28 Dose: 10 mg Documented by: Metolazone (Zaroxolyn) 5 mg PO DAILY [facility] Last Admin: 02/01/19 09:04 Dose: 5 mg Documented by: Metoprolol Tartrate (Lopressor) 50 mg PO BID [facility] Last Admin: 02/01/19 20:09 Dose: 50 mg Documented by: Potassium Chloride (K-Dur 20) 20 meq PO BID [facility] Last Admin: 02/01/19 20:09 Dose: 20 meq Documented by: Temazepam (Restoril) 7.5 mg PO HS PRN PRN Reason: Insomnia Last Admin: 01/24/19 23:23 Dose: 7.5 mg Documented by: Home Medications Medication Instructions Recorded Confirmed Type Finasteride [Proscar] 5 mg PO DAILY 12/23/18 01/15/19 History Magnesium Oxide [Mag-Ox] 250 mg PO DAILY 12/23/18 01/15/19 History Spironolactone 50 mg PO DAILY 12/23/18 01/15/19 History Tamsulosin HCl [Flomax] 0.4 mg PO DAILY 12/23/18 01/15/19 History Ascorbic Acid [Vitamin C] 250 mg PO BID 01/15/19 01/15/19 History Cholecalciferol (Vitamin D3) 2,000 unit PO DAILY 01/15/19 01/15/19 History [Vitamin D3] Dofetilide [Tikosyn] 125 mcg PO Q12HR 01/15/19 01/15/19 History Ferrous Sulfate [Iron (65 MG 325 mg PO BID 01/15/19 01/15/19 History Elemental)] Amiodarone [Cordarone] 200 mg PO TID #90 tab 01/21/19 Rx Metoprolol Tartrate [Lopressor] 25 mg PO BID #60 tab 01/21/19 Rx Allergies Allergy/AdvReac Type Severity Reaction Status Date / Time No Known Allergies Allergy Verified 01/25/19 15:37 Physical Exam Vitals: Vital Signs Temp Pulse Resp BP Pulse Ox 02/01/19 20:00 98.1 F 110 H 20 80/61 95 02/01/19 15:16 96.6 F L 112 H 18 104/66 98 02/01/19 11:34 96.9 F L 113 H 18 96/66 98 02/01/19 11:09 120 H 18 02/01/19 09:35 120 H 18 02/01/19 09:33 96.7 F L 120 H 18 94/36 98 02/01/19 04:42 97.6 F 116 H 18 97/55 93 L 01/31/19 23:49 97.8 F 72 20 91/50 96 Intake and Output 02/01/19 02/01/19 02/01/19 06:59 14:59 22:59 Intake Total 57.333 640 320 Output Total 2160 1100 950 Balance -2102.664 -598 -920 Intake: IV 240 0.9 240 Intake, IV Titration 57.333 100 100 Amount Furosemide 100 mg In 57.333 Sodium Chloride 0.9% 90 ml @ 10 MG/HR 10 mls/hr IV .Q10H [facility] Rx#: [id number] Piperacillin-Tazobactam 3 100 100 .375 gm In Sodium Chloride 0.9% 100 ml @ 25 mls/hr IVPB Q8HR [facility] Rx# :[id number] Oral 300 220 Output: Drainage 50 50 Lower Anterior Abdomen 50 50 Urine 2110 1100 900 Uretheral (Cotter) 450 1100 Other: Voiding Method Indwelling Catheter Indwelling Catheter Indwelling Catheter # Bowel Movements 1 88 -year-old malewho has some pallor but not in acute distress HEENT: Anicteric conjunctiva arepale but moist nasal mucosa grossly intact without significant lesions, there is no thrush.enture in place positive hearing aids Neck: The neck is supple without significant lymphadenopathy or thyromegaly. Lungs: Symmetrical air entry is noted, some expiratory wheezes but no dullness or egophony Heart: Irregular with an audible S1 and S2 soft S4 no distinct murmur click or a PMI was nondisplaced no urethral Abdomen: obese,Positive bowel sounds soft and nontender without palpable masses or organomegaly. There was no guarding or rebound. Extremities: The upper extremities have excellent pulses they are symmetric, no significant petechiae or telangiectasia. No splinter hemorrhages were noted. Lower extremities have some ongoing edema but apparently this is improved. Has evidence of the full-thickness pressor ulceration to the left heel with exposure some underlying fat layer, please see the nursing photography regarding the ulceration. There is evidence of tissue hanging from the ulceration which is debrided away. The site is not extremely tender and has evidence of some mild surrounding erythema but no expressible purulence right heel is intact. Neuro: Awake alert oriented to person place and time. no acute gross focal deficits however patient has significant generalized weakness Results CBC & Chem 7: 02/01/19 08:31 02/01/19 08:31 Labs: Abnormal Lab Results - Last 24 Hours (Table) 02/01/19 02/01/19 Range/Units 08:31 08:31 Hgb 11.0 L (13.0-17.5) gm/dL MCV 78.3 L (80.0-100.0) fL MCH 21.2 L (25.0-35.0) pg MCHC 27.0 L (31.0-37.0) g/dL RDW 21.9 H (11.5-15.5) % Plt Count 713 H (150-450) k/uL Sodium 132 L (137-145) mmol/L Chloride 89 L (98-107) mmol/L Carbon Dioxide 35 H (22-30) mmol/L Glucose 143 H (74-99) mg/dL Laboratory Results WBC 9.9 k/uL (3.8-10.6) 02/01/19 08:31 RBC 5.21 m/uL (4.30-5.90) 02/01/19 08:31 Hgb 11.0 gm/dL (13.0-17.5) L 02/01/19 08:31 Hct 40.8 % (39.0-53.0) 02/01/19 08:31 MCV 78.3 fL (80.0-100.0) L 02/01/19 08:31 MCH 21.2 pg (25.0-35.0) L 02/01/19 08:31 MCHC 27.0 g/dL (31.0-37.0) L 02/01/19 08:31 RDW 21.9 % (11.5-15.5) H 02/01/19 08:31 Plt Count 713 k/uL (150-450) H 02/01/19 08:31 Neutrophils % 84 % 01/30/19 06:07 Neutrophils % (Manual) 70 % 01/31/19 06:23 Lymphocytes % 10 % 01/30/19 06:07 Lymphocytes % (Manual) 19 % 01/31/19 06:23 Monocytes % 5 % 01/30/19 06:07 Monocytes % (Manual) 11 % 01/31/19 06:23 Eosinophils % 0 % 01/30/19 06:07 Basophils % 0 % 01/30/19 06:07 Neutrophils # 7.8 k/uL (1.3-7.7) H 01/30/19 06:07 Neutrophils # (Manual) 5.18 k/uL (1.3-7.7) 01/31/19 06:23 Lymphocytes # 0.9 k/uL (1.0-4.8) L 01/30/19 06:07 Lymphocytes # (Manual) 1.41 k/uL (1.0-4.8) 01/31/19 06:23 Monocytes # 0.5 k/uL (0-1.0) 01/30/19 06:07 Monocytes # (Manual) 0.81 k/uL (0-1.0) 01/31/19 06:23 Eosinophils # 0.0 k/uL (0-0.7) 01/30/19 06:07 Basophils # 0.0 k/uL (0-0.2) 01/30/19 06:07 Nucleated RBCs 0 /100 WBC (0-0) 01/31/19 06:23 Manual Slide Review Performed 01/31/19 06:23 Polychromasia Present 01/22/19 15:07 Hypochromasia Marked 02/01/19 08:31 Poikilocytosis Slight 01/26/19 06:25 Anisocytosis Moderate 02/01/19 08:31 Microcytosis Moderate 02/01/19 08:31 Target Cells Present 01/31/19 06:23 Ovalocytes Present 01/22/19 15:07 PT 10.4 sec (9.0-12.0) 01/22/19 15:45 INR 1.0 (<1.2) 01/22/19 15:45 APTT 24.1 sec (22.0-30.0) 01/15/19 10:58 D-Dimer 0.83 mg/L FEU (<0.60) H 01/15/19 10:58 Sodium 132 mmol/L (137-145) L 02/01/19 08:31 Potassium 4.1 mmol/L (3.5-5.1) 02/01/19 08:31 Chloride 89 mmol/L (98-107) L 02/01/19 08:31 Carbon Dioxide 35 mmol/L (22-30) H 02/01/19 08:31 Anion Gap 8 mmol/L 02/01/19 08:31 BUN 16 mg/dL (9-20) 02/01/19 08:31 Creatinine 1.12 mg/dL (0.66-1.25) 02/01/19 08:31 Est GFR (CKD-EPI)AfAm 69 (>60 ml/min/1.73 sqM) 02/01/19 08:31 Est GFR (CKD-EPI)NonAf 59 (>60 ml/min/1.73 sqM) 02/01/19 08:31 Glucose 143 mg/dL (74-99) H 02/01/19 08:31 Osmolality 267 mosm/kg (280-301) L 01/21/19 05:46 Calcium 8.8 mg/dL (8.4-10.2) 02/01/19 08:31 Magnesium 1.8 mg/dL (1.6-2.3) 02/01/19 08:31 Total Bilirubin 0.4 mg/dL (0.2-1.3) 01/25/19 06:09 AST 19 U/L (17-59) 01/25/19 06:09 ALT 21 U/L (21-72) 01/25/19 06:09 Alkaline Phosphatase 109 U/L (38-126) 01/25/19 06:09 Troponin I <0.012 ng/mL (0.000-0.034) 01/15/19 23:46 NT-Pro-B Natriuret Pep 1320 pg/mL 01/15/19 10:58 Total Protein 4.7 g/dL (6.3-8.2) L 01/25/19 06:09 Albumin 2.1 g/dL (3.5-5.0) L 01/25/19 06:09 Carcinoembryonic Ag 19.9 ng/mL (0.0-4.9) H 01/20/19 08:08 TSH 4.560 mIU/L (0.465-4.680) 01/17/19 06:33 Urine Osmolality 694 mosm/kg (50-1400) 01/21/19 22:50 Ur Random Creatinine 167.0 mg/dL 01/21/19 22:50 Ur Random Sodium 38 mmol/L 01/21/19 22:50 Blood Type O Positive 01/25/19 12:44 Blood Type Confirm O Positive 01/25/19 06:09 Blood Type Recheck CABO Indicated 01/25/19 12:44 Antibody Screen NEGATIVE 01/25/19 12:44 Crossmatch See Detail 01/25/19 12:44 Spec Expiration Date 01/28/2019234301/25/19 12:44 Assessment and Plan (1) Acute blood loss anemia Current Visit: Yes Status: Acute Code(s): D62 - ACUTE POSTHEMORRHAGIC ANEMIA SNOMED Code(s): 532657034 (2) Adenocarcinoma, colon Current Visit: Yes Status: Acute Priority: High Code(s): C18.9 - MALIGNANT NEOPLASM OF COLON, UNSPECIFIED SNOMED Code(s): 557108562 (3) Pressure ulcer of left heel, stage 3 Narrative/Plan: 88-year-old male presents to Hospital with significant weakness and fatigue. Was found evidence of significant blood loss anemia and evaluation reveal evidence of an extensive cecal mass. Surgical resection occurred, however there was incomplete resection of the large tumor. The patient has been seen by oncology and apparently is not a candidate for even pain with of chemotherapy. The patient's family is present including his grandson who is a local nurse. The patient is too weak to be able to go to his home environment. The patient hopefully is convinced of the importance of going to rehab to try to regain his strength. The goal is to try to have some independent living and then consider the possibility of palliative chemotherapy. He is been treated for his profound anemia and definitely feels better. Appetite but was still very poor. We discussed the significant importance of protein intake and how they can help his physical recovery. Wound care to heal will be with therahoney and a foam dressing. The foam dressing is applied to the irritation this been noted to the coccyx area. The patient does not like to wear the foam boot constantly trying to find an air boot to offload the left heel. The site does not appear to be infected and no need for antibiotic therapy yet at this time.the patient's family's questions are answered. Current Visit: Yes Status: Acute Code(s): L89.623 - PRESSURE ULCER OF LEFT HEEL, STAGE 3 SNOMED Code(s): 745938546
[2019-02-02] MEDS: METOCLOPRAMIDE 5 MG/ML 2 ML VIAL IVP SCH ×4 (06:19→23:57)
--- NOTE | 2019-02-02 09:13 | P.PN ---
Subjective Progress Note Date: 02/02/19 CHIEF COMPLAINT: right-sided colon mass HISTORY OF PRESENT ILLNESS: Patient is s/p exploratory laparotomy, right colectomy, and partial omentectomy. POD #8. Patient is sitting up in the chair. Tolerating heart healthy diet. Bloating improved. Denies nausea or vomiting. Passing flatus. BM yesterday. PHYSICAL EXAM: VITAL SIGNS: Reviewed. GENERAL: Well-developed in no acute distress. HEENT: No sclera icterus. Extraocular movements grossly intact. Moist buccal mucosa. Head is atraumatic, normocephalic. ABDOMEN: Soft. Nontender. AMMON drain with serous drainage. Urinary catheter intact with yellow urine. Positive bowel sounds. NEUROLOGIC: Alert and oriented. Cranial nerves II through XII grossly intact. ASSESSMENT: 1. Colon cancer PLAN: 1. Continue current diet 2. Increase activity as tolerated 3. Anticipate removal of AMMON drain tomorrow 4. Cotter catheter management per medicine/cardiology Nurse practitioner note has been reviewed by physician. Signing provider agrees with the documented findings, assessment, and plan of care. Objective - Vital Signs Vital signs: Vital Signs Temp 97.5 F L 02/02/19 07:58 Pulse 120 H 02/02/19 07:58 Resp 16 02/02/19 07:58 BP 97/56 02/02/19 07:58 Pulse Ox 96 02/02/19 07:58 Intake & Output 02/01/19 02/02/19 02/02/19 18:59 06:59 18:59 Intake Total 960 150 785 Output Total 1150 1650 600 Balance -190 -1500 185 Intake: IV 240 0.9 240 Intake, IV Titration 200 280 Amount Piperacillin-Tazobactam 3 200 100 .375 gm In Sodium Chloride 0.9% 100 ml @ 25 mls/hr IVPB Q8HR [facility] Rx# :[id number] Sodium Chloride 0.9% 1, 180 000 ml @ 20 mls/hr IV . Q24H [facility] Rx#:[id number] Oral 520 150 505 Output: Drainage 50 Lower Anterior Abdomen 50 Urine 1100 1650 600 Uretheral (Cotter) 1100 750 Other: Voiding Method Indwelling Catheter Indwelling Catheter Indwelling Catheter # Voids 1 # Bowel Movements 1 1 - Labs CBC & Chem 7: 02/01/19 08:31 02/01/19 08:31 Labs: Abnormal Lab Results - Last 24 Hours (Table) 02/01/19 02/01/19 Range/Units 08:31 08:31 Hgb 11.0 L (13.0-17.5) gm/dL MCV 78.3 L (80.0-100.0) fL MCH 21.2 L (25.0-35.0) pg MCHC 27.0 L (31.0-37.0) g/dL RDW 21.9 H (11.5-15.5) % Plt Count 713 H (150-450) k/uL Sodium 132 L (137-145) mmol/L Chloride 89 L (98-107) mmol/L Carbon Dioxide 35 H (22-30) mmol/L Glucose 143 H (74-99) mg/dL
[2019-02-02] MEDS: PIPERACILLIN-TAZOBACTAM 3.375 GM in SODIUM CHLORIDE 0.9% 100 ML IVPB SCH ×3 (09:31→23:57)
[2019-02-02] MEDS: FUROSEMIDE 10 MG/ML 10 ML VIAL IV SCH ×2 (09:31→20:50)
[2019-02-02] MEDS: CHOLECALCIFEROL 1,000 UNIT TAB PO SCH (09:33)
[2019-02-02] MEDS: METOLAZONE 5 MG TAB PO SCH (09:33)
[2019-02-02] MEDS: FERROUS SULFATE 325 MG TAB PO SCH ×2 (09:33→20:49)
[2019-02-02] MEDS: ASCORBIC ACID 500 MG TAB PO SCH ×2 (09:33→20:49)
[2019-02-02] MEDS: DOCUSATE 100 MG CAP PO SCH ×2 (09:33→20:50)
[2019-02-02] MEDS: FINASTERIDE 5 MG TAB PO SCH (09:34)
[2019-02-02] MEDS: AMIODARONE 200 MG TAB PO SCH ×2 (09:34→20:50)
[2019-02-02] MEDS: MAGNESIUM OXIDE 400 MG TAB PO SCH (09:34)
[2019-02-02] MEDS: POTASSIUM CHLORIDE ER 20 MEQ TAB.ER PO SCH ×2 (09:34→20:49)
[2019-02-02] MEDS: METOPROLOL TARTRATE 50 MG TAB PO SCH ×2 (09:34→20:49)
[2019-02-02] MEDS: HEPARIN SODIUM,PORCINE 5,000 UNIT/ML 1 ML VIAL SQ SCH ×2 (09:35→20:50)
[2019-02-02] MEDS: SODIUM CHLORIDE 0.9% 1,000 ML IV SCH (10:43)
--- NOTE | 2019-02-02 16:41 | PN ---
PROGRESS NOTE Mr. Cm is a gentleman status post sigmoid resection. He is doing much better. Remains in atrial fibrillation. Rate is well controlled. His blood pressure is acceptable. Urine output is excellent. He has lost some more weight. I am going to switch him from IV push Lasix to oral Lasix. Vital signs are stable. JVD is 1 cm. No carotid bruit. S1, S2 heard normally with irregular rate and rhythm, short systolic murmur. Lungs reveal improved air entry. Abdomen is distended. Lower extremities reveal diminished pulses. Central nervous system is normal. Plan is to increase activity, move him to an extended-care facility with rehab tomorrow. Plan is to switch him to oral Lasix, increase activity. The patient is doing better and hopefully will be discharged tomorrow. MMODL / IJN: [id number] /
--- NOTE | 2019-02-02 16:44 | P.PN ---
Subjective Progress Note Date: 02/02/19 88-year-old male, who is a [place] war from the [employer], relates to a several month history of declining status. He noticed a marked decrease in his ability to ambulate without becoming more and more short of breath. He had progressive and significant fatigue and malaise. He consequent ly presents to Hospital for further evaluation. It admission there was profound anemia and concerns to elevated BNP and congestive heart failure. The patient underwent extensive evaluations have included endoscopy showed evidence of a cecal mass. 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 Imaging studies revealed evidence of the cecal mass and constantly was taken to the operating room and resection was performed, however residual tumor was noted at the time of the surgical intervention. The patient has had a slow recovery in the infectious diseases consult has been requested regarding the new pressure ulceration to the left heel, as well as the onset of some erythema to the buttocks. The patient is very weak and did have a session with physical therapy today, with great difficulty with ambulation. He relates that his pain is modestly well controlled. His appetite is very poor. He does relate that he still feels very weak. 02/02/2019 patient still feels weak. And actually somewhat worse today. It appears that he is having the onset of atrial fibrillation with rapid ventricular response. Resulting in some shortness of breath and chest pain. Chest pain has resolved shortness of breath is improving and oxygen has been applied. He denies other new acute complaints at this point in time, but does have the pain and left heel. Objective - Vital Signs Vital signs: Vital Signs Temp 97.1 F L 02/02/19 11:38 Pulse 126 H 02/02/19 11:38 Resp 16 02/02/19 11:38 BP 109/52 02/02/19 11:38 Pulse Ox 99 02/02/19 11:38 Intake & Output 02/01/19 02/02/19 02/02/19 18:59 06:59 18:59 Intake Total 960 150 785 Output Total 1150 1650 600 Balance -190 -1500 185 Weight 105.1 kg Intake: IV 240 0.9 240 Intake, IV Titration 200 280 Amount Piperacillin-Tazobactam 3 200 100 .375 gm In Sodium Chloride 0.9% 100 ml @ 25 mls/hr IVPB Q8HR [facility] Rx# :[id number] Sodium Chloride 0.9% 1, 180 000 ml @ 20 mls/hr IV . Q24H [facility] Rx#:[id number] Oral 520 150 505 Output: Drainage 50 Lower Anterior Abdomen 50 Urine 1100 1650 600 Uretheral (Cotter) 1100 750 Other: Voiding Method Indwelling Catheter Indwelling Catheter Indwelling Catheter # Voids 1 # Bowel Movements 1 1 1 - Exam 88 -year-old malewho has some pallor but not in acute distress HEENT: Anicteric conjunctiva arepale but moist nasal mucosa grossly intact without significant lesions, there is no thrush.enture in place positive hearing aids Neck: The neck is supple without significant lymphadenopathy or thyromegaly. Lungs: Symmetrical air entry is noted, some expiratory wheezes but no dullness or egophony Heart: Irregular with an audible S1 and S2 soft S4 no distinct murmur click or a PMI was nondisplaced no urethral Abdomen: obese,Positive bowel sounds soft and nontender without palpable masses or organomegaly. There was no guarding or rebound. Extremities: The upper extremities have excellent pulses they are symmetric, no significant petechiae or telangiectasia. No splinter hemorrhages were noted. Lower extremities have some ongoing edema but apparently this is improved. Has evidence of the full-thickness pressor ulceration to the left heel with exposure some underlying fat layer, please see the nursing photography regarding the ulceration. as noted yesterday the tissue that was hanging from the ulceration was removed with scissors with no other debridement occurring. The site is mildly tender and has evidence of some mild surrounding erythema but no expressible purulence right heel is intact. Neuro: Awake alert oriented to person place and time. no acute gross focal deficits however patient has significant generalized weakness - Labs CBC & Chem 7: 02/01/19 08:31 02/01/19 08:31 Labs: Laboratory Results WBC 9.9 k/uL (3.8-10.6) 02/01/19 08:31 RBC 5.21 m/uL (4.30-5.90) 02/01/19 08:31 Hgb 11.0 gm/dL (13.0-17.5) L 02/01/19 08:31 Hct 40.8 % (39.0-53.0) 02/01/19 08:31 MCV 78.3 fL (80.0-100.0) L 02/01/19 08:31 MCH 21.2 pg (25.0-35.0) L 02/01/19 08:31 MCHC 27.0 g/dL (31.0-37.0) L 02/01/19 08:31 RDW 21.9 % (11.5-15.5) H 02/01/19 08:31 Plt Count 713 k/uL (150-450) H 02/01/19 08:31 Neutrophils % 84 % 01/30/19 06:07 Neutrophils % (Manual) 70 % 01/31/19 06:23 Lymphocytes % 10 % 01/30/19 06:07 Lymphocytes % (Manual) 19 % 01/31/19 06:23 Monocytes % 5 % 01/30/19 06:07 Monocytes % (Manual) 11 % 01/31/19 06:23 Eosinophils % 0 % 01/30/19 06:07 Basophils % 0 % 01/30/19 06:07 Neutrophils # 7.8 k/uL (1.3-7.7) H 01/30/19 06:07 Neutrophils # (Manual) 5.18 k/uL (1.3-7.7) 01/31/19 06:23 Lymphocytes # 0.9 k/uL (1.0-4.8) L 01/30/19 06:07 Lymphocytes # (Manual) 1.41 k/uL (1.0-4.8) 01/31/19 06:23 Monocytes # 0.5 k/uL (0-1.0) 01/30/19 06:07 Monocytes # (Manual) 0.81 k/uL (0-1.0) 01/31/19 06:23 Eosinophils # 0.0 k/uL (0-0.7) 01/30/19 06:07 Basophils # 0.0 k/uL (0-0.2) 01/30/19 06:07 Nucleated RBCs 0 /100 WBC (0-0) 01/31/19 06:23 Manual Slide Review Performed 01/31/19 06:23 Polychromasia Present 01/22/19 15:07 Hypochromasia Marked 02/01/19 08:31 Poikilocytosis Slight 01/26/19 06:25 Anisocytosis Moderate 02/01/19 08:31 Microcytosis Moderate 02/01/19 08:31 Target Cells Present 01/31/19 06:23 Ovalocytes Present 01/22/19 15:07 PT 10.4 sec (9.0-12.0) 01/22/19 15:45 INR 1.0 (<1.2) 01/22/19 15:45 APTT 24.1 sec (22.0-30.0) 01/15/19 10:58 D-Dimer 0.83 mg/L FEU (<0.60) H 01/15/19 10:58 Sodium 132 mmol/L (137-145) L 02/01/19 08:31 Potassium 4.1 mmol/L (3.5-5.1) 02/01/19 08:31 Chloride 89 mmol/L (98-107) L 02/01/19 08:31 Carbon Dioxide 35 mmol/L (22-30) H 02/01/19 08:31 Anion Gap 8 mmol/L 02/01/19 08:31 BUN 16 mg/dL (9-20) 02/01/19 08:31 Creatinine 1.12 mg/dL (0.66-1.25) 02/01/19 08:31 Est GFR (CKD-EPI)AfAm 69 (>60 ml/min/1.73 sqM) 02/01/19 08:31 Est GFR (CKD-EPI)NonAf 59 (>60 ml/min/1.73 sqM) 02/01/19 08:31 Glucose 143 mg/dL (74-99) H 02/01/19 08:31 Osmolality 267 mosm/kg (280-301) L 01/21/19 05:46 Calcium 8.8 mg/dL (8.4-10.2) 02/01/19 08:31 Magnesium 1.8 mg/dL (1.6-2.3) 02/01/19 08:31 Total Bilirubin 0.4 mg/dL (0.2-1.3) 01/25/19 06:09 AST 19 U/L (17-59) 01/25/19 06:09 ALT 21 U/L (21-72) 01/25/19 06:09 Alkaline Phosphatase 109 U/L (38-126) 01/25/19 06:09 Troponin I <0.012 ng/mL (0.000-0.034) 01/15/19 23:46 NT-Pro-B Natriuret Pep 1320 pg/mL 01/15/19 10:58 Total Protein 4.7 g/dL (6.3-8.2) L 01/25/19 06:09 Albumin 2.1 g/dL (3.5-5.0) L 01/25/19 06:09 Carcinoembryonic Ag 19.9 ng/mL (0.0-4.9) H 01/20/19 08:08 TSH 4.560 mIU/L (0.465-4.680) 01/17/19 06:33 Urine Osmolality 694 mosm/kg (50-1400) 01/21/19 22:50 Ur Random Creatinine 167.0 mg/dL 01/21/19 22:50 Ur Random Sodium 38 mmol/L 01/21/19 22:50 Blood Type O Positive 01/25/19 12:44 Blood Type Confirm O Positive 01/25/19 06:09 Blood Type Recheck CABO Indicated 01/25/19 12:44 Antibody Screen NEGATIVE 01/25/19 12:44 Crossmatch See Detail 01/25/19 12:44 Spec Expiration Date 01/28/2019 - 234301/25/19 12:44 Assessment and Plan (1) Acute blood loss anemia Current Visit: Yes Status: Acute Code(s): D62 - ACUTE POSTHEMORRHAGIC ANEMIA SNOMED Code(s): 091426616 (2) Adenocarcinoma, colon Current Visit: Yes Status: Acute Priority: High Code(s): C18.9 - MALIGNANT NEOPLASM OF COLON, UNSPECIFIED SNOMED Code(s): 669639297 (3) Pressure ulcer of left heel, stage 3 Narrative/Plan: 88-year-old male presents to Hospital with significant weakness and fatigue. Was found evidence of significant blood loss anemia and evaluation reveal evidence of an extensive cecal mass. Surgical resection occurred, however there was incomplete resection of the large tumor. The patient has been seen by oncology and apparently is not a candidate for even pain with of chemotherapy. The patient's family is present including his grandson who is a local nurse. T he patient is too weak to be able to go to his home environment. The patient hopefully is convinced of the importance of going to rehab to try to regain his strength. The goal is to try to have some independent living and then consider the possibility of palliative chemotherapy. He is been treated for his profound anemia and definitely feels better. Appetite but was still very poor. We discussed the significant importance of protein intake and how they can help his physical recovery. Wound care to heal will be with therahoney and a foam dressing. The foam dressing is applied to the irritation this been noted to the coccyx area. The patient does not like to wear the foam boot constantly trying to find an air boot to offload the left heel. The site does not appear to be infected and no need for antibiotic therapy yet at this time. the patient's family's questions are answered. 02/02/2019 the patient developed A. fib with rapid ventricular response today which resulted in some chest pain and some increasing shortness of breath. Chest pain is now resolved shortness of breath is improved with treatment of the ventricular rate and oxygen therapy. Pain to the heel is not increased. Please clarify that the ulceration left heel was not present on admission. The patient has multiple risk factors for ulceration that include his immobility, moderate protein calorie malnutrition, edema and congestive heart failure. The patient is more comfortable with air mattress overlay in the heel protector is being utilized. Once he is stable will transfer to rehabilitation to improve his functional status. Current Visit: Yes Status: Acute Code(s): L89.623 - PRESSURE ULCER OF LEFT HEEL, STAGE 3 SNOMED Code(s): 473751018
--- NOTE | 2019-02-02 16:57 | P.PN ---
Subjective Patient says that he was short of breath this morning when trying to get up out of the bed and work with physical therapy No chest pain racing heart Normal incision better. AMMON drain still in place Objective - Vital Signs Vital signs: Vital Signs Temp 97.1 F L 02/02/19 11:38 Pulse 119 H 02/02/19 16:00 Resp 16 02/02/19 16:00 BP 94/65 02/02/19 16:00 Pulse Ox 94 L 02/02/19 16:00 Intake & Output 02/01/19 02/02/19 02/02/19 18:59 06:59 18:59 Intake Total 960 150 785 Output Total 1150 1650 600 Balance -190 -1500 185 Weight 105.1 kg Intake: IV 240 0.9 240 Intake, IV Titration 200 280 Amount Piperacillin-Tazobactam 3 200 100 .375 gm In Sodium Chloride 0.9% 100 ml @ 25 mls/hr IVPB Q8HR [facility] Rx# :[id number] Sodium Chloride 0.9% 1, 180 000 ml @ 20 mls/hr IV . Q24H [facility] Rx#:[id number] Oral 520 150 505 Output: Drainage 50 Lower Anterior Abdomen 50 Urine 1100 1650 600 Uretheral (Cotter) 1100 750 Other: Voiding Method Indwelling Catheter Indwelling Catheter Indwelling Catheter # Voids 1 # Bowel Movements 1 1 1 - Exam On exam, alert and oriented x3. HEENT: Conjunctivae normal. eyes normal. NECK: No JVD. No thyroid enlargement. No LNs CARDIOVASCULAR: S1, S2 muffled. No murmur RESPIRATION: Breath sounds diminished in the bases. No rhonchi or crackles. No bronchial breathing. ABDOMEN: Soft, incision dry and dressing applied. AMMON drain still in place has serosanguineous fluid. LEpitting edema bilaterally NERVOUS SYSTEM: Cranial N 2-12 grossly normal. Moves all 4 limbs. No focal deficits. No sensory deficit. No signs of cerebellar dysfucntion. Skin: no ulcer no rash - Labs CBC & Chem 7: 02/01/19 08:31 02/01/19 08:31 Assessment and Plan Assessment: - Acute respiratory distress - Cecal mass status post extremity laparotomy, right colectomy and partial omentectomy - Chronic A. fib on amiodarone - Anemia probably because of blood loss - History of chronic CHF - Obesity Plan - We'll get an x-ray in the morning as the patient was complaining of shortness of breath. He is on Lasix - ID on board for antibiotic recommendations - Hematology oncology following the patient - Further recommendations regarding the surgical incision wound care as per general surgery - We will follow up on the patient - Possible discharge if remains stable in the next 24-48 hours Time with Patient: Greater than 30
[2019-02-03] MEDS: METOCLOPRAMIDE 5 MG/ML 2 ML VIAL IVP SCH (06:12)
[2019-02-03 06:42] LABS: Anisocytosis Moderate; HGB 10.6 gm/dL (13.0-17.5); Hypochromasia Marked; MCH 21.9 pg (25.0-35.0); MCHC 27.8 g/dL (31.0-37.0); MCV 78.7 fL (80.0-100.0); Mean Platelet Volume 6.7; Microcytosis Moderate; Platelet Count 594 k/uL (150-450); RBC 4.83 m/uL (4.30-5.90); RDW 22.5 % (11.5-15.5); WBC 7.4 k/uL (3.8-10.6)
[2019-02-03 06:52] LABS: Calcium 8.2 mg/dL (8.4-10.2); Potassium 3.8 mmol/L (3.5-5.1)
--- NOTE | 2019-02-03 07:52 | XR ---
EXAMINATION TYPE: XR chest 1V portable DATE OF EXAM: 02/03/2019 Comparison: 01/15/2019 Clinical History: 88-year-old male sob Findings: Leftward patient rotation alters the normal cardiomediastinal contours. Heart appears borderline to m ildly enlarged. Similar prior. Relative upper lung lucencies. Some patchy bibasilar opacities probabl y related to atelectasis. Otherwise, no consolidation or sizable effusion. Impression: Rotated exam. Borderline to mild cardiomegaly. Possible underlying COPD. Strandy bibasilar atelectasi s.
--- NOTE | 2019-02-03 08:36 | CDI ---
Documentation Clarification Form Date: 02/03/2019 7:45:18 AM From: Maryanne Langston RN, CCDS Admit Date: 01/16/2019 8:35:00 AM Patient Name: Bridger Cm Visit Number: [id number] Discharge Date: ATTENTION: The Clinical Documentation Specialists (CDI) and [facility] Coding Staff appreciate your assistance in clarifying documentation. Please respond to the clarification below the line at the bottom and electronically sign. The CDI & [facility] Coding staff will review the response and follow-up if needed. Please note: Queries are made part of the Legal Health Record. If you have any questions, please contact the author of this message via ITS. Dr. Dede Rust Chronic Systolic CHF is documented in the consult on 01/16/19 and ongoing cardiology progress notes. History/Risk Factors: Chronic Atrial Fibrillation Hypertension, CHF, Iron deficiency anemia, Former smoker Clinical Indicators: 88 year-old male with complaints of shortness of breath going on for about 3 months. He has lower extremity edema: On initial cardiology evaluation 01/16/19 patient was noted to be clinically euvolemic . A cecal mass was found and post sigmoid resection patient was not making much urine. Continues to have significant bilateral peripheral edema and was treated with IV Lasix on 01/28/19 01/29/19 patient was started on Lasix drip. VS/Pulse OX: 123/89 117 20 97.6 BNP: 01/15/19 1320 Echocardiogram Results: EF between 45-50 % 01/15/19 Chest X Ray: No acute process Treatment: Lasix Drip, changed to IV push, ( now PO) Monitor intake and output Daily weights, Daily lytes, BUN and Creatinine In your professional opinion, the addition of the IV Lasix can you please clarify that the CHF you were treating was: Chronic systolic heart failure Acute on Chronic systolic heart failure Unable to Determine Other, please specify (Last Revision: February 2018) Acute on Chronic systolic heart failure MTDD
[2019-02-03] MEDS: CHOLECALCIFEROL 1,000 UNIT TAB PO SCH (08:59)
[2019-02-03] MEDS: DOCUSATE 100 MG CAP PO SCH (09:00)
[2019-02-03] MEDS: FINASTERIDE 5 MG TAB PO SCH (09:00)
[2019-02-03] MEDS: FERROUS SULFATE 325 MG TAB PO SCH ×2 (09:00→20:47)
[2019-02-03] MEDS: POTASSIUM CHLORIDE ER 20 MEQ TAB.ER PO SCH (09:00)
[2019-02-03] MEDS: HEPARIN SODIUM,PORCINE 5,000 UNIT/ML 1 ML VIAL SQ SCH ×2 (09:00→20:47)
[2019-02-03] MEDS ORDERED: FUROSEMIDE 80 MG TAB PO SCH (09:00)
[2019-02-03] MEDS: METOPROLOL TARTRATE 50 MG TAB PO SCH (09:00)
[2019-02-03] MEDS: PIPERACILLIN-TAZOBACTAM 3.375 GM in SODIUM CHLORIDE 0.9% 100 ML IVPB SCH ×2 (09:01→16:29)
[2019-02-03] MEDS: ASCORBIC ACID 500 MG TAB PO SCH ×2 (09:01→20:47)
[2019-02-03] MEDS: AMIODARONE 200 MG TAB PO SCH (09:02)
[2019-02-03] MEDS: METOLAZONE 5 MG TAB PO SCH (09:03)
[2019-02-03] MEDS: MAGNESIUM OXIDE 400 MG TAB PO SCH (09:04)
--- NOTE | 2019-02-03 11:02 | P.PN ---
Subjective 02/02 Patient says that he was short of breath this morning when trying to get up out of the bed and work with physical therapy No chest pain racing heart Normal incision better. AMMON drain still in place 02/03 Patient blood pressure was very low this morning IN 70s systolic Feels weak No chest pain or racing heart, no cough no shortness of breath AMMON drain still in place Objective - Vital Signs Vital signs: Vital Signs Temp 97.4 F L 02/03/19 04:00 Pulse 115 H 02/03/19 04:00 Resp 18 02/03/19 04:00 BP 85/55 02/03/19 04:00 Pulse Ox 95 02/03/19 04:00 Intake & Output 02/02/19 02/03/19 02/03/19 18:59 06:59 18:59 Intake Total 1025 330 358 Output Total 1100 2600 Balance -75 -2270 358 Weight 105.1 kg 101.2 kg Intake: Intake, IV Titration 280 Amount Piperacillin-Tazobactam 3 100 .375 gm In Sodium Chloride 0.9% 100 ml @ 25 mls/hr IVPB Q8HR [facility] Rx# :[id number] Sodium Chloride 0.9% 1, 180 000 ml @ 20 mls/hr IV . Q24H [facility] Rx#:[id number] Oral 745 330 358 Output: Drainage 50 Lower Anterior Abdomen 50 Urine 1100 2550 Uretheral (Cotter) 675 Other: Voiding Method Indwelling Catheter Indwelling Catheter # Voids 1 1 # Bowel Movements 1 - Exam On exam, alert and oriented x3. HEENT: Conjunctivae normal. eyes normal. NECK: No JVD. No thyroid enlargement. No LNs CARDIOVASCULAR: S1, S2 muffled. No murmur RESPIRATION: Breath sounds diminished in the bases. No rhonchi or crackles. No bronchial breathing. ABDOMEN: Soft, incision dry and dressing applied. AMMON drain still in place has serosanguineous fluid. LEpitting edema bilaterally NERVOUS SYSTEM: Cranial N 2-12 grossly normal. Moves all 4 limbs. No focal deficits. No sensory deficit. No signs of cerebellar dysfucntion. Skin: no ulcer no rash - Labs CBC & Chem 7: 02/03/19 06:10 02/03/19 06:10 Labs: Abnormal Lab Results - Last 24 Hours (Table) 02/03/19 02/03/19 Range/Units 06:10 06:10 Hgb 10.6 L (13.0-17.5) gm/dL Hct 38.0 L (39.0-53.0) % MCV 78.7 L (80.0-100.0) fL MCH 21.9 L (25.0-35.0) pg MCHC 27.8 L (31.0-37.0) g/dL RDW 22.5 H (11.5-15.5) % Plt Count 594 H (150-450) k/uL Sodium 131 L (137-145) mmol/L Chloride 89 L (98-107) mmol/L Carbon Dioxide 34 H (22-30) mmol/L Calcium 8.2 L (8.4-10.2) mg/dL Assessment and Plan Assessment: - Acute respiratory distress - Cecal mass status post extremity laparotomy, right colectomy and partial omentectomy - Chronic A. fib on amiodarone - Anemia probably because of blood loss - History of chronic CHF - Obesity Plan - Patient blood pressure was relatively low this morning in 70s systolic - We'll hold off on the Lasix. Patient is already on metoprolol as his heart rate was high - We will see how he does and wait for cardiology recommendations. He probably needs some medication adjustment before he can be discharged to the rehab - Continue with rest of the medical care - We will follow the patient Time with Patient: Greater than 30
[2019-02-03] MEDS: SODIUM CHLORIDE 0.9% 1,000 ML IV SCH (11:55)
--- NOTE | 2019-02-03 12:46 | P.PN ---
Subjective Progress Note Date: 02/03/19 This is a pleasant 88 showed male past medical history significant for atrial fibrillation, nonischemic cardiomyopathy, iron deficiency anemia and hypertension. He follows in the office with Dr. Lai. 2 nieces morning to be in a normal sinus rhythm. Blood pressure 88/50 earlier this morning, subsequent blood pressure 100/60. Hemoglobin 7.7, white blood cell count 14.9, potassium 5.2 and sodium 129 today. We'll continue with current medications. 01/19/2019 Patient underwent EGD and colonoscopy today, revealed hiatal hernia with no obvious esophagitis or complicated reflux disease. Normal stomach and duodenum. There is a cecal mass present consistent with cancer and multiple biopsies were obtained. At this time we will hold off from any anticoagulation. This was discussed with the patient and his in detail. She was quite concerned that the patient was at increased risk for stroke now that the anticoagulant will be held. Dr. fili Armenta did have a discussion with her regarding a possible watchman procedure down the road. Hemodynamically the patient is stable today and overall doing well. Hemoglobin 7.2 today. 01/20/2019 Patient was seen and examined this morning, overall feels well. Anticipating discharge home today. At this point in time anticoagulation will continue to be on hold until decision is made regarding the cecal mass. This was explained to the patient and his family in detail. 01/28/2019 Patient is status post sigmoid resection by Dr. Bailey, he was given some albumin yesterday, overall not making much urine. Continues to be in atrial fibrillation, heart rate in the 90s, blood pressure 104/60. Continues to have significant bilateral peripheral edema. We will give the patient a dose of IV Lasix today. Monitor daily renal function closely. 01/29/2019 Patient did diuresis more through the night last night it does appear that his edema today is mildly improved but he still has significant edema overall. We will start him on a Lasix drip monitoring his intake and output and labs closely. 02/03/2019 Patient seen and examined this morning, blood pressure running around 80 systolic, he is asymptomatic. We will hold his Lasix in the morning today, decrease the dose to 40 mg by mouth twice a day from this evening, discontinue Zaroxolyn, decrease amiodarone to 200 mg daily. He may be able to be transferred to extended care facility today from our perspective. We will make him a follow-up appointment in the office post discharge. Objective - Vital Signs Vital signs: Vital Signs Temp 97.6 F 02/03/19 08:00 Pulse 121 H 02/03/19 08:00 Resp 19 02/03/19 08:00 BP 74/53 02/03/19 08:30 Pulse Ox 95 02/03/19 04:00 Intake & Output 02/02/19 02/03/19 02/03/19 18:59 06:59 18:59 Intake Total 1025 330 358 Output Total 1100 2600 490 Balance -75 -8820 -132 Weight 105.1 kg 101.2 kg Intake: Intake, IV Titration 280 Amount Piperacillin-Tazobactam 3 100 .375 gm In Sodium Chloride 0.9% 100 ml @ 25 mls/hr IVPB Q8HR [facility] Rx# :[id number] Sodium Chloride 0.9% 1, 180 000 ml @ 20 mls/hr IV . Q24H [facility] Rx#:[id number] Oral 745 330 358 Output: Drainage 50 40 Lower Anterior Abdomen 50 40 Urine 1100 2550 450 Uretheral (Cotter) 675 450 Other: Voiding Method Indwelling Catheter Indwelling Catheter Indwelling Catheter # Voids 1 1 # Bowel Movements 1 - Exam GENERAL: This is a 88-year-old male in no apparent distress at the time of my examination. HEENT: Head is atraumatic, normocephalic. Pupils are equal, round. Sclerae anicteric. Conjunctivae are clear. Mucous membranes of the mouth are moist. Neck is supple. There is no jugular venous distention. No carotid bruit is heard. LUNGS: Clear to auscultation no wheezes, rales or rhonchi. No chest wall tenderness is noted on palpation or with deep breathing. HEART: Irregular rate and rhythm with systolic ejection murmur at the base, no rubs or gallops. S1 and S2 heard. ABDOMEN: Soft, nontender. Bowel sounds are heard. No organomegaly noted. EXTREMITIES: trace to1+ bilateral lower extremity pitting edema and no calf tenderness noted. - Labs CBC & Chem 7: 02/03/19 06:10 02/03/19 06:10 Labs: Abnormal Lab Results - Last 24 Hours (Table) 02/03/19 02/03/19 Range/Units 06:10 06:10 Hgb 10.6 L (13.0-17.5) gm/dL Hct 38.0 L (39.0-53.0) % MCV 78.7 L (80.0-100.0) fL MCH 21.9 L (25.0-35.0) pg MCHC 27.8 L (31.0-37.0) g/dL RDW 22.5 H (11.5-15.5) % Plt Count 594 H (150-450) k/uL Sodium 131 L (137-145) mmol/L Chloride 89 L (98-107) mmol/L Carbon Dioxide 34 H (22-30) mmol/L Calcium 8.2 L (8.4-10.2) mg/dL Assessment and Plan Plan: ASSESSMENT #1Acute anemia #2Leukocytosis #3Thrombocythemia #4Chroinc atrial firbillation with rapid ventricular response, maintained on tikosyn at home #5Hypertension #6Non-ischemic cardiomyopathy #7Chronic systolic heart failure, currently euvolemic #8 colon cancer status post sigmoid resection Plan We will discontinue the Zaroxolyn today, hold the morning dose of oral Lasix and decrease the dose to 40 mg one tablet by mouth twice a day. Decrease amiodarone to 200 mg daily. Patient may be able to be transferred to extended care facility today, we'll make a follow-up appointment in the office post discharge. DNP note has been reviewed, I agree with a documented findings and plan of care. Patient was seen and examined.
--- NOTE | 2019-02-03 13:34 | P.PN ---
Subjective Progress Note Date: 02/03/19 CHIEF COMPLAINT: right-sided colon mass HISTORY OF PRESENT ILLNESS: Patient is s/p exploratory laparotomy, right colectomy, and partial omentectomy. POD #9. Patients pain is tolerable. Passing flatus and having BMs. Tolerating PO intake. AMMON drain this morning was full of serous fluid. Nursing able to report last time drain was emptied. PHYSICAL EXAM: VITAL SIGNS: Reviewed. GENERAL: Well-developed in no acute distress. HEENT: No sclera icterus. Extraocular movements grossly intact. Moist buccal mucosa. Head is atraumatic, normocephalic. ABDOMEN: Soft. Nontender. AMMON drain with serous drainage. Urinary catheter intact with yellow urine. Positive bowel sounds. NEUROLOGIC: Alert and oriented. Cranial nerves II through XII grossly intact. ASSESSMENT: 1. Colon cancer PLAN: 1. Continue current diet 2. Increase activity as tolerated 3. Due to AMMON bulb being full this morning and nursing unable to report last time it was emptied, will leave AMMON drain in place at this time. Spoke with nursing who will empty drain now and notify provider of drainage of AMMON this afternoon. Depending on drainage amount, may leave AMMON in place for another day or possibly DC this evening. Nurse practitioner note has been reviewed by physician. Signing provider agrees with the documented findings, assessment, and plan of care. Objective - Vital Signs Vital signs: Vital Signs Temp 98.3 F 02/03/19 12:00 Pulse 115 H 02/03/19 12:00 Resp 16 02/03/19 12:00 BP 80/57 02/03/19 12:00 Pulse Ox 95 02/03/19 04:00 Intake & Output 02/02/19 02/03/19 02/03/19 18:59 06:59 18:59 Intake Total 1025 330 358 Output Total 1100 2600 491 Balance -75 -5440 -133 Weight 105.1 kg 101.2 kg Intake: Intake, IV Titration 280 Amount Piperacillin-Tazobactam 3 100 .375 gm In Sodium Chloride 0.9% 100 ml @ 25 mls/hr IVPB Q8HR KENDAL Rx# :[id number] Sodium Chloride 0.9% 1, 180 000 ml @ 20 mls/hr IV . Q24H KENDAL Rx#:[id number] Oral 745 330 358 Output: Drainage 50 40 Lower Anterior Abdomen 50 40 Urine 1100 2550 450 Uretheral (Cotter) 675 450 Stool 1 Other: Voiding Method Indwelling Catheter Indwelling Catheter Toilet Urinal # Voids 1 1 # Bowel Movements 1 - Labs CBC & Chem 7: 02/03/19 06:10 02/03/19 06:10 Labs: Abnormal Lab Results - Last 24 Hours (Table) 02/03/19 02/03/19 Range/Units 06:10 06:10 Hgb 10.6 L (13.0-17.5) gm/dL Hct 38.0 L (39.0-53.0) % MCV 78.7 L (80.0-100.0) fL MCH 21.9 L (25.0-35.0) pg MCHC 27.8 L (31.0-37.0) g/dL RDW 22.5 H (11.5-15.5) % Plt Count 594 H (150-450) k/uL Sodium 131 L (137-145) mmol/L Chloride 89 L (98-107) mmol/L Carbon Dioxide 34 H (22-30) mmol/L Calcium 8.2 L (8.4-10.2) mg/dL
[2019-02-03] MEDS ORDERED: FUROSEMIDE 40 MG TAB PO SCH (15:00)
[2019-02-04 08:12] LABS: Anisocytosis Moderate; HCT 39.3 % (39.0-53.0); Hypochromasia Marked; MCH 22.1 pg (25.0-35.0); MCHC 28.1 g/dL (31.0-37.0); MCV 78.8 fL (80.0-100.0); Microcytosis Moderate; Platelet Count 660 k/uL (150-450); RBC 4.98 m/uL (4.30-5.90); RDW 22.2 % (11.5-15.5); WBC 7.1 k/uL (3.8-10.6)
[2019-02-04 08:18] LABS: Anion Gap 8 mmol/L; Blood Urea Nitrogen 18 mg/dL (9-20); Calcium 8.3 mg/dL (8.4-10.2); Carbon Dioxide 30 mmol/L (22-30); Chloride 92 mmol/L (98-107); Glucose 88 mg/dL (74-99); Potassium 3.9 mmol/L (3.5-5.1); Sodium 130 mmol/L (137-145)
[2019-02-04] MEDS: ASCORBIC ACID 500 MG TAB PO SCH ×2 (10:11→21:06)
[2019-02-04] MEDS: FINASTERIDE 5 MG TAB PO SCH (10:11)
[2019-02-04] MEDS: CHOLECALCIFEROL 1,000 UNIT TAB PO SCH (10:12)
[2019-02-04] MEDS: FERROUS SULFATE 325 MG TAB PO SCH ×2 (10:13→21:06)
[2019-02-04] MEDS: AMIODARONE 200 MG TAB PO SCH (10:13)
[2019-02-04] MEDS: POTASSIUM CHLORIDE ER 20 MEQ TAB.ER PO SCH (10:13)
[2019-02-04] MEDS: MAGNESIUM OXIDE 400 MG TAB PO SCH (10:13)
[2019-02-04] MEDS: HEPARIN SODIUM,PORCINE 5,000 UNIT/ML 1 ML VIAL SQ SCH ×2 (10:13→21:14)
[2019-02-04] MEDS: METOLAZONE 5 MG TAB PO SCH (10:14)
--- NOTE | 2019-02-04 12:20 | P.PN ---
Subjective Progress Note Date: 02/04/19 CHIEF COMPLAINT: right-sided colon mass HISTORY OF PRESENT ILLNESS: Patient is s/p exploratory laparotomy, right colectomy, and partial omentectomy. POD #10. Patients pain is tolerable. Passing flatus and having BMs. Tolerating PO intake. AMMON drain this morning half full of serous fluid. Nursing reports 100cc thus far today has been emptied. PHYSICAL EXAM: VITAL SIGNS: Reviewed. GENERAL: Well-developed in no acute distress. HEENT: No sclera icterus. Extraocular movements grossly intact. Moist buccal mucosa. Head is atraumatic, normocephalic. ABDOMEN: Soft. Nontender. AMMON drain with serous drainage. Positive bowel sounds. NEUROLOGIC: Alert and oriented. Cranial nerves II through XII grossly intact. ASSESSMENT: 1. Colon cancer PLAN: 1. Continue current diet 2. Increase activity as tolerated 3. Remove every other staple today. Remove remaining maggie tomorrow then place steri-strips 4. Due to amount of AMMON bulb drainage, will leave AMMON for another 48-72 hours Nurse practitioner note has been reviewed by physician. Signing provider agrees with the documented findings, assessment, and plan of care. Objective - Vital Signs Vital signs: Vital Signs Temp 97.0 F L 02/04/19 04:00 Pulse 118 H 02/04/19 08:00 Resp 16 02/04/19 08:00 BP 82/49 02/04/19 08:00 Pulse Ox 99 02/04/19 04:00 Intake & Output 02/03/19 02/04/19 02/04/19 18:59 06:59 18:59 Intake Total 718 160 800 Output Total 1286 275 Balance -568 -115 800 Weight 101.4 kg Intake: IV 160 0.9 160 Oral 718 800 Output: Drainage 85 50 Lower Anterior Abdomen 85 50 Urine 1200 225 Uretheral (Cotter) 450 Stool 1 Other: Voiding Method Toilet Urinal Urinal # Voids 2 - Labs CBC & Chem 7: 02/04/19 07:02 02/04/19 07:02 Labs: Abnormal Lab Results - Last 24 Hours (Table) 02/04/19 02/04/19 Range/Units 07:02 07:02 Hgb 11.0 L (13.0-17.5) gm/dL MCV 78.8 L (80.0-100.0) fL MCH 22.1 L (25.0-35.0) pg MCHC 28.1 L (31.0-37.0) g/dL RDW 22.2 H (11.5-15.5) % Plt Count 660 H (150-450) k/uL Sodium 130 L (137-145) mmol/L Chloride 92 L (98-107) mmol/L Calcium 8.3 L (8.4-10.2) mg/dL
[2019-02-04] MEDS ORDERED: predniSONE 10 MG TAB PO STA (13:14)
--- NOTE | 2019-02-04 14:02 | P.PN ---
Subjective Progress Note Date: 02/04/19 Principal diagnosis: cecal adenocarcinoma In follow-up today patient and his daughter had some questions about treatment. Patient is doing well he is going to be going to rehab for a few weeks. He has no acute physical complaints today Objective - Vital Signs Vital signs: Vital Signs Temp 97.0 F L 02/04/19 04:00 Pulse 118 H 02/04/19 08:00 Resp 16 02/04/19 08:00 BP 82/49 02/04/19 08:00 Pulse Ox 99 02/04/19 04:00 Intake & Output 02/03/19 02/04/19 02/04/19 18:59 06:59 18:59 Intake Total 718 160 800 Output Total 1286 275 Balance -568 -115 800 Weight 101.4 kg Intake: IV 160 0.9 160 Oral 718 800 Output: Drainage 85 50 Lower Anterior Abdomen 85 50 Urine 1200 225 Uretheral (Cotter) 450 Stool 1 Other: Voiding Method Toilet Urinal Urinal # Voids 2 - Exam Well-developed, overweight male laying in bed, no acute distress, alert and oriented 4, normocephalic, atraumatic, anicteric sclera, respirations even and unlabored, no abdominal distention or lower extremity swelling noted - Labs CBC & Chem 7: 02/04/19 07:02 02/04/19 07:02 Labs: Abnormal Lab Results - Last 24 Hours (Table) 01/25/19 02/04/19 02/04/19 Range/Units 12:44 07:02 07:02 Hgb 11.0 L (13.0-17.5) gm/dL MCV 78.8 L (80.0-100.0) fL MCH 22.1 L (25.0-35.0) pg MCHC 28.1 L (31.0-37.0) g/dL RDW 22.2 H (11.5-15.5) % Plt Count 660 H (150-450) k/uL Sodium 130 L (137-145) mmol/L Chloride 92 L (98-107) mmol/L Calcium 8.3 L (8.4-10.2) mg/dL Crossmatch See Detail Assessment and Plan (1) Adenocarcinoma, colon Narrative/Plan: 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 We discussed no disease elsewhere on CT but did clarify that there was some residual tumor left behind due to the mass being near dinorah hepatis. I called room and spoke with son. Pt has appt to see Dr. Lizarraga for treatment discussion in 4 weeks. No treatment can be started until pt has completed rehabilitation and is no longer in ECF/rehab facility Current Visit: Yes Status: Acute Priority: High Code(s): C18.9 - MALIGNANT NEOPLASM OF COLON, UNSPECIFIED SNOMED Code(s): 291645025 (2) Microcytic hypochromic anemia Narrative/Plan: Improved post op, pt is on oral iron. Current Visit: Yes Status: Acute Priority: Medium Code(s): D50.9 - IRON DEFICIENCY ANEMIA, UNSPECIFIED SNOMED Code(s): 78021654
--- NOTE | 2019-02-04 14:31 | P.PN ---
Subjective Progress Note Date: 02/04/19 This is a pleasant 88 showed male past medical history significant for atrial fibrillation, nonischemic cardiomyopathy, iron deficiency anemia and hypertension. He follows in the office with Dr. Lai. 2 nieces morning to be in a normal sinus rhythm. Blood pressure 88/50 earlier this morning, subsequent blood pressure 100/60. Hemoglobin 7.7, white blood cell count 14.9, potassium 5.2 and sodium 129 today. We'll continue with current medications. 01/19/2019 Patient underwent EGD and colonoscopy today, revealed hiatal hernia with no obvious esophagitis or complicated reflux disease. Normal stomach and duodenum. There is a cecal mass present consistent with cancer and multiple biopsies were obtained. At this time we will hold off from any anticoagulation. This was discussed with the patient and his in detail. She was quite concerned that the patient was at increased risk for stroke now that the anticoagulant will be held. Dr. fili Armenta did have a discussion with her regarding a possible watchman procedure down the road. Hemodynamically the patient is stable today and overall doing well. Hemoglobin 7.2 today. 01/20/2019 Patient was seen and examined this morning, overall feels well. Anticipating discharge home today. At this point in time anticoagulation will continue to be on hold until decision is made regarding the cecal mass. This was explained to the patient and his family in detail. 01/28/2019 Patient is status post sigmoid resection by Dr. Bailey, he was given some albumin yesterday, overall not making much urine. Continues to be in atrial fibrillation, heart rate in the 90s, blood pressure 104/60. Continues to have significant bilateral peripheral edema. We will give the patient a dose of IV Lasix today. Monitor daily renal function closely. 01/29/2019 Patient did diuresis more through the night last night it does appear that his edema today is mildly improved but he still has significant edema overall. We will start him on a Lasix drip monitoring his intake and output and labs closely. 02/03/2019 Patient seen and examined this morning, blood pressure running around 80 systolic, he is asymptomatic. We will hold his Lasix in the morning today, decrease the dose to 40 mg by mouth twice a day from this evening, discontinue Zaroxolyn, decrease amiodarone to 200 mg daily. He may be able to be transferred to extended care facility today from our perspective. We will make him a follow-up appointment in the office post discharge. 02/04/2019 Patient seen and examined this morning, continues to be hypotensive this morning. We will hold his Lasix today. If his blood pressure remains stable, possibly this afternoon he be transferred to. We will given some fluids gently today during the day. Objective - Vital Signs Vital signs: Vital Signs Temp 97.0 F L 02/04/19 04:00 Pulse 119 H 02/04/19 12:00 Resp 17 02/04/19 12:00 BP 95/60 02/04/19 12:00 Pulse Ox 98 02/04/19 12:00 Intake & Output 02/03/19 02/04/19 02/04/19 18:59 06:59 18:59 Intake Total 718 160 800 Output Total 1286 275 65 Balance -568 -115 735 Weight 101.4 kg Intake: IV 160 0.9 160 Oral 718 800 Output: Drainage 85 50 65 Lower Anterior Abdomen 85 50 65 Urine 1200 225 Uretheral (Cotter) 450 Stool 1 Other: Voiding Method Toilet Urinal Urinal # Voids 2 - Exam GENERAL: This is a 88-year-old male in no apparent distress at the time of my examination. HEENT: Head is atraumatic, normocephalic. Pupils are equal, round. Sclerae anicteric. Conjunctivae are clear. Mucous membranes of the mouth are moist. Neck is supple. There is no jugular venous distention. No carotid bruit is heard. LUNGS: Clear to auscultation no wheezes, rales or rhonchi. No chest wall tenderness is noted on palpation or with deep breathing. HEART: Irregular rate and rhythm with systolic ejection murmur at the base, no rubs or gallops. S1 and S2 heard. ABDOMEN: Soft, nontender. Bowel sounds are heard. No organomegaly noted. EXTREMITIES: trace to1+ bilateral lower extremity pitting edema and no calf tenderness noted. - Labs CBC & Chem 7: 02/04/19 07:02 02/04/19 07:02 Labs: Abnormal Lab Results - Last 24 Hours (Table) 01/25/19 02/04/19 02/04/19 Range/Units 12:44 07:02 07:02 Hgb 11.0 L (13.0-17.5) gm/dL MCV 78.8 L (80.0-100.0) fL MCH 22.1 L (25.0-35.0) pg MCHC 28.1 L (31.0-37.0) g/dL RDW 22.2 H (11.5-15.5) % Plt Count 660 H (150-450) k/uL Sodium 130 L (137-145) mmol/L Chloride 92 L (98-107) mmol/L Calcium 8.3 L (8.4-10.2) mg/dL Crossmatch See Detail Assessment and Plan Plan: ASSESSMENT #1Acute anemia #2Leukocytosis #3Thrombocythemia #4Chroinc atrial firbillation with rapid ventricular response, maintained on tikosyn at home #5Hypertension #6Non-ischemic cardiomyopathy #7Chronic systolic heart failure, currently euvolemic #8 colon cancer status post sigmoid resection Plan We'll hold the Lasix today and from tomorrow and resume it, give the patient IV fluids today. He may be able to be transferred to the ECF this afternoon. DNP note has been reviewed, I agree with a documented findings and plan of care. Patient was seen and examined.
[2019-02-04] MEDS: SODIUM CHLORIDE 0.9% 1,000 ML IV SCH ×3 (14:47→17:01)
[2019-02-04] MEDS ORDERED: FUROSEMIDE 40 MG TAB PO SCH (16:00)
[2019-02-04 16:55] VITALS: RESP 18
--- NOTE | 2019-02-04 17:13 | P.DS ---
Providers Date of admission: 01/16/19 08:35 Attending physician: Ger Silva Consults: 01/15/19 13:58 Consult Physician Routine Consulting Provider: Philip Andrade Consult Reason/Comments: COPD, CHF Do you want consulting provider notified?: Yes Consult Physician Routine Consulting Provider: Garth Weber Consult Reason/Comments: CHF Do you want consulting provider notified?: Yes 01/19/19 14:50 Consult Physician Routine Consulting Provider: Estrada Lizarraga Consult Reason/Comments: CECAL MASS ANEMIA Do you want consulting provider notified?: Yes 01/21/19 20:12 Consult Physician Routine Consulting Provider: Jaguar Bailey Consult Reason/Comments: cecal mass Do you want consulting provider notified?: Yes, Notify in am 02/01/19 16:58 Consult Physician Routine Consulting Provider: Eleazar Pierre Consult Reason/Comments: Pressure injury Do you want consulting provider notified?: Already Contacted Primary care physician: [facility] Course: Diagnoses: Cecal mass, status post exploratory laparotomy and right colectomy with partial meniscectomy. Final pathology resulted with adenocarcinoma. No evidence of distant metastasis Dyspnea, multifactorial including sleep apnea atrophic ablations and heart failure and possibly also COPD Current deficiency anemia Acute blood loss anemia Hyponatremia Morbid obesity Hypertension, currently patient blood pressure on the low normal site Nonischemic cardiomyopathy, chronic systolic congestive heart failure History of Chronic atrial fibrillation, was on Eliquis. Which is held Heel pressure ulcers Malnutrition DVT prophylaxis Hospital course: 88 year old male patient admitted with atrial fibrillation with RVR and cecal mass; patient is status post EGD/colonoscopy showing hiatal hernia and a cecal mass consistent with cancer; multiple biopsies were obtained positive for colon cancer; patient underwent exploratory laparotomy with right colectomy and partial omentectomy; also patient dyspnea is significantly improved, his Zaroxolyn was stopped and Lasix was changed from 40 mg IV twice a day to 40 mg daily with holding per meters. Patient has abowel movement since admission about twice per day, no abdominal pain or nausea vomiting.Patient has been evaluated by several consultants, including general surgery, oncology, infectious disease and cardiology. Patient still feels generally weak and he needs physical rehab. Patient was cleared for discharge by all consultants including cardiology, oncology, infectious disease, and surgical team Patient is fully awake and oriented. He denies pain anywhere. No chest pain. He has dry cough. He has mild dyspnea. With prolonged expiration. Patient may benefit from a short course of steroids upon discharge with taper no abdominal pain or nausea vomiting. He tolerates diet well and taken ensure as a supplement. As mentioned earlier he has to watery bowel movements every day since admission. No urinary complaints as per patient. He stated in bed most of the time. Patient himself feels is ready to go to rehab. Daughter at bedside Problems and management plan was discussed with the patient and he verbalized understanding and acceptance. Daughter at bedside Patient was found stable and can be discharged to rehab and guarded prognosis. However he needs follow-up as an outpatient. Patient agrees with the appointments made for him Gen: patient is a AAOx3, no distress CVS: S1-S2, RRR, no murmur Lungs: B/L CTA, mild scattered expiratory weezing. Prolonged expiratory phase Abdomen: soft, no distention, no tenderness, positive bowel sounds. Wound is closed with maggie in place Extremity: no leg edema or induration Time spent more than 35 minutes Patient Condition at Discharge: Serious Plan - Discharge Summary Discharge Rx Participant: No New Discharge Prescriptions: New Amiodarone [Cordarone] 200 mg PO TID #90 tab Metoprolol Tartrate [Lopressor] 25 mg PO BID #60 tab Continue Tamsulosin HCl [Flomax] 0.4 mg PO DAILY Magnesium Oxide [Mag-Ox] 250 mg PO DAILY Finasteride [Proscar] 5 mg PO DAILY Ferrous Sulfate [Iron (65 MG Elemental)] 325 mg PO BID Cholecalciferol (Vitamin D3) [Vitamin D3] 2,000 unit PO DAILY Ascorbic Acid [Vitamin C] 250 mg PO BID Discontinued Atenolol [Tenormin] 50 mg PO DAILY Apixaban [Eliquis] 2.5 mg PO BID No Action Spironolactone 50 mg PO DAILY Dofetilide [Tikosyn] 125 mcg PO Q12HR Discharge Medication List Finasteride [Proscar] 5 mg PO DAILY 12/23/18 [History] Magnesium Oxide [Mag-Ox] 250 mg PO DAILY 12/23/18 [History] Spironolactone 50 mg PO DAILY 12/23/18 [History] Tamsulosin HCl [Flomax] 0.4 mg PO DAILY 12/23/18 [History] Ascorbic Acid [Vitamin C] 250 mg PO BID 03/08/19 [History] Cholecalciferol (Vitamin D3) [Vitamin D3] 2,000 unit PO DAILY 01/15/19 [History] Dofetilide [Tikosyn] 125 mcg PO Q12HR 01/15/19 [History] Ferrous Sulfate [Iron (65 MG Elemental)] 325 mg PO BID 01/15/19 [History] Amiodarone [Cordarone] 200 mg PO TID #90 tab 01/21/19 [Rx] Metoprolol Tartrate [Lopressor] 25 mg PO BID #60 tab 01/21/19 [Rx] Follow up Appointment(s)/Referral(s): Jaguar Bailey MD [Medical Doctor] - 1 Week (Gastrointestinal surgeon.) Estrada Lizarraga MD [STAFF PHYSICIAN] - 03/03/19 2:15 pm (This appt is at the [facility], 2nd floor) Quang Valle MD [STAFF PHYSICIAN] - 02/02/19 5:30 pm (Friday) Nelly Lai MD [STAFF PHYSICIAN] - 01/29/19 8:45 am (Friday) Bishnu Lugo DO [Doctor of Osteopathic Medicine] - 02/04/19 9:30 am () [facility],Clinic [Primary Care Provider] - 3 Days ([phone] ) Ambulatory/Diagnostic Orders: Complete Blood Count w/diff [LAB.AMB] Time Frame: 3 Days, Location: None Selected Patient Instructions/Handouts: Heart Failure (DC), Hiatal Hernia (DC), Colectomy (DC), Anemia (DC) Activity/Diet/Wound Care/Special Instructions: [place] Anticoagulation on hold as per cardiology, possible candidate for watchman device. In follow up appointment with primary have digoxin levels drawn. Follow with CM for indigent funds EVERY OTHER STAPLE REMOVED 02/04/2019 MAY REMOVE REMAINING MAGGIE 02/05/2019 IF SITE LOOKS OKAY WITHOUT SIGNS OF DEHISCENCE AMMON DRAIN LEFT INTACT DUE TO INCREASED AMOUNT OF SEROUS DRAINAGE. MAY DISCONTINUE FridayFEBRUARY 06
--- NOTE | 2019-02-04 23:01 | P.PN ---
Subjective Progress Note Date: 02/04/19 88-year-old male, who is a [employer] [employer] from the [employer], relates to a several month history of declining status. He noticed a marked decrease in his ability to ambulate without becoming more and more short of breath. He had progressive and significant fatigue and malaise. He consequent ly presents to Hospital for further evaluation. It admission there was profound anemia and concerns to elevated BNP and congestive heart failure. The patient underwent extensive evaluations have included endoscopy showed evidence of a cecal mass. 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 Imaging studies revealed evidence of the cecal mass and constantly was taken to the operating room and resection was performed, however residual tumor was noted at the time of the surgical intervention. The patient has had a slow recovery in the infectious diseases consult has been requested regarding the new pressure ulceration to the left heel, as well as the onset of some erythema to the buttocks. The patient is very weak and did have a session with physical therapy today, with great difficulty with ambulation. He relates that his pain is modestly well controlled. His appetite is very poor. He does relate that he still feels very weak. 02/02/2019 patient still feels weak. And actually somewhat worse today. It appears that he is having the onset of atrial fibrillation with rapid ventricular response. Resulting in some shortness of breath and chest pain. Chest pain has resolved shortness of breath is improving and oxygen has been applied. He denies other new acute complaints at this point in time, but does have the pain and left heel 02/04/2019 patient felt poorly yesterday with his A. fib was more improved. Was having some low blood pressures that have now been improved. He's feeling better overall and continue to work toward transition to rehab. Objective - Vital Signs Vital signs: Vital Signs Temp 97.2 F L 02/04/19 20:00 Pulse 119 H 02/04/19 20:00 Resp 18 02/04/19 20:00 BP 84/53 02/04/19 20:00 Pulse Ox 95 02/04/19 20:00 Intake & Output 02/04/19 02/04/19 02/05/19 06:59 18:59 06:59 Intake Total 160 1938 Output Total 275 290 185 Balance -115 1648 -185 Weight 101.4 kg Intake: IV 160 120 0.9 160 120 Oral 1818 Output: Drainage 50 65 60 Lower Anterior Abdomen 50 65 60 Urine 225 225 125 Other: Voiding Method Urinal Urinal Urinal # Voids 2 1 - Exam 88 -year-old malewho has some pallor but not in acute distress HEENT: Anicteric conjunctiva arepale but moist nasal mucosa grossly intact without significant lesions, there is no thrush.enture in place positive hearing aids Neck: The neck is supple without significant lymphadenopathy or thyromegaly. Lungs: Symmetrical air entry is noted, some expiratory wheezes but no dullness or egophony Heart: Irregular with an audible S1 and S2 soft S4 no distinct murmur click or a PMI was nondisplaced no urethral Abdomen: obese,Positive bowel sounds soft and nontender without palpable masses or organomegaly. There was no guarding or rebound. Extremities: The upper extremities have excellent pulses they are symmetric, no significant petechiae or telangiectasia. No splinter hemorrhages were noted. Lower extremities have some ongoing edema but apparently this is improved. Has evidence of the full-thickness pressor ulceration to the left heel with exposure some underlying fat layer, please see the nursing photography regarding the ulceration. as noted yesterday the tissue that was hanging from the ulceration was removed with scissors with no other debridement occurring. The site is mildly tender and has evidence of some mild surrounding erythema but no expressible purulence right heel is intact. Neuro: Awake alert oriented to person place and time. no acute gross focal deficits however patient has significant generalized weakness - Labs CBC & Chem 7: 02/04/19 07:02 02/04/19 07:02 Labs: Abnormal Lab Results - Last 24 Hours (Table) 01/25/19 02/04/19 02/04/19 Range/Units 12:44 07:02 07:02 Hgb 11.0 L (13.0-17.5) gm/dL MCV 78.8 L (80.0-100.0) fL MCH 22.1 L (25.0-35.0) pg MCHC 28.1 L (31.0-37.0) g/dL RDW 22.2 H (11.5-15.5) % Plt Count 660 H (150-450) k/uL Sodium 130 L (137-145) mmol/L Chloride 92 L (98-107) mmol/L Calcium 8.3 L (8.4-10.2) mg/dL Crossmatch See Detail Laboratory Results WBC 7.1 k/uL (3.8-10.6) 02/04/19 07:02 RBC 4.98 m/uL (4.30-5.90) 02/04/19 07:02 Hgb 11.0 gm/dL (13.0-17.5) L 02/04/19 07:02 Hct 39.3 % (39.0-53.0) 02/04/19 07:02 MCV 78.8 fL (80.0-100.0) L 02/04/19 07:02 MCH 22.1 pg (25.0-35.0) L 02/04/19 07:02 MCHC 28.1 g/dL (31.0-37.0) L 02/04/19 07:02 RDW 22.2 % (11.5-15.5) H 02/04/19 07:02 Plt Count 660 k/uL (150-450) H 02/04/19 07:02 Neutrophils % 84 % 01/30/19 06:07 Neutrophils % (Manual) 70 % 01/31/19 06:23 Lymphocytes % 10 % 01/30/19 06:07 Lymphocytes % (Manual) 19 % 01/31/19 06:23 Monocytes % 5 % 01/30/19 06:07 Monocytes % (Manual) 11 % 01/31/19 06:23 Eosinophils % 0 % 01/30/19 06:07 Basophils % 0 % 01/30/19 06:07 Neutrophils # 7.8 k/uL (1.3-7.7) H 01/30/19 06:07 Neutrophils # (Manual) 5.18 k/uL (1.3-7.7) 01/31/19 06:23 Lymphocytes # 0.9 k/uL (1.0-4.8) L 01/30/19 06:07 Lymphocytes # (Manual) 1.41 k/uL (1.0-4.8) 01/31/19 06:23 Monocytes # 0.5 k/uL (0-1.0) 01/30/19 06:07 Monocytes # (Manual) 0.81 k/uL (0-1.0) 01/31/19 06:23 Eosinophils # 0.0 k/uL (0-0.7) 01/30/19 06:07 Basophils # 0.0 k/uL (0-0.2) 01/30/19 06:07 Nucleated RBCs 0 /100 WBC (0-0) 01/31/19 06:23 Manual Slide Review Performed 01/31/19 06:23 Polychromasia Present 01/22/19 15:07 Hypochromasia Marked 02/04/19 07:02 Poikilocytosis Slight 01/26/19 06:25 Anisocytosis Moderate 02/04/19 07:02 Microcytosis Moderate 02/04/19 07:02 Target Cells Present 01/31/19 06:23 Ovalocytes Present 01/22/19 15:07 PT 10.4 sec (9.0-12.0) 01/22/19 15:45 INR 1.0 (<1.2) 01/22/19 15:45 APTT 24.1 sec (22.0-30.0) 01/15/19 10:58 D-Dimer 0.83 mg/L FEU (<0.60) H 01/15/19 10:58 Sodium 130 mmol/L (137-145) L 02/04/19 07:02 Potassium 3.9 mmol/L (3.5-5.1) 02/04/19 07:02 Chloride 92 mmol/L (98-107) L 02/04/19 07:02 Carbon Dioxide 30 mmol/L (22-30) 02/04/19 07:02 Anion Gap 8 mmol/L 02/04/19 07:02 BUN 18 mg/dL (9-20) 02/04/19 07:02 Creatinine 0.84 mg/dL (0.66-1.25) 02/04/19 07:02 Est GFR (CKD-EPI)AfAm >90 (>60 ml/min/1.73 sqM) 02/04/19 07:02 Est GFR (CKD-EPI)NonAf 79 (>60 ml/min/1.73 sqM) 02/04/19 07:02 Glucose 88 mg/dL (74-99) 02/04/19 07:02 Osmolality 267 mosm/kg (280-301) L 01/21/19 05:46 Calcium 8.3 mg/dL (8.4-10.2) L 02/04/19 07:02 Magnesium 1.8 mg/dL (1.6-2.3) 02/01/19 08:31 Total Bilirubin 0.4 mg/dL (0.2-1.3) 01/25/19 06:09 AST 19 U/L (17-59) 01/25/19 06:09 ALT 21 U/L (21-72) 01/25/19 06:09 Alkaline Phosphatase 109 U/L (38-126) 01/25/19 06:09 Troponin I <0.012 ng/mL (0.000-0.034) 01/15/19 23:46 NT-Pro-B Natriuret Pep 1320 pg/mL 01/15/19 10:58 Total Protein 4.7 g/dL (6.3-8.2) L 01/25/19 06:09 Albumin 2.1 g/dL (3.5-5.0) L 01/25/19 06:09 Carcinoembryonic Ag 19.9 ng/mL (0.0-4.9) H 01/20/19 08:08 TSH 4.560 mIU/L (0.465-4.680) 01/17/19 06:33 Urine Osmolality 694 mosm/kg (50-1400) 01/21/19 22:50 Ur Random Creatinine 167.0 mg/dL 01/21/19 22:50 Ur Random Sodium 38 mmol/L 01/21/19 22:50 Blood Type O Positive 01/25/19 12:44 Blood Type Confirm O Positive 01/25/19 06:09 Blood Type Recheck CABO Indicated 01/25/19 12:44 Antibody Screen NEGATIVE 01/25/19 12:44 Crossmatch See Detail 01/25/19 12:44 Spec Expiration Date 01/28/2019 - 9129 01/25/19 12:44 Assessment and Plan (1) Acute blood loss anemia Current Visit: Yes Status: Acute Code(s): D62 - ACUTE POSTHEMORRHAGIC ANEMIA SNOMED Code(s): 876693754 (2) Adenocarcinoma, colon Current Visit: Yes Status: Acute Priority: High Code(s): C18.9 - MALIGNANT NEOPLASM OF COLON, UNSPECIFIED SNOMED Code(s): 869545597 (3) Pressure ulcer of left heel, stage 3 Narrative/Plan: 88-year-old male presents to Hospital with significant weakness and fatigue. Was found evidence of significant blood loss anemia and evaluation reveal evidence of an extensive cecal mass. Surgical resection occurred, however there was incomplete resection of the large tumor. The patient has been seen by oncology and apparently is not a candidate for even pain with of chemotherapy. The patient's family is present including his grandson who is a local nurse. The patient is too weak to be able to go to his home environment. The patient hopefully is convinced of the importance of going to rehab to try to regain his strength. The goal is to try to have some independent living and then consider the possibility of palliative chemotherapy. He is been treated for his profound anemia and definitely feels better. Appetite but was still very poor. We discussed the significant importance of protein intake and how they can help his physical recovery. Wound care to heal will be with therahoney and a foam dressing. The foam dressing is applied to the irritation this been noted to the coccyx area. The patient does not like to wear the foam boot constantly trying to find an air boot to offload the left heel. The site does not appear to be infected and no need for antibiotic therapy yet at this time. the patient's family's questions are answered. 02/02/2019 the patient developed A. fib with rapid ventricular response today which resulted in some chest pain and some increasing shortness of breath. Chest pain is now resolved shortness of breath is improved with treatment of the ventricular rate and oxygen therapy. Pain to the heel is not increased. Please clarify that the ulceration left heel was not present on admission. The patient has multiple risk factors for ulceration that include his immobility, moderate protein calorie malnutrition, edema and congestive heart failure. The patient is more comfortable with air mattress overlay in the heel protector is being utilized. Once he is stable will transfer to rehabilitation to improve his functional sta tus. 02/04/2018 patient feeling better today. Has been working with the therapist a bit trying to improve his strength. He pressed ulceration is being treated with the therahoney in foam dressing. He is comfortable on the air mattress overlay. Transition to rehab is in process to improve his strength and received wound care. Daughter's questions are answered Current Visit: Yes Status: Acute Code(s): L89.623 - PRESSURE ULCER OF LEFT HEEL, STAGE 3 SNOMED Code(s): 937466522
[2019-02-05 03:14] VITALS: TEMP 97.4
--- NOTE | 2019-02-05 08:44 | P.PN ---
Subjective Progress Note Date: 02/05/19 CHIEF COMPLAINT: right-sided colon mass HISTORY OF PRESENT ILLNESS: Patient is s/p exploratory laparotomy, right colectomy, and partial omentectomy. POD #11. Patients pain is tolerable. Passing flatus and having BMs. Tolerating PO intake. EMR reports 120cc of drainage overnight. AMMON drain continues with serous fluid, about 1/3 full this morning. PHYSICAL EXAM: VITAL SIGNS: Reviewed. GENERAL: Well-developed in no acute distress. HEENT: No sclera icterus. Extraocular movements grossly intact. Moist buccal mucosa. Head is atraumatic, normocephalic. ABDOMEN: Soft. Nontender. AMMON drain with serous drainage. Positive bowel sounds. NEUROLOGIC: Alert and oriented. Cranial nerves II through XII grossly intact. ASSESSMENT: 1. Colon cancer PLAN: 1. Continue current diet 2. Increase activity as tolerated 3. Remove remaining maggie today. Steri strips to incision. 4. Patient may be discharged with AMMON drain. May discontinue tomorrow or Friday at [facility] Nurse practitioner note has been reviewed by physician. Signing provider agrees with the documented findings, assessment, and plan of care. Objective - Vital Signs Vital signs: Vital Signs Temp 97.4 F L 02/05/19 03:14 Pulse 120 H 02/05/19 03:14 Resp 18 02/05/19 03:14 BP 102/57 02/05/19 03:14 Pulse Ox 96 02/05/19 03:14 Intake & Output 02/04/19 02/05/19 02/05/19 18:59 06:59 18:59 Intake Total 1938 Output Total 290 245 Balance 1648 -245 Weight 100.8 kg Intake: IV 120 0.9 120 Oral 1818 Output: Drainage 65 120 Lower Anterior Abdomen 65 120 Urine 225 125 Other: Voiding Method Urinal Urinal # Voids 1 - Labs CBC & Chem 7: 02/04/19 07:02 02/04/19 07:02 Labs: Abnormal Lab Results - Last 24 Hours (Table) 01/25/19 Range/Units 12:44 Crossmatch See Detail
[2019-02-05] MEDS: MAGNESIUM OXIDE 400 MG TAB PO SCH (08:58)
[2019-02-05] MEDS: ASCORBIC ACID 500 MG TAB PO SCH (08:59)
[2019-02-05] MEDS: FINASTERIDE 5 MG TAB PO SCH (08:59)
[2019-02-05] MEDS: HEPARIN SODIUM,PORCINE 5,000 UNIT/ML 1 ML VIAL SQ SCH (08:59)
[2019-02-05] MEDS: POTASSIUM CHLORIDE ER 20 MEQ TAB.ER PO SCH (08:59)
[2019-02-05] MEDS: AMIODARONE 200 MG TAB PO SCH (08:59)
[2019-02-05] MEDS: FERROUS SULFATE 325 MG TAB PO SCH (08:59)
[2019-02-05] MEDS: CHOLECALCIFEROL 1,000 UNIT TAB PO SCH (09:02)
--- NOTE | 2019-02-05 10:43 | P.PN ---
Subjective Progress Note Date: 02/05/19 This is a pleasant 88 showed male past medical history significant for atrial fibrillation, nonischemic cardiomyopathy, iron deficiency anemia and hypertension. He follows in the office with Dr. Lai. 2 nieces morning to be in a normal sinus rhythm. Blood pressure 88/50 earlier this morning, subsequent blood pressure 100/60. Hemoglobin 7.7, white blood cell count 14.9, potassium 5.2 and sodium 129 today. We'll continue with current medications. 01/19/2019 Patient underwent EGD and colonoscopy today, revealed hiatal hernia with no obvious esophagitis or complicated reflux disease. Normal stomach and duodenum. There is a cecal mass present consistent with cancer and multiple biopsies were obtained. At this time we will hold off from any anticoagulation. This was discussed with the patient and his in detail. She was quite concerned that the patient was at increased risk for stroke now that the anticoagulant will be held. Dr. fili Armenta did have a discussion with her regarding a possible watchman procedure down the road. Hemodynamically the patient is stable today and overall doing well. Hemoglobin 7.2 today. 01/20/2019 Patient was seen and examined this morning, overall feels well. Anticipating discharge home today. At this point in time anticoagulation will continue to be on hold until decision is made regarding the cecal mass. This was explained to the patient and his family in detail. 01/28/2019 Patient is status post sigmoid resection by Dr. Bailey, he was given some albumin yesterday, overall not making much urine. Continues to be in atrial fibrillation, heart rate in the 90s, blood pressure 104/60. Continues to have significant bilateral peripheral edema. We will give the patient a dose of IV Lasix today. Monitor daily renal function closely. 01/29/2019 Patient did diuresis more through the night last night it does appear that his edema today is mildly improved but he still has significant edema overall. We will start him on a Lasix drip monitoring his intake and output and labs closely. 02/03/2019 Patient seen and examined this morning, blood pressure running around 80 systolic, he is asymptomatic. We will hold his Lasix in the morning today, decrease the dose to 40 mg by mouth twice a day from this evening, discontinue Zaroxolyn, decrease amiodarone to 200 mg daily. He may be able to be transferred to extended care facility today from our perspective. We will make him a follow-up appointment in the office post discharge. 02/04/2019 Patient seen and examined this morning, continues to be hypotensive this morning. We will hold his Lasix today. If his blood pressure remains stable, possibly this afternoon he be transferred to. We will given some fluids gently today during the day. 02/05/2019 Patient was seen and examined this morning, overall feeling better, slept well last night. Blood pressure this morning 102/58. Anticipating transferred to rehab today. Objective - Vital Signs Vital signs: Vital Signs Temp 97.4 F L 02/05/19 08:30 Pulse 104 H 02/05/19 08:30 Resp 18 02/05/19 08:30 BP 83/43 02/05/19 08:30 Pulse Ox 99 02/05/19 08:30 Intake & Output 02/04/19 02/05/19 02/05/19 18:59 06:59 18:59 Intake Total 1938 Output Total 290 245 30 Balance 1648 -245 -30 Weight 100.8 kg Intake: IV 120 0.9 120 Oral 1818 Output: Drainage 65 120 30 Lower Anterior Abdomen 65 120 30 Urine 225 125 Other: Voiding Method Urinal Urinal # Voids 1 - Exam GENERAL: This is a 88-year-old male in no apparent distress at the time of my examination. HEENT: Head is atraumatic, normocephalic. Pupils are equal, round. Sclerae anicteric. Conjunctivae are clear. Mucous membranes of the mouth are moist. Neck is supple. There is no jugular venous distention. No carotid bruit is heard. LUNGS: Clear to auscultation no wheezes, rales or rhonchi. No chest wall tenderness is noted on palpation or with deep breathing. HEART: Irregular rate and rhythm with systolic ejection murmur at the base, no rubs or gallops. S1 and S2 heard. ABDOMEN: Soft, nontender. Bowel sounds are heard. No organomegaly noted. EXTREMITIES: trace to1+ bilateral lower extremity pitting edema and no calf tenderness noted. - Labs CBC & Chem 7: 02/04/19 07:02 02/04/19 07:02 Labs: Abnormal Lab Results - Last 24 Hours (Table) 01/25/19 Range/Units 12:44 Crossmatch See Detail Assessment and Plan Plan: ASSESSMENT #1Acute anemia #2Leukocytosis #3Thrombocythemia #4Chroinc atrial firbillation with rapid ventricular response, maintained on tikosyn at home #5Hypertension #6Non-ischemic cardiomyopathy #7Chronic systolic heart failure, currently euvolemic #8 colon cancer status post sigmoid resection Plan From Cardiology's perspective, the patient may transfer to rehab today. We will make him a follow-up appointment to see Dr. Lai in the office post discharge. DNP note has been reviewed, I agree with a documented findings and plan of care. Patient was seen and examined.
[2019-02-05] MEDS ORDERED: SODIUM CHLORIDE 0.9% 500 ML 250 ML IV ONE (11:04)
[2019-02-05 11:56] VITALS: BP 83/50; PULSE 120
[2019-02-05 12:21] VITALS: BMI 35.9
[2019-02-05] MEDS ORDERED: FUROSEMIDE 40 MG TAB PO SCH (16:00)
== END 2019-02-05 14:01 | DRG 329 ==
LOC: EC 10:20 → 3SCARD 14:05 → OBSVTOIN 01-16 08:35
PROVIDERS: ADMIT Internal Medicine; ATTEND Internal Medicine
PROC: 0DBH8ZX Excision of Cecum, Via Natural or Artificial Opening Endoscopic, Diagnostic (ICD-10-PCS; 2019-01-19)
PROC: 0DJ08ZZ Inspection of Upper Intestinal Tract, Via Natural or Artificial Opening Endoscopic (ICD-10-PCS; principal; 2019-01-19 07:30)
PROC: 05HF33Z Insertion of Infusion Device into Left Cephalic Vein, Percutaneous Approach (ICD-10-PCS; 2019-01-22)
PROC: 0DBF0ZZ Excision of Right Large Intestine, Open Approach (ICD-10-PCS; 2019-01-25)
PROC: 0DBU0ZZ Excision of Omentum, Open Approach (ICD-10-PCS; 2019-01-25)
PROC: 30233N1 Transfusion of Nonautologous Red Blood Cells into Peripheral Vein, Percutaneous Approach (ICD-10-PCS; 2019-01-25)
DX: C18.0 Malignant neoplasm of cecum (principal); I50.23 Acute on chronic systolic (congestive) heart failure; L89.623 Pressure ulcer of left heel, stage 3; D62 Acute posthemorrhagic anemia; E22.2 Syndrome of inappropriate secretion of antidiuretic hormone; E44.0 Moderate protein-calorie malnutrition; I42.8 Other cardiomyopathies; I45.2 Bifascicular block; I48.1 Persistent atrial fibrillation; K92.2 Gastrointestinal hemorrhage, unspecified; D50.9 Iron deficiency anemia, unspecified; D72.829 Elevated white blood cell count, unspecified; E66.01 Morbid (severe) obesity due to excess calories; E78.5 Hyperlipidemia, unspecified; E86.1 Hypovolemia; G47.33 Obstructive sleep apnea (adult) (pediatric); I08.3 Combined rheumatic disorders of mitral, aortic and tricuspid valves; I11.0 Hypertensive heart disease with heart failure; I27.20 Pulmonary hypertension, unspecified; I48.2 Chronic atrial fibrillation; I80.9 Phlebitis and thrombophlebitis of unspecified site; J44.9 Chronic obstructive pulmonary disease, unspecified; K44.9 Diaphragmatic hernia without obstruction or gangrene; N40.0 Benign prostatic hyperplasia without lower urinary tract symptoms; T50.0X5A Adverse effect of mineralocorticoids and their antagonists, initial encounter; Z68.39 Body mass index [BMI] 39.0-39.9, adult; Z79.01 Long term (current) use of anticoagulants; Z79.899 Other long term (current) drug therapy; Z80.1 Family history of malignant neoplasm of trachea, bronchus and lung; Z87.891 Personal history of nicotine dependence; Z98.42 Cataract extraction status, left eye; Z98.41 Cataract extraction status, right eye; Z96.1 Presence of intraocular lens; Z96.652 Presence of left artificial knee joint; Z60.2 Problems related to living alone; M54.30 Sciatica, unspecified side; H93.13 Tinnitus, bilateral; Z90.49 Acquired absence of other specified parts of digestive tract; R79.1 Abnormal coagulation profile; R53.82 Chronic fatigue, unspecified; Z86.010 Personal history of colon polyps; D47.3 Essential (hemorrhagic) thrombocythemia
CPT/HCPCS: 36410; 36415; 36430; 43235; 45380; 71045; 71046; 71275; 74177; 76937; 80048; 80053; 82378; 82570; 83735; 83880; 83930; 83935; 84300; 84443; 84484; 85025; 85027; 85379; 85610; 85730; 86850; 86900; 86901; 86920; 88305; 88309; 93005; 93306; 94640; 94760; 96374; 99285

== ENCOUNTER → 2019-03-08 | Outpatient (CLI) | payer OTHER ==
[2019-03-08 13:43] LABS: Anisocytosis Slight; Basophils # (A) 0.1 k/uL (0-0.2); Basophils % (A) 1 %; Eosinophils # (A) 0.1 k/uL (0-0.7); Eosinophils % (A) 1 %; HCT 41.9 % (39.0-53.0); HGB 12.6 gm/dL (13.0-17.5); Hypochromasia Marked; Lymphocytes # (A) 2.6 k/uL (1.0-4.8); Lymphocytes % (A) 30 %; Microcytosis Slight; Monocytes # (A) 0.5 k/uL (0-1.0); Monocytes % (A) 6 %; Neutrophils # (A) 5.2 k/uL (1.3-7.7); Neutrophils % (A) 60 %; Platelet Count 469 k/uL (150-450); RBC 5.03 m/uL (4.30-5.90); RDW 19.8 % (11.5-15.5); WBC 8.7 k/uL (3.8-10.6)
[2019-03-08 14:03] LABS: MCV 83.3 fL (80.0-100.0)
[2019-03-08 19:24] LABS: Albumin 3.5 g/dL (3.80-4.90); Albumin/Globulin Ratio 1.67 (1.60-3.17); Anion Gap 14.9 mmol/L (4.00-12.00); Calcium 8.7 mg/dL (8.7-10.3); Carbon Dioxide 21.1 mmol/L (21.6-31.8); Globulin 2.1 g/dL (1.6-3.3); Potassium 4.1 mmol/L (3.5-5.5); Total Bilirubin 0.2 mg/dL (0.2-1.2); Total Protein 5.6 g/dL (6.2-8.2)
== END | disposition home or self-care (01) ==
LOC: LABWHC1 12:37
PROVIDERS: ATTEND Family Medicine
DX: L89.623 Pressure ulcer of left heel, stage 3 (principal)
CPT/HCPCS: 36415; 80053; 84134; 85025

== ENCOUNTER → 2019-03-11 | Outpatient (CLI) | payer OTHER ==
[2019-03-11 13:37] LABS: Anisocytosis Slight; Basophils % (A) 1 %; Eosinophils # (A) 0.1 k/uL (0-0.7); Eosinophils % (A) 1 %; HCT 37.5 % (39.0-53.0); HGB 11.6 gm/dL (13.0-17.5); Hypochromasia Moderate; Lymphocytes % (A) 27 %; MCH 25.2 pg (25.0-35.0); MCHC 30.9 g/dL (31.0-37.0); MCV 81.5 fL (80.0-100.0); Mean Platelet Volume 6.8; Microcytosis Slight; Monocytes # (A) 0.4 k/uL (0-1.0); Monocytes % (A) 6 %; Neutrophils # (A) 4.4 k/uL (1.3-7.7); Neutrophils % (A) 62 %; Platelet Count 416 k/uL (150-450); RDW 19.6 % (11.5-15.5); WBC 7.1 k/uL (3.8-10.6)
[2019-03-11 13:56] LABS: Anion Gap 6 mmol/L; Blood Urea Nitrogen 14 mg/dL (9-20); C Reactive Protein 17.7 mg/L (<10.0); Calcium 8.6 mg/dL (8.4-10.2); Carbon Dioxide 28 mmol/L (22-30); Chloride 99 mmol/L (98-107); Glucose 91 mg/dL (74-99); Potassium 4.7 mmol/L (3.5-5.1); Sodium 133 mmol/L (137-145)
[2019-03-11 14:36] LABS: Erythrocyte Sedimentation Rate 35 mm/hr (0-15)
--- NOTE | 2019-03-11 15:35 | US ---
EXAMINATION TYPE: US venous doppler duplex LE DATE OF EXAM: 03/11/2019 3:29 PM COMPARISON: LOWER EXTREMITY VENOUS INSUFFICIENCY SIDE PERFORMED: bilateral for left heel ulcer x 2 months 1) Color flow is present and patency is documented in the following vessels. No DVT or SVT is noted . Common Femoral Vein Deep Femoral Vein Femoral Vein Popliteal Vein Proximal Calf Veins - left paired veins not seen (only one of two seen) Greater Saph Vein Upper Small Saph Vein 2) There is venous reflux noted at the following venous levels: Right upper Small Saphenous Vein an d distal Right Greater Saphenous Vein; in Left upper Greater Saphenous Vein, Left Common Femoral Vein , Left upper Deep Femoral Vein 3) Incompetent perforators are noted at these levels: none seen IMPRESSION: 1. No sonographic evidence of deep venous thrombosis or superficial venous thrombosis within the bila teral lower extremities. 2. Multifocal venous reflux as detailed above.
== END ==
LOC: RADUSWWP 12:54
PROVIDERS: ATTEND Family Medicine
DX: I87.8 Other specified disorders of veins (principal); L89.623 Pressure ulcer of left heel, stage 3; L03.116 Cellulitis of left lower limb
CPT/HCPCS: 80048; 85025; 85652; 86140; 93922; 93970

== ENCOUNTER → 2019-03-13 | Outpatient (CLI) | payer OTHER ==
--- NOTE | 2019-03-15 07:42 | PE ---
EXAMINATION TYPE: PET CT fusion skull to thigh DATE OF EXAM: 03/13/2019 COMPARISON: CT abdomen and pelvis January 20, 2019. CTA chest January 15, 2019. HISTORY: Colon cancer, initial staging study after surgery January 25, 2019. TECHNIQUE: Following the intravenous administration of 13.60 mCi of F-18 FDG, whole body images are performed from the skull base to the midthigh. Images are reviewed on the computer in the coronal, a xial, and sagittal planes. Reconstructed rotating images are created on independent workstation and reviewed on the computer. A noncontrast CT is performed in conjunction with the PET scan. SCAN: Initial Scan FINDINGS: SKULL BASE AND NECK: All areas of suspicious hypermetabolic uptake. CHEST, MEDIASTINUM, AND HILAR REGION: No areas of suspicious hypermetabolic uptake. ABDOMEN AND PELVIS: There is interval surgery with surgical sutures from right hemicolectomy near axi al image 184. Just cranial to this anterior to surgical clips from cholecystectomy there is persisten t hypermetabolic mass measuring 5.9 x 4.7 cm axial image 165 that may be contiguous with bowel loops felt to reflect residual neoplasm. Max SUV at this level is 24.89. No additional suspicious areas of abnormal hypermetabolic uptake are present. OSSEOUS STRUCTURES: No areas of suspicious hypermetabolic uptake. OTHER CT: Prominent bilateral gynecomastia is redemonstrated. There is right-sided volume loss with mediastinal shift redemonstrated. There is moderate biatrial di latation. Prostate gland is mildly enlarged consistent with BPH. There is moderate calcified plaque of the aort a extending into branch vessels. There is multilevel facet arthropathy in the mid to lower lumbar spi ne. This multilevel spurring in the thoracolumbar spine noted. IMPRESSION: Despite interval surgery there is persistent suspicious hypermetabolic mass in the right upper quadrant worrisome for residual neoplasm. Correlate with surgical noted at time of surgery. Pos sible adjacent necrotic adenopathy that could not be resected? This can be better localized with cont rast-enhanced CT if desired. No metastatic disease is present.
== END | disposition home or self-care (01) ==
LOC: RADPETMAIN 10:14
PROVIDERS: ATTEND Internal Medicine Hematology & Oncology
DX: C18.2 Malignant neoplasm of ascending colon (principal)
CPT/HCPCS: 78815; A9552

== ENCOUNTER → 2019-06-18 | Outpatient (CLI) | payer OTHER ==
--- NOTE | 2019-06-18 11:58 | CT ---
EXAMINATION TYPE: CT ChestAbdPelvis w con DATE OF EXAM: 06/18/2019 COMPARISON: CTA chest January 15, 2019. CT abdomen and pelvis January 20, 2019. PET/CT March 13, 2019. HISTORY: colon cancer originally diagnosed in January completed chemotherapy in February. CT DLP: 2972.8 mGycm. Automated Exposure Control for Dose Reduction was Utilized. CONTRAST: CT scan of the thorax, abdomen and pelvis is performed with IV Contrast, patient injected with 80 mL of Isovue 300. FINDINGS: LUNGS: There is persistent right-sided volume loss with mediastinal shift and some mild scattered par enchymal scarring. No suspicious new nodules or masses. No pleural effusion or pneumothorax MEDIASTINUM: There are no greater than 1 cm hilar or mediastinal lymph nodes. Stable tiny pericardial effusion is seen. Heart size stable upper limits of normal. OTHER: Prominent bilateral gynecomastia is redemonstrated. LIVER/GB: Multiple cholecystectomy clips are redemonstrated. Liver remains low dense suggesting mild diffuse fatty infiltration. PANCREAS: No significant abnormality is seen. SPLEEN: Occasional calcification throughout the spleen is again seen. ADRENALS: No significant abnormality is seen. KIDNEYS: Symmetric cortical medullary uptake and excretion without hydronephrosis seen bilaterally. BOWEL: There has been interval partial right sided colectomy since prior CT. At end-to-side bowel montse stomosis there is moderate wall thickening identified at the anastomotic colone image 47 series 9. At site of prior neoplasm near hepatic flexure there is persistent suspicious 2.9 cm heterogeneous hypo dense peritoneal mass coronal image 31 and axial image 47 series 9 which neoplasm or tumor adenopathy needs to be considered. Just below this right-sided small bowel loop shows moderate wall thickening series 4 image 88, cannot exclude lesion at this level. Oral contrast reaches mid to distal transvers e colon level. Correlating with more recent PET/CT shows area of wall thickening near anastomosis not significantly changed without hypermetabolic uptake on PET/CT. Area of adjacent mass at level of hepatic flexure is diminished in size from PET/CT. GENITAL ORGANS: Heterogeneous enlarged prostate gland consistent with BPH is redemonstrated. LYMPH NODES: No greater than 1cm abdominal or pelvic lymph nodes are appreciated. OSSEOUS STRUCTURES: No significant abnormality is seen. OTHER: No significant additional abnormality is seen. IMPRESSION: Persistent mass at level of hepatic flexure though felt diminished in size from compariso n PET/CT. No new distal masses or adenopathy are identified.
== END | disposition home or self-care (01) ==
LOC: RADCTMAIN 09:11
PROVIDERS: ATTEND Internal Medicine Hematology & Oncology
DX: Z08 Encounter for follow-up examination after completed treatment for malignant neoplasm (principal); Z90.49 Acquired absence of other specified parts of digestive tract; Z85.038 Personal history of other malignant neoplasm of large intestine
CPT/HCPCS: 82565; 84520; 71260; 74177; 36415; Q9967

== ENCOUNTER → 2019-06-28 | Outpatient (CLI) | payer MEDICARE, BC ==
[2019-06-28 16:50] LABS: African American GFR (CKD) 88.7 (60.0-200.0); Albumin 3.6 g/dL (3.80-4.90); Albumin/Globulin Ratio 1.71 (1.60-3.17); Calcium 8.2 mg/dL (8.7-10.3); Globulin 2.1 g/dL (1.6-3.3); Potassium 4.6 mmol/L (3.5-5.5); Total Protein 5.7 g/dL (6.2-8.2)
== END | disposition home or self-care (01) ==
LOC: LABWHC1 11:14
PROVIDERS: ATTEND Internal Medicine Interventional Cardiology
DX: D48.1 Neoplasm of uncertain behavior of connective and other soft tissue (principal)
CPT/HCPCS: 36415; 80053; 84443

== ENCOUNTER → 2019-09-03 | Outpatient (CLI) | payer OTHER ==
--- NOTE | 2019-09-03 14:39 | CT ---
EXAMINATION TYPE: CT ChestAbdPelvis w con DATE OF EXAM: 09/03/2019 COMPARISON: June 18 seen HISTORY: Colon cancer. CT DLP: 2325 mGycm CONTRAST: CT scan of the chest, abdomen and pelvis is performed with Oral Contrast and with IV Contrast, patien t injected with 100ml mL of Isovue 300. CT Chest: LUNGS: The lungs are clear and free of infiltrate or atelectasis. No pulmonary nodule or mass is det ected. No pleural effusion or CT evidence of interstitial lung disease. MEDIASTINUM: Thoracic aorta is of normal caliber. The heart is not enlarged. No evidence for media stinal mass or adenopathy. HILAR STRUCTURES: No evidence for mass. No hilar adenopathy is appreciated. OTHER: No significant abnormality. Gynecomastia noted bilaterally. CONTRAST CT ABDOMEN AND PELVIS FINDINGS: LIVER/GB: Cholecystectomy clips redemonstrated. No space occupying hepatic lesion. Biliary tree is of normal caliber. PANCREAS: No inflammation. No distinct mass. SPLEEN: No splenic enlargement. No lesion seen. ADRENALS: No nodule. No thickening. KIDNEYS/BLADDER: No hydronephrosis. No nephrolithiasis. No disctinct renal mass. BOWEL: Soft tissue mass at the level of the hepatic flexure is redemonstrated. Mass appears to be ess entially unchanged this time. Fat plane with the adjacent liver is somewhat obscured and infiltration into the liver is difficult to rule out at this time. No additional masses identified. No evidence o f bowel obstruction. Partial right hemicolectomy changes noted. GENITAL ORGANS: No gross abnormality. LYMPH NODES: No greater than 1cm abdominal or pelvic lymph nodes are appreciated. AORTA: No significant abnormality. OSSEOUS STRUCTURES: No significant abnormality is seen. OTHER: No significant additional abnormality is seen. IMPRESSION: 1. No change in mass at the level of the hepatic flexure. No evidence for new masses or distant metas tases. Fat plane with the adjacent liver is somewhat obscured and this does raise the possibility of microinvasion.
== END | disposition home or self-care (01) ==
LOC: RADCTMAIN 12:20
PROVIDERS: ATTEND Internal Medicine Hematology & Oncology
DX: C18.3 Malignant neoplasm of hepatic flexure (principal)
CPT/HCPCS: 71260; 74177; 36415; Q9967 ×2

== ENCOUNTER → 2019-12-08 | Outpatient (CLI) | payer OTHER ==
[2019-12-08 12:24] LABS: African American GFR (CKD) >90 (>60 ml/min/1.73 sqM); Blood Urea Nitrogen 14 mg/dL (9-20); Non-African American GFR(CKD) 81 (>60 ml/min/1.73 sqM)
--- NOTE | 2019-12-08 22:07 | CT ---
EXAMINATION TYPE: CT ChestAbdPelvis w con DATE OF EXAM: 12/08/2019 COMPARISON: 09/03/2019, 06/18/2019, and 03/13/2019 HISTORY: 89-year-old male follow up colon cancer TECHNIQUE: Contiguous axial scanning of the chest, abdomen, and pelvis performed with IV Contrast, pa tient injected with 100 mL of Isovue 300. Delayed images through the kidneys were obtained. Coronal/s agittal reconstructions performed. CT DLP: 1762.9 mGycm Automated exposure control for dose reduction was used. FINDINGS: CHEST: Heart upper limits of normal in size. Stable slight rightward positioning of the heart within the rai st. This appears to be a chronic finding. Mild aortic valvular calcifications. Ectatic upper descending thoracic aorta 3.1 cm. Conventional arch vessel branching anatomy. Large caliber to the main right pulmonary artery at 2.8 cm may reflect underlying pulmonary arterial hypertension. Moderate bilateral gynecomastia. No thoracic lymphadenopathy by CT size criteria. Some strandy atelectasis in the right lower lung without consolidation or pleural effusion. ABDOMEN: Calcified granuloma right liver lobe. Stable 4.2 cm wide right paramedian epigastric abdominal wall defect containing omental fat. Portal v enous system appears patent. No biliary ductal dilatation. 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 Cholecystectomy clips. Adrenal glands, kidneys, and pancreas appear within normal limits. Calcified granulomas within the sp genaro. Tiny hiatal hernia. The patient's right upper quadrant mesenteric mass located just below the gallbladder fossa shows pro nounced interval improvement. There is some residual strandy density and mild soft tissue thickening in this region and some poorly defined fat planes. However, a well-defined residual mass is not ident ified. An adjacent right mid abdominal mesenteric lymph node currently measures 7 mm versus 1 cm, pre viously. In the interval, there appears to have been the development of enteroenteric fistulas between the pre viously involved small bowel loop here. Fistulas are seen extending to the second portion of the duod enum, refer to axial image 79 and also upwards to the immediately adjacent small bowel loop located a t the gallbladder fossa, axial image 75. Mild to moderate atherosclerotic calcifications abdominal aorta and iliac arteries. No dilated small bowel, free fluid, or free air. No progressive mediastinal or retroperitoneal lymphadenopathy. Some prominent retroperitoneal lymph n odes measuring up to 8 mm at the aortocaval region, axial image 74, are unchanged.. Patient is status post partial right hemicolectomy. There are some areas of irregular fold thickening of the proximal transverse colon, refer to axial im ages 82 through 86. This could be secondary to some debris within the colon. Close follow-up recommen ded to exclude serosal disease. PELVIS: Mild gallbladder wall thickening. Prostate gland measures 5.6 cm wide. No abnormal fluid collection i n the pelvis or pelvic lymphadenopathy. BONES: Mild degenerative changes of the hips. Degenerative changes right SI joint. Degenerative changes lowe r lumbar spine. 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 No osseous destructive process seen. IMPRESSION: 1. INTERVAL IMPROVEMENT. THE PREVIOUS RIGHT UPPER QUADRANT MESENTERIC MASS HAS ESSENTIALLY RESOLVED W ITH ONLY RESIDUAL STRANDING AND MILD SOFT TISSUE THICKENING IN ITS PLACE. 2. HOWEVER, THE SMALL BOWEL LOOP IN THE RIGHT UPPER QUADRANT PREVIOUSLY INVOLVED BY THE MASS NOW HAS FINDINGS SUSPICIOUS FOR ENTEROENTERIC FISTULA FORMATION WITH A SMALL BOWEL LOOP IMMEDIATELY ADJACENT AND ALSO TO THE ADJACENT SECOND PORTION OF THE DUODENUM. 3. PREVIOUS PARTIAL RIGHT HEMICOLECTOMY. THE PROXIMAL TRANSVERSE COLON HAS AREAS OF IRREGULAR FOLD TH ICKENING (AXIAL IMAGES 82 THROUGH 84). THIS COULD BE SECONDARY TO SOME DEBRIS WITHIN THE COLON. CLOSE FOLLOW-UP RECOMMENDED TO EXCLUDE NEW SEROSAL DISEASE. 4. 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 THE CIRCUMFERENTIAL BLADDER WALL THICKENING COULD BE CHRONIC BLADDER WALL HYPERTROPHY OR CYSTITIS. CLINICALLY CORRELATE.
== END | disposition home or self-care (01) ==
LOC: RADCTMAIN 11:45
PROVIDERS: ATTEND Internal Medicine Hematology & Oncology
DX: Z03.89 Encounter for observation for other suspected diseases and conditions ruled out (principal); C18.3 Malignant neoplasm of hepatic flexure; N40.0 Benign prostatic hyperplasia without lower urinary tract symptoms; R93.3 Abnormal findings on diagnostic imaging of other parts of digestive tract; R93.41 Abnormal radiologic findings on diagnostic imaging of renal pelvis, ureter, or bladder; Z90.49 Acquired absence of other specified parts of digestive tract
CPT/HCPCS: 82565; 84520; 71260; 74177; 36415; Q9967

== ENCOUNTER → 2020-01-20 | Outpatient (CLI) | payer OTHER | END | disposition home or self-care (01) | CPT/HCPCS: 82565; 84520; 71260; 74177; 36415; Q9967 ==

== ENCOUNTER → 2020-04-17 | Outpatient (CLI) | payer OTHER ==
[2020-04-17 10:22] LABS: African American GFR (CKD) >90 (>60 ml/min/1.73 sqM); Blood Urea Nitrogen 15 mg/dL (9-20); Non-African American GFR(CKD) 78 (>60 ml/min/1.73 sqM)
--- NOTE | 2020-04-17 12:35 | CT ---
EXAMINATION TYPE: CT ChestAbdPelvis w con DATE OF EXAM: 04/17/2020 COMPARISON: CT HISTORY: Follow up colon cancer. CT DLP: 2316.9 mGycm Automated exposure control for dose reduction was used. CONTRAST: CT scan of the chest, abdomen and pelvis is performed with Oral Contrast and with IV Contrast, patien t injected with 100 mL of Isovue 300. FINDINGS: Changes of bilateral gynecomastia are again noted. LUNGS: The lungs are grossly clear, there is no concerning parenchymal mass or nodule identified. T here is no pleural effusion or pneumothorax seen. The tracheobronchial tree is patent. MEDIASTINUM: There are no greater than 1 cm hilar or mediastinal lymph nodes. No pericardial effusi on is seen. AORTA: No significant abnormality is seen. OTHER: No additional significant abnormality is seen. LIVER/GB: No significant interval change is appreciated. PANCREAS: No significant abnormality is seen. SPLEEN: No significant abnormality is seen. ADRENALS: No significant abnormality is seen. KIDNEYS: No significant abnormality is seen. REPRODUCTIVE ORGANS: Prostate is enlarged and shows associated calcification BOWEL: The appearance is similar to prior exam. There is thickening along the duodenum. Thickening o f the bowel in the right upper quadrant is again seen. Again noted is a duodenal diverticulum which c ontains a contrast air level. FREE AIR: No Free Air visible. ASCITES: None seen. RETROPERITONEAL ADENOPATHY: No retroperitoneal adenopathy is seen. LYMPH NODES: No greater than 1 cm abdominal or pelvic lymph nodes are appreciated. URINARY BLADDER: No change in the thickening of the urinary bladder wall which may be due to chronic bladder outlet obstruction. PELVIC ADENOPATHY: None visualized. OSSEOUS STRUCTURES: No significant abnormality is seen. IMPRESSION: No interval change
== END | disposition home or self-care (01) ==
LOC: RADCTMAIN 09:36
PROVIDERS: ATTEND Internal Medicine Hematology & Oncology
DX: C18.3 Malignant neoplasm of hepatic flexure (principal)
CPT/HCPCS: 82565; 84520; 71260; 74177; 36415; Q9967

== ENCOUNTER → 2020-07-25 | Outpatient (CLI) | payer OTHER ==
--- NOTE | 2020-07-26 21:03 | CT ---
EXAMINATION TYPE: CT ChestAbdPelvis w con DATE OF EXAM: 07/25/2020 COMPARISON: CT chest abdomen pelvis 04/17/2020. HISTORY: Follow up scan colon cancer. CT DLP: 2562.8 mGycm Automated exposure control for dose reduction was used. CONTRAST: CT scan of the chest, abdomen and pelvis is performed with Oral Contrast and with IV Contrast, patien t injected with 100 mL of Isovue 300. FINDINGS: LUNGS: Lungs are grossly clear. No concerning parenchymal mass or nodule identified. No pleural effus ion. No pneumothorax. The tracheobronchial tree is patent. MEDIASTINUM/SOFT TISSUES: No axillary, hilar, or mediastinal lymphadenopathy greater than 1 cm. Cardi ac size is normal. No pericardial effusion. No thoracic aortic aneurysm. LIVER: Calcified granuloma. BILIARY SYSTEM: Status post cholecystectomy. No intrahepatic or extrahepatic biliary ductal dilatatio n. PANCREAS: Normal. SPLEEN: Calcified granuloma. ADRENALS: Normal. KIDNEYS: Normal. BOWEL: Right hemicolectomy postsurgical changes. Redemonstrated right upper quadrant inflammatory st randing and thickening just inferior to the color fossa. Redemonstrated duodenal diverticulum. No cinthya dence of obstruction. PERITONEUM: No pneumoperitoneum. No free fluid. Fat-containing upper abdominal ventral midline herni a. LYMPH NODES: No lymphadenopathy. PELVIS: Normal. VASCULATURE: No abdominal aortic aneurysm. Calcified metastatic disease. MUSCULOSKELETAL: Gynecomastia. No aggressive osseous destructive lesions. Osteopenia. Degenerative c hanges of the spine. Diffuse bridging osteophytes of the thoracic spine may represent diffuse idiopat hic skeletal hyperostosis. IMPRESSION: Unchanged appearance of the right upper quadrant bowel, thickened inferior to the gallbladder fossa. No evidence of discrete mass or metastatic disease.
== END | disposition home or self-care (01) ==
LOC: RADCTMAIN 10:55
PROVIDERS: ATTEND Internal Medicine Hematology & Oncology
DX: C18.3 Malignant neoplasm of hepatic flexure (principal); K82.8 Other specified diseases of gallbladder
CPT/HCPCS: 82565; 84520; 71260; 74177; 36415; Q9967

== ENCOUNTER → 2020-11-21 | Outpatient (CLI) | payer OTHER ==
--- NOTE | 2020-11-21 12:58 | CT ---
EXAMINATION TYPE: CT ChestAbdPelvis w con DATE OF EXAM: 11/21/2020 COMPARISON: 07/25/2020 HISTORY: colon CA follow up CT DLP: 2541.4 mGycm Automated exposure control for dose reduction was used. CONTRAST: CT scan of the chest, abdomen and pelvis is performed with Oral Contrast and with IV Contrast, patien t injected with 100 mL of Isovue 300. FINDINGS: LUNGS: 2 mm subpleural nodule superior segment right lower lobe is stable from prior exam. No consoli dation or pleural effusion. No pneumothorax. No new nodule seen.. MEDIASTINUM: There are no greater than 1 cm hilar or mediastinal lymph nodes. No pericardial effusi on is seen. Atherosclerotic change of the aorta. OTHER: Stable. Gynecomastia. LIVER/GB: Postcholecystectomy changes are noted.. PANCREAS: No significant abnormality is seen. SPLEEN: No significant abnormality is seen. ADRENALS: No significant abnormality is seen. KIDNEYS: No significant abnormality is seen. BOWEL: Right hemicolectomy postsurgical changes. Redemonstrated right upper quadrant inflammatory st randing and thickening just inferior to the gallbladder fossa. This likely represents a loop of small bowel. Redemonstrated duodenal diverticulum. No evidence of obstruction. LYMPH NODES: No greater than 1 cm abdominal or pelvic lymph nodes are appreciated. OSSEOUS STRUCTURES: Hypertrophic and degenerative changes of the spine. OTHER: Aorta of normal caliber. Atherosclerotic changes noted including its side branches. Prostate g land prominent in size. Fat-containing anterior abdominal wall hernia. IMPRESSION: 1. No evidence of intrathoracic or intra-abdominal pathologic adenopathy or mass. 2. Persistent thickened bowel loop in the right upper quadrant unchanged from the prior exam appears to be small bowel loop. Overall appearance is stable. Findings nonspecific. Enteritis in the differen tial diagnosis. Mucosal lesion not excluded.
== END | disposition home or self-care (01) ==
LOC: RADCTMAIN 10:19
PROVIDERS: ATTEND Internal Medicine Hematology & Oncology
DX: C18.3 Malignant neoplasm of hepatic flexure (principal); R93.3 Abnormal findings on diagnostic imaging of other parts of digestive tract
CPT/HCPCS: 82565; 84520; 71260; 74177; 36415; Q9967

== ENCOUNTER → 2021-02-20 | Outpatient (CLI) | payer OTHER ==
--- NOTE | 2021-02-20 16:47 | CT ---
EXAMINATION TYPE: CT ChestAbdPelvis w con DATE OF EXAM: 02/20/2021 COMPARISON: CT 11/21/2020 HISTORY: Follow up for colon cancer. CT DLP: 2703.8 mGycm Automated exposure control for dose reduction was used. CONTRAST: CT scan of the chest, abdomen and pelvis is performed with Oral Contrast and with IV Contrast, patien t injected with 100ml mL of Isovue 300. FINDINGS: There are changes of gynecomastia. There is a small hiatal hernia present. LUNGS: The lungs are grossly clear, there is no concerning parenchymal mass or nodule identified. T here is no pleural effusion or pneumothorax seen. The tracheobronchial tree is patent. MEDIASTINUM: There are no greater than 1 cm hilar or mediastinal lymph nodes. No pericardial effusi on is seen. AORTA: No significant abnormality is seen. OTHER: No additional significant abnormality is seen. LIVER/GB: Patient is post cholecystectomy. Liver shows no mass. There is a punctate calcification pre sent in the right lobe as on prior. PANCREAS: No significant abnormality is seen. SPLEEN: Punctate calcification again noted within the spleen ADRENALS: No significant abnormality is seen. KIDNEYS: No significant abnormality is seen. REPRODUCTIVE ORGANS: No interval change seen. BOWEL: No significant interval change is seen, diverticular change present in the descending colon, sigmoid which is decompressed. 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 ASCITES: None seen. RETROPERITONEAL ADENOPATHY: No retroperitoneal adenopathy is seen. LYMPH NODES: No greater than 1 cm abdominal or pelvic lymph nodes are appreciated. URINARY BLADDER: No significant abnormality is seen. PELVIC ADENOPATHY: None visualized. OSSEOUS STRUCTURES: No significant abnormality is seen. IMPRESSION: No interval change is evident no evident recurrence
== END | disposition home or self-care (01) ==
LOC: RADCTMAIN 12:10
PROVIDERS: ATTEND Internal Medicine Hematology & Oncology
DX: C18.9 Malignant neoplasm of colon, unspecified (principal)
CPT/HCPCS: 82565; 84520; 71260; 74177; 36415; Q9967

== ENCOUNTER → 2021-04-03 | Outpatient (CLI) | payer OTHER ==
--- NOTE | 2021-04-04 09:43 | P.ARTDOP ---
Arterial Doppler LOWER EXTREMITY ARTERIAL DOPPLER: DATE OF SERVICE: 04/03/2021 Reason for study: Suspected vascular disease. Doppler waveforms: Multiphasic including posterior tibial bilaterally. Dorsalis pedis more atypical. Toe waveforms mildly blunted. Pulse volume recording: []. Pressure gradients: Below the knee bilaterally. Ankle-brachial indices: 0.79 on the right and 0.96 on the left. Toe brachial indices: 0.61 on the right, 0.44 on the left Impression: Mild bilateral infrapopliteal disease..
== END | disposition home or self-care (01) ==
LOC: RADUSWWP 11:39
DX: I73.9 Peripheral vascular disease, unspecified (principal)
CPT/HCPCS: 93923

== ENCOUNTER → 2021-07-13 | Outpatient (CLI) | payer OTHER ==
--- NOTE | 2021-07-16 10:26 | CT ---
EXAMINATION TYPE: CT ChestAbdPelvis wo/w con DATE OF EXAM: 07/13/2021 INDICATION: Follow up for colon cancer. COMPARISON: 02/20/2021 CT DLP: 4334.8 mGycm CONTRAST: Performed with Oral Contrast and without and with IV Contrast, patient injected with 100ml mL of Isov ue 300. TECHNIQUE: Axial images at 5 mm thick sections. Reconstructed images in the coronal plane. Delayed images through the kidneys. FINDINGS: CT CHEST: Portion of the thyroid visualized is normal. No suspicious lung nodules or focal infiltrates are present. No enlarged mediastinal or hilar adenopathy is evident. The ascending aorta diameter at the level of the main pulmonary artery is 4.0 cm. The main pulmonary artery diameter at the bifurcation is 3.[address] ABDOMEN: Liver: Normal Spleen: Calcified granulomas are within the spleen. Pancreas: Normal Adrenal glands: The adrenal glands are normal. Gallbladder: Surgically absent Kidneys: No masses are evident. No hydronephrosis is present. No cysts are present. Delayed images were obtained through the kidneys, which remain unremarkable. Aorta: Vascular calcification is within the aorta. Inferior vena cava: Normal. CT PELVIS: Loops of bowel within the abdomen and pelvis are normal. Correlate with surgical history. No suspicio us hepatic flexure masses are identified at this time There are loops of bowel lacking oral contras t material in portions of the evaluation. Multiple scattered diverticuli are present. No acute divert iculitis is evident. Appendix: What may be the appendix is normal. No dilated tubular structure or inflammatory changes ar e evident. Choroid with the surgical history. Urinary bladder: Normal. Genitourinary structures: Prostate is prominent. Osseous structures: No suspicious lytic or sclerotic lesions. IMPRESSIONS: 1. No suspicious changes to suggest metastatic colon cancer.
== END | disposition home or self-care (01) ==
LOC: RADCTMAIN 13:52
PROVIDERS: ATTEND Internal Medicine Hematology & Oncology
DX: C18.9 Malignant neoplasm of colon, unspecified (principal)
CPT/HCPCS: 82565; 84520; 71270; 74178; 36415; Q9967

== ENCOUNTER → 2022-01-11 | Outpatient (CLI) | payer OTHER ==
--- NOTE | 2022-01-11 16:05 | CT ---
EXAMINATION TYPE: CT ChestAbdPelvis w con DATE OF EXAM: 01/11/2022 COMPARISON: CT dated 07/13/2021 HISTORY: Follow up for colon cancer. CT DLP: 2419.8 mGycm Automated exposure control for dose reduction was used. CONTRAST: CT scan of the chest, abdomen and pelvis is performed with Oral Contrast and with IV Contrast, patien t injected with 100ml mL of Isovue 300. FINDINGS: The right side of the abdominal wall is not included in the scan. LUNGS: The lungs are grossly clear, there is no concerning parenchymal mass or nodule identified. T here is no pleural effusion or pneumothorax seen. The tracheobronchial tree is patent. MEDIASTINUM: There are no greater than 1 cm hilar or mediastinal lymph nodes. Persistent cardiomedia stinal shift to the right side and cardiomegaly. Arterial and coronary atherosclerotic calcifications . The right pulmonary artery measures 3.3 cm suggestive of pulmonary hypertension. No pericardial eff usion is seen. OTHER: Sizable gynecomastia changes seen bilaterally. Osteopenia. No aggressive bone lesion. Degener ative changes of thoracic spine. LIVER/GB: No definite hepatic focal lesion. Previous cholecystectomy. PANCREAS: Atrophic. SPLEEN: No significant abnormality is seen. ADRENALS: No significant abnormality is seen. KIDNEYS: No significant abnormality is seen. BOWEL: Unremarkable stomach. Second part of the duodenum diverticulum. Multiple small diverticula ar e also seen involving the small bowel. No evidence of bowel obstruction. Wall thickening of the infer ior aspect of the rectum with adjacent posterior soft tissue thickening measuring 2.3 cm best appreci ated on sagittal images, stable compared to the previous. Scattered uncomplicated colonic diverticulo sis. Unremarkable ileocolic anastomosis in the right side of the abdomen. REPRODUCTIVE ORGANS: Enlarged prostate, please correlate with PSA level. LYMPH NODES: No pathologically enlarged abdominal or pelvic lymph nodes. OSSEOUS STRUCTURES: Sacral hypodensity, possibly postradiation. Osteopenia. No aggressive bone lesion . OTHER: Extensive arterial atherosclerotic calcifications. Fat-containing left inguinal hernia. No asc ites. IMPRESSION: Stable inferior rectal soft tissue thickening as described above. Underlying small lesion cannot be e xcluded. This is consistent with stable condition. No evidence of metastatic disease in the chest, ab domen or the pelvis. Incidental findings as detailed above.
== END | disposition home or self-care (01) ==
LOC: RADCTMAIN 11:01
PROVIDERS: ATTEND Internal Medicine Hematology & Oncology
DX: C18.3 Malignant neoplasm of hepatic flexure (principal); K62.89 Other specified diseases of anus and rectum; K57.50 Diverticulosis of both small and large intestine without perforation or abscess without bleeding
CPT/HCPCS: 82565; 84520; 71260; 74177; 36415; Q9967